=== PATIENT | female | born 1960 | race Two or more races ===

== ENCOUNTER 2017-01-11 16:25 | Inpatient (IN) | payer MEDICARE, MEDICAID ==
[~2017-01-11] VITALS: Ht 165.1 cm; Wt 68.0 kg
[2017-01-11] MEDS ORDERED: Morphine Sulfate 4mg/ml Inj IVP ONE (17:45)
[2017-01-11 18:30] LABS: BASOPHILS % (AUTO) 1.7 % (0.0-2.0); EOSINOPHILS % (AUTO) 5.9 % (0.0-3.0); LYMPHOCYTES % (AUTO) 21.3 % (20.0-45.0); MEAN CORPUSCULAR HEMOGLOBIN 34.7 PG (27.0-31.0); MEAN CORPUSCULAR HGB CONC 35.2 G/DL (32.0-36.0); MEAN CORPUSCULAR VOLUME 99 FL (80-99); MEAN PLATELET VOLUME 5.8 FL (6.5-10.1); MONOCYTES % (AUTO) 5.2 % (1.0-10.0); NEUTROPHILS % (AUTO) 65.9 % (45.0-75.0); PLATELET COUNT 260 K/UL (150-450); RED BLOOD COUNT 3.41 M/UL (4.20-5.40); RED CELL DISTRIBUTION WIDTH 12.1 % (11.6-14.8); WHITE BLOOD COUNT 9.6 K/UL (4.8-10.8)
[2017-01-11 18:48] LABS: ALANINE AMINOTRANSFERASE 9 U/L (3-33); ANION GAP 10 (5-15); ASPARTATE AMINO TRANSFERASE 11 U/L (5-40); CALCIUM 10.3 mg/dL (8.6-10.2); CARBON DIOXIDE 22 mEQ/L (20-30); CHLORIDE 105 mEQ/L (98-107); CREATININE 2.3 mg/dL (0.5-0.9); GLOMERULAR FILTRATION RATE 21.8 mL/min (>60); HEMOLYSIS 3; LIPASE 34 U/L (< 60); POTASSIUM 5.5 mEQ/L (3.4-4.9); SODIUM 137 mEQ/L (135-145); TOTAL PROTEIN 7.2 g/dL (6.6-8.7); TROPONIN I < 0.30 ng/mL (<=0.30)
[2017-01-11] MEDS ORDERED: Sodium Polystyrene Sulfonate 15gm Powder ORAL ONE (19:00)
[2017-01-11] MEDS ORDERED: VITAMIN B COMP1 EAC7 PO (19:24)
[2017-01-11] MEDS ORDERED: LACTULOSE20 GM/301 ORAL (19:24)
[2017-01-11] MEDS ORDERED: ACETAMINOPHEN500 M7 PO (19:24)
[2017-01-11] MEDS ORDERED: ASPIR 8181 MG ORAL (19:24)
[2017-01-11] MEDS ORDERED: SENOKOT-S TABL1 EACH PO (19:24)
[2017-01-11] MEDS ORDERED: MILK OF MA400 MG/51 ORAL (19:24)
[2017-01-11] MEDS ORDERED: LISINOPRIL20 MG ORAL (19:24)
[2017-01-11] MEDS ORDERED: LIPITOR20 MG ORAL (19:24)
[2017-01-11] MEDS ORDERED: GEODON40 MG ORAL (19:24)
[2017-01-11] MEDS ORDERED: GLIPIZIDE5 MG ORAL (19:24)
[2017-01-11] MEDS ORDERED: TRADJENTA5 MG PO (19:24)
[2017-01-11] MEDS ORDERED: LAMICTAL25 MG ORAL (19:24)
[2017-01-11] MEDS ORDERED: AMLODIPINE BESY10 MG ORAL (19:24)
[2017-01-11] MEDS ORDERED: ATIVAN1 MG ORAL (19:24)
[2017-01-11] MEDS ORDERED: MIRALAX17 G2 ORAL (19:24)
[2017-01-11] MEDS ORDERED: VITAMIN C500 M1 ORAL (19:24)
[2017-01-11] MEDS ORDERED: PEPCID20 MG ORAL (19:24)
[2017-01-11] MEDS ORDERED: COLACE100 MG ORAL (19:24)
[2017-01-11] MEDS ORDERED: FENOFIBRATE54 MG ORAL (19:24)
[2017-01-11] MEDS ORDERED: BENZTROPINE ME0.5 MG PO (19:24)
[2017-01-11] MEDS ORDERED: mylanta (19:24)
[2017-01-11] MEDS ORDERED: CATAPRES0.1 MG ORAL (19:24)
[2017-01-11] MEDS ORDERED: IBUPROFEN600 MG ORAL (19:24)
[2017-01-11 19:27] VITALS: BP 137/74
[2017-01-11 19:47] LABS: APPEARANCE,URINE CLEAR; KETONES,URINE NEGATIVE (NEGATIVE); LEUKOCYTE ESTERASE ,URINE 2+ (NEGATIVE); NITRITE,URINE NEGATIVE (NEGATIVE); PH,URINE 5 (4.5-8.0); PROTEIN,URINE 4+ (NEGATIVE); UROBILINOGEN,URINE NORMAL MG/DL (0.0-1.0)
[2017-01-11 19:53] LABS: AMORPHOUS SEDIMENT,UR FEW /LPF; BACTERIA,URINE MODERATE /HPF; SQUAMOUS EPITHELIAL CELL,UR FEW /LPF (NONE/OCC)
[2017-01-11] MEDS ORDERED: Miralax 17gm pkt ORAL PRN (20:45)
[2017-01-11] MEDS ORDERED: Nitroglycerin Subl 0.4mg tab (Bottle Of 25) SL PRN (20:45)
[2017-01-11] MEDS ORDERED: Mylanta II UD 30ml ORAL PRN (20:45)
[2017-01-11] MEDS ORDERED: Ketorolac 30mg Inj IV PRN (20:45)
[2017-01-11] MEDS ORDERED: Morphine Sulfate 2mg/ml Inj IVP ONE (21:00)
[2017-01-11] MEDS: Atorvastatin 20mg tab ORAL SCH (21:00)
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
[2017-01-11 21:50] VITALS: BP 144/68
[2017-01-11] MEDS: Heparin 5000 units/ml inj SUBQ SCH (21:52)
[2017-01-11] MEDS: NovoLOG Insulin Flexpen SUBQ SCH (22:00)
[2017-01-11] MEDS ORDERED: Lactulose 20gm/30ml UDC ORAL PRN (22:45)
[2017-01-12] VITALS: BP 135/72
[2017-01-12 04:00] VITALS: BP 140/67
[2017-01-12] MEDS: NovoLOG Insulin Flexpen SUBQ SCH ×4 (06:30→21:33)
[2017-01-12 06:55] LABS: INR 0.9 (0.9-1.1); PROTHROMBIN TIME 9.2 SEC (9.30-11.50)
[2017-01-12 07:11] LABS: BASOPHILS % (AUTO) 1.4 % (0.0-2.0); EOSINOPHILS % (AUTO) 7.3 % (0.0-3.0); LYMPHOCYTES % (AUTO) 31.1 % (20.0-45.0); MEAN CORPUSCULAR HEMOGLOBIN 32.7 PG (27.0-31.0); MEAN CORPUSCULAR HGB CONC 33.1 G/DL (32.0-36.0); MEAN CORPUSCULAR VOLUME 99 FL (80-99); MEAN PLATELET VOLUME 6.3 FL (6.5-10.1); MONOCYTES % (AUTO) 6.6 % (1.0-10.0); NEUTROPHILS % (AUTO) 53.7 % (45.0-75.0); PLATELET COUNT 256 K/UL (150-450); RED BLOOD COUNT 3.23 M/UL (4.20-5.40); WHITE BLOOD COUNT 6.6 K/UL (4.8-10.8)
[2017-01-12 07:13] LABS: THYROID STIMULATING HORMONE 53.87 uIU/mL (0.300-4.500)
[2017-01-12 07:14] LABS: ALBUMIN/GLOBULIN RATIO 0.9 (1.0-2.7); CALCIUM 10.1 mg/dL (8.6-10.2); CREATININE 1.9 mg/dL (0.5-0.9); GLOMERULAR FILTRATION RATE 27.2 mL/min (>60); POTASSIUM 5.8 mEQ/L (3.4-4.9); TOTAL PROTEIN 6.5 g/dL (6.6-8.7)
[2017-01-12 07:26] LABS: HEMOGLOBIN A1C 5.8 % (< 6.0)
[2017-01-12 08:32] VITALS: BP 150/78
[2017-01-12] MEDS: Heparin 5000 units/ml inj SUBQ SCH ×3 (09:00→21:00)
[2017-01-12] MEDS: Lisinopril 20mg tab ORAL SCH (09:08)
[2017-01-12] MEDS: Morphine Sulfate 2mg/ml Inj IVP PRN ×3 (09:11→21:31)
--- NOTE | 2017-01-12 09:20 | Diagnostic Imaging Report ---
Indication: Abdominal pain Technique: Spiral acquisitions obtained through the abdomen and pelvis. Patient given oral contrast. No IV contrast utilized, per referring physician request.. Multiplanar reconstructions were generated. Total dose length product 986 mGycm. CTDIvol(s) 19 mGy. Dose reduction achieved using automated exposure control Comparison: None Findings: The rectum is considerably distended with feces. Wall is mildly thickened. There is also considerable fecal burden throughout the remainder of the colon. No evidence of diverticulosis or diverticulitis. The appendix is normal. No small bowel distention or small bowel wall thickening. No free or loculated intraperitoneal air or fluid. Distal esophagus, stomach, duodenum are unremarkable. Lack of IV contrast limits assessment of solid organs. There is an opacity at the gallbladder fundus. Uncertain as to whether this is intramural or intraluminal. This measures 12 mm diameter. No biliary ductal dilatation demonstrated. Pancreas, spleen, adrenals, right kidney are unremarkable. There is mild right hydronephrosis and hydroureter. The hydroureter extends to the level of the distended distal sigmoid. No intrinsic obstructing lesion is demonstrated. The bladder is mildly distended. The left kidney is not demonstrated. No pelvic mass or adenopathy. The included lung bases are clear, somewhat obscured by respiratory motion artifact. There is mild lumbar scoliotic deformity. There is mild anterolisthesis of L4 on L5 without associated pars defect. Impression: Evidence of rectal fecal impaction. There may be some associated proctitis Mild right hydronephrosis and hydroureter, may be related to compression by the above Evidence of prior left nephrectomy Gallbladder fundal lesion, uncertain as to whether this is a mural polyp or an intraluminal stone. Consider further evaluation with ultrasound Mild alignment abnormality of L4 on L5 incidental noted. There is also mild lower lumbar scoliotic deformity This agrees with the preliminary interpretation provided overnight by Dr. Bales The CT scanner at [facility] is accredited by the [employer] and the scans are performed using protocols designed to limit radiation exposure to as low as reasonably achievable to attain images of sufficient resolution adequate for diagnostic evaluation.
[2017-01-12] MEDS ORDERED: Sodium Polystyrene Sulfonate 15gm Powder ORAL ONE ×3 (10:45→14:00)
[2017-01-12 12:00] VITALS: BP 151/76
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
--- NOTE | 2017-01-12 15:28 | Diagnostic Imaging Report ---
Indication: Abdominal pain, abnormal liver function tests Technique: Avendano-scale and duplex images of the upper abdomen were obtained Comparison: 01/11/2017 CT scan Findings: Gallbladder is unremarkable, without stones, wall thickening, nor pericholecystic fluid. However, the fundus could not be well visualized. Sonographic Garnett's sign is negative. Common bile duct measures 11 mm in diameter. No intrahepatic biliary ductal dilatation. Liver demonstrates normal echogenicity, no focal abnormality. Portal vein and hepatic veins are patent. Pancreas is unremarkable. Spleen is unremarkable. Left kidney is surgically absent. Right kidney measures 11.3 cm length. Right kidney demonstrates normal echogenicity. There is mild fullness of the right renal collecting system Questionable 2.5 cm hypoechoic lesion seen within the right renal cortex of the interpolar region. No corresponding CT abnormality . Non-aneurysmal abdominal aorta . Impression: Unable to visualize gallbladder fundus well, therefore abnormality described on recent CT scan is not better characterized Extrahepatic biliary ductal dilatation, in retrospect evident on recent CT, but no definite downstream obstruction. Nonetheless, downstream obstruction not completely excludable. Consider MRCP for better characterization if medically indicated Surgically absent left kidney Questionable right renal 2.5 cm mass. Not visible on CT, but evaluation on recent CT scan is limited due to lack of IV contrast administration Mild right renal collecting system fullness, also described on recent CT
[2017-01-12] MEDS ORDERED: Bisacodyl EC 5mg tab ORAL ONE (16:00)
[2017-01-12] MEDS ORDERED: Nulytely 4L ORAL ONE (16:00)
[2017-01-12 16:37] VITALS: BP 120/67
--- NOTE | 2017-01-12 17:33 | Infectious Diseases Prog Note ---
Assessment/Plan Problems: (1) UTI (urinary tract infection) Assessment & Plan: will start ceftriaxon and send urine culture (2) Nausea & vomiting Assessment & Plan: continue supportive care and nausea meds, GI is following (3) Intractable abdominal pain Assessment & Plan: continue pain management, GI is following (4) Hyperkalemia Assessment & Plan: due to renal failure, continue hydration, monitor potassium level. (5) Renal insufficiency Assessment & Plan: suspect dehydration due to vomiting, continue IVF, monitor UOP, and renal function (6) Fecal impaction Assessment & Plan: recommend laxatives with emena, GI is following (7) Extrahepatic obstructive biliary disease Assessment & Plan: recommend MRCP for further evaluation , GI is following Subjective Allergies: Coded Allergies: No Known Allergies (Unverified , 01/11/17) Objective Vital Signs Last 24 Hour Vital Signs Date Time Temp Pulse Resp B/P Pulse Ox O2 Delivery O2 Flow Rate FiO2 01/12/17 16:37 98.2 85 18 120/67 95 Room Air 01/12/17 12:00 97.7 73 18 151/76 98 Room Air 01/12/17 09:08 150/78 01/12/17 09:07 79 150/78 01/12/17 08:32 97.7 150/78 97 Room Air 01/12/17 04:00 97.9 79 16 140/67 98 Room Air 01/12/17 00:00 98.0 84 18 135/72 99 Room Air 01/11/17 21:50 98.4 81 18 144/68 98 Room Air 01/11/17 21:17 98.6 77 15 137/74 100 Room Air 01/11/17 19:27 98.6 77 15 137/74 100 Room Air Height (Feet): 5 Height (Inches): 3.00 Weight (Pounds): 150 Microbiology Date/Time Source Procedure Growth Status 01/11/17 19:22 Urine,Clean Catch Urine Culture - Preliminary NO GROWTH Resulted Laboratory Tests Test 01/11/17 18:18 01/11/17 19:22 01/12/17 06:00 01/12/17 15:00 White Blood Count 9.6 K/UL (4.8-10.8) 6.6 K/UL (4.8-10.8) Red Blood Count 3.41 M/UL (4.20-5.40) L 3.23 M/UL (4.20-5.40) L Hemoglobin 11.8 G/DL (12.0-16.0) L 10.6 G/DL (12.0-16.0) L Hematocrit 33.6 % (37.0-47.0) L 31.9 % (37.0-47.0) L Mean Corpuscular Volume 99 FL (80-99) 99 FL (80-99) Mean Corpuscular Hemoglobin 34.7 PG (27.0-31.0) H 32.7 PG (27.0-31.0) H Mean Corpuscular Hemoglobin Concent 35.2 G/DL (32.0-36.0) 33.1 G/DL (32.0-36.0) Red Cell Distribution Width 12.1 % (11.6-14.8) 12.0 % (11.6-14.8) Platelet Count 260 K/UL (150-450) 256 K/UL (150-450) Mean Platelet Volume 5.8 FL (6.5-10.1) L 6.3 FL (6.5-10.1) L Neutrophils (%) (Auto) 65.9 % (45.0-75.0) 53.7 % (45.0-75.0) Lymphocytes (%) (Auto) 21.3 % (20.0-45.0) 31.1 % (20.0-45.0) Monocytes (%) (Auto) 5.2 % (1.0-10.0) 6.6 % (1.0-10.0) Eosinophils (%) (Auto) 5.9 % (0.0-3.0) H 7.3 % (0.0-3.0) H Basophils (%) (Auto) 1.7 % (0.0-2.0) 1.4 % (0.0-2.0) Sodium Level 137 mEQ/L (135-145) 142 mEQ/L (135-145) Potassium Level 5.5 mEQ/L (3.4-4.9) H 5.8 mEQ/L (3.4-4.9) H Chloride Level 105 mEQ/L (98-107) 112 mEQ/L (98-107) H Carbon Dioxide Level 22 mEQ/L (20-30) 23 mEQ/L (20-30) Anion Gap 10 (5-15) 7 (5-15) Blood Urea Nitrogen 30 mg/dL (7-23) H 27 mg/dL (7-23) H Creatinine 2.3 mg/dL (0.5-0.9) H 1.9 mg/dL (0.5-0.9) H Estimat Glomerular Filtration Rate 21.8 mL/min (>60) 27.2 mL/min (>60) Glucose Level 242 mg/dL (74-106) H 94 mg/dL (74-106) # Calcium Level 10.3 mg/dL (8.6-10.2) H 10.1 mg/dL (8.6-10.2) Total Bilirubin < 0.2 mg/dL (0.0-1.2) 0.2 mg/dL (0.0-1.2) Aspartate Amino Transf (AST/SGOT) 11 U/L (5-40) 11 U/L (5-40) Alanine Aminotransferase (ALT/SGPT) 9 U/L (3-33) 8 U/L (3-33) Alkaline Phosphatase 78 U/L (35-104) 59 U/L (35-104) Troponin I < 0.30 ng/mL (<=0.30) Total Protein 7.2 g/dL (6.6-8.7) 6.5 g/dL (6.6-8.7) L Albumin 3.7 g/dL (3.5-5.2) 3.2 g/dL (3.5-5.2) L Globulin 3.5 g/dL 3.3 g/dL Albumin/Globulin Ratio 1.0 (1.0-2.7) 0.9 (1.0-2.7) L Lipase 34 U/L (< 60) 43 U/L (< 60) Urine Color Yellow Urine Appearance Clear Urine pH 5 (4.5-8.0) Urine Specific [place] 1.015 (1.005-1.035) Urine Protein 4+ (NEGATIVE) H Urine Glucose (UA) 2+ (NEGATIVE) H Urine Ketones Negative (NEGATIVE) Urine Occult Blood 1+ (NEGATIVE) H Urine Nitrite Negative (NEGATIVE) Urine Bilirubin Negative (NEGATIVE) Urine Urobilinogen Normal MG/DL (0.0-1.0) Urine Leukocyte Esterase 2+ (NEGATIVE) H Urine RBC 2-4 /HPF (0 - 2) H Urine WBC 5-10 /HPF (0 - 2) H Urine Squamous Epithelial Cells Few /LPF (NONE/OCC) Urine Amorphous Sediment Few /LPF (NONE) H Urine Bacteria Moderate /HPF (NONE) H Prothrombin Time 9.2 SEC (9.30-11.50) L Prothromb Time International Ratio 0.9 (0.9-1.1) Activated Partial Thromboplast Time 27 SEC (23-33) Hemoglobin A1c 5.8 % (< 6.0) Amylase Level 76 U/L (10-110) Thyroid Stimulating Hormone (TSH) 53.870 uIU/mL (0.300-4.500) Urine Opiates Screen Positive (NEGATIVE) H Urine Barbiturates Screen Negative (NEGATIVE) Phencyclidine (PCP) Screen Negative (NEGATIVE) Urine Amphetamines Screen Negative (NEGATIVE) Urine Benzodiazepines Screen Negative (NEGATIVE) Urine Cocaine Screen Negative (NEGATIVE) Urine Marijuana (THC) Screen Negative (NEGATIVE) Current Medications Medications (Trade) Dose Ordered Sig/Mira Route PRN Reason Start Time Stop Time Status Last Admin Dose Admin Acetaminophen (Tylenol) 650 mg Q4H PRN ORAL fever 01/11/17 20:45 02/10/17 20:44 Amlodipine Besylate (Norvasc) 10 mg DAILY ORAL 01/12/17 09:00 02/11/17 08:59 01/12/17 09:07 Atorvastatin Calcium (Lipitor) 20 mg BEDTIME ORAL 01/11/17 21:00 02/10/17 20:59 Clonidine HCl (Catapres) 0.1 mg Q6H PRN ORAL For High Blood Pressure 01/11/17 20:45 02/10/17 20:44 Dextrose (Dextrose 50%) STAT PRN IV Hypoglycemia 01/11/17 20:45 02/10/17 20:44 Diphenhydramine HCl (Benadryl) 25 mg Q6H PRN ORAL Itching/Pruritis 01/11/17 20:45 02/10/17 20:44 Docusate Sodium 100 mg 100 mg THREE TIMES A DAY ORAL 01/12/17 18:00 02/11/17 17:59 Heparin Sodium (Porcine) (Heparin 5000 units/ml) 5,000 units EVERY 12 HOURS SUBQ 01/11/17 22:00 02/10/17 21:59 01/11/17 21:52 Insulin Aspart (NovoLOG) BEFORE MEALS AND HS SUBQ 01/11/17 22:00 02/10/17 21:59 01/12/17 16:56 Lactulose (Cephulac) 20 gm BIDPRN PRN ORAL Constipation 01/11/17 22:45 02/10/17 22:44 Lamotrigine (LaMICtal) 50 mg BID ORAL 01/12/17 09:00 02/11/17 08:59 01/12/17 09:08 Levothyroxine Sodium (Synthroid) 50 mcg DAILY IV 01/12/17 16:00 02/11/17 15:59 01/12/17 16:45 Lisinopril (Prinivil) 20 mg DAILY ORAL 01/12/17 09:00 02/11/17 08:59 01/12/17 09:08 Morphine Sulfate (Morphine Sulfate) 2 mg Q4H PRN IVP severe Pain (Pain Scale 7-10) 01/11/17 20:45 01/18/17 20:44 01/12/17 16:46 Nitroglycerin (Ntg) 0.4 mg Q5M X 3 DOSES PRN SL Prn Chest Pain 01/11/17 20:45 02/10/17 20:44 Ondansetron HCl (Zofran) 4 mg Q6H PRN IVP Nausea & Vomiting 01/11/17 20:45 02/10/17 20:44 Pantoprazole (Protonix) 40 mg BIAC ORAL 01/12/17 16:30 02/11/17 16:29 01/12/17 16:45 Polyethylene Glycol (Miralax) 17 gm HSPRN PRN ORAL Constipation 01/11/17 20:45 02/10/17 20:44 Sodium Chloride (Sodium Chloride 1000ml bag) 1,000 ml @ 75 mls/hr [id number] IV 01/12/17 21:00 02/11/17 20:59 Tamsulosin HCl (Flomax) 0.4 mg BEDTIME ORAL 01/12/17 21:00 02/11/17 20:59 Temazepam (Restoril) 15 mg HSPRN PRN ORAL Insomnia 7/11/17 20:45 01/18/17 20:44 Cliff Palomares M.D. Jan 12, 2017 17:33
[2017-01-12] MEDS: Docusate 100mg cap ORAL SCH (17:36)
--- NOTE | 2017-01-12 18:57 | Consultation ---
History of Present Illness General Chief Complaint: Abdominal Pain Referring physician: CAMILLA WHITE Reason for Consultation: ABDOMINAL PAIN Present Illness Allergies: Coded Allergies: No Known Allergies (Unverified , 01/11/17) Medication History Scheduled Amlodipine Besylate* (Amlodipine Besylate*), 10 MG ORAL DAILY, (Reported) Ascorbic Acid* (Vitamin C*), 500 MG ORAL DAILY, (Reported) Aspirin* (Aspir 81*), 81 MG ORAL DAILY, (Reported) Atorvastatin Calcium* (Lipitor*), 20 MG ORAL BEDTIME, (Reported) Benztropine Mesylate* (Cogentin*), 1 MG PO BID, (Reported) Docusate Sodium* (Colace*), 200 MG ORAL TWICE A DAY, (Reported) Famotidine (Pepcid), 20 MG ORAL DAILY, (Reported) Fenofibrate (Fenofibrate), 54 MG ORAL DAILY, (Reported) Glipizide* (Glipizide*), 20 MG ORAL BIDAC, (Reported) Lactulose (Lactulose*), 20 ML ORAL BID, (Reported) Lamotrigine* (Lamictal*), 50 MG ORAL BID, (Reported) Linagliptin (Tradjenta), 5 MG PO DAILY, (Reported) Lisinopril (Lisinopril*), 20 MG ORAL DAILY, (Reported) Polyethylene Glycol 3350* (Miralax*), 17 GM ORAL DAILY, (Reported) Sennosides/Docusate Sodium (Senokot-S Tablet), 1 EACH PO BID, (Reported) Vit B Comp/C/Fa/Iron/Vit E (Vitamin B Complex Tablet), 1 EACH PO DAILY, ( Reported) Ziprasidone Hcl* (Geodon*), 60 MG ORAL TWICE A DAY, (Reported) [mylanta], 30 ML Q4HR, (Reported) Scheduled PRN Acetaminophen (Acetaminophen), 650 MG PO Q4HR PRN for Moderate Pain (Pain Scale 4-6), (Reported) Clonidine Hcl* (Catapres*), 0.1 MG ORAL EVERY 6 HOURS PRN for For High Blood Pressure, (Reported) Ibuprofen* (Motrin*), 400 MG ORAL THREE TIMES A DAY PRN for For Pain, (Reported) Lorazepam* (Ativan*), 1 MG ORAL Q8HR PRN for For Anxiety, (Reported) Magnesium Hydroxide* (Milk Of Magnesia*), 30 ML ORAL Q6HR PRN for Constipation, (Reported) Patient History Healthcare decision maker Resuscitation status Advanced Directive on File Physical Exam Last 24 Hour Vital Signs Date Time Temp Pulse Resp B/P Pulse Ox O2 Delivery O2 Flow Rate FiO2 01/12/17 16:37 98.2 85 18 120/67 95 Room Air 01/12/17 12:00 97.7 73 18 151/76 98 Room Air 01/12/17 09:08 150/78 01/12/17 09:07 79 150/78 01/12/17 08:32 97.7 150/78 97 Room Air 01/12/17 04:00 97.9 79 16 140/67 98 Room Air 01/12/17 00:00 98.0 84 18 135/72 99 Room Air 01/11/17 21:50 98.4 81 18 144/68 98 Room Air 01/11/17 21:17 98.6 77 15 137/74 100 Room Air 01/11/17 19:27 98.6 77 15 137/74 100 Room Air Intake and Output 01/11/17 01/12/17 19:00 07:00 Intake Total 450 ml Balance 450 ml Intake IV Total 450 ml # Voids 3 # Bowel Movements 1 Laboratory Tests Test 01/11/17 19:22 01/12/17 06:00 01/12/17 15:00 Urine Color Yellow Urine Appearance Clear Urine pH 5 (4.5-8.0) Urine Specific [place] 1.015 (1.005-1.035) Urine Protein 4+ (NEGATIVE) H Urine Glucose (UA) 2+ (NEGATIVE) H Urine Ketones Negative (NEGATIVE) Urine Occult Blood 1+ (NEGATIVE) H Urine Nitrite Negative (NEGATIVE) Urine Bilirubin Negative (NEGATIVE) Urine Urobilinogen Normal MG/DL (0.0-1.0) Urine Leukocyte Esterase 2+ (NEGATIVE) H Urine RBC 2-4 /HPF (0 - 2) H Urine WBC 5-10 /HPF (0 - 2) H Urine Squamous Epithelial Cells Few /LPF (NONE/OCC) Urine Amorphous Sediment Few /LPF (NONE) H Urine Bacteria Moderate /HPF (NONE) H White Blood Count 6.6 K/UL (4.8-10.8) Red Blood Count 3.23 M/UL (4.20-5.40) L Hemoglobin 10.6 G/DL (12.0-16.0) L Hematocrit 31.9 % (37.0-47.0) L Mean Corpuscular Volume 99 FL (80-99) Mean Corpuscular Hemoglobin 32.7 PG (27.0-31.0) H Mean Corpuscular Hemoglobin Concent 33.1 G/DL (32.0-36.0) Red Cell Distribution Width 12.0 % (11.6-14.8) Platelet Count 256 K/UL (150-450) Mean Platelet Volume 6.3 FL (6.5-10.1) L Neutrophils (%) (Auto) 53.7 % (45.0-75.0) Lymphocytes (%) (Auto) 31.1 % (20.0-45.0) Monocytes (%) (Auto) 6.6 % (1.0-10.0) Eosinophils (%) (Auto) 7.3 % (0.0-3.0) H Basophils (%) (Auto) 1.4 % (0.0-2.0) Prothrombin Time 9.2 SEC (9.30-11.50) L Prothromb Time International Ratio 0.9 (0.9-1.1) Activated Partial Thromboplast Time 27 SEC (23-33) Sodium Level 142 mEQ/L (135-145) Potassium Level 5.8 mEQ/L (3.4-4.9) H Chloride Level 112 mEQ/L (98-107) H Carbon Dioxide Level 23 mEQ/L (20-30) Anion Gap 7 (5-15) Blood Urea Nitrogen 27 mg/dL (7-23) H Creatinine 1.9 mg/dL (0.5-0.9) H Estimat Glomerular Filtration Rate 27.2 mL/min (>60) Glucose Level 94 mg/dL (74-106) # Hemoglobin A1c 5.8 % (< 6.0) Calcium Level 10.1 mg/dL (8.6-10.2) Total Bilirubin 0.2 mg/dL (0.0-1.2) Aspartate Amino Transf (AST/SGOT) 11 U/L (5-40) Alanine Aminotransferase (ALT/SGPT) 8 U/L (3-33) Alkaline Phosphatase 59 U/L (35-104) Total Protein 6.5 g/dL (6.6-8.7) L Albumin 3.2 g/dL (3.5-5.2) L Globulin 3.3 g/dL Albumin/Globulin Ratio 0.9 (1.0-2.7) L Amylase Level 76 U/L (10-110) Lipase 43 U/L (< 60) Thyroid Stimulating Hormone (TSH) 53.870 uIU/mL (0.300-4.500) Urine Opiates Screen Positive (NEGATIVE) H Urine Barbiturates Screen Negative (NEGATIVE) Phencyclidine (PCP) Screen Negative (NEGATIVE) Urine Amphetamines Screen Negative (NEGATIVE) Urine Benzodiazepines Screen Negative (NEGATIVE) Urine Cocaine Screen Negative (NEGATIVE) Urine Marijuana (THC) Screen Negative (NEGATIVE) Microbiology Date/Time Source Procedure Growth Status 01/11/17 19:22 Urine,Clean Catch Urine Culture - Preliminary NO GROWTH Resulted Height (Feet): 5 Height (Inches): 3.00 Weight (Pounds): 150 Medications Current Medications Medications (Trade) Dose Ordered Sig/Mira Route PRN Reason Start Time Stop Time Status Last Admin Dose Admin Acetaminophen (Tylenol) 650 mg Q4H PRN ORAL fever 01/11/17 20:45 02/10/17 20:44 Amlodipine Besylate (Norvasc) 10 mg DAILY ORAL 01/12/17 09:00 02/11/17 08:59 01/12/17 09:07 Atorvastatin Calcium (Lipitor) 20 mg BEDTIME ORAL 01/11/17 21:00 02/10/17 20:59 Ceftriaxone Sodium/Dextrose (Rocephin/D5W) 55 ml @ 110 mls/hr Q24H IVPB 01/12/17 19:30 01/19/17 19:29 Clonidine HCl (Catapres) 0.1 mg Q6H PRN ORAL For High Blood Pressure 01/11/17 20:45 02/10/17 20:44 Dextrose (Dextrose 50%) STAT PRN IV Hypoglycemia 01/11/17 20:45 02/10/17 20:44 Diphenhydramine HCl (Benadryl) 25 mg Q6H PRN ORAL Itching/Pruritis 01/11/17 20:45 02/10/17 20:44 Docusate Sodium 100 mg 100 mg THREE TIMES A DAY ORAL 01/12/17 18:00 02/11/17 17:59 7/12/17 17:36 Heparin Sodium (Porcine) (Heparin 5000 units/ml) 5,000 units EVERY 12 HOURS SUBQ 01/11/17 22:00 02/10/17 21:59 01/11/17 21:52 Insulin Aspart (NovoLOG) BEFORE MEALS AND HS SUBQ 01/11/17 22:00 02/10/17 21:59 01/12/17 16:56 Lactulose (Cephulac) 20 gm BIDPRN PRN ORAL Constipation 01/11/17 22:45 02/10/17 22:44 Lamotrigine (LaMICtal) 50 mg BID ORAL 01/12/17 09:00 02/11/17 08:59 01/12/17 17:37 Levothyroxine Sodium 50 mcg 50 mcg DAILY IV 01/12/17 16:00 02/11/17 15:59 01/12/17 16:45 Lisinopril (Prinivil) 20 mg DAILY ORAL 01/12/17 09:00 02/11/17 08:59 01/12/17 09:08 Morphine Sulfate (Morphine Sulfate) 2 mg Q4H PRN IVP severe Pain (Pain Scale 7-10) 01/11/17 20:45 01/18/17 20:44 01/12/17 16:46 Nitroglycerin (Ntg) 0.4 mg Q5M X 3 DOSES PRN SL Prn Chest Pain 01/11/17 20:45 02/10/17 20:44 Ondansetron HCl (Zofran) 4 mg Q6H PRN IVP Nausea & Vomiting 01/11/17 20:45 02/10/17 20:44 Pantoprazole (Protonix) 40 mg BIAC ORAL 01/12/17 16:30 02/11/17 16:29 01/12/17 16:45 Polyethylene Glycol (Miralax) 17 gm HSPRN PRN ORAL Constipation 01/11/17 20:45 02/10/17 20:44 Sodium Chloride (Sodium Chloride 1000ml bag) 1,000 ml @ 75 mls/hr [id number] IV 01/12/17 21:00 02/11/17 20:59 Tamsulosin HCl (Flomax) 0.4 mg BEDTIME ORAL 01/12/17 21:00 02/11/17 20:59 Temazepam (Restoril) 15 mg HSPRN PRN ORAL Insomnia 01/11/17 20:45 01/18/17 20:44 KERRY DEAL Jan 12, 2017 18:57
[2017-01-12 20:00] VITALS: BP 143/94
[2017-01-12] MEDS: cefTRIAXone 1 GM in D5W 55 ML IVPB SCH (20:02)
[2017-01-12] MEDS: Atorvastatin 20mg tab ORAL SCH (21:30)
[2017-01-12] MEDS: Tamsulosin 0.4mg cap ORAL SCH (21:30)
--- NOTE | 2017-01-12 22:00 | History and Physical Report ---
DATE OF ADMISSION: 01/12/2017 TIME SEEN: 2 p.m. CONSULTANTS: 1. Fritz Hillman M.D. 2. Bandar Olmedo M.D. 3. Sheri Elias M.D. 4. Tang Oliva M.D. CHIEF COMPLAINT: Weakness, hypoglycemia, abdominal pain, and fecal impaction. BRIEF HISTORY: This is a 56-year-old female from [facility], presented with the above-mentioned diagnoses, also has a history of encephalopathy, admitted to Med floor for further treatment. Currently, slightly confused in bed. Abdominal pain has somewhat improved. PAST MEDICAL HISTORY: Includes weakness, abdominal pain, acute renal failure, and encephalopathy. PAST SURGICAL HISTORY: Possible kidney surgery. MEDICATIONS: Include Flomax, Colace, Protonix, Synthroid, Norvasc, Lamictal, Prinivil, heparin, Norvasc, and Lipitor. ALLERGIES: Denies. SOCIAL HISTORY: Positive smoking. No alcohol. No intravenous drug abuse. FAMILY HISTORY: Noncontributory. REVIEW OF SYSTEMS: No chest pain. No shortness of breath. Slight nausea. No vomiting or diarrhea. PHYSICAL EXAMINATION: GENERAL: Calm in room, oriented x2, in no acute distress. VITAL SIGNS: Temperature is 97 degrees, pulse 73, respirations 18, and blood pressure 151/76. CARDIOVASCULAR: No murmurs. LUNGS: Distant and clear. ABDOMEN: Bowel sounds, positive. Slightly tender. No guarding, no rigidity, and no rebound. EXTREMITIES: Show no cyanosis, clubbing, or edema. NEUROLOGIC: The patient is slightly weak, otherwise, moves all four extremities. LABORATORY AND DIAGNOSTIC DATA: Labs at this time show hemoglobin 10.6, otherwise CBC is normal. BMP show potassium 5.8 and chloride 112. BUN and creatinine are 27 and 1.9. Albumin 3.2. TSH is 53. INR is 0.9. Urinalysis, 2+ leukocyte esterase ASSESSMENT: 1. Weakness. 2. Urinary tract infection. 3. Hypoglycemia. 4. Abdominal pain. 5. Anemia. 6. Acute renal failure. 7. Fecal impaction. 8. Proctitis. 9. Encephalopathy. 10. Right hydronephrosis. PLAN: 1. Continue premedications. 2. OT, PT, and dietary evaluation. 3. Antibiotics per Infectious Disease. 4. Nephrology followup. 5. IV fluids. 6. CBC and BMP in the morning. 7. Dr. Hillman, Dr. Olmedo, Dr. Elias, Dr. Oliva, Dr. Lane, and Dr. Regalado to consult. We will continue to follow this patient. Hernán Davis D.O. DR: DUGLAS JOB#: [id number] CC:
--- NOTE | 2017-01-12 23:30 | Consultation ---
DATE OF CONSULTATION: 01/12/2017 INFECTIOUS DISEASE CONSULTATION REQUESTING PHYSICIAN: Hernán Davis D.O. REASON FOR CONSULTATION: Urinary tract infection possible proctitis. Recommendation for antibiotics treatment. HISTORY OF PRESENT ILLNESS: The patient is a 56-year-old female with history of psych disorder, GERD, and hypertension, who [facility] due to abdominal pain, which has been chronic for two months. The patient has not been eating or drinking and where she has been refusing her medication at the [facility] became weak and debilitated. Her pain mainly localized in the periumbilical area, sharp pain, 9/10 and nonradiating. No fever or chills. The patient was found to have a temperature in the emergency room of 99. Her white count was 9.6, but her urinalysis showed evidence of infection. A CT scan of the abdomen and pelvis showed evidence of fecal impaction with possible proctitis so I was consulted by the primary provider for antibiotics treatment and further management. As of note, the patient is a poor historian, cannot provide any history. History was mainly obtained from the medical record. PAST MEDICAL HISTORY: Significant for hypertension, GERD, psych disorder, COPD, hypothyroidism, diabetes, chronic kidney disease, and schizophrenia. PAST SURGICAL HISTORY: Negative. ALLERGIES: No known drug allergy. MEDICATIONS: Please refer to the MAR for further details of her medication list. FAMILY HISTORY: Unable to obtain. SOCIAL HISTORY: She is a [facility] resident. No recent drugs, tobacco, or alcohol. PHYSICAL EXAMINATION: VITAL SIGNS: Temperature 98.2 degrees, pulse 85, respirations 18, blood pressure 120/67, and saturation 98% on room air. GENERAL: The patient is an elderly female, lying in bed, comfortable, awake, nonverbal, does not follow commands, not in distress. HEENT: Normocephalic and atraumatic. Pupils are reactive to light. Pale sclera. Dry oral mucosa. NECK: Supple. No lymphadenopathy. CARDIOVASCULAR: Regular rate and rhythm. No murmur. LUNGS: Clear bilaterally. Diminished breathing sounds at the bases. ABDOMEN: Soft. Tender in the periumbilical area. No rebound. No organomegaly. EXTREMITIES: No edema or cyanosis. SKIN: No rash or hives. LABORATORY DATA: Showed white count of 6.6 and hemoglobin of 10.6. BUN of 27 and creatinine of 1.9. Urinalysis showed +2 leukocyte esterase, WBC 5 to 10, and bacteria moderate amount. MICROBIOLOGY: Urine culture is pending. IMAGING: CT scan of the abdomen and pelvis on 01/11/2017 showed fecal impaction with possible proctitis, mild right hydronephrosis and hydroureter may be due to compression by the fecal impaction, evidence of prior left nephrectomy, extrahepatic bile duct dilatation. ASSESSMENT AND RECOMMENDATIONS: 1. Urinary tract infection. We will start the patient on ceftriaxone and send urine for culture. 2. Intractable abdominal pain suspect due to fecal impaction. Recommend laxatives and enema. Gastrointestinal is following. 3. Nausea and vomiting due to fecal impaction and possible ileus. Continue supportive care, hydration and laxative. 4. Hyperkalemia due to renal failure and dehydration. Continue fluid. Monitor potassium level. 5. Renal insufficiency due to dehydration and poor oral intake and vomiting. Continue intravenous fluids. Monitor urine output. Consult Renal. 6. Fecal impaction. Recommend laxative and enema. Gastrointestinal is following. 7. Extrahepatic obstructive biliary disease. Recommend magnetic resonance cholangiopancreatography for further evaluation. Gastrointestinal is following. Cliff Palomares M.D. DR: EMERSON JOB#: [id number] CC:
[2017-01-13] VITALS (10 sets, daily range): BP systolic 121–144; BP diastolic 65–90
[2017-01-13] MEDS: Morphine Sulfate 2mg/ml Inj IVP PRN ×2 (03:06→23:27)
[2017-01-13] MEDS: NovoLOG Insulin Flexpen SUBQ SCH ×4 (06:02→20:51)
[2017-01-13 07:02] LABS: BASOPHILS % (AUTO) 0.9 % (0.0-2.0); EOSINOPHILS % (AUTO) 2.1 % (0.0-3.0); LYMPHOCYTES % (AUTO) 17.6 % (20.0-45.0); MEAN CORPUSCULAR HEMOGLOBIN 32.3 PG (27.0-31.0); MEAN CORPUSCULAR HGB CONC 32.9 G/DL (32.0-36.0); MEAN CORPUSCULAR VOLUME 98 FL (80-99); MEAN PLATELET VOLUME 5.6 FL (6.5-10.1); MONOCYTES % (AUTO) 7.4 % (1.0-10.0); PLATELET COUNT 270 K/UL (150-450); RED BLOOD COUNT 3.35 M/UL (4.20-5.40); WHITE BLOOD COUNT 9.4 K/UL (4.8-10.8)
[2017-01-13 07:28] LABS: INR 0.9 (0.9-1.1); PROTHROMBIN TIME 9.6 SEC (9.30-11.50)
[2017-01-13] MEDS: sitaGLIPtin 50mg tab ORAL SCH (07:30)
[2017-01-13 07:31] LABS: ALANINE AMINOTRANSFERASE 9 U/L (3-33); ANION GAP 9 (5-15); ASPARTATE AMINO TRANSFERASE 15 U/L (5-40); CALCIUM 8.9 mg/dL (8.6-10.2); CARBON DIOXIDE 24 mEQ/L (20-30); CHLORIDE 108 mEQ/L (98-107); CHOLESTEROL 119 mg/dL (< 200); CHOLESTEROL/HDL RATIO 3.4 (3.3-4.4); CREATININE 1.6 mg/dL (0.5-0.9); CRP QUANT 4.5 mg/dL (< 0.5); GLOMERULAR FILTRATION RATE 33.1 mL/min (>60); HEMOLYSIS 2; LDL CHOLESTEROL (CALC.) 57 mg/dL (60-99); MAGNESIUM 1.6 mg/dL (1.7-2.5); POTASSIUM 3.8 mEQ/L (3.4-4.9); SODIUM 141 mEQ/L (135-145); TOTAL PROTEIN 6.3 g/dL (6.6-8.7); URIC ACID 4.7 mg/dL (3.0-7.5)
[2017-01-13 08:11] LABS: HEMOGLOBIN A1C 5.9 % (< 6.0)
[2017-01-13] MEDS: Docusate 100mg cap ORAL SCH ×3 (09:00→18:00)
[2017-01-13] MEDS: Heparin 5000 units/ml inj SUBQ SCH ×3 (09:00→21:00)
[2017-01-13] MEDS: Lisinopril 20mg tab ORAL SCH (09:00)
--- NOTE | 2017-01-13 09:10 | General Progress Note ---
Assessment/Plan Status: stable - from renal stand Assessment/Plan status: Acute Renal Failure- Underlying CKD s/p Left Nephrectomy- Right Hydronephrosis Fecal impaction Psych disease HTN Anemia HypoThyroidism HyperKalemia Plan: Hydrate- Synthroid- Enema Kayexelate BP check monitor renal parameters and lytes Subjective ROS Limited/Unobtainable: No Constitutional: Reports: malaise Allergies: Coded Allergies: No Known Allergies (Unverified , 01/11/17) Objective Last 24 Hour Vital Signs Date Time Temp Pulse Resp B/P Pulse Ox O2 Delivery O2 Flow Rate FiO2 01/13/17 08:39 98.0 88 20 131/84 95 Room Air 01/13/17 04:48 98.6 70 22 136/76 97 Room Air 01/13/17 00:24 98.7 104 19 141/90 97 Room Air 01/12/17 20:00 99.1 89 22 143/94 97 Room Air 01/12/17 16:37 98.2 85 18 120/67 95 Room Air 01/12/17 12:00 97.7 73 18 151/76 98 Room Air 01/12/17 09:08 150/78 01/12/17 09:07 79 150/78 Intake and Output 01/12/17 01/13/17 19:00 07:00 Intake Total 690 ml Output Total 800 ml Balance -110 ml Intake IV Total 690 ml Output Urine Total 800 ml # Voids 1 Laboratory Tests 01/12/17 15:00: Urine Opiates Screen PositiveH, Urine Barbiturates Screen Negative, Phencyclidine (PCP) Screen Negative, Urine Amphetamines Screen Negative, Urine Benzodiazepines Screen Negative, Urine Cocaine Screen Negative, Urine Marijuana (THC) Screen Negative 01/13/17 06:20: White Blood Count 9.4, Red Blood Count 3.35L, Hemoglobin 10.8L, Hematocrit 32.9L , Mean Corpuscular Volume 98, Mean Corpuscular Hemoglobin 32.3H, Mean Corpuscular Hemoglobin Concent 32.9, Red Cell Distribution Width 12.0, Platelet Count 270, Mean Platelet Volume 5.6L, Neutrophils (%) (Auto) 72.0, Lymphocytes ( %) (Auto) 17.6L, Monocytes (%) (Auto) 7.4, Eosinophils (%) (Auto) 2.1, Basophils (%) (Auto) 0.9, Prothrombin Time 9.6, Prothromb Time International Ratio 0.9, Activated Partial Thromboplast Time 28, Sodium Level 141, Potassium Level 3.8, Chloride Level 108H, Carbon Dioxide Level 24, Anion Gap 9, Blood Urea Nitrogen 21, Creatinine 1.6H, Estimat Glomerular Filtration Rate 33.1, Glucose Level 106, Hemoglobin A1c 5.9, Uric Acid 4.7, Calcium Level 8.9, Phosphorus Level 5.0H, Magnesium Level 1.6L, Total Bilirubin < 0.2, Gamma Glutamyl Transpeptidase 12, Aspartate Amino Transf (AST/SGOT) 15, Alanine Aminotransferase (ALT/SGPT) 9, Alkaline Phosphatase 55, Total Creatine Kinase 83 , C-Reactive Protein, Quantitative 4.5H, Pro-B-Type Natriuretic Peptide 100, Total Protein 6.3L, Albumin 3.2L, Globulin 3.1, Albumin/Globulin Ratio 1.0, Triglycerides Level 137, Cholesterol Level 119, LDL Cholesterol 57L, HDL Cholesterol 35, Cholesterol/HDL Ratio 3.4 Height (Feet): 5 Height (Inches): 5.00 Weight (Pounds): 150 General Appearance: no apparent distress Objective no change in PE NIRAJ VELASQUEZ Jan 13, 2017 09:10
--- NOTE | 2017-01-13 09:45 | Consultation ---
DATE OF CONSULTATION: 01/13/2017 REFERRING PHYSICIAN: Hernán Davis D.O. REASON FOR CONSULTATION: 1. Diabetes management. 2. Hypothyroidism. HISTORY OF PRESENT ILLNESS: It is important to note that history is obtained from the review of the chart and medical records since the patient is a poor historian. The patient with past medical history of psychiatric illness, hypertension, diabetes, hypothyroidism, resides in a [facility] facility, who presented with an abdominal pain and generalized weakness. The patient has not been taking her medication due to abdominal discomfort. She had a temperature of 99 and was diagnosed with urinary tract infection. CT of the abdomen showed evidence of faecal impaction or possible proctitis. Our Endocrinology was consulted regarding management of diabetes as well as TSH was significantly elevated at 15 range. PAST MEDICAL HISTORY: 1. Hypothyroidism. 2. Diabetes. 3. Hypertension. 4. Psychiatric disorder. 5. GERD. 6. COPD. 7. Chronic kidney disease. 8. Schizophrenia. PAST SURGICAL HISTORY: None. MEDICATIONS: Medications reviewed and reconciled. ALLERGIES TO MEDICATIONS: None. SOCIAL HISTORY: she lives in [facility] facility. No smoking, alcohol, or drug use. FAMILY HISTORY: Not obtainable. REVIEW OF SYSTEMS: Difficult to obtain. PHYSICAL EXAMINATION: GENERAL: The patient is arousable. VITAL SIGNS: Blood pressure is 112/60, pulse of 80, temperature of 98.2 degrees, and respiratory rate of 18. HEENT: Pupils are equal and reactive to light. NECK: No JVD. LUNGS: Clear. HEART: Regular. ABDOMEN: Positive bowel sounds. EXTREMITIES: Lower extremity, trace edema. LABORATORY DATA: Sodium 142, potassium 5.8, chloride 112, bicarbonate 22, BUN 27, creatinine 1.9, and glucose of 94. DIAGNOSES: 1. Diabetes, out of control. 2. Hypothyroidism. 3. Elevated TSH. 4. Abdominal pain. 5. Psychiatric illness. PLAN: 1. Continue blood glucose monitoring before meals and bedtime with NovoLog sliding scale coverage. 2. Add Starlix 60 mg a.c. t.i.d. 3. Add Januvia renal dose of 50 mg daily. 4. Continue with levothyroxine IV daily for couple of days and then we are going to switch levothyroxine tablet 100 mcg daily. 5. TSH will be repeated in three to four weeks as an outpatient. I will follow the patient during the hospital stay for her endocrine issues. Thank you, Dr. Davis, for the courtesy of this consultation. Vincenzo Lane M.D. DR: TEENA JOB#: [id number] CC: KIANA
[2017-01-13] MEDS: Nateglinide 60mg tab ORAL SCH ×2 (11:30→16:10)
[2017-01-13] MEDS ORDERED: Fleet's Mineral Oil Enema RECTAL ONE (12:30)
[2017-01-13] MEDS ORDERED: NS 550ML IV ONE (13:20)
--- NOTE | 2017-01-13 13:23 | Pre-Procedure Note/Attestation ---
Pre-Procedure Note/Attestation Complete Prior to Procedure Planned Procedure: not applicable Procedure Narrative: egd/colon Indications for Procedure Pre-Operative Diagnosis: anemia Attestation I attest that I discussed the nature of the procedure; its benefits; risks and complications; and alternatives (and the risks and benefits of such alternatives ), prior to the procedure, with the patient (or the patient's legal field service representative). I attest that, if there was a reasonable possibility of needing a blood transfusion, the patient (or the patient's legal field service representative) was given the [facility] standardized written summary, pursuant to the [place] Blood Safety Act ([place] Health and Safety Code # 1645, as amended). I attest that I re-evaluated the patient just prior to the surgery and that there has been no change in the patient's H&P, except as documented below: FREDIS ASCENCIO Jan 13, 2017 13:23
--- NOTE | 2017-01-13 13:29 | Anethesia Preoperative Eval ---
Anesthesia Pre-op PMH/ROS General Date of Evaluation: Jan 13, 2017 Time of Evaluation: 13:28 Anesthesiologist: evaristo ASA Score: ASA 3 Mallampati Score Class I : Soft palate, uvula, fauces, pillars visible Class II: Soft palate, uvula, fauces visible Class III: Soft palate, base of uvula visible Class IV: Only hard plate visible Mallampati Classification: Class I Allergies: Coded Allergies: No Known Allergies (Unverified , 01/11/17) Anesthesia Pre-op Phys. Exam Physician Exam Last Vital Signs Date Time Temp Pulse Resp B/P Pulse Ox O2 Delivery O2 Flow Rate FiO2 01/13/17 11:28 98.4 85 20 135/80 95 Room Air Anesthesia Pre-op A/P Labs Hematology Test 01/13/17 06:20 White Blood Count 9.4 K/UL (4.8-10.8) Red Blood Count 3.35 M/UL (4.20-5.40) L Hemoglobin 10.8 G/DL (12.0-16.0) L Hematocrit 32.9 % (37.0-47.0) L Mean Corpuscular Volume 98 FL (80-99) Mean Corpuscular Hemoglobin 32.3 PG (27.0-31.0) H Mean Corpuscular Hemoglobin Concent 32.9 G/DL (32.0-36.0) Red Cell Distribution Width 12.0 % (11.6-14.8) Platelet Count 270 K/UL (150-450) Mean Platelet Volume 5.6 FL (6.5-10.1) L Neutrophils (%) (Auto) 72.0 % (45.0-75.0) Lymphocytes (%) (Auto) 17.6 % (20.0-45.0) L Monocytes (%) (Auto) 7.4 % (1.0-10.0) Eosinophils (%) (Auto) 2.1 % (0.0-3.0) Basophils (%) (Auto) 0.9 % (0.0-2.0) Coagulation Test 01/13/17 06:20 Prothrombin Time 9.6 SEC (9.30-11.50) Prothromb Time International Ratio 0.9 (0.9-1.1) Activated Partial Thromboplast Time 28 SEC (23-33) Chemistry Test 01/13/17 06:20 Sodium Level 141 mEQ/L (135-145) Potassium Level 3.8 mEQ/L (3.4-4.9) Chloride Level 108 mEQ/L (98-107) H Carbon Dioxide Level 24 mEQ/L (20-30) Anion Gap 9 (5-15) Blood Urea Nitrogen 21 mg/dL (7-23) Creatinine 1.6 mg/dL (0.5-0.9) H Estimat Glomerular Filtration Rate 33.1 mL/min (>60) Glucose Level 106 mg/dL (74-106) Hemoglobin A1c 5.9 % (< 6.0) Uric Acid 4.7 mg/dL (3.0-7.5) Calcium Level 8.9 mg/dL (8.6-10.2) Phosphorus Level 5.0 mg/dL (2.5-4.8) H Magnesium Level 1.6 mg/dL (1.7-2.5) L Total Bilirubin < 0.2 mg/dL (0.0-1.2) Gamma Glutamyl Transpeptidase 12 U/L (5-36) Aspartate Amino Transf (AST/SGOT) 15 U/L (5-40) Alanine Aminotransferase (ALT/SGPT) 9 U/L (3-33) Alkaline Phosphatase 55 U/L (35-104) Total Creatine Kinase 83 U/L (26-140) C-Reactive Protein, Quantitative 4.5 mg/dL (< 0.5) H Pro-B-Type Natriuretic Peptide 100 pg/mL (0-125) Total Protein 6.3 g/dL (6.6-8.7) L Albumin 3.2 g/dL (3.5-5.2) L Globulin 3.1 g/dL Albumin/Globulin Ratio 1.0 (1.0-2.7) Triglycerides Level 137 mg/dL (< 150) Cholesterol Level 119 mg/dL (< 200) LDL Cholesterol 57 mg/dL (60-99) L HDL Cholesterol 35 mg/dL (> 60) Cholesterol/HDL Ratio 3.4 (3.3-4.4) Jasmyn Arroyo MD Jan 13, 2017 13:29
[2017-01-13] MEDS ORDERED: Propofol 10mg/ml 20ml IV ONE (13:30)
[2017-01-13] MEDS ORDERED: LR 1000ml ONE (13:30)
--- NOTE | 2017-01-13 13:32 | Endoscopy Procedure Note ---
Endoscopy Procedure Note Indication for Procedure: anemia Procedures Performed: EGD, colonoscopy Operative Findings/Diagnosis: gastrtiis, hemorrhoids Specimen: yes Pt Tolerated Procedure Well: Yes Estimated Blood Loss: none Anesthesiologist: jeevan Anesthesia: MAC Implant(s) used?: No 50 yrs or older w/o bx or poly: Not Applicable 10yrs. F/U not recommended: Not Applicable FREDIS ASCENCIO Jan 13, 2017 13:32
--- NOTE | 2017-01-13 13:50 | Immediate Post-Op Evaluation ---
Immediate Post-Op Evalulation Immediate Post-Op Evalulation Procedure: egd colonoscopy Date of Evaluation: Jan 13, 2017 Time of Evaluation: 14:00 Nausea: No Vomiting: No Hydration Status: adequate Jasmyn Arroyo MD Jan 13, 2017 13:49
--- NOTE | 2017-01-13 14:42 | Infectious Diseases Prog Note ---
Assessment/Plan Problems: (1) UTI (urinary tract infection) Assessment & Plan: on ceftriaxon, pending urine culture (2) Nausea & vomiting Assessment & Plan: continue supportive care and nausea meds, GI is following (3) Intractable abdominal pain Assessment & Plan: continue pain management, GI is following (4) Hyperkalemia Assessment & Plan: due to renal failure, continue hydration, monitor potassium level. (5) Renal insufficiency Assessment & Plan: suspect dehydration due to vomiting, continue IVF, monitor UOP, and renal function (6) Fecal impaction Assessment & Plan: recommend laxatives with emena, GI is following (7) Extrahepatic obstructive biliary disease Assessment & Plan: recommend MRCP for further evaluation , GI is following Subjective Constitutional: Reports: no symptoms HEENT: Reports: no symptoms Respiratory: Reports: no symptoms Cardiovascular: Reports: no symptoms Gastrointestinal/Abdominal: Reports: bloating, constipation Genitourinary: Reports: no symptoms Neurologic: Reports: no symptoms Psychiatric: Reports: no symptoms Skin: Reports: no symptoms Endocrine: Reports: no symptoms Hematologic: Reports: no symptoms Musculoskeletal: Reports: no symptoms Allergies: Coded Allergies: No Known Allergies (Unverified , 01/11/17) Objective Vital Signs Last 24 Hour Vital Signs Date Time Temp Pulse Resp B/P Pulse Ox O2 Delivery O2 Flow Rate FiO2 01/13/17 14:03 98.0 70 20 144/70 100 Room Air 01/13/17 14:00 65 20 131/77 100 Room Air 01/13/17 13:55 66 20 126/75 100 Nasal Cannula 3.0 01/13/17 13:50 98.0 67 20 121/70 100 Nasal Cannula 3.0 01/13/17 11:28 98.4 85 20 135/80 95 Room Air 01/13/17 08:39 98.0 88 20 131/84 95 Room Air 01/13/17 04:48 98.6 70 22 136/76 97 Room Air 01/13/17 00:24 98.7 104 19 141/90 97 Room Air 01/12/17 20:00 99.1 89 22 143/94 97 Room Air 01/12/17 16:37 98.2 85 18 120/67 95 Room Air Height (Feet): 5 Height (Inches): 5.00 Weight (Pounds): 150 General Appearance: WD/WN, no acute distress HEENT: normocephalic, atraumatic, anicteric, mucous membranes moist, PERRL Respiratory/Chest: chest wall non-tender, lungs clear, normal breath sounds, no respiratory distress, no accessory muscle use Cardiovascular: normal peripheral pulses, normal rate, regular rhythm, no gallop/murmur, no JVD Abdomen: normal bowel sounds, soft, non tender, no organomegaly, non distended , no mass Extremities: no cyanosis, no clubbing Skin: no rash, no lesions Neurologic/Psychiatric: alert, oriented x 3 Lymphatic: no neck adenopathy, no groin adenopathy Musculoskeletal: normal muscle bulk Microbiology Date/Time Source Procedure Growth Status 01/11/17 19:22 Urine,Clean Catch Urine Culture - Preliminary Gram Negative Bacillus 1 Resulted Laboratory Tests Test 01/12/17 15:00 01/13/17 06:20 Urine Opiates Screen Positive (NEGATIVE) H Urine Barbiturates Screen Negative (NEGATIVE) Phencyclidine (PCP) Screen Negative (NEGATIVE) Urine Amphetamines Screen Negative (NEGATIVE) Urine Benzodiazepines Screen Negative (NEGATIVE) Urine Cocaine Screen Negative (NEGATIVE) Urine Marijuana (THC) Screen Negative (NEGATIVE) White Blood Count 9.4 K/UL (4.8-10.8) Red Blood Count 3.35 M/UL (4.20-5.40) L Hemoglobin 10.8 G/DL (12.0-16.0) L Hematocrit 32.9 % (37.0-47.0) L Mean Corpuscular Volume 98 FL (80-99) Mean Corpuscular Hemoglobin 32.3 PG (27.0-31.0) H Mean Corpuscular Hemoglobin Concent 32.9 G/DL (32.0-36.0) Red Cell Distribution Width 12.0 % (11.6-14.8) Platelet Count 270 K/UL (150-450) Mean Platelet Volume 5.6 FL (6.5-10.1) L Neutrophils (%) (Auto) 72.0 % (45.0-75.0) Lymphocytes (%) (Auto) 17.6 % (20.0-45.0) L Monocytes (%) (Auto) 7.4 % (1.0-10.0) Eosinophils (%) (Auto) 2.1 % (0.0-3.0) Basophils (%) (Auto) 0.9 % (0.0-2.0) Prothrombin Time 9.6 SEC (9.30-11.50) Prothromb Time International Ratio 0.9 (0.9-1.1) Activated Partial Thromboplast Time 28 SEC (23-33) Sodium Level 141 mEQ/L (135-145) Potassium Level 3.8 mEQ/L (3.4-4.9) Chloride Level 108 mEQ/L (98-107) H Carbon Dioxide Level 24 mEQ/L (20-30) Anion Gap 9 (5-15) Blood Urea Nitrogen 21 mg/dL (7-23) Creatinine 1.6 mg/dL (0.5-0.9) H Estimat Glomerular Filtration Rate 33.1 mL/min (>60) Glucose Level 106 mg/dL (74-106) Hemoglobin A1c 5.9 % (< 6.0) Uric Acid 4.7 mg/dL (3.0-7.5) Calcium Level 8.9 mg/dL (8.6-10.2) Phosphorus Level 5.0 mg/dL (2.5-4.8) H Magnesium Level 1.6 mg/dL (1.7-2.5) L Total Bilirubin < 0.2 mg/dL (0.0-1.2) Gamma Glutamyl Transpeptidase 12 U/L (5-36) Aspartate Amino Transf (AST/SGOT) 15 U/L (5-40) Alanine Aminotransferase (ALT/SGPT) 9 U/L (3-33) Alkaline Phosphatase 55 U/L (35-104) Total Creatine Kinase 83 U/L (26-140) C-Reactive Protein, Quantitative 4.5 mg/dL (< 0.5) H Pro-B-Type Natriuretic Peptide 100 pg/mL (0-125) Total Protein 6.3 g/dL (6.6-8.7) L Albumin 3.2 g/dL (3.5-5.2) L Globulin 3.1 g/dL Albumin/Globulin Ratio 1.0 (1.0-2.7) Triglycerides Level 137 mg/dL (< 150) Cholesterol Level 119 mg/dL (< 200) LDL Cholesterol 57 mg/dL (60-99) L HDL Cholesterol 35 mg/dL (> 60) Cholesterol/HDL Ratio 3.4 (3.3-4.4) Current Medications Medications (Trade) Dose Ordered Sig/Mira Route PRN Reason Start Time Stop Time Status Last Admin Dose Admin Acetaminophen (Tylenol) 650 mg Q4H PRN ORAL fever 01/11/17 20:45 02/10/17 20:44 Amlodipine Besylate (Norvasc) 10 mg DAILY ORAL 01/12/17 09:00 02/11/17 08:59 01/12/17 09:07 Atorvastatin Calcium (Lipitor) 20 mg BEDTIME ORAL 01/11/17 21:00 02/10/17 20:59 01/12/17 21:30 Ceftriaxone Sodium/Dextrose (Rocephin/D5W) 55 ml @ 110 mls/hr Q24H IVPB 01/12/17 19:30 01/19/17 19:29 01/12/17 20:02 Clonidine HCl (Catapres) 0.1 mg Q6H PRN ORAL For High Blood Pressure 01/11/17 20:45 02/10/17 20:44 Dextrose (Dextrose 50%) STAT PRN IV Hypoglycemia 01/11/17 20:45 02/10/17 20:44 Diphenhydramine HCl (Benadryl) 25 mg Q6H PRN ORAL Itching/Pruritis 01/11/17 20:45 02/10/17 20:44 Docusate Sodium (Colace) 100 mg THREE TIMES A DAY ORAL 01/12/17 18:00 02/11/17 17:59 01/12/17 17:36 Heparin Sodium (Porcine) (Heparin 5000 units/ml) 5,000 units EVERY 12 HOURS SUBQ 01/11/17 22:00 02/10/17 21:59 01/11/17 21:52 Insulin Aspart (NovoLOG) BEFORE MEALS AND HS SUBQ 01/11/17 22:00 02/10/17 21:59 01/12/17 21:33 Lactulose (Cephulac) 20 gm BIDPRN PRN ORAL Constipation 01/11/17 22:45 02/10/17 22:44 Lamotrigine (LaMICtal) 50 mg BID ORAL 01/12/17 09:00 02/11/17 08:59 01/12/17 17:37 Levothyroxine Sodium 50 mcg 50 mcg DAILY IV 01/12/17 16:00 02/11/17 15:59 01/12/17 16:45 Lisinopril (Prinivil) 20 mg DAILY ORAL 01/12/17 09:00 02/11/17 08:59 01/12/17 09:08 Morphine Sulfate (Morphine Sulfate) 2 mg Q4H PRN IVP severe Pain (Pain Scale 7-10) 01/11/17 20:45 01/18/17 20:44 01/13/17 03:06 Nateglinide 60 mg 60 mg TIAC ORAL 01/13/17 11:30 02/12/17 11:29 Nitroglycerin (Ntg) 0.4 mg Q5M X 3 DOSES PRN SL Prn Chest Pain 01/11/17 20:45 02/10/17 20:44 Ondansetron HCl (Zofran) 4 mg Q6H PRN IVP Nausea & Vomiting 01/11/17 20:45 02/10/17 20:44 Pantoprazole (Protonix) 40 mg BIAC ORAL 01/12/17 16:30 02/11/17 16:29 01/12/17 16:45 Polyethylene Glycol (Miralax) 17 gm HSPRN PRN ORAL Constipation 01/11/17 20:45 02/10/17 20:44 Sitagliptin Phosphate (Januvia) 50 mg ACBREAKFAST ORAL 01/13/17 07:30 02/12/17 07:29 Sodium Chloride (Sodium Chloride 1000ml bag) 1,000 ml @ 50 mls/hr Q20H IV 01/13/17 10:00 02/12/17 09:59 Tamsulosin HCl (Flomax) 0.4 mg BEDTIME ORAL 01/12/17 21:00 02/11/17 20:59 01/12/17 21:30 Temazepam (Restoril) 15 mg HSPRN PRN ORAL Insomnia 01/11/17 20:45 01/18/17 20:44 Cliff Palomares M.D. Jan 13, 2017 14:42
--- NOTE | 2017-01-13 15:17 | General Progress Note ---
Assessment/Plan Problem List: (1) Renal insufficiency ICD Codes: N28.9 - Disorder of kidney and ureter, unspecified SNOMED: 675550914, 828197257 (2) Anemia ICD Codes: D64.9 - Anemia, unspecified SNOMED: 261629645 (3) UTI (urinary tract infection) ICD Codes: N39.0 - Urinary tract infection, site not specified SNOMED: 87325859 (4) Fecal impaction ICD Codes: K56.41 - Fecal impaction SNOMED: 05180701 Status: stable, progressing, tolerating diet Assessment/Plan ot pt diet abx cbc bmp am Subjective Allergies: Coded Allergies: No Known Allergies (Unverified , 01/11/17) All Systems: reviewed and negative except above Subjective sleepy calm Objective Last 24 Hour Vital Signs Date Time Temp Pulse Resp B/P Pulse Ox O2 Delivery O2 Flow Rate FiO2 01/13/17 14:03 98.0 70 20 144/70 100 Room Air 01/13/17 14:00 65 20 131/77 100 Room Air 01/13/17 13:55 66 20 126/75 100 Nasal Cannula 3.0 01/13/17 13:50 98.0 67 20 121/70 100 Nasal Cannula 3.0 01/13/17 11:28 98.4 85 20 135/80 95 Room Air 01/13/17 08:39 98.0 88 20 131/84 95 Room Air 01/13/17 04:48 98.6 70 22 136/76 97 Room Air 01/13/17 00:24 98.7 104 19 141/90 97 Room Air 01/12/17 20:00 99.1 89 22 143/94 97 Room Air 01/12/17 16:37 98.2 85 18 120/67 95 Room Air Intake and Output 01/12/17 01/13/17 19:00 07:00 Intake Total 690 ml Output Total 800 ml Balance -110 ml Intake IV Total 690 ml Output Urine Total 800 ml # Voids 1 Laboratory Tests 01/13/17 06:20: White Blood Count 9.4, Red Blood Count 3.35L, Hemoglobin 10.8L, Hematocrit 32.9L , Mean Corpuscular Volume 98, Mean Corpuscular Hemoglobin 32.3H, Mean Corpuscular Hemoglobin Concent 32.9, Red Cell Distribution Width 12.0, Platelet Count 270, Mean Platelet Volume 5.6L, Neutrophils (%) (Auto) 72.0, Lymphocytes ( %) (Auto) 17.6L, Monocytes (%) (Auto) 7.4, Eosinophils (%) (Auto) 2.1, Basophils (%) (Auto) 0.9, Prothrombin Time 9.6, Prothromb Time International Ratio 0.9, Activated Partial Thromboplast Time 28, Sodium Level 141, Potassium Level 3.8, Chloride Level 108H, Carbon Dioxide Level 24, Anion Gap 9, Blood Urea Nitrogen 21, Creatinine 1.6H, Estimat Glomerular Filtration Rate 33.1, Glucose Level 106, Hemoglobin A1c 5.9, Uric Acid 4.7, Calcium Level 8.9, Phosphorus Level 5.0H, Magnesium Level 1.6L, Total Bilirubin < 0.2, Gamma Glutamyl Transpeptidase 12, Aspartate Amino Transf (AST/SGOT) 15, Alanine Aminotransferase (ALT/SGPT) 9, Alkaline Phosphatase 55, Total Creatine Kinase 83 , C-Reactive Protein, Quantitative 4.5H, Pro-B-Type Natriuretic Peptide 100, Total Protein 6.3L, Albumin 3.2L, Globulin 3.1, Albumin/Globulin Ratio 1.0, Triglycerides Level 137, Cholesterol Level 119, LDL Cholesterol 57L, HDL Cholesterol 35, Cholesterol/HDL Ratio 3.4 Height (Feet): 5 Height (Inches): 5.00 Weight (Pounds): 150 General Appearance: lethargic EENT: normal ENT inspection Neck: normal alignment Cardiovascular: normal peripheral pulses, normal rate, regular rhythm Respiratory/Chest: chest wall non-tender, lungs clear, normal breath sounds Abdomen: normal bowel sounds, non tender, soft Extremities: normal inspection Edema: no edema noted Arm (L), no edema noted Arm (R), no edema noted Leg (L), no edema noted Leg (R), no edema noted Pedal (L), no edema noted Pedal (R), no edema noted Generalized Neurologic: motor weakness Skin: normal pigmentation, warm/dry CAMILLA WHITE Jan 13, 2017 15:17
[2017-01-13] MEDS ORDERED: Tubing IV Secondary IV ONE (18:21)
--- NOTE | 2017-01-13 18:46 | Pulmonology Progress Note ---
Assessment/Plan Problems: (1) Intractable abdominal pain (2) ATN (acute tubular necrosis) (3) UTI (urinary tract infection) (4) Hyperkalemia (5) Anemia (6) Fecal impaction Assessment/Plan NPO IV fluids GI evaluation check electrolytes All notes reviewed Subjective ROS Limited/Unobtainable: No Allergies: Coded Allergies: No Known Allergies (Unverified , 01/11/17) Objective Last 24 Hour Vital Signs Date Time Temp Pulse Resp B/P Pulse Ox O2 Delivery O2 Flow Rate FiO2 01/13/17 16:02 98.0 88 20 139/88 95 Room Air 01/13/17 14:03 98.0 70 20 144/70 100 Room Air 01/13/17 14:00 65 20 131/77 100 Room Air 01/13/17 13:55 66 20 126/75 100 Nasal Cannula 3.0 01/13/17 13:50 98.0 67 20 121/70 100 Nasal Cannula 3.0 01/13/17 11:28 98.4 85 20 135/80 95 Room Air 01/13/17 08:39 98.0 88 20 131/84 95 Room Air 01/13/17 04:48 98.6 70 22 136/76 97 Room Air 01/13/17 00:24 98.7 104 19 141/90 97 Room Air 01/12/17 20:00 99.1 89 22 143/94 97 Room Air Intake and Output 01/12/17 01/13/17 19:00 07:00 Intake Total 690 ml Output Total 800 ml Balance -110 ml IV Total 690 ml Output Urine Total 800 ml # Voids 1 General Appearance: WD/WN HEENT: normocephalic, atraumatic Respiratory/Chest: chest wall non-tender, lungs clear Breasts: no masses Cardiovascular: normal peripheral pulses Abdomen: normal bowel sounds, soft, non tender Extremities: no cyanosis Neurologic/Psychiatric: mobile application development lead II-XII grossly normal Microbiology Date/Time Source Procedure Growth Status 01/11/17 19:22 Urine,Clean Catch Urine Culture - Preliminary Gram Negative Bacillus 1 Resulted Laboratory Tests 01/13/17 06:20: White Blood Count 9.4, Red Blood Count 3.35L, Hemoglobin 10.8L, Hematocrit 32.9L , Mean Corpuscular Volume 98, Mean Corpuscular Hemoglobin 32.3H, Mean Corpuscular Hemoglobin Concent 32.9, Red Cell Distribution Width 12.0, Platelet Count 270, Mean Platelet Volume 5.6L, Neutrophils (%) (Auto) 72.0, Lymphocytes ( %) (Auto) 17.6L, Monocytes (%) (Auto) 7.4, Eosinophils (%) (Auto) 2.1, Basophils (%) (Auto) 0.9, Prothrombin Time 9.6, Prothromb Time International Ratio 0.9, Activated Partial Thromboplast Time 28, Sodium Level 141, Potassium Level 3.8, Chloride Level 108H, Carbon Dioxide Level 24, Anion Gap 9, Blood Urea Nitrogen 21, Creatinine 1.6H, Estimat Glomerular Filtration Rate 33.1, Glucose Level 106, Hemoglobin A1c 5.9, Uric Acid 4.7, Calcium Level 8.9, Phosphorus Level 5.0H, Magnesium Level 1.6L, Total Bilirubin < 0.2, Gamma Glutamyl Transpeptidase 12, Aspartate Amino Transf (AST/SGOT) 15, Alanine Aminotransferase (ALT/SGPT) 9, Alkaline Phosphatase 55, Total Creatine Kinase 83 , C-Reactive Protein, Quantitative 4.5H, Pro-B-Type Natriuretic Peptide 100, Total Protein 6.3L, Albumin 3.2L, Globulin 3.1, Albumin/Globulin Ratio 1.0, Triglycerides Level 137, Cholesterol Level 119, LDL Cholesterol 57L, HDL Cholesterol 35, Cholesterol/HDL Ratio 3.4 Current Medications Medications (Trade) Dose Ordered Sig/Mira Route PRN Reason Start Time Stop Time Status Last Admin Dose Admin Acetaminophen (Tylenol) 650 mg Q4H PRN ORAL fever 01/11/17 20:45 02/10/17 20:44 Amlodipine Besylate (Norvasc) 10 mg DAILY ORAL 01/12/17 09:00 02/11/17 08:59 01/12/17 09:07 Atorvastatin Calcium (Lipitor) 20 mg BEDTIME ORAL 01/11/17 21:00 02/10/17 20:59 01/12/17 21:30 Ceftriaxone Sodium/Dextrose (Rocephin/D5W) 55 ml @ 110 mls/hr Q24H IVPB 01/12/17 19:30 01/19/17 19:29 01/12/17 20:02 Clonidine HCl (Catapres) 0.1 mg Q6H PRN ORAL For High Blood Pressure 01/11/17 20:45 02/10/17 20:44 Dextrose (Dextrose 50%) STAT PRN IV Hypoglycemia 01/11/17 20:45 02/10/17 20:44 Diphenhydramine HCl (Benadryl) 25 mg Q6H PRN ORAL Itching/Pruritis 01/11/17 20:45 02/10/17 20:44 Docusate Sodium (Colace) 100 mg THREE TIMES A DAY ORAL 01/12/17 18:00 02/11/17 17:59 01/12/17 17:36 Heparin Sodium (Porcine) (Heparin 5000 units/ml) 5,000 units EVERY 12 HOURS SUBQ 01/11/17 22:00 02/10/17 21:59 01/11/17 21:52 Insulin Aspart (NovoLOG) BEFORE MEALS AND HS SUBQ 01/11/17 22:00 02/10/17 21:59 01/13/17 16:45 Lactulose (Cephulac) 20 gm BIDPRN PRN ORAL Constipation 01/11/17 22:45 02/10/17 22:44 Lamotrigine (LaMICtal) 50 mg BID ORAL 01/12/17 09:00 02/11/17 08:59 01/13/17 18:13 Levothyroxine Sodium 50 mcg 50 mcg DAILY IV 01/12/17 16:00 02/11/17 15:59 01/12/17 16:45 Lisinopril (Prinivil) 20 mg DAILY ORAL 01/12/17 09:00 02/11/17 08:59 01/12/17 09:08 Morphine Sulfate (Morphine Sulfate) 2 mg Q4H PRN IVP severe Pain (Pain Scale 7-10) 01/11/17 20:45 01/18/17 20:44 01/13/17 03:06 Nateglinide 60 mg 60 mg TIAC ORAL 01/13/17 11:30 02/12/17 11:29 01/13/17 16:10 Nitroglycerin (Ntg) 0.4 mg Q5M X 3 DOSES PRN SL Prn Chest Pain 01/11/17 20:45 02/10/17 20:44 Ondansetron HCl (Zofran) 4 mg Q6H PRN IVP Nausea & Vomiting 01/11/17 20:45 02/10/17 20:44 Pantoprazole (Protonix) 40 mg BIAC ORAL 01/12/17 16:30 02/11/17 16:29 01/13/17 16:10 Polyethylene Glycol (Miralax) 17 gm HSPRN PRN ORAL Constipation 01/11/17 20:45 02/10/17 20:44 Sitagliptin Phosphate (Januvia) 50 mg ACBREAKFAST ORAL 01/13/17 07:30 02/12/17 07:29 Sodium Chloride (Sodium Chloride 1000ml bag) 1,000 ml @ 50 mls/hr Q20H IV 01/13/17 10:00 02/12/17 09:59 Tamsulosin HCl (Flomax) 0.4 mg BEDTIME ORAL 01/12/17 21:00 02/11/17 20:59 01/12/17 21:30 Temazepam (Restoril) 15 mg HSPRN PRN ORAL Insomnia 01/11/17 20:45 01/18/17 20:44 KERRY DEAL Jan 13, 2017 18:46
[2017-01-13] MEDS: cefTRIAXone 1 GM in D5W 55 ML IVPB SCH (19:49)
[2017-01-13] MEDS: Tamsulosin 0.4mg cap ORAL SCH ×2 (20:49→21:00)
[2017-01-13] MEDS: Atorvastatin 20mg tab ORAL SCH ×2 (20:49→21:00)
--- NOTE | 2017-01-14 04:45 | Procedure Note ---
SURGEON: Fritz Hillman M.D. PROCEDURE: Upper endoscopy with biopsy and colonoscopy. ANESTHESIOLOGIST: INSTRUMENT: Olympus adult flexible upper endoscope and colonoscope. INDICATION: Anemia. REASON FOR PROCEDURE: The procedure, risks, benefits, and possible consequences, including hemorrhage, aspiration, perforation and infection, and alternative treatments, were explained to the patient/legal guardian by Dr. Fritz Hillman and the patient/legal guardian understood and accepted these risks. PROCEDURE: After informed consent was obtained and the patient was adequately sedated, Olympus upper endoscope was advanced from the mouth into the second portion of duodenum and retroflexion was performed in the stomach. The patient had diffuse gastritis. Random biopsy from antrum was obtained to rule out H. pylori infection. In the duodenum, there was evidence of duodenitis. Random biopsy from duodenum was also obtained. At this time, the upper endoscope was retrieved and the patient was turned over for colonoscopy. First, a rectal exam was performed, which was normal. Then, the scope was advanced from the rectum into the mid transverse colon. Given poor quality of prep, we could not pass the scope beyond this point. Even to the point that we pass the scope, the quality was extremely poor. In the rectosigmoid area, there was a solid stool covering most of the mucosa so this examination is definitely inadequate and limited. At this time, the scope was carefully removed and procedure was terminated. SUMMARY FINDINGS: 1. Gastritis. 2. Duodenitis. 3. Incomplete colonoscopy examination secondary to poor prep. RECOMMENDATIONS: Followup biopsy results and treat accordingly. Fritz Hillman M.D. DR: EDWARD JOB#: [id number] CC:
[2017-01-14] MEDS: Nateglinide 60mg tab ORAL SCH ×2 (05:52→11:47)
[2017-01-14] MEDS: sitaGLIPtin 50mg tab ORAL SCH (05:53)
[2017-01-14] MEDS: NovoLOG Insulin Flexpen SUBQ SCH ×2 (05:59→11:59)
[2017-01-14 06:16] LABS: BASOPHILS % (AUTO) 0.8 % (0.0-2.0); EOSINOPHILS % (AUTO) 5.2 % (0.0-3.0); LYMPHOCYTES % (AUTO) 19.5 % (20.0-45.0); MEAN CORPUSCULAR HEMOGLOBIN 32.4 PG (27.0-31.0); MEAN CORPUSCULAR HGB CONC 32.8 G/DL (32.0-36.0); MEAN CORPUSCULAR VOLUME 99 FL (80-99); MONOCYTES % (AUTO) 6.5 % (1.0-10.0); PLATELET COUNT 241 K/UL (150-450); RED BLOOD COUNT 3.03 M/UL (4.20-5.40); RED CELL DISTRIBUTION WIDTH 11.9 % (11.6-14.8); WHITE BLOOD COUNT 8.4 K/UL (4.8-10.8)
[2017-01-14 06:52] LABS: CALCIUM 9.3 mg/dL (8.6-10.2); CREATININE 1.5 mg/dL (0.5-0.9); GLOMERULAR FILTRATION RATE 35.7 mL/min (>60)
--- NOTE | 2017-01-14 07:57 | General Progress Note ---
Assessment/Plan Status: stable Status Narrative Cr down 1.5 Assessment/Plan status: Acute Renal Failure- Underlying CKD s/p Left Nephrectomy- Right Hydronephrosis Fecal impaction Psych disease HTN Anemia HypoThyroidism HyperKalemia Plan: Hydrate- Synthroid- Enema BP check monitor renal parameters and lytes OK to DC ?? Subjective ROS Limited/Unobtainable: No Allergies: Coded Allergies: No Known Allergies (Unverified , 01/11/17) Objective Last 24 Hour Vital Signs Date Time Temp Pulse Resp B/P Pulse Ox O2 Delivery O2 Flow Rate FiO2 01/14/17 04:00 20 01/13/17 20:00 98.2 86 20 123/65 99 Room Air 01/13/17 16:02 98.0 88 20 139/88 95 Room Air 01/13/17 14:03 98.0 70 20 144/70 100 Room Air 01/13/17 14:00 65 20 131/77 100 Room Air 01/13/17 13:55 66 20 126/75 100 Nasal Cannula 3.0 01/13/17 13:50 98.0 67 20 121/70 100 Nasal Cannula 3.0 01/13/17 11:28 98.4 85 20 135/80 95 Room Air 01/13/17 08:39 98.0 88 20 131/84 95 Room Air Intake and Output 01/13/17 01/14/17 19:00 07:00 Intake Total 490 ml 160 ml Output Total 400 ml 1000 ml Balance 90 ml -840 ml Intake Oral 240 ml IV Total 250 ml 160 ml Output Urine Total 400 ml 1000 ml # Bowel Movements 2 Laboratory Tests 01/14/17 05:40: White Blood Count 8.4, Red Blood Count 3.03L, Hemoglobin 9.8L, Hematocrit 30.0L , Mean Corpuscular Volume 99, Mean Corpuscular Hemoglobin 32.4H, Mean Corpuscular Hemoglobin Concent 32.8, Red Cell Distribution Width 11.9, Platelet Count 241, Mean Platelet Volume 6.0L, Neutrophils (%) (Auto) 68.0, Lymphocytes ( %) (Auto) 19.5L, Monocytes (%) (Auto) 6.5, Eosinophils (%) (Auto) 5.2H, Basophils (%) (Auto) 0.8, Sodium Level 144, Potassium Level 4.0, Chloride Level 107, Carbon Dioxide Level 23, Anion Gap 14, Blood Urea Nitrogen 13, Creatinine 1.5H, Estimat Glomerular Filtration Rate 35.7, Glucose Level 115H, Calcium Level 9.3 Height (Feet): 5 Height (Inches): 5.00 Weight (Pounds): 150 General Appearance: no apparent distress Objective no change in PE NIRAJ VELASQUEZ Jan 14, 2017 07:57
[2017-01-14 08:00] VITALS: BP 132/60
--- NOTE | 2017-01-14 08:21 | Pulmonology Progress Note ---
Assessment/Plan Assessment/Plan ASSESSMENT intractable abdominal pain ( due to fecal impaction and gastritis) hyperkalemia - resolved acute renal failure on CKD ( likely due to dehydration) dehydration s/p left nephrectomy R hydronephrosis and hydroureter possible UTI fecal impaction s/p EGD and colon gastritis duodenitis anemia hypothyroidism with elevated TSH DM OOC HTN PLAN OF CARE MS floor IVF CT A/P with evidence of fecal impaction, R hydronephrosis and hydroureter initially NPO Golytely given for prep to EGD and colon GI follows s/p EGD and colon 01/13 with findings of gastritis, duodenitis, hemorrhoids ( poor prep as per GI) fup with biopsy results thorough bowel regimen started on diet, tolerates stable amylase, lipase, LFT HH with small trend down abdominal US no biliary duct dilatation seen monitor HH, transfuse prn nephro follows IV hydration ARF likely 2 to R hydro creat tending down monitor lytes, correct as need, s/p Kayexalate, hyperkalemia resolved avoid nephrotoxic endo follows BS management with Starlix and Januvia and prn SS of insulin [id number] elevated TSH with known hx of hypothyroidism on Synthroid IV, change to po ( increase dose) as per endo check TSH in 3-4- weeks abx ID follows urine cx with GNB, colony count only 10-20 and mixed GPO , 10-20 colony count on empiric abx, ? dc - per ID DVT, GI prophylaxis BP management with CCB and PETER , optimize further as needed case discussed and evaluated by supervising physician Subjective Allergies: Coded Allergies: No Known Allergies (Unverified , 01/11/17) Subjective denies chest pain, SOB abdominal pain resolved creat trending down tolerates diet s/p EGD and colon HH with some trend down Objective Last 24 Hour Vital Signs Date Time Temp Pulse Resp B/P Pulse Ox O2 Delivery O2 Flow Rate FiO2 01/14/17 04:00 20 01/13/17 20:00 98.2 86 20 123/65 99 Room Air 01/13/17 16:02 98.0 88 20 139/88 95 Room Air 01/13/17 14:03 98.0 70 20 144/70 100 Room Air 01/13/17 14:00 65 20 131/77 100 Room Air 01/13/17 13:55 66 20 126/75 100 Nasal Cannula 3.0 01/13/17 13:50 98.0 67 20 121/70 100 Nasal Cannula 3.0 01/13/17 11:28 98.4 85 20 135/80 95 Room Air 01/13/17 08:39 98.0 88 20 131/84 95 Room Air Intake and Output 01/13/17 01/14/17 19:00 07:00 Intake Total 490 ml 160 ml Output Total 400 ml 1000 ml Balance 90 ml -840 ml Intake Oral 240 ml IV Total 250 ml 160 ml Output Urine Total 400 ml 1000 ml # Bowel Movements 2 General Appearance: no acute distress, other - awake, alert, responsive, NAD female HEENT: normocephalic, atraumatic, anicteric, mucous membranes moist Respiratory/Chest: lungs clear, no respiratory distress, no accessory muscle use Cardiovascular: normal peripheral pulses, normal rate, regular rhythm, no JVD Abdomen: soft, non tender, non distended Neurologic/Psychiatric: alert, responsive Musculoskeletal: normal muscle bulk Microbiology Date/Time Source Procedure Growth Status 01/11/17 19:22 Urine,Clean Catch Urine Culture - Preliminary Gram Negative Bacillus 1 Mixed Gram Positive Organism Resulted Laboratory Tests 01/14/17 05:40: White Blood Count 8.4, Red Blood Count 3.03L, Hemoglobin 9.8L, Hematocrit 30.0L , Mean Corpuscular Volume 99, Mean Corpuscular Hemoglobin 32.4H, Mean Corpuscular Hemoglobin Concent 32.8, Red Cell Distribution Width 11.9, Platelet Count 241, Mean Platelet Volume 6.0L, Neutrophils (%) (Auto) 68.0, Lymphocytes ( %) (Auto) 19.5L, Monocytes (%) (Auto) 6.5, Eosinophils (%) (Auto) 5.2H, Basophils (%) (Auto) 0.8, Sodium Level 144, Potassium Level 4.0, Chloride Level 107, Carbon Dioxide Level 23, Anion Gap 14, Blood Urea Nitrogen 13, Creatinine 1.5H, Estimat Glomerular Filtration Rate 35.7, Glucose Level 115H, Calcium Level 9.3 Current Medications Medications (Trade) Dose Ordered Sig/Mira Route PRN Reason Start Time Stop Time Status Last Admin Dose Admin Acetaminophen (Tylenol) 650 mg Q4H PRN ORAL fever 01/11/17 20:45 02/10/17 20:44 Amlodipine Besylate (Norvasc) 10 mg DAILY ORAL 01/12/17 09:00 02/11/17 08:59 01/12/17 09:07 Atorvastatin Calcium (Lipitor) 20 mg BEDTIME ORAL 01/11/17 21:00 02/10/17 20:59 01/12/17 21:30 Ceftriaxone Sodium/Dextrose (Rocephin/D5W) 55 ml @ 110 mls/hr Q24H IVPB 01/12/17 19:30 01/19/17 19:29 01/13/17 19:49 Clonidine HCl (Catapres) 0.1 mg Q6H PRN ORAL For High Blood Pressure 01/11/17 20:45 02/10/17 20:44 Dextrose (Dextrose 50%) STAT PRN IV Hypoglycemia 01/11/17 20:45 02/10/17 20:44 Diphenhydramine HCl (Benadryl) 25 mg Q6H PRN ORAL Itching/Pruritis 01/11/17 20:45 02/10/17 20:44 Docusate Sodium (Colace) 100 mg THREE TIMES A DAY ORAL 01/12/17 18:00 02/11/17 17:59 01/12/17 17:36 Heparin Sodium (Porcine) (Heparin 5000 units/ml) 5,000 units EVERY 12 HOURS SUBQ 01/11/17 22:00 02/10/17 21:59 01/11/17 21:52 Insulin Aspart (NovoLOG) BEFORE MEALS AND HS SUBQ 01/11/17 22:00 02/10/17 21:59 01/14/17 05:59 Lactulose (Cephulac) 20 gm BIDPRN PRN ORAL Constipation 01/11/17 22:45 02/10/17 22:44 Lamotrigine (LaMICtal) 50 mg BID ORAL 01/12/17 09:00 02/11/17 08:59 01/13/17 18:13 Levothyroxine Sodium 50 mcg 50 mcg DAILY IV 01/12/17 16:00 02/11/17 15:59 01/12/17 16:45 Lisinopril (Prinivil) 20 mg DAILY ORAL 01/12/17 09:00 02/11/17 08:59 01/12/17 09:08 Morphine Sulfate (Morphine Sulfate) 2 mg Q4H PRN IVP severe Pain (Pain Scale 7-10) 01/11/17 20:45 01/18/17 20:44 01/13/17 23:27 Nateglinide 60 mg 60 mg TIAC ORAL 01/13/17 11:30 02/12/17 11:29 01/14/17 05:52 Nitroglycerin (Ntg) 0.4 mg Q5M X 3 DOSES PRN SL Prn Chest Pain 01/11/17 20:45 02/10/17 20:44 Ondansetron HCl (Zofran) 4 mg Q6H PRN IVP Nausea & Vomiting 01/11/17 20:45 02/10/17 20:44 01/13/17 23:26 Pantoprazole (Protonix) 40 mg BIAC ORAL 01/12/17 16:30 02/11/17 16:29 01/14/17 05:53 Polyethylene Glycol (Miralax) 17 gm HSPRN PRN ORAL Constipation 01/11/17 20:45 02/10/17 20:44 Sitagliptin Phosphate (Januvia) 50 mg ACBREAKFAST ORAL 01/13/17 07:30 02/12/17 07:29 01/14/17 05:53 Sodium Chloride (Sodium Chloride 1000ml bag) 1,000 ml @ 50 mls/hr Q20H IV 01/13/17 10:00 02/12/17 09:59 01/14/17 05:03 Tamsulosin HCl (Flomax) 0.4 mg BEDTIME ORAL 01/12/17 21:00 02/11/17 20:59 01/12/17 21:30 Temazepam (Restoril) 15 mg HSPRN PRN ORAL Insomnia 01/11/17 20:45 01/18/17 20:44 Alfredo (Mika)Stephanie NP Jan 14, 2017 08:21
[2017-01-14] MEDS: Lisinopril 20mg tab ORAL SCH (08:55)
[2017-01-14] MEDS: Docusate 100mg cap ORAL SCH ×2 (08:55→11:47)
[2017-01-14] MEDS: Heparin 5000 units/ml inj SUBQ SCH (08:56)
--- NOTE | 2017-01-14 11:34 | GI Progress Note ---
Assessment/Plan Problems: (1) Fecal impaction ICD Codes: K56.41 - Fecal impaction SNOMED: 37640884 (2) Nausea & vomiting ICD Codes: R11.2 - Nausea with vomiting, unspecified SNOMED: 32233991 (3) Intractable abdominal pain ICD Codes: R10.9 - Unspecified abdominal pain SNOMED: 61269391, 320240142 (4) Hypoalbuminemia ICD Codes: E88.09 - Other disorders of plasma-protein metabolism, not elsewhere classified SNOMED: 076471321 (5) Anemia ICD Codes: D64.9 - Anemia, unspecified SNOMED: 347598877 (6) Constipation ICD Codes: K59.00 - Constipation, unspecified SNOMED: 96875658 Status: stable Status Narrative Discussed with Dr. Hillman. Assessment/Plan SUMMARY FINDINGS: 1. Gastritis. 2. Duodenitis. 3. Incomplete colonoscopy examination secondary to poor prep. RECOMMENDATIONS: ok for DC per GI standpoint adv diet bowel regime ppi followup biopsy results and treat accordingly. Subjective Gastrointestinal/Abdominal: Reports: no symptoms Objective Last 24 Hour Vital Signs Date Time Temp Pulse Resp B/P Pulse Ox O2 Delivery O2 Flow Rate FiO2 01/14/17 08:55 132/60 01/14/17 08:55 82 132/60 01/14/17 08:00 97.0 82 19 132/60 95 Room Air 01/14/17 04:00 20 01/13/17 20:00 98.2 86 20 123/65 99 Room Air 01/13/17 16:02 98.0 88 20 139/88 95 Room Air 01/13/17 14:03 98.0 70 20 144/70 100 Room Air 01/13/17 14:00 65 20 131/77 100 Room Air 01/13/17 13:55 66 20 126/75 100 Nasal Cannula 3.0 01/13/17 13:50 98.0 67 20 121/70 100 Nasal Cannula 3.0 Intake and Output 01/13/17 01/14/17 19:00 07:00 Intake Total 490 ml 160 ml Output Total 400 ml 1000 ml Balance 90 ml -840 ml Intake Oral 240 ml IV Total 250 ml 160 ml Output Urine Total 400 ml 1000 ml # Bowel Movements 2 Laboratory Tests Test 01/14/17 05:40 White Blood Count 8.4 K/UL (4.8-10.8) Red Blood Count 3.03 M/UL (4.20-5.40) L Hemoglobin 9.8 G/DL (12.0-16.0) L Hematocrit 30.0 % (37.0-47.0) L Mean Corpuscular Volume 99 FL (80-99) Mean Corpuscular Hemoglobin 32.4 PG (27.0-31.0) H Mean Corpuscular Hemoglobin Concent 32.8 G/DL (32.0-36.0) Red Cell Distribution Width 11.9 % (11.6-14.8) Platelet Count 241 K/UL (150-450) Mean Platelet Volume 6.0 FL (6.5-10.1) L Neutrophils (%) (Auto) 68.0 % (45.0-75.0) Lymphocytes (%) (Auto) 19.5 % (20.0-45.0) L Monocytes (%) (Auto) 6.5 % (1.0-10.0) Eosinophils (%) (Auto) 5.2 % (0.0-3.0) H Basophils (%) (Auto) 0.8 % (0.0-2.0) Sodium Level 144 mEQ/L (135-145) Potassium Level 4.0 mEQ/L (3.4-4.9) Chloride Level 107 mEQ/L (98-107) Carbon Dioxide Level 23 mEQ/L (20-30) Anion Gap 14 (5-15) Blood Urea Nitrogen 13 mg/dL (7-23) Creatinine 1.5 mg/dL (0.5-0.9) H Estimat Glomerular Filtration Rate 35.7 mL/min (>60) Glucose Level 115 mg/dL (74-106) H Calcium Level 9.3 mg/dL (8.6-10.2) Height (Feet): 5 Height (Inches): 5.00 Weight (Pounds): 150 General Appearance: no apparent distress, alert Cardiovascular: normal rate Respiratory/Chest: normal breath sounds, no respiratory distress Abdominal Exam: normal bowel sounds, non tender, soft Extremities: normal range of motion Nano Ortega N.PCat Jan 14, 2017 11:34
[2017-01-14 12:00] VITALS: BP 148/80
--- NOTE | 2017-01-14 13:13 | General Progress Note ---
Assessment/Plan Problem List: (1) Renal insufficiency ICD Codes: N28.9 - Disorder of kidney and ureter, unspecified SNOMED: 334774913, 503810243 (2) Anemia ICD Codes: D64.9 - Anemia, unspecified SNOMED: 341705281 (3) UTI (urinary tract infection) ICD Codes: N39.0 - Urinary tract infection, site not specified SNOMED: 92116121 (4) Fecal impaction ICD Codes: K56.41 - Fecal impaction SNOMED: 57521293 Status: stable, progressing, tolerating diet Assessment/Plan ot pt diet abx dc to snf Subjective Constitutional: Reports: weakness Allergies: Coded Allergies: No Known Allergies (Unverified , 01/11/17) All Systems: reviewed and negative except above Subjective sleepy calm Objective Last 24 Hour Vital Signs Date Time Temp Pulse Resp B/P Pulse Ox O2 Delivery O2 Flow Rate FiO2 01/14/17 12:00 97.5 68 19 148/80 97 Room Air 01/14/17 08:55 132/60 01/14/17 08:55 82 132/60 01/14/17 08:00 97.0 82 19 132/60 95 Room Air 01/14/17 04:00 20 01/13/17 20:00 98.2 86 20 123/65 99 Room Air 01/13/17 16:02 98.0 88 20 139/88 95 Room Air 01/13/17 14:03 98.0 70 20 144/70 100 Room Air 01/13/17 14:00 65 20 131/77 100 Room Air 01/13/17 13:55 66 20 126/75 100 Nasal Cannula 3.0 01/13/17 13:50 98.0 67 20 121/70 100 Nasal Cannula 3.0 Intake and Output 01/13/17 01/14/17 19:00 07:00 Intake Total 490 ml 160 ml Output Total 400 ml 1000 ml Balance 90 ml -840 ml Intake Oral 240 ml IV Total 250 ml 160 ml Output Urine Total 400 ml 1000 ml # Bowel Movements 2 Laboratory Tests 01/14/17 05:40: White Blood Count 8.4, Red Blood Count 3.03L, Hemoglobin 9.8L, Hematocrit 30.0L , Mean Corpuscular Volume 99, Mean Corpuscular Hemoglobin 32.4H, Mean Corpuscular Hemoglobin Concent 32.8, Red Cell Distribution Width 11.9, Platelet Count 241, Mean Platelet Volume 6.0L, Neutrophils (%) (Auto) 68.0, Lymphocytes ( %) (Auto) 19.5L, Monocytes (%) (Auto) 6.5, Eosinophils (%) (Auto) 5.2H, Basophils (%) (Auto) 0.8, Sodium Level 144, Potassium Level 4.0, Chloride Level 107, Carbon Dioxide Level 23, Anion Gap 14, Blood Urea Nitrogen 13, Creatinine 1.5H, Estimat Glomerular Filtration Rate 35.7, Glucose Level 115H, Calcium Level 9.3 Height (Feet): 5 Height (Inches): 5.00 Weight (Pounds): 150 General Appearance: lethargic EENT: normal ENT inspection Neck: normal alignment Cardiovascular: normal peripheral pulses, normal rate, regular rhythm Respiratory/Chest: chest wall non-tender, lungs clear, normal breath sounds Abdomen: normal bowel sounds, non tender, soft Extremities: normal range of motion Edema: no edema noted Arm (L), no edema noted Arm (R), no edema noted Leg (L), no edema noted Leg (R), no edema noted Pedal (L), no edema noted Pedal (R), no edema noted Generalized Neurologic: responsive, motor weakness Skin: normal pigmentation, warm/dry CAMILLA WHITE Jan 14, 2017 13:12
[2017-01-14] MEDS ORDERED: RESTORIL15 MG ORAL (13:32)
[2017-01-14] MEDS ORDERED: PROTONIX40 MG ORAL (13:32)
[2017-01-14] MEDS ORDERED: SYNTHROID75 MCG ORAL (13:33)
[2017-01-14] MEDS ORDERED: TAMSULOSIN HCL0.4 MG ORAL (13:34)
--- NOTE | 2017-01-17 07:55 | Discharge Summary ---
Discharge Summary Hospital Course Date of Admission Jan 11, 2017 at 18:45 Date of Discharge Jan 14, 2017 at 15:00 Admitting Diagnosis intractable abd pain/weakness HPI Norma Armenta is a 56 year old female who was admitted on Jan 11, 2017 at 18 :45 for Intractable Abdominal Pain/Weakness Hospital Course dc summary #[id number] Discharge Medications Continued Medications: Acetaminophen (Acetaminophen) 500 Mg Capsule 650 MG PO Q4HR PRN for Moderate Pain (Pain Scale 4-6), CAP Amlodipine Besylate* (Amlodipine Besylate*) 10 Mg Tablet 10 MG ORAL DAILY, TAB Ascorbic Acid* (Vitamin C*) 500 Mg Tablet 500 MG ORAL DAILY, #30 TAB 0 Refills Aspirin* (Aspir 81*) 81 Mg Tablet.dr 81 MG ORAL DAILY, TAB Atorvastatin Calcium* (Lipitor*) 20 Mg Tablet 20 MG ORAL BEDTIME, TAB Clonidine Hcl* (Catapres*) 0.1 Mg Tablet 0.1 MG ORAL EVERY 6 HOURS PRN for For High Blood Pressure, TAB Docusate Sodium* (Colace*) 100 Mg Capsule 200 MG ORAL TWICE A DAY, CAP Glipizide* (Glipizide*) 5 Mg Tablet 20 MG ORAL BIDAC, TAB Lactulose (Lactulose*) 20 Gm/30 Ml Solution 20 ML ORAL BID, ML 0 Refills Lamotrigine* (Lamictal*) 25 Mg Tablet 50 MG ORAL BID, #30 TAB 0 Refills Levothyroxine Sodium* (Synthroid*) 75 Mcg Tablet 75 MCG ORAL DAILY, TAB Take in the morning on an empty stomach, at least 30 minutes before food. Lisinopril (Lisinopril*) 20 Mg Tablet 20 MG ORAL DAILY, TAB Pantoprazole* (Protonix*) 40 Mg Tablet.dr 40 MG ORAL EVERY 12 HOURS, TAB Polyethylene Glycol 3350* (Miralax*) 17 Gm Powd.pack 17 GM ORAL DAILY, PACKET Tamsulosin Hcl (Tamsulosin Hcl*) 0.4 Mg Cap.er.24h 0.4 MG ORAL BEDTIME, CAP Temazepam* (Restoril*) 15 Mg Capsule 15 MG ORAL BEDTIME PRN for Insomnia, CAP Vit B Comp/C/Fa/Iron/Vit E (Vitamin B Complex Tablet) 1 Each Tablet 1 EACH PO DAILY, TAB Discharge Condition Upon Discharge: stable Discharge Disposition Patient was discharged to SNF/Subacute Facility(03) Discharge Diagnoses: Fuentes ([facility]),Stephanie HARRINGTON Jan 17, 2017 07:55
--- NOTE | 2017-01-17 23:00 | Discharge Summary 2 SIG ---
DATE OF ADMISSION: 01/11/2017 DATE OF DISCHARGE: 01/14/2017 REASON FOR ADMISSION: This is a 56-year-old female with past medical history significant for chronic kidney disease, status post left nephrectomy, hypertension, diabetes, schizophrenia, COPD, hypothyroidism, and bipolar [facility] with intractable abdominal pain for two months. Workup in the emergency department revealed acute renal failure, hyperkalemia, and UA with evidence of possible urinary tract infection. Abdominal pelvis CT revealed rectal fecal impaction, mild right hydronephrosis, and hydroureter and evidence of prior left nephrectomy. The patient was admitted for further management. ADMITTING DIAGNOSES: 1. Acute renal failure. 2. Chronic kidney disease. 3. Intractable abdominal pain. 4. Hyperkalemia. 5. Fecal impaction. 6. Possible urinary tract infection. 7. Hypertension. 8. Diabetes. 9. Hypothyroidism. 10. Psychiatric disorder HOSPITAL STAY: The patient was admitted. GI consult and Nephrology consult along with ID were requested. The patient was started on the IV fluids. The patient initially was NPO. GoLYTELY was given for preparation to EGD and colon. GI closely followed. The patient undergone on 01/13/2017 for EGD and colonoscopy with finding of gastritis, duodenitis, and hemorrhoid, however poor preparation as per GI. Total bowel regimen was implemented. The patient was started on diet and was advanced as tolerated. Amylase, lipase, and LFTs were all stable. Hemoglobin is a small trend down, however remained stable. Abdominal ultrasound revealed no biliary duct dilatation. Maintenance Worker followed. Acute renal failure was likely secondary to right hydronephrosis and dehydration. Creatinine was trending down to baseline. Electrolytes were closely monitored and corrected as needed. Hyperkalemia resolved after Kayexalate. Maintenance Worker recommended to avoid nephrotoxic and to follow for blood sugar management. Blood sugar was managed with Starlix and Januvia and sliding scale of insulin as needed. Hemoglobin A1c at goal 5.9. The patient was noted to have elevated TSH. The patient has a known history of hypothyroidism. While NPO, the patient was on the IV Synthroid as per Endocrinology recommendation, which changed to p.o. after the patient started eating. Check TSH in three to four weeks. Urine culture revealed E. coli, but colony count only 10 to 20 and nil gram-positive organism. Antibiotic discontinued. ID followed. DVT and GI prophylaxis provided. Blood pressure was managed with calcium-channel seb and PETER inhibitor and was stable. The patient was able to tolerate diet. Pain management provided. Pain resolved. Electrolytes stable. Renal parameter stable. Hemoglobin and hematocrit on the baseline. The patient was stable for discharge. DISCHARGE DIAGNOSES: 1. Intractable abdominal pain due to fecal impaction and gastritis. 2. Hyperkalemia, resolved. 3. Acute renal failure on chronic kidney disease likely due to right hydronephrosis and dehydration. 4. Right hydronephrosis and hydroureter. 5. Dehydration. 6. History of left nephrectomy. 7. Fecal impaction, resolved. 8. Status post esophagogastroduodenoscopy and colon. 9. Gastritis. 10. Duodenitis. 11. Anemia. 12. Hypothyroidism with elevated TSH. 13. Diabetes mellitus, out of control. 14. Hypertension. DISCHARGE MEDICATIONS: See medication reconciliation list. DISCHARGE INSTRUCTIONS: The [facility] discharged to jail facility. FOLLOWUP: Follow up with medical doctor at the facility. Hernán Davis D.O. I have been assigned to dictate discharge summary on this account and I was not involved in the patient's management. Stephanie Schraderlewis county [facility] hospital[facility] DR: Mateus JOB#: [id number] CC:
--- NOTE | 2017-01-17 23:15 | Consultation ---
DATE OF CONSULTATION: 01/13/2017 HISTORY OF PRESENT ILLNESS: The patient is a female patient, 56-year-old. This patient was admitted to [facility] due to intractable abdominal pain and that was the primary reason for admission, but this patient came in due to weakness, hypoglycemia, abdominal pain, fecal impaction from [facility], but she also has a history of altered mental status and mood lability so there was a Psychiatric consultation requested for this patient. MEDICAL HISTORY: Encephalopathy, failure to thrive, and acute renal failure. Urinary tract infection, , abdominal pain, anemia, acute renal failure, fecal impaction, and proctitis. ALLERGIES: No known drug allergies. SOCIAL HISTORY: Lives in [facility]. Financially supported by [employer] and Medicare. SUBSTANCE ABUSE HISTORY: Denies drug and alcohol use. PSYCHIATRIC HISTORY: Paranoid schizophrenia, now on medication regimen of Geodon 60 mg twice a day. MENTAL STATUS EXAMINATION: This is a 56-year-old female with psychomotor retardation. Mood is depressed. Affect guarded and restricted. Thought process disorganized and logical. Denies any current suicidal or homicidal thoughts. Insight and judgment is poor. DIAGNOSES: Paranoid schizophrenia with acute exacerbation. PLAN: I am going to continue treatment with her psychotropic medications to prevent any decline in her cognition. She will continued to be followed by psychiatry throughout hospital course. Chart reviewed and discussed with staff. She was seen and assessed at bedside. I would like to thank, Dr. Hernán Davis, for this interesting consultation. The patient was seen and assessed at bedside. Tang Oliva M.D. DR: ALIDA JOB#: [id number] CC:
--- NOTE | 2017-01-17 23:15 | Progress Note ---
DATE: 01/13/2017 The patient is confused and disorganized. Continue treatment with psychotropic medications to prevent any decline in her cognition, but right now, she appears to be at baseline. Psychiatrically cleared from the psych prospective for discharge. Chart reviewed and discussed with staff. Seen and assessed at bedside. Tang Oliva M.D. DR: IKE JOB#: [id number] CC:
== END 2017-01-14 15:00 | DRG 392 ==
LOC: EDBD 16:25 → EMR 18:40 → 4W 18:45 → EDBEDREQ 19:48 → 4W 22:21
DX: K29.70 Gastritis, unspecified, without bleeding (principal); N17.9 Acute kidney failure, unspecified; E11.22 Type 2 diabetes mellitus with diabetic chronic kidney disease; E11.65 Type 2 diabetes mellitus with hyperglycemia; N39.0 Urinary tract infection, site not specified; N13.30 Unspecified hydronephrosis; K29.80 Duodenitis without bleeding; K56.41 Fecal impaction; E87.5 Hyperkalemia; E86.0 Dehydration; I12.9 Hypertensive chronic kidney disease with stage 1 through stage 4 chronic kidney disease, or unspecified chronic kidney disease; N18.9 Chronic kidney disease, unspecified; D64.9 Anemia, unspecified; E03.9 Hypothyroidism, unspecified; Z90.5 Acquired absence of kidney; F20.9 Schizophrenia, unspecified; F31.9 Bipolar disorder, unspecified
CPT/HCPCS: 36415; 74176; 76700; 80048; 80053; 80061; 80300; 81003; 82150; 82550; 82962; 82977; 83036; 83690; 83735; 83880; 84100; 84443; 84484; 84550; 85025; 85610; 85730; 86140; 87081; 87086; 87181; 93970; 94003; 94150; J1815; J2405

== ENCOUNTER 2017-10-03 15:10 | Inpatient (IN) | payer MEDICARE, MEDICAID ==
[~2017-10-03] VITALS: Ht 167.6 cm; Wt 72.6 kg
[~2017-10-03 15:10] MED LIST: ACETAMINOPHEN500 M7 PO; AMLODIPINE BESY10 MG ORAL; ASPIR 8181 MG ORAL; ATIVAN1 MG ORAL; BENZTROPINE ME0.5 MG PO; CATAPRES0.1 MG ORAL; COLACE100 MG ORAL; FENOFIBRATE54 MG ORAL; GEODON40 MG ORAL; GLIPIZIDE5 MG ORAL; IBUPROFEN600 MG ORAL; LACTULOSE20 GM/301 ORAL; LAMICTAL25 MG ORAL; LIPITOR20 MG ORAL; LISINOPRIL20 MG ORAL; MILK OF MA400 MG/51 ORAL; MIRALAX17 G2 ORAL; PEPCID20 MG ORAL; PROTONIX40 MG ORAL; RESTORIL15 MG ORAL; SENOKOT-S TABL1 EACH PO; SYNTHROID75 MCG ORAL; TAMSULOSIN HCL0.4 MG ORAL; TRADJENTA5 MG PO; VITAMIN B COMP1 EAC7 PO; VITAMIN C500 M1 ORAL; mylanta
[2017-10-03] MEDS ORDERED: ZOFRAN4 M3 ORAL (15:30)
[2017-10-03] MEDS ORDERED: LEVOTHYROXINE25 MCG ORAL (15:30)
[2017-10-03] MEDS ORDERED: BENADRYL ALLERG25 M1 PO (15:30)
[2017-10-03] MEDS ORDERED: NITROGLYCERIN0.4 MG SL (15:30)
[2017-10-03 15:40] VITALS: BP 145/94
--- NOTE | 2017-10-03 16:40 | Diagnostic Imaging Report ---
Indications: Altered mental status and seizure Technique: Spiral acquisitions obtained through the brain. Angled axial and coronal 5 x 5 mm slices were reconstructed. Total dose length product 1467.58 mGycm. CTDI vol(s) 70.38 mGy. Dose reduction achieved using automated exposure control Comparison: None. Findings: There is a slight degree of image degradation due to motion artifact Large area of encephalomalacia involves most of the right parietal lobe and a significant portion of the posterior right frontal lobe, as well as extending slightly into the temporal lobe. This contains a few small dystrophic calcifications There is resultant ex vacuo dilatation of the frontal horn and body of the right lateral ventricle. No acute intracranial hemorrhage or edema. No mass effect nor midline shift. There is mild age-related enlargement of the ventricles and extra axial CSF spaces. The calvarium is intact. There is bilateral maxillary sinus disease. There is chronic appearing opacification and sclerosis of the right mastoid air cells Impression: Negative for acute intracranial bleed or mass effect Large area of encephalomalacia in the right hemisphere, consistent with old middle cerebral artery distribution infarct Other age-related changes, as described Sinus disease and chronic appearing right mastoid disease The CT scanner at [facility] is accredited by the [employer] and the scans are performed using protocols designed to limit radiation exposure to as low as reasonably achievable to attain images of sufficient resolution adequate for diagnostic evaluation.
[2017-10-03 17:05] VITALS: BP 138/68
[2017-10-03 17:28] LABS: APPEARANCE,URINE CLEAR; BASOPHILS % (AUTO) 0.9 % (0.0-2.0); BILIRUBIN, URINE NEGATIVE (NEGATIVE); COLOR,URINE PALE YELLOW; EOSINOPHILS % (AUTO) 2.7 % (0.0-3.0); GLUCOSE, URINE (UA) 1+ (NEGATIVE); HEMATOCRIT 27.4 % (37.0-47.0); HEMOGLOBIN 9.1 G/DL (12.0-16.0); KETONES,URINE NEGATIVE (NEGATIVE); LEUKOCYTE ESTERASE ,URINE NEGATIVE (NEGATIVE); LYMPHOCYTES % (AUTO) 11.4 % (20.0-45.0); MEAN CORPUSCULAR VOLUME 93 FL (80-99); MONOCYTES % (AUTO) 4.2 % (1.0-10.0); NEUTROPHILS % (AUTO) 80.8 % (45.0-75.0); NITRITE,URINE NEGATIVE (NEGATIVE); PH,URINE 8 (4.5-8.0); PLATELET COUNT 209 K/UL (150-450); PROTEIN,URINE 4+ (NEGATIVE); RED BLOOD COUNT 2.96 M/UL (4.20-5.40); RED CELL DISTRIBUTION WIDTH 14.6 % (11.6-14.8); UROBILINOGEN,URINE NORMAL MG/DL (0.0-1.0); WHITE BLOOD COUNT 7.1 K/UL (4.8-10.8)
[2017-10-03 17:34] LABS: ANION GAP 7 mmol/L (5-15); BLOOD UREA NITROGEN 37 mg/dL (7-18); CALCIUM 9.1 MG/DL (8.5-10.1); CARBON DIOXIDE 28 MMOL/L (21-32); CHLORIDE 103 MMOL/L (98-107); CREATININE 2.4 MG/DL (0.55-1.30); POTASSIUM 4.9 MMOL/L (3.5-5.1); SODIUM 138 MMOL/L (136-145)
[2017-10-03 17:50] LABS: ALANINE AMINOTRANSFERASE 44 U/L (12-78); ALBUMIN 2.1 G/DL (3.4-5.0); ALBUMIN/GLOBULIN RATIO 0.4 (1.0-2.7); ALKALINE PHOSPHATASE 117 U/L (46-116); ASPARTATE AMINO TRANSFERASE 39 U/L (15-37); BILIRUBIN,TOTAL 0.1 MG/DL (0.2-1.0)
[2017-10-03 18:14] VITALS: BP 119/78
[2017-10-03] MEDS ORDERED: levETIRAcetam 1,000mg/NS100ml 100 ML IVPB ONE (18:45)
[2017-10-03 20:00] VITALS: BP 139/71
[2017-10-03] MEDS ORDERED: Miralax 17gm pkt ORAL PRN (21:45)
[2017-10-03] MEDS ORDERED: Zolpidem 5mg tab ORAL PRN (21:45)
[2017-10-03] MEDS ORDERED: Mylanta II UD 30ml ORAL PRN (21:45)
[2017-10-03] MEDS ORDERED: LORazepam Inj 2mg/ml 1ml IV PRN (21:45)
[2017-10-03] MEDS ORDERED: Morphine Sulfate 4mg/ml Inj IVP PRN (22:00)
[2017-10-04] VITALS: BP 135/75
[2017-10-04 01:06] LABS: CREATINE KINASE 321 U/L (26-308)
[2017-10-04 04:00] VITALS: BP 145/78
[2017-10-04] MEDS: NovoLOG Insulin Flexpen SUBQ SCH ×4 (05:41→21:00)
[2017-10-04 07:58] LABS: BASOPHILS % (AUTO) 0.5 % (0.0-2.0); EOSINOPHILS % (AUTO) 2.3 % (0.0-3.0); HEMOGLOBIN 8.3 G/DL (12.0-16.0); LYMPHOCYTES % (AUTO) 12.8 % (20.0-45.0); MEAN CORPUSCULAR VOLUME 94 FL (80-99); MONOCYTES % (AUTO) 2.8 % (1.0-10.0); NEUTROPHILS % (AUTO) 81.6 % (45.0-75.0); PLATELET COUNT 184 K/UL (150-450); RED BLOOD COUNT 2.67 M/UL (4.20-5.40); RED CELL DISTRIBUTION WIDTH 14.7 % (11.6-14.8); WHITE BLOOD COUNT 9.7 K/UL (4.8-10.8)
[2017-10-04 08:00] VITALS: BP 125/77
[2017-10-04 08:16] LABS: ALANINE AMINOTRANSFERASE 33 U/L (12-78); ALBUMIN 1.7 G/DL (3.4-5.0); ALBUMIN/GLOBULIN RATIO 0.4 (1.0-2.7); ALKALINE PHOSPHATASE 100 U/L (46-116); ANION GAP 8 mmol/L (5-15); ASPARTATE AMINO TRANSFERASE 31 U/L (15-37); BILIRUBIN,TOTAL < 0.1 MG/DL (0.2-1.0); BLOOD UREA NITROGEN 38 mg/dL (7-18); CALCIUM 8.6 MG/DL (8.5-10.1); CARBON DIOXIDE 23 MMOL/L (21-32); CHLORIDE 107 MMOL/L (98-107); CREATININE 2.4 MG/DL (0.55-1.30); POTASSIUM 4.6 MMOL/L (3.5-5.1); SODIUM 138 MMOL/L (136-145)
[2017-10-04] MEDS: Heparin 5000 units/ml inj SUBQ SCH ×2 (09:00→21:06)
[2017-10-04] MEDS: Lisinopril 20mg tab ORAL SCH (09:00)
[2017-10-04] MEDS: Aspirin EC 81mg tab ORAL SCH (09:00)
[2017-10-04] MEDS ORDERED: Levothyroxine 25mcg tab ORAL SCH (09:00)
--- NOTE | 2017-10-04 10:23 | Neurology Progress Note ---
Objective Physical Exam Last Vital Signs Date Time Temp Pulse Resp B/P (MAP) Pulse Ox O2 Delivery O2 Flow Rate FiO2 10/04/17 04:00 97.9 63 20 145/78 98 97.9 10/03/17 22:08 Room Air Laboratory Tests Test 10/03/17 17:00 10/04/17 06:20 White Blood Count 7.1 K/UL (4.8-10.8) 9.7 K/UL (4.8-10.8) Red Blood Count 2.96 M/UL (4.20-5.40) L 2.67 M/UL (4.20-5.40) L Hemoglobin 9.1 G/DL (12.0-16.0) L 8.3 G/DL (12.0-16.0) L Hematocrit 27.4 % (37.0-47.0) L 25.0 % (37.0-47.0) L Mean Corpuscular Volume 93 FL (80-99) 94 FL (80-99) Mean Corpuscular Hemoglobin 30.7 PG (27.0-31.0) 31.1 PG (27.0-31.0) H Mean Corpuscular Hemoglobin Concent 33.1 G/DL (32.0-36.0) 33.2 G/DL (32.0-36.0) Red Cell Distribution Width 14.6 % (11.6-14.8) 14.7 % (11.6-14.8) Platelet Count 209 K/UL (150-450) 184 K/UL (150-450) Mean Platelet Volume 5.7 FL (6.5-10.1) L 5.9 FL (6.5-10.1) L Neutrophils (%) (Auto) 80.8 % (45.0-75.0) H 81.6 % (45.0-75.0) H Lymphocytes (%) (Auto) 11.4 % (20.0-45.0) L 12.8 % (20.0-45.0) L Monocytes (%) (Auto) 4.2 % (1.0-10.0) 2.8 % (1.0-10.0) Eosinophils (%) (Auto) 2.7 % (0.0-3.0) 2.3 % (0.0-3.0) Basophils (%) (Auto) 0.9 % (0.0-2.0) 0.5 % (0.0-2.0) Urine Color Pale yellow Urine Appearance Clear Urine pH 8 (4.5-8.0) Urine Specific [place] 1.010 (1.005-1.035) Urine Protein 4+ (NEGATIVE) H Urine Glucose (UA) 1+ (NEGATIVE) H Urine Ketones Negative (NEGATIVE) Urine Occult Blood 1+ (NEGATIVE) H Urine Nitrite Negative (NEGATIVE) Urine Bilirubin Negative (NEGATIVE) Urine Urobilinogen Normal MG/DL (0.0-1.0) Urine Leukocyte Esterase Negative (NEGATIVE) Urine RBC 2-4 /HPF (0 - 2) H Urine WBC 0-2 /HPF (0 - 2) Urine Squamous Epithelial Cells Few /LPF (NONE/OCC) Urine Bacteria Few /HPF (NONE) Urine Eosinophils None seen Urine Random Sodium 65 mmol/L (20-110) Urine Potassium Timed 33 mmol/L (12-62) Sodium Level 138 MMOL/L (136-145) 138 MMOL/L (136-145) Potassium Level 4.9 MMOL/L (3.5-5.1) 4.6 MMOL/L (3.5-5.1) Chloride Level 103 MMOL/L (98-107) 107 MMOL/L (98-107) Carbon Dioxide Level 28 MMOL/L (21-32) 23 MMOL/L (21-32) Anion Gap 7 mmol/L (5-15) 8 mmol/L (5-15) Blood Urea Nitrogen 37 mg/dL (7-18) H 38 mg/dL (7-18) H Creatinine 2.4 MG/DL (0.55-1.30) H 2.4 MG/DL (0.55-1.30) H Estimat Glomerular Filtration Rate 20.6 mL/min (>60) 20.6 mL/min (>60) Glucose Level 121 MG/DL (74-106) H 74 MG/DL (74-106) Uric Acid 3.7 MG/DL (2.6-7.2) Calcium Level 9.1 MG/DL (8.5-10.1) 8.6 MG/DL (8.5-10.1) Total Bilirubin 0.1 MG/DL (0.2-1.0) L < 0.1 MG/DL (0.2-1.0) L Aspartate Amino Transf (AST/SGOT) 39 U/L (15-37) H 31 U/L (15-37) Alanine Aminotransferase (ALT/SGPT) 44 U/L (12-78) 33 U/L (12-78) Alkaline Phosphatase 117 U/L (46-116) H 100 U/L (46-116) Total Creatine Kinase 321 U/L (26-308) H Total Protein 6.9 G/DL (6.4-8.2) 6.1 G/DL (6.4-8.2) L Albumin 2.1 G/DL (3.4-5.0) L 1.7 G/DL (3.4-5.0) L Globulin 4.8 g/dL 4.4 g/dL Albumin/Globulin Ratio 0.4 (1.0-2.7) L 0.4 (1.0-2.7) L Impression/Recommendations Problems: (1) new onseof seizure disorder Status: unchanged Recommendations #[id number] MONCHO SULLIVAN Oct 04, 2017 10:23
[2017-10-04 12:00] VITALS: BP 146/86
[2017-10-04] MEDS: levETIRAcetam 500mg/NS100ml 100 ML IVPB SCH ×2 (13:00→21:11)
[2017-10-04] MEDS: D5 1/2NS 1,000 ML IV SCH (13:01)
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
[2017-10-04 16:00] VITALS: BP 118/87
[2017-10-04 20:00] VITALS: BP 139/71
--- NOTE | 2017-10-04 20:01 | History and Physical Report ---
DATE OF ADMISSION: 10/03/2017 TIME: 4 p.m. CONSULTANTS: 1. Sha Guerra M.D. 2. Sheri Elias M.D. CHIEF COMPLAINT: Confusion and seizure. BRIEF HISTORY: The patient is a 57-year-old female from [facility], presented with seizure x2, was postictal. She was a little short of breath, came to [place], diagnosed as above. Currently, in the ER awaiting admission. PAST MEDICAL HISTORY: Seizure, altered mental status, old CVA. PAST SURGICAL HISTORY: Unknown. MEDICATIONS: Lipitor, Flomax, Lamictal, levothyroxine, Norvasc, Prinivil, , clonidine, morphine, zolpidem, and Zofran. ALLERGIES: Denies. SOCIAL HISTORY: Unable to obtain secondary to the patient's condition. REVIEW OF SYSTEMS: Unavailable. The patient is very lethargic. PHYSICAL EXAMINATION: GENERAL: Lethargic in bed, nonverbal. VITAL SIGNS: Temperature is 97 degrees, pulse 73, respiratory rate 20, and blood pressure 146/86. CARDIOVASCULAR: No murmur. LUNGS: Distant. Poor air exchange. ABDOMEN: Bowel sound positive. Nontender. Nondistended. EXTREMITIES: No cyanosis or edema. NEUROLOGIC: The patient is flaccid in bed, not responding questions. LABORATORY AND DIAGNOSTIC DATA: Hemoglobin 8.3, otherwise CBC is normal. BUN and creatinine 28/2.4, otherwise BMP normal. Albumin 1.7. Urinalysis show 1+ occult blood and 1+ glucose, otherwise normal. ASSESSMENT: 1. Seizure. 2. Altered mental status. 3. Anemia. 4. Old CVA. 5. Hypertension. 6. Diabetes. PLAN: Continue premedications. O2 and pulmonary treatment as needed. OT/PT. Dietary evaluation. CBC and BMP in the morning. Blood pressure and blood sugar control. Dr. Guerra, Dr. Elias, Dr. Hansen and Dr. Burgos to consult. We will continue to follow this patient medically. Hernán Davis D.O. DR: SONALI JOB#: [id number] CC:
[2017-10-04] MEDS: Tamsulosin 0.4mg cap ORAL SCH (20:57)
[2017-10-05] VITALS: BP 97/53
--- NOTE | 2017-10-05 02:45 | Consultation ---
DATE OF CONSULTATION: 10/04/2017 NOTE: "POOR AUDIO QUALITY" NEPHROLOGY CONSULTATION CONSULTING PHYSICIAN: Delmis Hansen M.D. REFERRING PHYSICIAN: Hernán Davis D.O. REASON FOR CONSULTATION: Acute renal failure. HISTORY OF PRESENT ILLNESS: The patient is a 57-year-old unfortunate female with past medical history significant for history of psychiatric disease. She is a resident of [facility] and apparently was brought in to emergency room at [facility] with chief complaint of seizure. Apparently, the patient had an episode of seizure in the long-term. Upon arrival of the paramedics, the patient found to have GCS of 11. While the patient was transferring, she had another episode of tonic-clonic seizure. The patient was given Versed of 5 mg and was transferred to ER. In the ER, the patient found to have creatinine of 2.4. I was called for management of renal disease and electrolyte imbalance. PAST MEDICAL HISTORY: 1. History of psychiatric disease. 2. History of hypothyroidism. 3. History of CVA. 4. History of hypertension. 5. History of dyslipidemia. ALLERGIES: No known drug allergies. SOCIAL HISTORY: There is no prior history of tobacco, alcohol, or drug use. FAMILY HISTORY: Negative for any premature heart disease or history of chronic kidney disease. REVIEW OF SYSTEMS: CONSTITUTIONAL: The patient easily falls asleep, but she is not able to provide full history, but in general, there was no fever or chills reported. PULMONARY: There was no shortness of breath, cough, or sputum. CARDIOVASCULAR: No chest pain or palpitations. GASTROINTESTINAL: There was no nausea or vomiting reported. GENITOURINARY: No dysuria, frequency, or hematuria. PHYSICAL EXAMINATION: VITAL SIGNS: Temperature of 98, pulse rate of 73, respiratory rate of 20, and blood pressure 146/86. HEAD AND NECK: No JVP. No LAD. No thyromegaly. Extraocular movements are intact. Pupils are reactive to light and accommodation. LUNGS: Clear to auscultation. CARDIAC: Regular rate and rhythm. S1 and S2. No murmur. No rub. ABDOMEN: Soft, nontender, nondistended. EXTREMITIES: No edema. No clubbing. No cyanosis. LABORATORY AND DIAGNOSTIC DATA: Chemistry revealed sodium of 138, potassium 4.9, chloride 103, bicarbonate 28, BUN of 37, creatinine 2.4, glucose of 121, calcium of 9.1. AST of 39, ALT of 44, alkaline phosphatase of . Total protein 6.1. Albumin of 2.4. CBC revealed WBC count of 7.1, hemoglobin 9.1, hematocrit 27, and platelet count of 209,000. UA revealed specific gravity of 1.010, protein 4+, glucose 1+, blood 1+, wbc's 2-4. The patient had CT of the head which revealed negative for acute intracranial bleed or mass, large area of encephalomalacia in the right hemisphere consistent with middle cerebral artery distribution infarct. ASSESSMENT: 1. Acute versus chronic renal failure, the etiology of acute renal failure is ATN due to unstable hemodynamics. This is currently nephrosclerosis. 2. New-onset seizure. 3. Hypertension. 4. Hypothyroidism. PLAN: Obtain UA. Check random urine protein/creatinine ratio to calculate the proteinuria. Check the urine sodium and creatinine to calculate fractional excretion of sodium. Ultrasound of the kidneys to evaluate the kidney size. Monitor renal function and electrolytes closely. Replace electrolytes as needed. Avoid any use of nephrotoxics. Again, I would like to thank Dr. Hernán Davis for allowing me to participate in the care of this patient. Delmis Hansen M.D. DR: TATY JOB#: [id number] CC:
[2017-10-05] MEDS: D5 1/2NS 1,000 ML IV SCH ×2 (03:27→15:40)
[2017-10-05 04:00] VITALS: BP 143/70
[2017-10-05] MEDS: NovoLOG Insulin Flexpen SUBQ SCH ×4 (05:39→20:59)
--- NOTE | 2017-10-05 07:48 | Nephrology Progress Note ---
Assessment/Plan Assessment 1. Acute versus chronic renal failure, with nephrotic range proteinuria 2. New-onset seizure. 3. Hypertension. 4. Hypothyroidism. 5.malnutrition Plan plan check with us of kidney check for nephrotic syndrome cause monitoring renal function check in and out put avoid NSAID may need biopsy based on us kidney Subjective Constitutional: Reports: no symptoms HEENT: Reports: no symptoms Genitourinary: Reports: no symptoms Neurologic/Psychiatric: Reports: no symptoms Subjective alert and awake denies any sob,cp ,nausea or vomiting Objective Objective Last 24 Hour Vital Signs Date Time Temp Pulse Resp B/P (MAP) Pulse Ox O2 Delivery O2 Flow Rate FiO2 10/05/17 04:00 97.0 67 20 143/70 100 97.0 10/05/17 00:00 97.5 69 20 97/53 100 97.5 10/04/17 20:00 97.1 77 20 139/71 100 97.1 10/04/17 16:00 97.6 72 21 118/87 98 97.6 10/04/17 12:00 97.8 73 20 146/86 98 97.8 10/04/17 09:00 125/77 10/04/17 09:00 66 125/77 10/04/17 08:00 97.6 66 20 125/77 98 97.6 Intake and Output 10/04/17 10/05/17 19:00 07:00 Intake Total 850 ml 925 ml Output Total 750 ml Balance 100 ml 925 ml Intake Oral 0 ml IV Total 850 ml 925 ml Output Urine Total 750 ml # Voids 4 Laboratory Tests 10/05/17 01:14: Urine Random Creatinine [Pending], Urine Random Microalbumin [Pending], Urine Random Total Protein 647H, Urine Creatinine 28.1L, Urine Microalbumin/ Creatinine Ratio [Pending] Height (Feet): 5 Height (Inches): 6.00 Weight (Pounds): 160 Objective HEAD AND NECK: No JVP. No LAD. No thyromegaly. Extraocular movements are intact. Pupils are reactive to light and accommodation. LUNGS: Clear to auscultation. CARDIAC: Regular rate and rhythm. S1 and S2. No murmur. No rub. ABDOMEN: Soft, nontender, nondistended. EXTREMITIES: No edema. No clubbing. No cyanosis. CAMELIA YAN Oct 05, 2017 07:47
[2017-10-05 08:00] VITALS: BP 123/66
[2017-10-05] MEDS: Ziprasidone 20mg cap ORAL SCH ×2 (08:33→17:08)
[2017-10-05] MEDS: Aspirin EC 81mg tab ORAL SCH (08:33)
[2017-10-05] MEDS: Lisinopril 20mg tab ORAL SCH (08:34)
[2017-10-05] MEDS: Heparin 5000 units/ml inj SUBQ SCH ×2 (08:45→20:59)
[2017-10-05 09:25] LABS: EOSINOPHILS % (AUTO) 3.4 % (0.0-3.0); HEMATOCRIT 24.6 % (37.0-47.0); LYMPHOCYTES % (AUTO) 20.7 % (20.0-45.0); MEAN CORPUSCULAR VOLUME 92 FL (80-99); MONOCYTES % (AUTO) 3.1 % (1.0-10.0); NEUTROPHILS % (AUTO) 71.8 % (45.0-75.0); PLATELET COUNT 181 K/UL (150-450); RED BLOOD COUNT 2.66 M/UL (4.20-5.40); WHITE BLOOD COUNT 5.9 K/UL (4.8-10.8)
[2017-10-05 09:38] LABS: ANION GAP 5 mmol/L (5-15); BLOOD UREA NITROGEN 35 mg/dL (7-18); CALCIUM 8.9 MG/DL (8.5-10.1); CARBON DIOXIDE 25 MMOL/L (21-32); CHLORIDE 110 MMOL/L (98-107); CREATININE 2.8 MG/DL (0.55-1.30); POTASSIUM 4.2 MMOL/L (3.5-5.1); SODIUM 140 MMOL/L (136-145)
[2017-10-05] MEDS: levETIRAcetam 500mg/NS100ml 100 ML IVPB SCH ×2 (10:13→20:58)
[2017-10-05 12:00] VITALS: BP 100/63
--- NOTE | 2017-10-05 14:21 | General Progress Note ---
Assessment/Plan Problem List: (1) Renal insufficiency ICD Codes: N28.9 - Disorder of kidney and ureter, unspecified SNOMED: 520196270, 964904484 (2) CVA (cerebral vascular accident) ICD Codes: I63.9 - Cerebral infarction, unspecified SNOMED: 058231640 (3) Diabetes ICD Codes: E11.9 - Type 2 diabetes mellitus without complications SNOMED: 17835078 (4) Anemia ICD Codes: D64.9 - Anemia, unspecified SNOMED: 927762095 (5) Seizure ICD Codes: R56.9 - Unspecified convulsions SNOMED: 14118349 Status: unchanged Assessment/Plan ot pt diet seizure control cbc bmp am heme gi eval Subjective Constitutional: Reports: weakness Allergies: Coded Allergies: No Known Allergies (Unverified , 01/11/17) All Systems: reviewed and negative except above Subjective sleepy calm in bed Objective Last 24 Hour Vital Signs Date Time Temp Pulse Resp B/P (MAP) Pulse Ox O2 Delivery O2 Flow Rate FiO2 10/05/17 12:00 97.1 70 19 100/63 99 Room Air 97.1 10/05/17 08:34 123/66 10/05/17 08:33 72 123/66 10/05/17 08:00 98.3 72 18 123/66 97 Room Air 98.3 10/05/17 04:00 97.0 67 20 143/70 100 97.0 10/05/17 00:00 97.5 69 20 97/53 100 97.5 10/04/17 20:00 97.1 77 20 139/71 100 97.1 10/04/17 16:00 97.6 72 21 118/87 98 97.6 Intake and Output 10/04/17 10/05/17 19:00 07:00 Intake Total 850 ml 925 ml Output Total 750 ml Balance 100 ml 925 ml Intake Oral 0 ml IV Total 850 ml 925 ml Output Urine Total 750 ml # Voids 4 Laboratory Tests 10/05/17 01:14: Urine Random Creatinine [Pending], Urine Random Microalbumin [Pending], Urine Random Total Protein 647H, Urine Creatinine 28.1L, Urine Microalbumin/ Creatinine Ratio [Pending] 10/05/17 08:40: White Blood Count 5.9, Red Blood Count 2.66L, Hemoglobin 8.0L, Hematocrit 24.6L , Mean Corpuscular Volume 92, Mean Corpuscular Hemoglobin 30.1, Mean Corpuscular Hemoglobin Concent 32.6, Red Cell Distribution Width 15.0H, Platelet Count 181, Mean Platelet Volume 6.0L, Neutrophils (%) (Auto) 71.8, Lymphocytes (%) (Auto) 20.7, Monocytes (%) (Auto) 3.1, Eosinophils (%) (Auto) 3.4H, Basophils (%) (Auto) 1.0, Sodium Level 140, Potassium Level 4.2, Chloride Level 110H, Carbon Dioxide Level 25, Anion Gap 5, Blood Urea Nitrogen 35H, Creatinine 2.8H, Estimat Glomerular Filtration Rate 17.3, Glucose Level 67L, Calcium Level 8.9, Anti-Nuclear Antibody Screen [Pending], Anti-Double Strand DNA Antibody [Pending], Anti-Glomerular Basement Memb Ab [Pending], Complement C2 [Pending], Complement C3 [Pending], Complement C4 [Pending], Total Complement (CH50) [Pending], Hepatitis A IgM Antibody [Pending], Hepatitis B Surface Antigen [Pending], Hepatitis B Core IgM Antibody [Pending], Hepatitis C Antibody [Pending], HIV (1&2) Antibody Rapid Negative Height (Feet): 5 Height (Inches): 6.00 Weight (Pounds): 160 General Appearance: lethargic EENT: normal ENT inspection Neck: normal alignment Cardiovascular: normal peripheral pulses, normal rate, regular rhythm Respiratory/Chest: chest wall non-tender, lungs clear, normal breath sounds Abdomen: normal bowel sounds, non tender, soft Extremities: normal inspection Edema: no edema noted Arm (L), no edema noted Arm (R), no edema noted Leg (L), no edema noted Leg (R), no edema noted Pedal (L), no edema noted Pedal (R), no edema noted Generalized Neurologic: motor weakness Skin: normal pigmentation, warm/dry CAMILLA WHITE Oct 05, 2017 14:21
--- NOTE | 2017-10-05 14:34 | Diagnostic Imaging Report ---
Indication:Elevated Bun and Creatinine. Technique: Grayscale and duplex Doppler imaging of the kidneys performed. Comparison: None Findings: Left kidney is absent. The right kidney measures 11 cm and is abnormally echogenic. Few cysts are noted. There is no hydronephrosis. The bladder is unremarkable. IMPRESSION: Suspected medical renal disease involving the right kidney. Status post left nephrectomy. Right renal cysts
[2017-10-05 15:55] VITALS: BP 125/88
[2017-10-05 20:00] VITALS: BP 157/87
[2017-10-05] MEDS: Tamsulosin 0.4mg cap ORAL SCH (21:00)
[2017-10-05] MEDS ORDERED: 1/2 NS 1000ml IV ONE (21:16)
[2017-10-06] VITALS: BP 146/80
--- NOTE | 2017-10-06 02:00 | Consultation ---
DATE OF CONSULTATION: 10/05/2017 HEMATOLOGY/ONCOLOGY CONSULTATION CONSULTING PHYSICIAN: Roly Palomares M.D. REQUESTING PHYSICIAN: Hernán Davis D.O. REASON FOR CONSULTATION: Evaluation of anemia. IDENTIFYING DATA: Dear Dr. Hernán Davis, The patient is a pleasant 57-year-old unfortunate female with past medical history significant for CVA, hypertension, dyslipidemia, hypothyroidism, psychiatric disorder, resident of [facility], apparently brought into the ER of [facility] for complaints of seizure in snf. Upon arrival, paramedics found her to have a GCS of 1, transferred here for evidence of tonic-clonic seizure, given Versed in the ER, creatinine was noted to be 2.4. Hemoglobin was noted to be approximately 8. Hematology Service was consulted for further evaluation and treatment. PAST MEDICAL HISTORY: Altered mental status, post CVA, and seizure disorder. PAST SURGICAL HISTORY: None noted. ALLERGIES: No known drug allergies. SOCIAL HISTORY: No alcohol, tobacco, or illicit drug use. FAMILY HISTORY: Noncontributory. REVIEW OF SYSTEMS: CONSTITUTIONAL: No fever, chills, or night sweats. SKIN: No rashes, bumps, or itching. HEENT: No headache, hearing or vision changes. BREASTS: No lumps, pain, or discharge. PULMONARY: No cough, sputum, or shortness of breath. GASTROINTESTINAL: No nausea, vomiting, or diarrhea. GENITOURINARY: No dysuria, frequency, or urgency. MUSCULOSKELETAL: No joint swelling, muscle pain, or trauma. PHYSICAL EXAMINATION: VITAL SIGNS: Reviewed. GENERAL: No distress. PULMONARY: Decreased breath sounds. Some crackles noted. CARDIOVASCULAR: Regular rate. No S3 or S4. ABDOMEN: Soft, nontender, and nondistended. EXTREMITIES: No cyanosis, swelling, or edema noted. LABORATORY AND DIAGNOSTIC DATA: WBC 8.9, hemoglobin 8, hematocrit 25, and platelet count 281,000. Chart is reviewed. Hepatitis panel is negative. HIV, negative swab. ASSESSMENT AND RECOMMENDATIONS: 1. Anemia due to underlying chronic disease. Continue to closely monitor. Anemia workup has been ordered. Hemoglobin goal is above 7. Transfuse as needed. No evidence of reticulocytosis or hemolysis at the moment. 2. Anemia due to underlying kidney disease, as noted above. 3. Acute kidney injury on chronic kidney disease. The patient's baseline is approximately 1.5 on prior admission back in 2017. Closely monitor per Nephrology Service. 4. Diabetes mellitus. A1c goal less than 7. 5. Seizure disorder. Management as per Neurology Service, Dr. Guerra. Closely monitor. Status post cerebrovascular accident. I appreciate the consultation. Roly Palomares M.D. DR: FAUSTINO JOB#: [id number] CC:
[2017-10-06] MEDS: D5 1/2NS 1,000 ML IV SCH ×2 (03:49→17:59)
[2017-10-06 04:00] VITALS: BP 124/66
[2017-10-06] MEDS: NovoLOG Insulin Flexpen SUBQ SCH ×4 (06:13→21:00)
[2017-10-06 08:00] VITALS: BP 131/65
[2017-10-06] MEDS: Aspirin EC 81mg tab ORAL SCH (08:38)
[2017-10-06] MEDS: Ziprasidone 20mg cap ORAL SCH ×2 (08:38→17:59)
[2017-10-06] MEDS: Lisinopril 20mg tab ORAL SCH (08:39)
--- NOTE | 2017-10-06 08:56 | Nephrology Progress Note ---
Assessment/Plan Assessment 1. Acute versus chronic renal failure, with nephrotic range proteinuria 2. New-onset seizure. 3. Hypertension. 4. Hypothyroidism. 5.solitary kidney Plan plan d/c lisinopril check for multiple myeloma check for nephrotic syndrome cause monitoring renal function check in and out put avoid NSAID may need biopsy based on us kidney( considering single kidney will be high risk procedure ) Subjective Constitutional: Reports: no symptoms HEENT: Reports: no symptoms Genitourinary: Reports: no symptoms Neurologic/Psychiatric: Reports: no symptoms Subjective alert and awake no acute events Objective Objective Last 24 Hour Vital Signs Date Time Temp Pulse Resp B/P (MAP) Pulse Ox O2 Delivery O2 Flow Rate FiO2 10/06/17 08:39 131/65 10/06/17 08:39 68 131/65 10/06/17 08:00 98.1 68 17 131/65 99 98.1 10/06/17 04:00 98.0 58 20 124/66 98 98.0 10/06/17 00:00 97.1 70 20 146/80 100 97.1 10/05/17 20:00 97.0 77 22 157/87 98 97.0 10/05/17 15:55 98.3 93 18 125/88 96 Room Air 98.3 10/05/17 12:00 97.1 70 19 100/63 99 Room Air 97.1 Intake and Output 10/05/17 10/06/17 19:00 07:00 Intake Total 775 ml 925 ml Balance 775 ml 925 ml IV Total 775 ml 925 ml # Voids 3 3 # Bowel Movements 1 Height (Feet): 5 Height (Inches): 6.00 Weight (Pounds): 160 Objective HEAD AND NECK: No JVP. No LAD. No thyromegaly. Extraocular movements are intact. Pupils are reactive to light and accommodation. LUNGS: Clear to auscultation. CARDIAC: Regular rate and rhythm. S1 and S2. No murmur. No rub. ABDOMEN: Soft, nontender, nondistended. EXTREMITIES: No edema. No clubbing. No cyanosis. CAMELIA YAN Oct 06, 2017 08:56
[2017-10-06] MEDS: levETIRAcetam 500mg/NS100ml 100 ML IVPB SCH ×2 (09:22→21:06)
[2017-10-06] MEDS: Heparin 5000 units/ml inj SUBQ SCH ×2 (09:23→21:07)
[2017-10-06 12:00] VITALS: BP 137/84
--- NOTE | 2017-10-06 12:41 | General Progress Note ---
Assessment/Plan Problem List: (1) Renal insufficiency ICD Codes: N28.9 - Disorder of kidney and ureter, unspecified SNOMED: 737423459, 591342285 (2) CVA (cerebral vascular accident) ICD Codes: I63.9 - Cerebral infarction, unspecified SNOMED: 848679770 (3) Diabetes ICD Codes: E11.9 - Type 2 diabetes mellitus without complications SNOMED: 12359193 (4) Anemia ICD Codes: D64.9 - Anemia, unspecified SNOMED: 257186815 (5) Seizure ICD Codes: R56.9 - Unspecified convulsions SNOMED: 75911674 Status: stable, progressing, tolerating diet Assessment/Plan ot pt diet seizure control cbc bmp am heme gi eval dc if clear Subjective Constitutional: Reports: weakness Allergies: Coded Allergies: No Known Allergies (Unverified , 01/11/17) All Systems: reviewed and negative except above Subjective sleepy calm in bed Objective Last 24 Hour Vital Signs Date Time Temp Pulse Resp B/P (MAP) Pulse Ox O2 Delivery O2 Flow Rate FiO2 10/06/17 12:00 97.1 77 18 137/84 97 97.1 10/06/17 08:39 131/65 10/06/17 08:39 68 131/65 10/06/17 08:00 98.1 68 17 131/65 99 98.1 10/06/17 04:00 98.0 58 20 124/66 98 98.0 10/06/17 00:00 97.1 70 20 146/80 100 97.1 10/05/17 20:00 97.0 77 22 157/87 98 97.0 10/05/17 15:55 98.3 93 18 125/88 96 Room Air 98.3 Intake and Output 10/05/17 10/06/17 19:00 07:00 Intake Total 775 ml 925 ml Balance 775 ml 925 ml IV Total 775 ml 925 ml # Voids 3 3 # Bowel Movements 1 Height (Feet): 5 Height (Inches): 6.00 Weight (Pounds): 160 General Appearance: confused EENT: normal ENT inspection Neck: normal alignment Cardiovascular: normal peripheral pulses, normal rate, regular rhythm Respiratory/Chest: chest wall non-tender, lungs clear, normal breath sounds Abdomen: normal bowel sounds, non tender, soft Extremities: normal inspection Edema: no edema noted Arm (L), no edema noted Arm (R), no edema noted Leg (L), no edema noted Leg (R), no edema noted Pedal (L), no edema noted Pedal (R), no edema noted Generalized Neurologic: responsive, motor weakness Skin: normal pigmentation, warm/dry CAMILLA WHITE Oct 06, 2017 12:41
[2017-10-06 16:00] VITALS: BP 153/93
--- NOTE | 2017-10-06 17:15 | Progress Note ---
DATE: 10/06/2017 SUBJECTIVE: The patient is a 57-year-old female patient with seizure disorder. She continues to have some confusion, disorganized thought process, and mood lability. No logical plan for own self-care, but she has diagnosis of schizoaffective, bipolar type with increased mood lability, worsened by her seizure disorder, cerebrovascular accident disorder. Attending physician has requested daily psychiatric consultation. MENTAL STATUS EXAMINATION: The patient is a 57-year-old female with psychomotor agitation. Appearance is disheveled. Attitude, irritable and agitated. Affect guarded and restricted. Intellect poor. Mood, depressed and anxious. Motor activity, psychomotor agitation. Mood is irritable and agitated. Thought process disorganized. Thought content, auditory hallucinations, paranoia. Insight and judgment is poor. DIAGNOSIS: Schizoaffective, bipolar type. PLAN: Plan is to treat her with Geodon 60 mg twice a day with meals and Lamictal 125 mg twice a day for both seizure prophylaxis and mood stabilization. Provided 18-20 minutes of supportive therapy. Seen and assessed at bedside. Chart reviewed and discussed . Seen assessed at bedside. Chart reviewed. Discussed with staff. Tang Oliva M.D. DR: ALIDA JOB#: [id number] CC:
[2017-10-06 20:00] VITALS: BP 150/80
[2017-10-06] MEDS: Tamsulosin 0.4mg cap ORAL SCH (21:06)
--- NOTE | 2017-10-06 21:30 | Consultation ---
DATE OF CONSULTATION: 10/06/2017 GASTROLOGY CONSULTATION CONSULTING PHYSICIAN: Fritz Hillman M.D. CHIEF COMPLAINT: Anemia. HISTORY OF PRESENT ILLNESS: This is a 57-year-old female known to me from last admission, which was in last year. At that time, she was admitted with abdominal pain. We did an endoscopy and colonoscopy in last admission. Endoscopy showed evidence of gastritis. Colonoscopy was poor prep. So we could not evaluate her. She had a baseline hemoglobin of 10 in last admission. We attributed mostly to insufficiency. The patient was discharged. We admitted at this time for seizure and GI consult requested for evaluation of anemia. In last admission, the patient had an abdominal ultrasound, which was unable to visualize the gallbladder fundus well. The patient had extrahepatic biliary duct dilatation, although there was no evidence of any downstream obstruction. At that time, the recommendation was to possibly do an MRCP for evaluation of the common bile duct. The patient could not get an MRCP in last admission. She also had a CT of the abdomen and pelvis in three of prior admissions, which showed evidence of rectal impaction. There was questionable proctitis, right hydronephrosis, and history of left nephrectomy. The patient also had mild alignment abnormality of the . PAST MEDICAL HISTORY: 1. Gastritis. 2. Chronic anemia. 3. Chronic renal insufficiency. 4. Seizures. 5. Hypoalbuminemia. 6. Diabetes. 7. Psychiatric disorder. 8. Hypothyroidism. 9. COPD. PAST SURGICAL HISTORY: Left nephrectomy. ALLERGIES: No known drug allergies. MEDICATIONS: Please see medication reconciliation list. SOCIAL HISTORY: There is no recent history of tobacco, alcohol, or drug abuse. FAMILY HISTORY: Noncontributory. REVIEW OF SYSTEMS: Limited. PHYSICAL EXAMINATION: VITAL SIGNS: Temperature 97.1 degrees, pulse is 77, respirations 18, and blood pressure is 137/84. HEENT: Normocephalic and atraumatic. Mild pale conjunctivae. NECK: Supple. No obvious adenopathy. CARDIOVASCULAR: Regular rhythm. Plus S1 and S2. LUNGS: Clear to auscultation bilateral. ABDOMEN: Soft and nontender. No rebound. No guarding. EXTREMITIES: No cyanosis, no clubbing, and no edema. LABORATORY AND DIAGNOSTIC DATA: White count is 5.9, hemoglobin 8, hematocrit 24 and platelet count is 181. Chem-7 and liver function grossly normal. Sodium 140, potassium 4.2, BUN is 35, and creatinine is 2.8. ASSESSMENT AND PLAN: This is a 57-year-old female with anemia. At this time, the cause of anemia is unknown. Differential diagnosis would be GI bleed possibly secondary to renal disease. Of note, in last admission, which was about a year ago her creatinine was 1.5 now it is up to 2.8. So, we recommended nephrology evaluation. We are going to send the stool for OB. Send iron panel. Get a CEA level. Consider doing repeat colonoscopy if needed. The patient will have a hard time feeling depressed. The patient just had a swallow evaluation today and had only passed thickened fluids, so it is going to be very hard for her to drink GoLYTELY. If at one point, she needs a colonoscopy, most probably she would need a G-tube placement for preparation for colonoscopy. We are going to hold off for now. In terms of prior history of common bile duct dilatation, there is no evidence of any abnormal liver function tests. At this time, we are going to repeat abdominal ultrasound. I want to thank, Dr. Hernán Davis, for this kind referral. Fritz Hillman M.D. DR: CATINA JOB#: [id number] CC: Hernán Davis D.O.
--- NOTE | 2017-10-06 21:45 | Consultation ---
DATE OF CONSULTATION: 10/05/2017 PSYCHOTHERAPY CONSULTATION PROGRESS NOTE CONSULTING PHYSICIAN: Katty Bess M.D. TREATING ATTENDING PHYSICIAN: Hernán Davis D.O. HISTORY: This is a 57-year-old female patient. The patient is from [facility]. The patient was initially brought to the hospital for seizure postictal. She was confused, disorganized, and altered in her mental status and for these reasons, she was referred for psychotherapeutic services. Clinician assessed the patient. The patient is very confused and disorganized. She is able to speak, she is forgetful. She has poor frustration tolerance, feeling very irritable and states that she wants to walk out of the hospital; however, does not know where she is going. At this time, she requires hospitalization for stabilization of her symptoms. She denies suicidal or homicidal thoughts of ideations and has been slightly irritable. PAST MEDICAL HISTORY: History of CVA, hypertension, diabetes, seizures and anemia. ALLERGIES: The patient has no known drug allergies. SUBSTANCE ABUSE HISTORY: The patient denies history of alcohol use or substance abuse. PSYCHIATRIC HISTORY: At this time, the patient has a history of possible anxiety. SOCIAL HISTORY: The patient is a 57-year-old female patient from [facility]. Financially supported by [facility]. MENTAL STATUS EXAMINATION: The patient is alert and oriented to person and place. Mood is slightly anxious. Affect is blunted. Thought process disorganized. Thought content, confused with poor attention and concentration. Poor insight , judgment, and impulse control. DIAGNOSIS: Rule out of neurocognitive disorder, Alzheimer's. [place] I Rule out generalized anxiety disorder. PLAN: This clinician assessed this patient's mental status. Provide the patient with reality orientation and provided the patient supportive psychotherapy. Encouraging the patient to participate in the treatment milieu and articulate communication skills with nursing staff. Continue behavioral management. This clinician has reviewed the patient's chart and discussed with treatment team. Katty Bess PsyD. DR: NICHOL JOB#: [id number] CC:
[2017-10-07] VITALS: BP 131/70
--- NOTE | 2017-10-07 00:15 | Consultation ---
DATE OF CONSULTATION: 10/05/2017 NOTE: POOR AUDIO CONSULTING PHYSICIAN: Tang Oliva M.D. HISTORY OF PRESENT ILLNESS: This is a 57-year-old female patient with seizure disorder . She also has overlying diagnosis of schizoaffective, bipolar type and paranoid schizophrenia stress of her medical illness, so her attending physician has requested daily psychiatric consultation . Her mood is labile and irritable. altered mental status. ALLERGIES: No known drug allergies. SOCIAL HISTORY: She lives in a facility. Financially supported by [employer] and Medicare. SUBSTANCE ABUSE HISTORY: Denies drug and alcohol use. MEDICAL HISTORY: Seizure disorder, psychiatric history of paranoid schizophrenia, schizoaffective, bipolar type. MENTAL STATUS EXAMINATION: This is a 57-year-old female. Appearance is disheveled. Attitude is irritable and agitated. Affect guarded and restricted. Intellect poor. Mood depressed and anxious. Motor activity, psychomotor agitation. Attention span is poor. . Thought process is disorganized and illogical. Denies suicidal or homicidal thoughts. Insight and judgement is poor. DIAGNOSES: 1. Paranoid schizophrenia with acute exacerbation. 2. Medical problems, seizure disorder. 3. Psychosocial stresses is financial. PLAN: Plan Geodon 60 mg twice a day . Provided 20 minutes of supportive therapy. . Chart was reviewed and discussed with staff. . I would like to thank, Dr. Hernán Davis, for this interesting consultation. Tang Oliva M.D. DR: DANIELLE JOB#: [id number] CC:
--- NOTE | 2017-10-07 00:53 | General Progress Note ---
Assessment/Plan Assessment/Plan 1. Anemia due to underlying chronic disease. --> Continue to closely monitor. --> Pending anemia workup --> Hemoglobin goal is above 7. --> Transfuse as needed. --> No evidence of reticulocytosis or hemolysis at the moment. 2. Anemia due to underlying kidney disease, as noted above. 3. Acute kidney injury on chronic kidney disease. --> The patient's baseline is approximately 1.5 on prior admission back in 2017. --> Closely monitor per Nephrology Service. 4. Diabetes mellitus. A1c goal less than 7. 5. Seizure disorder. --> Management as per Neurology Service, Dr. Guerra. --> Closely monitor. --> Status post cerebrovascular accident. Subjective Date patient seen: Oct 06, 2017 Constitutional: Denies: no symptoms, chills, diaphoresis, fever, malaise, weakness, other HEENT: Denies: no symptoms, eye pain, blurred vision, tearing, double vision, ear pain, ear discharge, nose pain, nose congestion, throat pain, throat swelling, mouth pain, mouth swelling, other Cardiovascular: Denies: no symptoms, chest pain, edema, irregular heart rate, lightheadedness, palpitations, syncope, other Respiratory: Denies: no symptoms, cough, orthopnea, shortness of breath, SOB with excertion, SOB at rest, sputum, stridor, wheezing, other Gastrointestinal/Abdominal: Denies: no symptoms, abdomen distended, abdominal pain, black stools, tarry stools, blood in stool, constipated, diarrhea, difficulty swallowing, nausea, poor appetite, poor fluid intake, rectal bleeding , vomiting, other Genitourinary: Denies: no symptoms, burning, discharge, frequency, flank pain, hematuria, incontinence, pain, urgency, other Neurologic/Psychiatric: Denies: no symptoms, anxiety, depressed, emotional problems, headache, numbness, paresthesia, pre-existing deficit, seizure, tingling, tremors, weakness, other Hematologic/Lymphatic: Reports: anemia Allergies: Coded Allergies: No Known Allergies (Unverified , 01/11/17) Subjective Confused. No fever. Objective Last 24 Hour Vital Signs Date Time Temp Pulse Resp B/P (MAP) Pulse Ox O2 Delivery O2 Flow Rate FiO2 10/07/17 00:00 97.9 74 18 131/70 98 97.9 10/06/17 20:00 97.6 74 18 150/80 100 97.6 10/06/17 16:00 97.8 68 19 153/93 99 97.8 10/06/17 12:00 97.1 77 18 137/84 97 97.1 10/06/17 08:39 131/65 10/06/17 08:39 68 131/65 10/06/17 08:00 98.1 68 17 131/65 99 98.1 10/06/17 04:00 98.0 58 20 124/66 98 98.0 Intake and Output 10/06/17 10/07/17 19:00 07:00 Intake Total 2425 ml 400 ml Balance 2425 ml 400 ml IV Total 1225 ml 400 ml Other 1200 ml # Voids 3 # Bowel Movements 1 Laboratory Tests 10/06/17 18:30: Stool Occult Blood [Pending] Height (Feet): 5 Height (Inches): 6.00 Weight (Pounds): 160 General Appearance: confused Respiratory/Chest: decreased breath sounds Abdomen: soft Roly Palomares MD Oct 07, 2017 00:53
[2017-10-07] MEDS: NovoLOG Insulin Flexpen SUBQ SCH ×4 (06:30→20:18)
[2017-10-07] MEDS: D5 1/2NS 1,000 ML IV SCH (06:42)
[2017-10-07 07:20] LABS: HEMATOCRIT 22.3 % (37.0-47.0); HEMOGLOBIN 7.1 G/DL (12.0-16.0); MEAN CORPUSCULAR VOLUME 94 FL (80-99); PLATELET COUNT 161 K/UL (150-450); RED BLOOD COUNT 2.36 M/UL (4.20-5.40); RED CELL DISTRIBUTION WIDTH 15.3 % (11.6-14.8); WHITE BLOOD COUNT 5.2 K/UL (4.8-10.8)
[2017-10-07 07:41] LABS: ALANINE AMINOTRANSFERASE 31 U/L (12-78); ALBUMIN 1.5 G/DL (3.4-5.0); ALBUMIN/GLOBULIN RATIO 0.4 (1.0-2.7); ALKALINE PHOSPHATASE 84 U/L (46-116); ANION GAP 8 mmol/L (5-15); ASPARTATE AMINO TRANSFERASE 21 U/L (15-37); BILIRUBIN,TOTAL < 0.1 MG/DL (0.2-1.0); BLOOD UREA NITROGEN 28 mg/dL (7-18); CALCIUM 8.7 MG/DL (8.5-10.1); CARBON DIOXIDE 21 MMOL/L (21-32); CHLORIDE 111 MMOL/L (98-107); CREATININE 2.8 MG/DL (0.55-1.30); POTASSIUM 4.4 MMOL/L (3.5-5.1); SODIUM 140 MMOL/L (136-145)
[2017-10-07 07:50] LABS: IRON 60 ug/dL (50-175); TOTAL IRON BINDING CAPACITY 138 ug/dL (250-450)
[2017-10-07 07:53] LABS: % IRON SATURATION 43 % (15-50)
[2017-10-07 09:00] VITALS: BP 163/92
[2017-10-07] MEDS: Ziprasidone 20mg cap ORAL SCH ×2 (09:28→19:05)
[2017-10-07] MEDS: levETIRAcetam 500mg/NS100ml 100 ML IVPB SCH ×2 (09:28→20:17)
[2017-10-07] MEDS: Aspirin EC 81mg tab ORAL SCH (09:28)
[2017-10-07] MEDS: Heparin 5000 units/ml inj SUBQ SCH ×2 (09:29→20:18)
--- NOTE | 2017-10-07 11:42 | Nephrology Progress Note ---
Assessment/Plan Assessment 1. Acute versus chronic renal failure, with nephrotic range proteinuria 2. New-onset seizure. 3. Hypertension. 4. Hypothyroidism. 5.solitary kidney Plan plan d/c lisinopril check for multiple myeloma check for nephrotic syndrome cause monitoring renal function check in and out put avoid NSAID may need biopsy based on us kidney( considering single kidney will be high risk procedure ) Subjective Constitutional: Reports: no symptoms HEENT: Reports: no symptoms Neurologic/Psychiatric: Reports: no symptoms Subjective alert and awake no acute events Objective Objective Last 24 Hour Vital Signs Date Time Temp Pulse Resp B/P (MAP) Pulse Ox O2 Delivery O2 Flow Rate FiO2 10/07/17 09:28 76 163/92 10/07/17 09:00 96.8 76 20 163/92 99 96.8 10/07/17 00:00 97.9 74 18 131/70 98 97.9 10/06/17 20:00 97.6 74 18 150/80 100 97.6 10/06/17 16:00 97.8 68 19 153/93 99 97.8 10/06/17 12:00 97.1 77 18 137/84 97 97.1 Intake and Output 10/06/17 10/07/17 19:00 07:00 Intake Total 2425 ml 925 ml Balance 2425 ml 925 ml IV Total 1225 ml 925 ml Other 1200 ml # Voids 3 4 # Bowel Movements 1 1 Laboratory Tests 10/06/17 18:30: Stool Occult Blood Negative 10/07/17 05:20: White Blood Count 5.2, Red Blood Count 2.36L, Hemoglobin 7.1L, Hematocrit 22.3L , Mean Corpuscular Volume 94, Mean Corpuscular Hemoglobin 30.2, Mean Corpuscular Hemoglobin Concent 32.0, Red Cell Distribution Width 15.3H, Platelet Count 161, Mean Platelet Volume 5.8L, Neutrophils (%) (Auto) , Lymphocytes (%) (Auto) , Monocytes (%) (Auto) , Eosinophils (%) (Auto) , Basophils (%) (Auto) , Differential Total Cells Counted 100, Neutrophils % ( Manual) 67, Lymphocytes % (Manual) 23, Monocytes % (Manual) 7, Eosinophils % ( Manual) 3, Basophils % (Manual) 0, Band Neutrophils 0, Platelet Estimate Adequate, Platelet Morphology Normal, Hypochromasia 1+, Anisocytosis 1+, Sodium Level 140, Potassium Level 4.4, Chloride Level 111H, Carbon Dioxide Level 21, Anion Gap 8, Blood Urea Nitrogen 28H, Creatinine 2.8H, Estimat Glomerular Filtration Rate 17.3, Glucose Level 74, Calcium Level 8.7, Iron Level 60, Total Iron Binding Capacity 138L, Percent Iron Saturation 43, Unsaturated Iron Binding 78L, Total Bilirubin < 0.1L, Aspartate Amino Transf (AST/SGOT) 21, Alanine Aminotransferase (ALT/SGPT) 31, Alkaline Phosphatase 84, Total Protein 5.7L, Albumin 1.5L, Globulin 4.2, Albumin/Globulin Ratio 0.4L Height (Feet): 5 Height (Inches): 6.00 Weight (Pounds): 160 Objective HEAD AND NECK: No JVP. No LAD. No thyromegaly. Extraocular movements are intact. Pupils are reactive to light and accommodation. LUNGS: Clear to auscultation. CARDIAC: Regular rate and rhythm. S1 and S2. No murmur. No rub. ABDOMEN: Soft, nontender, nondistended. EXTREMITIES: No edema. No clubbing. No cyanosis. CAMELIA YAN Oct 07, 2017 11:42
[2017-10-07 12:00] VITALS: BP 148/82
--- NOTE | 2017-10-07 12:10 | General Progress Note ---
Assessment/Plan Problem List: (1) Extrahepatic obstructive biliary disease ICD Codes: K83.1 - Obstruction of bile duct SNOMED: 0749869 (2) Anemia ICD Codes: D64.9 - Anemia, unspecified SNOMED: 248213602 (3) Diabetes ICD Codes: E11.9 - Type 2 diabetes mellitus without complications SNOMED: 43938901 (4) Renal insufficiency ICD Codes: N28.9 - Disorder of kidney and ureter, unspecified SNOMED: 738730425, 169709485 (5) Seizure ICD Codes: R56.9 - Unspecified convulsions SNOMED: 46876708 (6) CVA (cerebral vascular accident) ICD Codes: I63.9 - Cerebral infarction, unspecified SNOMED: 617252710 Assessment/Plan stool ob negative fu nephrology fu H&H prn blood transfusion fu abd us Subjective ROS Limited/Unobtainable: No Allergies: Coded Allergies: No Known Allergies (Unverified , 01/11/17) Objective Last 24 Hour Vital Signs Date Time Temp Pulse Resp B/P (MAP) Pulse Ox O2 Delivery O2 Flow Rate FiO2 10/07/17 09:28 76 163/92 10/07/17 09:00 96.8 76 20 163/92 99 96.8 10/07/17 00:00 97.9 74 18 131/70 98 97.9 10/06/17 20:00 97.6 74 18 150/80 100 97.6 10/06/17 16:00 97.8 68 19 153/93 99 97.8 Intake and Output 10/06/17 10/07/17 19:00 07:00 Intake Total 2425 ml 925 ml Balance 2425 ml 925 ml IV Total 1225 ml 925 ml Other 1200 ml # Voids 3 4 # Bowel Movements 1 1 Laboratory Tests 10/06/17 18:30: Stool Occult Blood Negative 10/07/17 05:20: White Blood Count 5.2, Red Blood Count 2.36L, Hemoglobin 7.1L, Hematocrit 22.3L , Mean Corpuscular Volume 94, Mean Corpuscular Hemoglobin 30.2, Mean Corpuscular Hemoglobin Concent 32.0, Red Cell Distribution Width 15.3H, Platelet Count 161, Mean Platelet Volume 5.8L, Neutrophils (%) (Auto) , Lymphocytes (%) (Auto) , Monocytes (%) (Auto) , Eosinophils (%) (Auto) , Basophils (%) (Auto) , Differential Total Cells Counted 100, Neutrophils % ( Manual) 67, Lymphocytes % (Manual) 23, Monocytes % (Manual) 7, Eosinophils % ( Manual) 3, Basophils % (Manual) 0, Band Neutrophils 0, Platelet Estimate Adequate, Platelet Morphology Normal, Hypochromasia 1+, Anisocytosis 1+, Sodium Level 140, Potassium Level 4.4, Chloride Level 111H, Carbon Dioxide Level 21, Anion Gap 8, Blood Urea Nitrogen 28H, Creatinine 2.8H, Estimat Glomerular Filtration Rate 17.3, Glucose Level 74, Calcium Level 8.7, Iron Level 60, Total Iron Binding Capacity 138L, Percent Iron Saturation 43, Unsaturated Iron Binding 78L, Total Bilirubin < 0.1L, Aspartate Amino Transf (AST/SGOT) 21, Alanine Aminotransferase (ALT/SGPT) 31, Alkaline Phosphatase 84, Total Protein 5.7L, Albumin 1.5L, Globulin 4.2, Albumin/Globulin Ratio 0.4L Height (Feet): 5 Height (Inches): 6.00 Weight (Pounds): 160 General Appearance: no apparent distress EENT: normal ENT inspection Neck: supple Cardiovascular: normal rate Respiratory/Chest: decreased breath sounds Abdomen: normal bowel sounds, non tender, soft Extremities: non-tender FREDIS ASCENCIO Oct 07, 2017 12:10
--- NOTE | 2017-10-07 12:36 | General Progress Note ---
Assessment/Plan Problem List: (1) Renal insufficiency ICD Codes: N28.9 - Disorder of kidney and ureter, unspecified SNOMED: 152990435, 157882311 (2) CVA (cerebral vascular accident) ICD Codes: I63.9 - Cerebral infarction, unspecified SNOMED: 423888288 (3) Diabetes ICD Codes: E11.9 - Type 2 diabetes mellitus without complications SNOMED: 61057822 (4) Anemia ICD Codes: D64.9 - Anemia, unspecified SNOMED: 222376653 (5) Seizure ICD Codes: R56.9 - Unspecified convulsions SNOMED: 33527406 Status: stable, progressing, tolerating diet Assessment/Plan ot pt diet seizure control dc if clear Subjective Constitutional: Reports: weakness Allergies: Coded Allergies: No Known Allergies (Unverified , 01/11/17) All Systems: reviewed and negative except above Subjective sleepy calm in bed Objective Last 24 Hour Vital Signs Date Time Temp Pulse Resp B/P (MAP) Pulse Ox O2 Delivery O2 Flow Rate FiO2 10/07/17 09:28 76 163/92 10/07/17 09:00 96.8 76 20 163/92 99 96.8 10/07/17 00:00 97.9 74 18 131/70 98 97.9 10/06/17 20:00 97.6 74 18 150/80 100 97.6 10/06/17 16:00 97.8 68 19 153/93 99 97.8 Intake and Output 10/06/17 10/07/17 19:00 07:00 Intake Total 2425 ml 925 ml Balance 2425 ml 925 ml IV Total 1225 ml 925 ml Other 1200 ml # Voids 3 4 # Bowel Movements 1 1 Laboratory Tests 10/06/17 18:30: Stool Occult Blood Negative 10/07/17 05:20: White Blood Count 5.2, Red Blood Count 2.36L, Hemoglobin 7.1L, Hematocrit 22.3L , Mean Corpuscular Volume 94, Mean Corpuscular Hemoglobin 30.2, Mean Corpuscular Hemoglobin Concent 32.0, Red Cell Distribution Width 15.3H, Platelet Count 161, Mean Platelet Volume 5.8L, Neutrophils (%) (Auto) , Lymphocytes (%) (Auto) , Monocytes (%) (Auto) , Eosinophils (%) (Auto) , Basophils (%) (Auto) , Differential Total Cells Counted 100, Neutrophils % ( Manual) 67, Lymphocytes % (Manual) 23, Monocytes % (Manual) 7, Eosinophils % ( Manual) 3, Basophils % (Manual) 0, Band Neutrophils 0, Platelet Estimate Adequate, Platelet Morphology Normal, Hypochromasia 1+, Anisocytosis 1+, Sodium Level 140, Potassium Level 4.4, Chloride Level 111H, Carbon Dioxide Level 21, Anion Gap 8, Blood Urea Nitrogen 28H, Creatinine 2.8H, Estimat Glomerular Filtration Rate 17.3, Glucose Level 74, Calcium Level 8.7, Iron Level 60, Total Iron Binding Capacity 138L, Percent Iron Saturation 43, Unsaturated Iron Binding 78L, Total Bilirubin < 0.1L, Aspartate Amino Transf (AST/SGOT) 21, Alanine Aminotransferase (ALT/SGPT) 31, Alkaline Phosphatase 84, Total Protein 5.7L, Albumin 1.5L, Globulin 4.2, Albumin/Globulin Ratio 0.4L Height (Feet): 5 Height (Inches): 6.00 Weight (Pounds): 160 General Appearance: alert EENT: normal ENT inspection Neck: normal alignment Cardiovascular: normal peripheral pulses, normal rate, regular rhythm Respiratory/Chest: chest wall non-tender, lungs clear, normal breath sounds Abdomen: normal bowel sounds, non tender, soft Extremities: normal inspection Edema: no edema noted Arm (L), no edema noted Arm (R), no edema noted Leg (L), no edema noted Leg (R), no edema noted Pedal (L), no edema noted Pedal (R), no edema noted Generalized Neurologic: responsive, motor weakness Skin: normal pigmentation, warm/dry CAMILLA WHITE Oct 07, 2017 12:36
[2017-10-07 16:00] VITALS: BP 156/82
--- NOTE | 2017-10-07 19:00 | Progress Note ---
DATE: 10/06/2017 PSYCHOTHERAPY CONSULTATION PROGRESS NOTE TREATING ATTENDING PHYSICIAN: Hernán Davis D.O. SUBJECTIVE: The patient is a 57-year-old female patient. The patient remains confused, disorganized, altered in mental status. The patient has poor frustration tolerance and helpless and hopeless and diagnosis of rule out generalized anxiety disorder and this clinician assessed this patient to assess the patient's mental status. The patient states that she is ready to go home, however, she has been having difficulty with her memory. At this time, the patient has been very forgetful, remains slightly anxious and irritable, and has no logical or viable plan for her self-care. This clinician assessed the patient and patient's mental status. Provided the patient with reality orientation and supportive psychotherapy. Encouraging the patient to participate in treatment milieu. We will send the patient to orientation classes. This clinician has reviewed the patient's chart and discussed the treatment with treatment team. Katty Bess PsyD. DR: ALEXANDER JOB#: [id number] CC:
[2017-10-07 20:00] VITALS: BP 143/80
[2017-10-07] MEDS: Tamsulosin 0.4mg cap ORAL SCH (20:17)
--- NOTE | 2017-10-07 23:45 | Progress Note ---
DATE: 10/07/2017 SUBJECTIVE: This is a 57-year-old female patient with seizures, history of cerebrovascular accident. This patient does have some mood lability, confusion, and disorganized thought process, worsened by stress of her medical illness. That is why, attending has requested daily psychiatric consultation to reduce her mood lability and altered mental status and to prevent any further decline in her cognition. MENTAL STATUS EXAMINATION: This is a 57-year-old female. Appearance is disheveled. Attitude irritable and agitated. Affect guarded and restricted. Intellect poor. Mood depressed and anxious. Motor activity, psychomotor agitation. Attention span is poor. Orientation x2. Speech is pressured. Thought process, disorganized and illogical. Thought content, auditory hallucinations and paranoid delusions. Insight and judgment is poor. poor. Description of delusions, delusions of people following her and changing medications. DIAGNOSIS: Schizoaffective, bipolar type. PLAN: Plan is to treat her with Lamictal 125 mg twice a day, Geodon 60 mg twice a day, Cogentin 1 mg twice a day. Provide 18 to 20 minutes of supportive therapy. Chart reviewed and discussed with staff. Tang Oliva M.D. DR: Sukhjinder JOB#: [id number] CC:
[2017-10-08] VITALS: BP 132/80
--- NOTE | 2017-10-08 01:35 | General Progress Note ---
Assessment/Plan Assessment/Plan 1. Anemia due to underlying chronic disease. --> Continue to closely monitor. --> Anemia workup reviewed. Iron 60, TIBC 138 --> Hemoglobin goal is above 7. --> Pending blood transfusion as hemoglobin levels low. --> No evidence of reticulocytosis or hemolysis at the moment. 2. Anemia due to underlying kidney disease, as noted above. 3. Acute kidney injury on chronic kidney disease. --> The patient's baseline is approximately 1.5 on prior admission back in 2017. --> Closely monitor per Nephrology Service. 4. Diabetes mellitus. A1c goal less than 7. 5. Seizure disorder. --> Management as per Neurology Service, Dr. Guerra. --> Closely monitor. --> Status post cerebrovascular accident. Subjective Date patient seen: Oct 07, 2017 Constitutional: Denies: no symptoms, chills, diaphoresis, fever, malaise, weakness, other HEENT: Denies: no symptoms, eye pain, blurred vision, tearing, double vision, ear pain, ear discharge, nose pain, nose congestion, throat pain, throat swelling, mouth pain, mouth swelling, other Cardiovascular: Denies: no symptoms, chest pain, edema, irregular heart rate, lightheadedness, palpitations, syncope, other Respiratory: Denies: no symptoms, cough, orthopnea, shortness of breath, SOB with excertion, SOB at rest, sputum, stridor, wheezing, other Gastrointestinal/Abdominal: Denies: no symptoms, abdomen distended, abdominal pain, black stools, tarry stools, blood in stool, constipated, diarrhea, difficulty swallowing, nausea, poor appetite, poor fluid intake, rectal bleeding , vomiting, other Genitourinary: Denies: no symptoms, burning, discharge, frequency, flank pain, hematuria, incontinence, pain, urgency, other Neurologic/Psychiatric: Denies: no symptoms, anxiety, depressed, emotional problems, headache, numbness, paresthesia, pre-existing deficit, seizure, tingling, tremors, weakness, other Hematologic/Lymphatic: Reports: anemia Allergies: Coded Allergies: No Known Allergies (Unverified , 01/11/17) Subjective Confused. Pending blood transfusion. No hematochezia. Objective Last 24 Hour Vital Signs Date Time Temp Pulse Resp B/P (MAP) Pulse Ox O2 Delivery O2 Flow Rate FiO2 10/08/17 00:00 97.0 57 19 132/80 100 Room Air 97.0 10/07/17 20:00 97.0 62 19 143/80 100 Room Air 97.0 10/07/17 16:00 97.0 51 18 156/82 100 97.0 10/07/17 12:00 97.8 81 18 148/82 100 97.8 10/07/17 09:28 76 163/92 10/07/17 09:00 96.8 76 20 163/92 99 96.8 Intake and Output 10/07/17 10/08/17 19:00 07:00 Intake Total 850 ml 475 ml Balance 850 ml 475 ml IV Total 850 ml 475 ml # Voids 3 # Bowel Movements 1 Laboratory Tests 10/07/17 05:20: White Blood Count 5.2, Red Blood Count 2.36L, Hemoglobin 7.1L, Hematocrit 22.3L , Mean Corpuscular Volume 94, Mean Corpuscular Hemoglobin 30.2, Mean Corpuscular Hemoglobin Concent 32.0, Red Cell Distribution Width 15.3H, Platelet Count 161, Mean Platelet Volume 5.8L, Neutrophils (%) (Auto) , Lymphocytes (%) (Auto) , Monocytes (%) (Auto) , Eosinophils (%) (Auto) , Basophils (%) (Auto) , Differential Total Cells Counted 100, Neutrophils % ( Manual) 67, Lymphocytes % (Manual) 23, Monocytes % (Manual) 7, Eosinophils % ( Manual) 3, Basophils % (Manual) 0, Band Neutrophils 0, Platelet Estimate Adequate, Platelet Morphology Normal, Hypochromasia 1+, Anisocytosis 1+, Sodium Level 140, Potassium Level 4.4, Chloride Level 111H, Carbon Dioxide Level 21, Anion Gap 8, Blood Urea Nitrogen 28H, Creatinine 2.8H, Estimat Glomerular Filtration Rate 17.3, Glucose Level 74, Calcium Level 8.7, Iron Level 60, Total Iron Binding Capacity 138L, Percent Iron Saturation 43, Unsaturated Iron Binding 78L, Total Bilirubin < 0.1L, Aspartate Amino Transf (AST/SGOT) 21, Alanine Aminotransferase (ALT/SGPT) 31, Alkaline Phosphatase 84, Total Protein 5.7L, Albumin 1.5L, Globulin 4.2, Albumin/Globulin Ratio 0.4L Height (Feet): 5 Height (Inches): 6.00 Weight (Pounds): 160 General Appearance: confused Respiratory/Chest: decreased breath sounds Abdomen: soft Roly Palomares MD Oct 08, 2017 01:35
[2017-10-08] MEDS: NovoLOG Insulin Flexpen SUBQ SCH ×4 (06:12→21:14)
[2017-10-08 07:14] LABS: BASOPHILS % (AUTO) 1.5 % (0.0-2.0); EOSINOPHILS % (AUTO) 5.4 % (0.0-3.0); HEMATOCRIT 30.6 % (37.0-47.0); HEMOGLOBIN 10.4 G/DL (12.0-16.0); LYMPHOCYTES % (AUTO) 33.7 % (20.0-45.0); MEAN CORPUSCULAR VOLUME 93 FL (80-99); MONOCYTES % (AUTO) 6.5 % (1.0-10.0); PLATELET COUNT 186 K/UL (150-450); WHITE BLOOD COUNT 5.3 K/UL (4.8-10.8)
[2017-10-08 07:23] LABS: ANION GAP 4 mmol/L (5-15); BLOOD UREA NITROGEN 27 mg/dL (7-18); CALCIUM 9.6 MG/DL (8.5-10.1); CARBON DIOXIDE 24 MMOL/L (21-32); CHLORIDE 113 MMOL/L (98-107); CREATININE 2.7 MG/DL (0.55-1.30); POTASSIUM 5.3 MMOL/L (3.5-5.1); SODIUM 141 MMOL/L (136-145)
[2017-10-08 08:00] VITALS: BP 151/76
--- NOTE | 2017-10-08 09:26 | Diagnostic Imaging Report ---
Indication:Abdominal pain Technique: Grayscale and duplex Doppler imaging of the abdomen performed. Comparison: None Findings: There is trace ascites. There is a small left pleural effusion. Liver and gallbladder are unremarkable. Demonstrated. The pancreas and spleen are unremarkable. CBD is 2 mm. Kidneys are unremarkable. IMPRESSION: Trace ascites. Small left pleural effusion
--- NOTE | 2017-10-08 09:44 | General Progress Note ---
Assessment/Plan Problem List: (1) Renal insufficiency ICD Codes: N28.9 - Disorder of kidney and ureter, unspecified SNOMED: 978309293, 061626882 (2) CVA (cerebral vascular accident) ICD Codes: I63.9 - Cerebral infarction, unspecified SNOMED: 190368730 (3) Diabetes ICD Codes: E11.9 - Type 2 diabetes mellitus without complications SNOMED: 96199400 (4) Anemia ICD Codes: D64.9 - Anemia, unspecified SNOMED: 025658937 (5) Seizure ICD Codes: R56.9 - Unspecified convulsions SNOMED: 00142367 Status: unchanged Assessment/Plan ot pt diet seizure control cbc bmp am dc if clear Subjective Constitutional: Reports: weakness Allergies: Coded Allergies: No Known Allergies (Unverified , 01/11/17) All Systems: reviewed and negative except above Subjective sleepy calm in bed Objective Last 24 Hour Vital Signs Date Time Temp Pulse Resp B/P (MAP) Pulse Ox O2 Delivery O2 Flow Rate FiO2 10/08/17 00:00 97.0 57 19 132/80 100 Room Air 97.0 10/07/17 20:00 97.0 62 19 143/80 100 Room Air 97.0 10/07/17 16:00 97.0 51 18 156/82 100 97.0 10/07/17 12:00 97.8 81 18 148/82 100 97.8 Intake and Output 10/07/17 10/08/17 19:00 07:00 Intake Total 850 ml 925 ml Balance 850 ml 925 ml IV Total 850 ml 925 ml # Voids 3 2 # Bowel Movements 1 Laboratory Tests 10/08/17 06:30: White Blood Count 5.3, Red Blood Count 3.30L, Hemoglobin 10.4#L, Hematocrit 30.6 #L, Mean Corpuscular Volume 93, Mean Corpuscular Hemoglobin 31.5H, Mean Corpuscular Hemoglobin Concent 34.0, Red Cell Distribution Width 15.0H, Platelet Count 186, Mean Platelet Volume 6.0L, Neutrophils (%) (Auto) 53.0, Lymphocytes (%) (Auto) 33.7, Monocytes (%) (Auto) 6.5, Eosinophils (%) (Auto) 5.4H, Basophils (%) (Auto) 1.5, Sodium Level 141, Potassium Level 5.3H, Chloride Level 113H, Carbon Dioxide Level 24, Anion Gap 4L, Blood Urea Nitrogen 27H, Creatinine 2.7H, Estimat Glomerular Filtration Rate 18.0, Glucose Level 104 , Calcium Level 9.6 Height (Feet): 5 Height (Inches): 6.00 Weight (Pounds): 160 General Appearance: lethargic EENT: normal ENT inspection Neck: normal alignment Cardiovascular: normal peripheral pulses, normal rate, regular rhythm Respiratory/Chest: chest wall non-tender, lungs clear, normal breath sounds Abdomen: normal bowel sounds, non tender, soft Extremities: normal inspection Edema: no edema noted Arm (L), no edema noted Arm (R), no edema noted Leg (L), no edema noted Leg (R), no edema noted Pedal (L), no edema noted Pedal (R), no edema noted Generalized Neurologic: motor weakness Skin: normal pigmentation, warm/dry CAMILLA WHITE Oct 08, 2017 09:44
[2017-10-08] MEDS: levETIRAcetam 500mg/NS100ml 100 ML IVPB SCH ×2 (10:51→21:12)
[2017-10-08] MEDS: Aspirin EC 81mg tab ORAL SCH (10:53)
[2017-10-08] MEDS: Ziprasidone 20mg cap ORAL SCH ×2 (10:53→18:53)
[2017-10-08] MEDS: Heparin 5000 units/ml inj SUBQ SCH ×2 (10:56→21:13)
[2017-10-08] MEDS: D5 1/2NS 1,000 ML IV SCH ×3 (10:57→23:31)
[2017-10-08 12:00] VITALS: BP 134/78
--- NOTE | 2017-10-08 14:57 | Consultation ---
History of Present Illness General Date patient seen: Oct 08, 2017 Chief Complaint: Seizure Present Illness HPI 57-year-old female with hx of extensive CVA, seizures, DM skilled nursing resident brought in by EMS with CC of seizure. The patient was given Versed 5 mg prior to arrival. History is markedly limited by patient's mental status. Patient was noted to have continued sedation. She developed episodes of dyspnea. I was asked to evaluate these complains. Pt doesn't have any recent CXR. She is awake and seems to understand and communicate. Allergies: Coded Allergies: No Known Allergies (Unverified , 01/11/17) Medication History Scheduled Amlodipine Besylate* (Amlodipine Besylate*), 10 MG ORAL DAILY, (Reported) Ascorbic Acid* (Vitamin C*), 500 MG ORAL DAILY, (Reported) Aspirin* (Aspir 81*), 81 MG ORAL DAILY, (Reported) Atorvastatin Calcium* (Lipitor*), 20 MG ORAL BEDTIME, (Reported) Benztropine Mesylate* (Cogentin*), 1 MG PO BID, (Reported) Docusate Sodium* (Colace*), 200 MG ORAL TWICE A DAY, (Reported) Famotidine (Pepcid), 20 MG ORAL DAILY, (Reported) Fenofibrate (Fenofibrate), 54 MG ORAL DAILY, (Reported) Glipizide* (Glipizide*), 20 MG ORAL BIDAC, (Reported) Lactulose (Lactulose*), 20 ML ORAL BID, (Reported) Lamotrigine* (Lamictal*), 50 MG ORAL BID, (Reported) Levothyroxine Sodium* (Synthroid*), 75 MCG ORAL DAILY, (Reported) Levothyroxine Sodium* (Levothyroxine Sodium*), 25 MCG ORAL DAILY, (Reported) Linagliptin (Tradjenta), 5 MG PO DAILY, (Reported) Lisinopril (Lisinopril*), 20 MG ORAL DAILY, (Reported) Pantoprazole* (Protonix*), 40 MG ORAL EVERY 12 HOURS, (Reported) Polyethylene Glycol 3350* (Miralax*), 17 GM ORAL DAILY, (Reported) Sennosides/Docusate Sodium (Senokot-S Tablet), 1 EACH PO BID, (Reported) Tamsulosin Hcl (Tamsulosin Hcl*), 0.4 MG ORAL BEDTIME, (Reported) Vit B Comp/C/Fa/Iron/Vit E (Vitamin B Complex Tablet), 1 EACH PO DAILY, ( Reported) Ziprasidone Hcl* (Geodon*), 60 MG ORAL TWICE A DAY, (Reported) [mylanta], 30 ML Q4HR, (Reported) Scheduled PRN Acetaminophen (Acetaminophen), 650 MG PO Q4HR PRN for Moderate Pain (Pain Scale 4-6), (Reported) Clonidine Hcl* (Catapres*), 0.1 MG ORAL EVERY 6 HOURS PRN for For High Blood Pressure, (Reported) Ibuprofen* (Motrin*), 400 MG ORAL THREE TIMES A DAY PRN for For Pain, (Reported) Lorazepam* (Ativan*), 1 MG ORAL Q8HR PRN for For Anxiety, (Reported) Magnesium Hydroxide* (Milk Of Magnesia*), 30 ML ORAL Q6HR PRN for Constipation, (Reported) Ondansetron* (Zofran*), 4 MG ORAL Q6H PRN for Nausea & Vomiting, (Reported) Temazepam* (Restoril*), 15 MG ORAL BEDTIME PRN for Insomnia, (Reported) Miscellaneous Medications Diphenhydramine Hcl (Benadryl Allergy), 25 MG PO, (Reported) Nitroglycerin (Nitroglycerin), 0.4 MG SL, (Reported) Patient History Healthcare decision maker Resuscitation status Full Code Advanced Directive on File Past Medical/Surgical History Past Medical/Surgical History: (1) CVA (cerebral vascular accident) (2) Renal insufficiency (3) Diabetes Review of Systems All Other Systems: negative except mentioned in HPI Physical Exam General Appearance: WD/WN Lines, tubes and drains: peripheral Neck: non-tender, supple Respiratory/Chest: chest wall non-tender, rhonchi - left, rhonchi - right Cardiovascular/Chest: normal peripheral pulses, regular rhythm Abdomen: normal bowel sounds, soft Genitourinary/Rectal: normal genital exam, normal rectal exam Extremities: normal range of motion, normal inspection Skin Exam: normal pigmentation 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 Last 24 Hour Vital Signs Date Time Temp Pulse Resp B/P (MAP) Pulse Ox O2 Delivery O2 Flow Rate FiO2 10/08/17 12:00 96.0 59 19 134/78 100 Room Air 96.0 10/08/17 11:20 57 151/76 10/08/17 08:00 96.5 57 20 151/76 100 Room Air 96.5 10/08/17 00:00 97.0 57 19 132/80 100 Room Air 97.0 10/07/17 20:00 97.0 62 19 143/80 100 Room Air 97.0 10/07/17 16:00 97.0 51 18 156/82 100 97.0 Intake and Output 10/07/17 10/08/17 19:00 07:00 Intake Total 850 ml 925 ml Balance 850 ml 925 ml IV Total 850 ml 925 ml # Voids 3 2 # Bowel Movements 1 Laboratory Tests Test 10/08/17 06:30 White Blood Count 5.3 K/UL (4.8-10.8) Red Blood Count 3.30 M/UL (4.20-5.40) L Hemoglobin 10.4 G/DL (12.0-16.0) #L Hematocrit 30.6 % (37.0-47.0) #L Mean Corpuscular Volume 93 FL (80-99) Mean Corpuscular Hemoglobin 31.5 PG (27.0-31.0) H Mean Corpuscular Hemoglobin Concent 34.0 G/DL (32.0-36.0) Red Cell Distribution Width 15.0 % (11.6-14.8) H Platelet Count 186 K/UL (150-450) Mean Platelet Volume 6.0 FL (6.5-10.1) L Neutrophils (%) (Auto) 53.0 % (45.0-75.0) Lymphocytes (%) (Auto) 33.7 % (20.0-45.0) Monocytes (%) (Auto) 6.5 % (1.0-10.0) Eosinophils (%) (Auto) 5.4 % (0.0-3.0) H Basophils (%) (Auto) 1.5 % (0.0-2.0) Sodium Level 141 MMOL/L (136-145) Potassium Level 5.3 MMOL/L (3.5-5.1) H Chloride Level 113 MMOL/L (98-107) H Carbon Dioxide Level 24 MMOL/L (21-32) Anion Gap 4 mmol/L (5-15) L Blood Urea Nitrogen 27 mg/dL (7-18) H Creatinine 2.7 MG/DL (0.55-1.30) H Estimat Glomerular Filtration Rate 18.0 mL/min (>60) Glucose Level 104 MG/DL (74-106) Calcium Level 9.6 MG/DL (8.5-10.1) Height (Feet): 5 Height (Inches): 6.00 Weight (Pounds): 160 Medications Current Medications Medications (Trade) Dose Ordered Sig/Mira Route PRN Reason Start Time Stop Time Status Last Admin Dose Admin Acetaminophen (Tylenol) 650 mg Q4H PRN ORAL fever 10/03/17 21:45 11/02/17 21:44 Al Hydroxide/Mg Hydroxide (Mylanta II) 30 ml Q6H PRN ORAL dyspepsia 10/03/17 21:45 11/02/17 21:44 Amlodipine Besylate (Norvasc) 10 mg DAILY ORAL 10/04/17 09:00 11/03/17 08:59 10/08/17 11:20 Aspirin (Ecotrin) 81 mg DAILY ORAL 10/04/17 09:00 11/03/17 08:59 10/08/17 10:53 Atorvastatin Calcium (Lipitor) 20 mg BEDTIME ORAL 10/04/17 21:00 11/03/17 20:59 10/07/17 20:17 Clonidine HCl (Catapres Tab) 0.1 mg EVERY 6 HOURS PRN ORAL For High Blood Pressure 10/03/17 21:45 11/02/17 21:44 Dextrose (Dextrose 50%) 25 ml STAT PRN IV HYPOGLYCEMIA 10/05/17 09:15 11/04/17 09:14 Dextrose (Dextrose 50%) 50 ml STAT PRN IV Hypoglycemia 10/05/17 09:15 11/02/17 21:44 Dextrose/Sodium Chloride 1,000 ml @ 75 mls/hr [id number] IV 10/04/17 12:30 11/03/17 12:29 10/08/17 10:57 Heparin Sodium (Porcine) (Heparin 5000 units/ml) 5,000 units EVERY 12 HOURS SUBQ 10/04/17 09:00 11/03/17 08:59 10/08/17 10:56 Insulin Aspart (NovoLOG) BEFORE MEALS AND HS SUBQ 10/04/17 06:30 11/03/17 06:29 10/07/17 20:18 Lamotrigine (LaMICtal) 75 mg BID ORAL 10/04/17 18:00 11/03/17 17:59 10/08/17 10:54 Levetiracetam 100 ml @ 400 mls/hr Q12HR IVPB 10/04/17 12:30 11/03/17 12:29 10/08/17 10:51 Levothyroxine Sodium (Synthroid) 75 mcg ACBREAKFAST ORAL 10/04/17 10:00 11/03/17 09:59 10/08/17 06:13 Lorazepam (Ativan 2mg/ml 1ml) 2 mg EVERY HOUR PRN IV seizures 10/03/17 21:45 10/10/17 21:44 Morphine Sulfate (Morphine Sulfate) 1 mg Q4H PRN IVP pain 10/03/17 22:00 10/10/17 21:59 Ondansetron HCl (Zofran) 4 mg Q6H PRN IVP Nausea & Vomiting 10/03/17 21:45 11/02/17 21:44 Polyethylene Glycol (Miralax) 17 gm HSPRN PRN ORAL Constipation 10/03/17 21:45 11/02/17 21:44 Tamsulosin HCl (Flomax) 0.4 mg BEDTIME ORAL 10/04/17 21:00 11/03/17 20:59 10/07/17 20:17 Ziprasidone (Geodon) 40 mg TWICE A DAY ORAL 10/05/17 09:00 11/04/17 08:59 10/08/17 10:53 Zolpidem Tartrate (Ambien) 5 mg HSPRN PRN ORAL Insomnia 10/03/17 21:45 10/10/17 21:44 Assessment/Plan Problem List: (1) Dyspnea ICD Codes: R06.00 - Dyspnea, unspecified SNOMED: 459028617 (2) Seizure ICD Codes: R56.9 - Unspecified convulsions SNOMED: 50545519 (3) At high risk for aspiration ICD Codes: Z91.89 - Other specified personal risk factors, not elsewhere classified SNOMED: 075030406 (4) Renal insufficiency ICD Codes: N28.9 - Disorder of kidney and ureter, unspecified SNOMED: 866123846, 129951969 (5) CVA (cerebral vascular accident) ICD Codes: I63.9 - Cerebral infarction, unspecified SNOMED: 354861513 (6) Diabetes ICD Codes: E11.9 - Type 2 diabetes mellitus without complications SNOMED: 27618272 Assessment/Plan cxr today respiratory treatment titrate fio2 to sat of 92% aspiration precaution dvt prophylaxis sliding scale diabetic diet Sheri Elias MD Oct 08, 2017 14:56
[2017-10-08] MEDS ORDERED: NS 275ml ONE (15:01)
[2017-10-08] MEDS ORDERED: Tubing IV Blood Pump IV ONE (15:01)
--- NOTE | 2017-10-08 15:37 | Nephrology Progress Note ---
Assessment/Plan Assessment 1. Acute versus chronic renal failure, with nephrotic range proteinuria 2. New-onset seizure. 3. Hypertension. 4. Hypothyroidism. 5.solitary kidney Plan plan hold lisinopril check for multiple myeloma check for nephrotic syndrome cause monitoring renal function check in and out put avoid NSAID may need biopsy based on us kidney( considering single kidney will be high risk procedure ) Subjective Constitutional: Reports: no symptoms HEENT: Reports: no symptoms Genitourinary: Reports: no symptoms Neurologic/Psychiatric: Reports: no symptoms Subjective alert and awake no acute events Objective Objective Last 24 Hour Vital Signs Date Time Temp Pulse Resp B/P (MAP) Pulse Ox O2 Delivery O2 Flow Rate FiO2 10/08/17 12:00 96.0 59 19 134/78 100 Room Air 96.0 10/08/17 11:20 57 151/76 10/08/17 08:00 96.5 57 20 151/76 100 Room Air 96.5 10/08/17 00:00 97.0 57 19 132/80 100 Room Air 97.0 10/07/17 20:00 97.0 62 19 143/80 100 Room Air 97.0 10/07/17 16:00 97.0 51 18 156/82 100 97.0 Intake and Output 10/07/17 10/08/17 19:00 07:00 Intake Total 850 ml 925 ml Balance 850 ml 925 ml IV Total 850 ml 925 ml # Voids 3 2 # Bowel Movements 1 Laboratory Tests 10/08/17 06:30: White Blood Count 5.3, Red Blood Count 3.30L, Hemoglobin 10.4#L, Hematocrit 30.6 #L, Mean Corpuscular Volume 93, Mean Corpuscular Hemoglobin 31.5H, Mean Corpuscular Hemoglobin Concent 34.0, Red Cell Distribution Width 15.0H, Platelet Count 186, Mean Platelet Volume 6.0L, Neutrophils (%) (Auto) 53.0, Lymphocytes (%) (Auto) 33.7, Monocytes (%) (Auto) 6.5, Eosinophils (%) (Auto) 5.4H, Basophils (%) (Auto) 1.5, Sodium Level 141, Potassium Level 5.3H, Chloride Level 113H, Carbon Dioxide Level 24, Anion Gap 4L, Blood Urea Nitrogen 27H, Creatinine 2.7H, Estimat Glomerular Filtration Rate 18.0, Glucose Level 104 , Calcium Level 9.6 Height (Feet): 5 Height (Inches): 6.00 Weight (Pounds): 160 Objective HEAD AND NECK: No JVP. No LAD. No thyromegaly. Extraocular movements are intact. Pupils are reactive to light and accommodation. LUNGS: Clear to auscultation. CARDIAC: Regular rate and rhythm. S1 and S2. No murmur. No rub. ABDOMEN: Soft, nontender, nondistended. EXTREMITIES: No edema. No clubbing. No cyanosis. CAMELIA YAN Oct 08, 2017 15:37
[2017-10-08 16:00] VITALS: BP 149/81
[2017-10-08 20:00] VITALS: BP 159/92
[2017-10-08] MEDS: Tamsulosin 0.4mg cap ORAL SCH (21:12)
--- NOTE | 2017-10-08 22:45 | Progress Note ---
DATE: 10/08/2017 SUBJECTIVE: This is a 57-year-old female with history of cerebrovascular accident. She has confusion and disorganized thought process. MENTAL STATUS EXAMINATION: This is a 57-year-old female with psychomotor agitation. Mood is irritable and agitated. Affect guarded and restricted. Intellect poor. Mood, depressed and anxious. Motor activity, psychomotor agitation. Attention span is poor. Orientation x2. Speech is pressured. DIAGNOSIS: Schizoaffective, bipolar type. PLAN: Plan is to treat her with Lamictal 125 mg twice a day, Geodon 60 mg twice a day, and Cogentin 1 mg twice a day. Her attending has requested daily psychiatric consultation altered mental status and mood lability worsened by stress of her medical illness. A 20 minutes of supportive therapy provided. Chart was reviewed and discussed with staff. Seen and assessed at the bedside. Tang Oliva M.D. DR: Sukhjinder JOB#: [id number] CC:
[2017-10-08 23:59] VITALS: BP 150/82
--- NOTE | 2017-10-09 00:23 | General Progress Note ---
Assessment/Plan Assessment/Plan 1. Anemia due to underlying chronic disease. --> Continue to closely monitor. --> Anemia workup reviewed. Iron 60, TIBC 138 --> Hemoglobin goal is above 7. --> S/P blood transfusion. Hemoglobin levels now >10 --> No evidence of reticulocytosis or hemolysis at the moment. 2. Anemia due to underlying kidney disease, as noted above. 3. Acute kidney injury on chronic kidney disease. --> The patient's baseline is approximately 1.5 on prior admission back in 2017. --> Closely monitor per Nephrology Service. 4. Diabetes mellitus. A1c goal less than 7. 5. Seizure disorder. --> Management as per Neurology Service, Dr. Guerra. --> Closely monitor. --> Status post cerebrovascular accident. Subjective Date patient seen: Oct 08, 2017 Constitutional: Denies: no symptoms, chills, diaphoresis, fever, malaise, weakness, other HEENT: Denies: no symptoms, eye pain, blurred vision, tearing, double vision, ear pain, ear discharge, nose pain, nose congestion, throat pain, throat swelling, mouth pain, mouth swelling, other Cardiovascular: Denies: no symptoms, chest pain, edema, irregular heart rate, lightheadedness, palpitations, syncope, other Respiratory: Denies: no symptoms, cough, orthopnea, shortness of breath, SOB with excertion, SOB at rest, sputum, stridor, wheezing, other Gastrointestinal/Abdominal: Denies: no symptoms, abdomen distended, abdominal pain, black stools, tarry stools, blood in stool, constipated, diarrhea, difficulty swallowing, nausea, poor appetite, poor fluid intake, rectal bleeding , vomiting, other Genitourinary: Denies: no symptoms, burning, discharge, frequency, flank pain, hematuria, incontinence, pain, urgency, other Neurologic/Psychiatric: Denies: no symptoms, anxiety, depressed, emotional problems, headache, numbness, paresthesia, pre-existing deficit, seizure, tingling, tremors, weakness, other Hematologic/Lymphatic: Reports: anemia Allergies: Coded Allergies: No Known Allergies (Unverified , 01/11/17) Subjective Confused. S/P Blood transfusion. No adverse events. Objective Last 24 Hour Vital Signs Date Time Temp Pulse Resp B/P (MAP) Pulse Ox O2 Delivery O2 Flow Rate FiO2 10/08/17 23:59 97.0 58 20 150/82 97 Room Air 97.0 10/08/17 20:00 97.0 63 20 159/92 100 Room Air 97.0 10/08/17 16:00 96.5 56 19 149/81 100 Room Air 96.5 10/08/17 12:00 96.0 59 19 134/78 100 Room Air 96.0 10/08/17 11:20 57 151/76 10/08/17 08:00 96.5 57 20 151/76 100 Room Air 96.5 Intake and Output 10/08/17 10/09/17 19:00 07:00 Intake Total 555 ml 250 ml Balance 555 ml 250 ml Intake Oral 480 ml IV Total 75 ml 250 ml # Voids 4 # Bowel Movements 2 Laboratory Tests 10/08/17 06:30: White Blood Count 5.3, Red Blood Count 3.30L, Hemoglobin 10.4#L, Hematocrit 30.6 #L, Mean Corpuscular Volume 93, Mean Corpuscular Hemoglobin 31.5H, Mean Corpuscular Hemoglobin Concent 34.0, Red Cell Distribution Width 15.0H, Platelet Count 186, Mean Platelet Volume 6.0L, Neutrophils (%) (Auto) 53.0, Lymphocytes (%) (Auto) 33.7, Monocytes (%) (Auto) 6.5, Eosinophils (%) (Auto) 5.4H, Basophils (%) (Auto) 1.5, Sodium Level 141, Potassium Level 5.3H, Chloride Level 113H, Carbon Dioxide Level 24, Anion Gap 4L, Blood Urea Nitrogen 27H, Creatinine 2.7H, Estimat Glomerular Filtration Rate 18.0, Glucose Level 104 , Calcium Level 9.6 Height (Feet): 5 Height (Inches): 6.00 Weight (Pounds): 160 General Appearance: confused Respiratory/Chest: decreased breath sounds Abdomen: soft Roly Palomares MD Oct 09, 2017 00:23
[2017-10-09 04:00] VITALS: BP 139/70
[2017-10-09] MEDS: NovoLOG Insulin Flexpen SUBQ SCH ×2 (05:50→12:33)
[2017-10-09 07:21] LABS: BASOPHILS % (AUTO) 1.1 % (0.0-2.0); EOSINOPHILS % (AUTO) 4.1 % (0.0-3.0); HEMATOCRIT 29.8 % (37.0-47.0); HEMOGLOBIN 9.8 G/DL (12.0-16.0); LYMPHOCYTES % (AUTO) 19.9 % (20.0-45.0); MEAN CORPUSCULAR VOLUME 93 FL (80-99); MONOCYTES % (AUTO) 5.1 % (1.0-10.0); NEUTROPHILS % (AUTO) 69.8 % (45.0-75.0); PLATELET COUNT 159 K/UL (150-450); RED BLOOD COUNT 3.19 M/UL (4.20-5.40); RED CELL DISTRIBUTION WIDTH 15.4 % (11.6-14.8)
[2017-10-09 07:51] LABS: ANION GAP 7 mmol/L (5-15); BLOOD UREA NITROGEN 27 mg/dL (7-18); CALCIUM 9.5 MG/DL (8.5-10.1); CARBON DIOXIDE 22 MMOL/L (21-32); CHLORIDE 113 MMOL/L (98-107); CREATININE 2.5 MG/DL (0.55-1.30); POTASSIUM 4.8 MMOL/L (3.5-5.1); SODIUM 142 MMOL/L (136-145)
[2017-10-09 08:00] VITALS: BP 137/73
--- NOTE | 2017-10-09 08:30 | General Progress Note ---
Assessment/Plan Problem List: (1) Renal insufficiency ICD Codes: N28.9 - Disorder of kidney and ureter, unspecified SNOMED: 154184289, 215411103 (2) CVA (cerebral vascular accident) ICD Codes: I63.9 - Cerebral infarction, unspecified SNOMED: 077706375 (3) Diabetes ICD Codes: E11.9 - Type 2 diabetes mellitus without complications SNOMED: 67476544 (4) Anemia ICD Codes: D64.9 - Anemia, unspecified SNOMED: 005204476 (5) Seizure ICD Codes: R56.9 - Unspecified convulsions SNOMED: 06103443 Status: stable, progressing, tolerating diet Assessment/Plan ot pt diet seizure control cbc bmp am dc planr Subjective Constitutional: Reports: weakness Allergies: Coded Allergies: No Known Allergies (Unverified , 01/11/17) All Systems: reviewed and negative except above Subjective sleepy calm in bed Objective Last 24 Hour Vital Signs Date Time Temp Pulse Resp B/P (MAP) Pulse Ox O2 Delivery O2 Flow Rate FiO2 10/09/17 04:00 97.0 61 20 139/70 99 Room Air 97.0 10/08/17 23:59 97.0 58 20 150/82 97 Room Air 97.0 10/08/17 20:00 97.0 63 20 159/92 100 Room Air 97.0 10/08/17 16:00 96.5 56 19 149/81 100 Room Air 96.5 10/08/17 12:00 96.0 59 19 134/78 100 Room Air 96.0 10/08/17 11:20 57 151/76 Intake and Output 10/08/17 10/09/17 19:00 07:00 Intake Total 555 ml 1045 ml Output Total 600 ml Balance 555 ml 445 ml Intake Oral 480 ml 120 ml IV Total 75 ml 925 ml Output Urine Total 600 ml # Voids 4 3 # Bowel Movements 2 Laboratory Tests 10/09/17 05:20: White Blood Count 7.0, Red Blood Count 3.19L, Hemoglobin 9.8L, Hematocrit 29.8L , Mean Corpuscular Volume 93, Mean Corpuscular Hemoglobin 30.8, Mean Corpuscular Hemoglobin Concent 33.0, Red Cell Distribution Width 15.4H, Platelet Count 159, Mean Platelet Volume 5.5L, Neutrophils (%) (Auto) 69.8, Lymphocytes (%) (Auto) 19.9L, Monocytes (%) (Auto) 5.1, Eosinophils (%) (Auto) 4.1H, Basophils (%) (Auto) 1.1, Sodium Level 142, Potassium Level 4.8, Chloride Level 113H, Carbon Dioxide Level 22, Anion Gap 7, Blood Urea Nitrogen 27H, Creatinine 2.5H, Estimat Glomerular Filtration Rate 19.7, Glucose Level 65L, Calcium Level 9.5 Height (Feet): 5 Height (Inches): 6.00 Weight (Pounds): 160 General Appearance: lethargic EENT: normal ENT inspection Neck: normal alignment Cardiovascular: normal peripheral pulses, normal rate, regular rhythm Respiratory/Chest: chest wall non-tender, lungs clear, normal breath sounds Abdomen: normal bowel sounds, non tender, soft Extremities: normal inspection Edema: no edema noted Arm (L), no edema noted Arm (R), no edema noted Leg (L), no edema noted Leg (R), no edema noted Pedal (L), no edema noted Pedal (R), no edema noted Generalized Neurologic: responsive, motor weakness Skin: normal pigmentation, warm/dry CAMILLA WHITE Oct 09, 2017 08:30
[2017-10-09] MEDS: Heparin 5000 units/ml inj SUBQ SCH (09:00)
[2017-10-09] MEDS: Aspirin EC 81mg tab ORAL SCH (09:20)
[2017-10-09] MEDS: levETIRAcetam 500mg/NS100ml 100 ML IVPB SCH (09:20)
[2017-10-09] MEDS: Ziprasidone 20mg cap ORAL SCH (09:20)
--- NOTE | 2017-10-09 11:55 | Diagnostic Imaging Report ---
Indication: Dyspnea Comparison: None A single view chest radiograph was obtained. Findings: There are old rib fractures on the right. Cardiac mediastinal silhouette is normal. Lungs are clear. Bilateral humeral rods are noted. IMPRESSION: No acute cardiopulmonary disease identified
[2017-10-09 12:00] VITALS: BP 131/77
[2017-10-09] MEDS: D5 1/2NS 1,000 ML IV SCH (12:35)
[2017-10-09] MEDS ORDERED: NOVOLOG100 UNITS1 (13:28)
[2017-10-09] MEDS ORDERED: KEPPRA500 M4 ORAL (13:30)
[2017-10-09] MEDS ORDERED: LAMICTAL25 M1 PO (13:30)
[2017-10-09] MEDS ORDERED: ZIPRASIDONE HCL40 MG ORAL (13:31)
[2017-10-09] MEDS ORDERED: AMBIEN5 MG ORAL (13:32)
--- NOTE | 2017-10-09 13:35 | Pulmonology Progress Note ---
Assessment/Plan Problems: (1) Dyspnea (2) Seizure (3) At high risk for aspiration (4) Renal insufficiency (5) CVA (cerebral vascular accident) (6) Diabetes Assessment/Plan improving dc iv fluids dc planning sliding scale check electroltyes aspiration precaution Subjective ROS Limited/Unobtainable: No Constitutional: Reports: no symptoms HEENT: Repors: no symptoms Respiratory: Reports: no symptoms Allergies: Coded Allergies: No Known Allergies (Unverified , 01/11/17) Objective Last 24 Hour Vital Signs Date Time Temp Pulse Resp B/P (MAP) Pulse Ox O2 Delivery O2 Flow Rate FiO2 10/09/17 09:21 62 137/73 10/09/17 08:00 96.5 62 13 137/73 100 Room Air 96.5 10/09/17 04:00 97.0 61 20 139/70 99 Room Air 97.0 10/08/17 23:59 97.0 58 20 150/82 97 Room Air 97.0 10/08/17 20:00 97.0 63 20 159/92 100 Room Air 97.0 10/08/17 16:00 96.5 56 19 149/81 100 Room Air 96.5 Intake and Output 10/08/17 10/09/17 19:00 07:00 Intake Total 555 ml 1045 ml Output Total 600 ml Balance 555 ml 445 ml Intake Oral 480 ml 120 ml IV Total 75 ml 925 ml Output Urine Total 600 ml # Voids 4 3 # Bowel Movements 2 General Appearance: WD/WN HEENT: normocephalic, anicteric Respiratory/Chest: lungs clear, normal breath sounds Breasts: no masses Cardiovascular: normal rate Abdomen: normal bowel sounds, soft, non tender Extremities: no cyanosis Laboratory Tests 10/09/17 05:20: White Blood Count 7.0, Red Blood Count 3.19L, Hemoglobin 9.8L, Hematocrit 29.8L , Mean Corpuscular Volume 93, Mean Corpuscular Hemoglobin 30.8, Mean Corpuscular Hemoglobin Concent 33.0, Red Cell Distribution Width 15.4H, Platelet Count 159, Mean Platelet Volume 5.5L, Neutrophils (%) (Auto) 69.8, Lymphocytes (%) (Auto) 19.9L, Monocytes (%) (Auto) 5.1, Eosinophils (%) (Auto) 4.1H, Basophils (%) (Auto) 1.1, Sodium Level 142, Potassium Level 4.8, Chloride Level 113H, Carbon Dioxide Level 22, Anion Gap 7, Blood Urea Nitrogen 27H, Creatinine 2.5H, Estimat Glomerular Filtration Rate 19.7, Glucose Level 65L, Calcium Level 9.5 Current Medications Medications (Trade) Dose Ordered Sig/Mira Route PRN Reason Start Time Stop Time Status Last Admin Dose Admin Acetaminophen (Tylenol) 650 mg Q4H PRN ORAL fever 10/03/17 21:45 11/02/17 21:44 Al Hydroxide/Mg Hydroxide (Mylanta II) 30 ml Q6H PRN ORAL dyspepsia 10/03/17 21:45 11/02/17 21:44 Amlodipine Besylate (Norvasc) 10 mg DAILY ORAL 10/04/17 09:00 11/03/17 08:59 10/09/17 09:21 Aspirin (Ecotrin) 81 mg DAILY ORAL 10/04/17 09:00 11/03/17 08:59 10/09/17 09:20 Atorvastatin Calcium (Lipitor) 20 mg BEDTIME ORAL 10/04/17 21:00 11/03/17 20:59 10/08/17 21:12 Clonidine HCl (Catapres Tab) 0.1 mg EVERY 6 HOURS PRN ORAL For High Blood Pressure 10/03/17 21:45 11/02/17 21:44 Dextrose (Dextrose 50%) 25 ml STAT PRN IV HYPOGLYCEMIA 10/05/17 09:15 11/04/17 09:14 Dextrose (Dextrose 50%) 50 ml STAT PRN IV Hypoglycemia 10/05/17 09:15 11/02/17 21:44 Dextrose/Sodium Chloride 1,000 ml @ 75 mls/hr [id number] IV 10/04/17 12:30 11/03/17 12:29 10/09/17 12:35 Heparin Sodium (Porcine) (Heparin 5000 units/ml) 5,000 units EVERY 12 HOURS SUBQ 10/04/17 09:00 11/03/17 08:59 10/08/17 21:13 Insulin Aspart (NovoLOG) BEFORE MEALS AND HS SUBQ 10/04/17 06:30 11/03/17 06:29 10/09/17 12:33 Lamotrigine (LaMICtal) 75 mg BID ORAL 10/04/17 18:00 11/03/17 17:59 10/09/17 09:21 Levetiracetam 100 ml @ 400 mls/hr Q12HR IVPB 10/04/17 12:30 11/03/17 12:29 10/09/17 09:20 Levothyroxine Sodium (Synthroid) 75 mcg ACBREAKFAST ORAL 10/04/17 10:00 11/03/17 09:59 10/09/17 05:52 Lorazepam (Ativan 2mg/ml 1ml) 2 mg EVERY HOUR PRN IV seizures 10/03/17 21:45 10/10/17 21:44 Morphine Sulfate (Morphine Sulfate) 1 mg Q4H PRN IVP pain 10/03/17 22:00 10/10/17 21:59 Ondansetron HCl (Zofran) 4 mg Q6H PRN IVP Nausea & Vomiting 10/03/17 21:45 11/02/17 21:44 Polyethylene Glycol (Miralax) 17 gm HSPRN PRN ORAL Constipation 10/03/17 21:45 11/02/17 21:44 Tamsulosin HCl (Flomax) 0.4 mg BEDTIME ORAL 10/04/17 21:00 11/03/17 20:59 10/08/17 21:12 Ziprasidone (Geodon) 40 mg TWICE A DAY ORAL 10/05/17 09:00 11/04/17 08:59 10/09/17 09:20 Zolpidem Tartrate (Ambien) 5 mg HSPRN PRN ORAL Insomnia 10/03/17 21:45 10/10/17 21:44 Sheri Elias MD Oct 09, 2017 13:35
--- NOTE | 2017-10-09 16:08 | Nephrology Progress Note ---
Assessment/Plan Assessment 1. Acute versus chronic renal failure, with nephrotic range proteinuria 2. hyperkalemia 3. Hypertension. 4. Hypothyroidism. 5.solitary kidney Plan plan hold lisinopril check for nephrotic syndrome cause monitoring renal function check in and out put avoid NSAID may need biopsy based on us kidney( considering single kidney will be high risk procedure ) Subjective Constitutional: Reports: no symptoms HEENT: Reports: no symptoms Genitourinary: Reports: no symptoms Neurologic/Psychiatric: Reports: no symptoms Subjective alert and awake no acute events Objective Objective Last 24 Hour Vital Signs Date Time Temp Pulse Resp B/P (MAP) Pulse Ox O2 Delivery O2 Flow Rate FiO2 10/09/17 12:00 96.5 63 12 131/77 99 Room Air 96.5 10/09/17 09:21 62 137/73 10/09/17 08:00 96.5 62 13 137/73 100 Room Air 96.5 10/09/17 04:00 97.0 61 20 139/70 99 Room Air 97.0 10/08/17 23:59 97.0 58 20 150/82 97 Room Air 97.0 10/08/17 20:00 97.0 63 20 159/92 100 Room Air 97.0 Intake and Output 10/08/17 10/09/17 19:00 07:00 Intake Total 555 ml 1045 ml Output Total 600 ml Balance 555 ml 445 ml Intake Oral 480 ml 120 ml IV Total 75 ml 925 ml Output Urine Total 600 ml # Voids 4 3 # Bowel Movements 2 Laboratory Tests 10/09/17 05:20: White Blood Count 7.0, Red Blood Count 3.19L, Hemoglobin 9.8L, Hematocrit 29.8L , Mean Corpuscular Volume 93, Mean Corpuscular Hemoglobin 30.8, Mean Corpuscular Hemoglobin Concent 33.0, Red Cell Distribution Width 15.4H, Platelet Count 159, Mean Platelet Volume 5.5L, Neutrophils (%) (Auto) 69.8, Lymphocytes (%) (Auto) 19.9L, Monocytes (%) (Auto) 5.1, Eosinophils (%) (Auto) 4.1H, Basophils (%) (Auto) 1.1, Sodium Level 142, Potassium Level 4.8, Chloride Level 113H, Carbon Dioxide Level 22, Anion Gap 7, Blood Urea Nitrogen 27H, Creatinine 2.5H, Estimat Glomerular Filtration Rate 19.7, Glucose Level 65L, Calcium Level 9.5 Height (Feet): 5 Height (Inches): 6.00 Weight (Pounds): 160 Objective HEAD AND NECK: No JVP. No LAD. No thyromegaly. Extraocular movements are intact. Pupils are reactive to light and accommodation. LUNGS: Clear to auscultation. CARDIAC: Regular rate and rhythm. S1 and S2. No murmur. No rub. ABDOMEN: Soft, nontender, nondistended. EXTREMITIES: No edema. No clubbing. No cyanosis. CAMELIA YAN Oct 09, 2017 16:08
[2017-10-09] MEDS ORDERED: D5 1/2NS 1000ml IV ONE ×3 (17:02)
[2017-10-09] MEDS ORDERED: 1/2 NS 1000ml IV ONE (17:02)
[2017-10-09] MEDS ORDERED: Tubing IV Secondary IV ONE (17:02)
--- NOTE | 2017-10-10 01:08 | General Progress Note ---
Assessment/Plan Assessment/Plan 1. Anemia due to underlying chronic disease. --> Continue to closely monitor. --> Anemia workup reviewed. Iron 60, TIBC 138 --> Hemoglobin goal is above 7. --> S/P blood transfusion. --> No evidence of reticulocytosis or hemolysis at the moment. 2. Anemia due to underlying kidney disease, as noted above. 3. Acute kidney injury on chronic kidney disease. --> The patient's baseline is approximately 1.5 on prior admission back in 2017. --> Closely monitor per Nephrology Service. --> renal insufficiency 4. Diabetes mellitus. A1c goal less than 7. 5. Seizure disorder. --> Management as per Neurology Service, Dr. Guerra. --> Closely monitor. --> On keppra --> Status post cerebrovascular accident. 6. Dyspnea Subjective Date patient seen: Oct 09, 2017 Constitutional: Denies: no symptoms, chills, diaphoresis, fever, malaise, weakness, other HEENT: Denies: no symptoms, eye pain, blurred vision, tearing, double vision, ear pain, ear discharge, nose pain, nose congestion, throat pain, throat swelling, mouth pain, mouth swelling, other Cardiovascular: Denies: no symptoms, chest pain, edema, irregular heart rate, lightheadedness, palpitations, syncope, other Respiratory: Denies: no symptoms, cough, orthopnea, shortness of breath, SOB with excertion, SOB at rest, sputum, stridor, wheezing, other Gastrointestinal/Abdominal: Denies: no symptoms, abdomen distended, abdominal pain, black stools, tarry stools, blood in stool, constipated, diarrhea, difficulty swallowing, nausea, poor appetite, poor fluid intake, rectal bleeding , vomiting, other Genitourinary: Denies: no symptoms, burning, discharge, frequency, flank pain, hematuria, incontinence, pain, urgency, other Neurologic/Psychiatric: Denies: no symptoms, anxiety, depressed, emotional problems, headache, numbness, paresthesia, pre-existing deficit, seizure, tingling, tremors, weakness, other Hematologic/Lymphatic: Reports: anemia Allergies: Coded Allergies: No Known Allergies (Unverified , 01/11/17) Subjective Confused. No seizure activity. Pending discharge. Objective Last 24 Hour Vital Signs Date Time Temp Pulse Resp B/P (MAP) Pulse Ox O2 Delivery O2 Flow Rate FiO2 10/09/17 12:00 96.5 63 12 131/77 99 Room Air 96.5 10/09/17 09:21 62 137/73 10/09/17 08:00 96.5 62 13 137/73 100 Room Air 96.5 10/09/17 04:00 97.0 61 20 139/70 99 Room Air 97.0 Intake and Output 10/09/17 10/10/17 19:00 07:00 Intake Total 805 ml Output Total 400 ml Balance 405 ml Intake Oral 480 ml IV Total 325 ml Output Urine Total 400 ml # Bowel Movements 2 Laboratory Tests 10/09/17 05:20: White Blood Count 7.0, Red Blood Count 3.19L, Hemoglobin 9.8L, Hematocrit 29.8L , Mean Corpuscular Volume 93, Mean Corpuscular Hemoglobin 30.8, Mean Corpuscular Hemoglobin Concent 33.0, Red Cell Distribution Width 15.4H, Platelet Count 159, Mean Platelet Volume 5.5L, Neutrophils (%) (Auto) 69.8, Lymphocytes (%) (Auto) 19.9L, Monocytes (%) (Auto) 5.1, Eosinophils (%) (Auto) 4.1H, Basophils (%) (Auto) 1.1, Sodium Level 142, Potassium Level 4.8, Chloride Level 113H, Carbon Dioxide Level 22, Anion Gap 7, Blood Urea Nitrogen 27H, Creatinine 2.5H, Estimat Glomerular Filtration Rate 19.7, Glucose Level 65L, Calcium Level 9.5 Height (Feet): 5 Height (Inches): 6.00 Weight (Pounds): 160 General Appearance: confused Respiratory/Chest: decreased breath sounds Roly Palomares MD Oct 10, 2017 01:08
--- NOTE | 2017-10-10 08:01 | Progress Note ---
DATE: 10/09/2017 SUBJECTIVE: This is a 57-year-old female patient with seizure disorder, cerebrovascular accident, altered mental status, agitation, and mood lability. That is why, her attending has requested daily psychiatric consultation. confused, disorganized psychosis with paranoid delusions. MENTAL STATUS EXAMINATION: This is a 57-year-old female with psychomotor . Mood is depressed. Affect guarded and restricted. Intellect poor. Mood is depressed and anxious. Motor activity, psychomotor agitation. Attention span is poor. Orientation x2. Speech is low volume and slurred. Thought process is disorganized. Thought content, paranoid delusions. DIAGNOSIS: Schizoaffective, bipolar type. PLAN: Continue to titrate up on her psychotropic medications to stabilize her mood. An 18 to 20 minutes of supportive therapy provided. Chart was reviewed and discussed with staff. Seen and assessed in her room. Tang Oliva M.D. DR: Rocio JOB#: [id number] CC:
--- NOTE | 2017-10-11 08:08 | Discharge Summary ---
Discharge Summary Discharge Summary Discharge Summary DATE OF ADMISSION: 10/03/2017 DATE OF DISCHARGE: 10/09/2017 REASON FOR ADMISSION: 57-year-old female with a history of massive CVA with left hemiplegia, hypertension, diabetes, hyperlipidemia, hypothyroidism , psychiatric disorder, was brought by paramedics after witnessed tonic-clonic seizure. Versed 5 mg was given by paramedics prior to arrival. Patient by herself was unable to provide any information. Workup in emergency room revealed no leukocytosis, anemia with hemoglobin 9.1 hematocrit 27.4, urinalysis with no evidence of UTI but6 4 protein. BUN 37 and creatinine 2.4. Albumin 2.1. Glucose 121. CT of the head revealed no evidence of acute intracranial pathology, but was consistent with a history of old massive right middle cerebral artery distribution ischemic stroke. In the emergency department patient was started on the intravenous Keppra. Patient was admitted with a new onset of seizure disorder for further management. CONSULTANTS: neurologist Dr. Guerra pulmonary Dr. Elias GI specialist Dr. Hillman impregnator operator Dr. Hansen senior support analyst/oncologist Dr. Palomares psychiatrist Dr. Oliva [facility]: Patient admitted. Supplemental oxygen provided as needed to keep pulse oximetry above 92% along with a pulmonary toilet which was on the board on as needed basis. Patient with high aspiration risk, given dysphagia and history of CVA. Chest x-ray revealed no acute cardiopulmonary pathology. DVT prophylaxis provided. Water Service Supervisor closely followed. Neurologist closely followed. Patient was started on Keppra. Patient was closely monitored for any paroxysmal activity. Seizure precautions were maintained. No further seizure activity while in the hospital. Bleach Maker closely followed. Renal ultrasound revealed absent left kidney and abnormal right kidney echogenicity with suspected medical renal disease. Urine studies revealed nephrotic range proteinuria. PETER inhibitor was stopped. Renal parameters and electrolytes were closely monitored. Electrolytes were corrected as needed, including hyperkalemia. Nephrotoxics were avoided. According to impregnator operator, patient will benefit from renal biopsy but has a high risk given solitary kidney. GI closely followed. Counts were closely monitored. Stool for occult blood was negative. LEEANN screen was negative, hepatitis panel, HIV screen were all negative. Abdominal ultrasound revealed trace of ascites, otherwise unremarkable liver, gallbladder, pancreas, spleen. Anemia workup revealed findings consistent with anemia of chronic disease. Slabber closely followed with goal to keep hemoglobin above 7. Patient was transfused with 1 unit of packed red blood cells for hemoglobin 7.1 and hematocrit 22.3; after transfusion hemoglobin 10.4 hematocrit 30.6. Blood pressure was managed with calcium channel seb. Patient was off PETER inhibitor due to renal failure. Blood pressure remained stable. Blood sugar was managed with sliding scale insulin. Statin was continued. Psychiatrist seen and evaluated the patient and optimized psychotropic medication regimen. Psychiatrist diagnosed patient with schizoaffective bipolar type. Therapeutic intervention provided as well. Patient clinically improved: no further seizure activity, stable hemoglobin and hematocrit, creatinine remained at baseline, no trend up. Patient was [facility] FINAL DIAGNOSES: New-onset of seizure disorder History of massive right middle cerebral artery distribution ischemic stroke with left hemiplegia. Anemia of chronic disease, status post blood transfusion. Acute on chronic renal failure with nephrotic range proteinuria. Solitary kidney. Hypertension. Hyperlipidemia Diabetes mellitus type II. Aspiration risk Dyspnea , resolved. Hyperkalemia Hypothyroidism Schizoaffective bipolar type DISCHARGE MEDICATIONS: See Medication Reconciliation list. DISCHARGE INSTRUCTIONS: [facility] Follow up with medical doctor at the facility. I have been assigned to dictate discharge summary for this account. I was not involved in the patient's management. Stephanie Fuentes NP ([place]) Oct 11, 2017 08:08
== END 2017-10-09 17:03 | DRG 100 ==
LOC: EDBD 15:10 → EMR 19:36 → 4E 20:01 → EDBEDREQ 20:56
PROC: 30233N1 Transfusion of Nonautologous Red Blood Cells into Peripheral Vein, Percutaneous Approach (ICD-10-PCS; principal; 2017-10-07)
DX: G40.909 Epilepsy, unspecified, not intractable, without status epilepticus (principal); N17.0 Acute kidney failure with tubular necrosis; K83.1 Obstruction of bile duct; I69.354 Hemiplegia and hemiparesis following cerebral infarction affecting left non-dominant side; E46 Unspecified protein-calorie malnutrition; E78.5 Hyperlipidemia, unspecified; E03.9 Hypothyroidism, unspecified; D63.8 Anemia in other chronic diseases classified elsewhere; I12.9 Hypertensive chronic kidney disease with stage 1 through stage 4 chronic kidney disease, or unspecified chronic kidney disease; E11.22 Type 2 diabetes mellitus with diabetic chronic kidney disease; N18.9 Chronic kidney disease, unspecified; E87.5 Hyperkalemia; F25.0 Schizoaffective disorder, bipolar type; R06.00 Dyspnea, unspecified
CPT/HCPCS: 36415; 70450; 71045; 74230; 76700; 76770; 80048; 80053; 81003; 82043; 82044; 82270; 82378; 82550; 82570; 82962; 83540; 83550; 84133; 84300; 84550; 85007; 85025; 86039; 86160; 86162; 86225; 86256; 86703; 86705; 86709; 86803; 86850; 86900; 86901; 86920; 87081; 87340; 89050; 93005; 97803; 99285; J1815

== ENCOUNTER 2019-04-28 00:51 | Inpatient (IN) | payer MEDICARE, MEDICAID ==
[~2019-04-28] VITALS: Ht 162.6 cm; Wt 52.6 kg
[2019-04-28] VITALS (8 sets, daily range): BP systolic 146–182; BP diastolic 67–86
[~2019-04-28 00:51] MED LIST changes: +ACETAMINOPHEN325 M1 GT; +AMBIEN5 MG ORAL; +AMLODIPINE BESYL5 MG ORAL; +BENADRYL ALLERG25 M1 PO; +CATAPRES0.1 MG GT; -CATAPRES0.1 MG ORAL; +DIOVAN HCT 3201 EACH ORAL; +DULCOLAX10 MG RC; +DUONEB 0.5-3(2.53 ML HHN; +FERROUS SULFAT325 M2 ORAL; +FLEET ENEMA133 ML RECTAL; +GLUCOTROL10 MG ORAL; +HEPARIN SO5000 UNIT2 SUBQ; +HEPARIN2000 UNIT/ IV; +HUMULIN R100 UNIT/1 SUBQ; +KEPPRA500 M4 ORAL; +LAMICTAL25 M1 PO; +LEVOTHYROXINE25 MCG ORAL; +MIRALAX17 G2 GT; +NEPHROVITE1 TAB ORAL; +NITROGLYCERIN0.4 MG SL; +NOVOLOG100 UNITS1; +RENVELA0.8 GM ORAL; +SOD CITRATE-CIT15 ML PO; +SYNTHROID100 MCG ORAL; +SYNTHROID150 MCG ORAL; +VITAMIN D250000 UNI1 ORAL; +ZIPRASIDONE HCL40 MG ORAL; +ZOFRAN4 M3 ORAL
--- NOTE | 2019-04-28 00:58 | NUR ---
ER Nurse Note: Pt brought in by [facility] from [facility] c/o abnormal labs- hgb 7.3 and hct 20.3 Pt on trach, with permacath on LT, and LT abd g-tube
[2019-04-28] MEDS ORDERED: NEPHROVITE1 TAB GT (01:07)
--- NOTE | 2019-04-28 01:24 | NUR ---
ER Nurse Note: All labs drawn and taken to lab. SLIV RT FA 18 gauge established by charge nurse. Pt on vent; no resp distress. Will continue to montior.
[2019-04-28 01:29] LABS: HEMATOCRIT 23.3 % (37.0-47.0); HEMOGLOBIN 7.7 G/DL (12.0-16.0); MEAN CORPUSCULAR VOLUME 103 FL (80-99); PLATELET COUNT 257 K/UL (150-450); RED BLOOD COUNT 2.27 M/UL (4.20-5.40); RED CELL DISTRIBUTION WIDTH 18.7 % (11.6-14.8); WHITE BLOOD COUNT 8.2 K/UL (4.8-10.8)
[2019-04-28 01:38] LABS: ANION GAP 11 mmol/L (5-15); BLOOD UREA NITROGEN 62 mg/dL (7-18); CALCIUM 10.5 MG/DL (8.5-10.1); CARBON DIOXIDE 29 MMOL/L (21-32); CHLORIDE 100 MMOL/L (98-107); CREATININE 4.5 MG/DL (0.55-1.30); POTASSIUM 4.8 MMOL/L (3.5-5.1); SODIUM 139 MMOL/L (136-145)
--- NOTE | 2019-04-28 01:40 | NUR ---
ED Nurse Note: X-ray with pt.
--- NOTE | 2019-04-28 01:53 | Emergency Room Report ---
History of Present Illness General Chief Complaint: Abnormal Labs Source: Patient, Medical Record, EMS Present Illness HPI This is a 58-year-old female with a history of renal failure hemodialysis. She also is vent dependent. She presents with chief complaint normal lab. At the detention her hemoglobin is 7.3. She is heme positive from rectal exam. Was sent here for evaluation. Patient denies any symptoms. Patient shook her head no and also mouth were no when asked about transfusion. Patient has no fever chills but no nausea no vomiting. No chest pain. No obvious rectal bleeding. Allergies: Coded Allergies: NO KNOWN ALLERGIES (Verified Allergy, Unknown, 04/18/18) Patient History Past Medical History: see triage record, old chart reviewed, HTN, renal disease , dialysis Past Surgical History: other Pertinent Family History: none Social History: Denies: smoking Now: No Immunizations: other Reviewed Nursing Documentation: PMH: Agreed; PSxH: Agreed Nursing Documentation-PMH Hx Cardiac Problems: Yes - hyperlipidemia Hx Hypertension: Yes Hx COPD: Yes Hx Diabetes: Yes Hx Cancer: No Hx Gastrointestinal Problems: Yes - gastritis Hx Neurological Problems: Yes Hx Cerebrovascular Accident: Yes Hx Transient Ischemic Attacks: Yes Hx Seizures: Yes - epilepsy Hx Epilepsy: Yes Hx Weakness: Yes Review of Systems Eye: Denies: eye pain, blurred vision ENT: Denies: ear pain, nose congestion, throat swelling Respiratory: Denies: cough, shortness of breath Cardiovascular: Denies: chest pain, palpitations Gastrointestinal: Denies: abdominal pain, diarrhea, nausea, vomiting Musculoskeletal: Denies: back pain, joint pain Skin: Denies: rash Neurological: Denies: headache, numbness Endocrine: Denies: increased thirst, increased urine Hematologic/Lymphatic: Denies: easy bruising All Other Systems: negative except mentioned in HPI Physical Exam Vital Signs Date Time Temp Pulse Resp B/P (MAP) Pulse Ox O2 Delivery O2 Flow Rate FiO2 04/28/19 00:53 97.2 78 16 169/72 (104) 95 T-piece 04/28/19 01:07 32 04/28/19 01:16 40.0 Vitals with high blood pressure Sp02 EP Interpretation: reviewed, normal General Appearance: well appearing, no apparent distress, alert Head: normocephalic, atraumatic Eyes: bilateral eye PERRL, bilateral eye EOMI ENT: hearing grossly normal, normal pharynx Neck: full range of motion, supple, no meningismus Respiratory: chest non-tender, lungs clear, normal breath sounds Cardiovascular #1: regular rate, rhythm, no murmur Gastrointestinal: normal bowel sounds, non tender, no mass, no organomegaly, no bruit, non-distended Musculoskeletal: back normal, normal range of motion Neurologic: alert, oriented x3 Psychiatric: mood/affect normal Medical Decision Making Diagnostic Impression: Primary Impression: Anemia Qualified Codes: D64.9 - Anemia, unspecified Additional Impression: Heme positive stool ER Course Patient presents with anemia and Hemoccult-positive stool. This is probably secondary to her renal failure. She seemed amply stable. Will admit for further work-up. I contacted Dr. Davis for admission. Rhythm Strip Diag. Results EP Interpretation: yes Rate: 57 Rhythm: NSR, no PVC's, no ectopy Chest X-Ray Diagnostic Results Chest X-Ray Diagnostic Results : Chest X-Ray Ordered: Yes # of Views/Limited/Complete: 1 View Indication: Other EP Interpretation: Yes Interpretation: no consolidation, no effusion, no pneumothorax, no acute cardiopulmonary disease Impression: No acute disease Electronically Signed by: Ryan Ortega MD Last Vital Signs Date Time Temp Pulse Resp B/P (MAP) Pulse Ox O2 Delivery O2 Flow Rate FiO2 04/28/19 01:16 88 12 100 Mechanical Ventilator 40.0 32 04/28/19 00:58 97.2 169/72 Status: improved Disposition: ADMITTED INPATIENT Condition: Serious Referrals: Hernán Davis DO (PCP) Ryan Ortega MD Apr 28, 2019 01:53
[2019-04-28] MEDS ORDERED: Morphine Sulfate 4mg/ml Inj (IV USE ONLY) IVP PRN (02:00)
--- NOTE | 2019-04-28 03:18 | Diagnostic Imaging Report ---
EXAM: XR Chest, 1 View CLINICAL HISTORY: SOB TECHNIQUE: Frontal view of the chest. COMPARISON: X-ray report 10 (prior image not available for review) FINDINGS: Limitations: Study performed rotated to the left Lungs: Left lower lobe retrocardiac airspace opacity. Pleural space: Small layering left pleural effusion without pneumothorax. Heart: Cardiac silhouette likely normal in size allowing for frontal technique. Mediastinum: Unremarkable. Bones joints: Prior surgical fixation of a right humeral fracture and possible partially visualized surgical fixation of the left humerus. Tubes, lines and devices: Dual-lumen left-sided central venous catheter terminates in the inferior vena cava. Tracheostomy cannula 6.5 cm above the elaine. IMPRESSION: 1. Study performed rotated to the left. 2. Small layering left pleural effusion and left lower lobe atelectasis versus consolidation (segmental collapse not excluded). Clinical correlation and followup to resolution recommended. 3. No pneumothorax. 4. Dual-lumen left-sided central venous catheter terminates below the diaphragm in the inferior vena cava.
--- NOTE | 2019-04-28 03:46 | NUR ---
ED Nurse Note: Report given to JENS Gonzalez. Room is not avalable yet.
--- NOTE | 2019-04-28 04:30 | NUR ---
ED Nurse Note: Dr. Ortega informed me that the patient had bridging orders. The receiving nures is instructed by the ED MD not to call the admitting MD for orders this early this morning due to the bridging orders that are in place.
--- NOTE | 2019-04-28 05:00 | NUR ---
TRANSFER TO FLOOR: Patient transferred to as ordered, per MD Ryan. Report given to JENS Gonzalez. Belongings given to patient. Family and or S/O informed of transfer.
--- NOTE | 2019-04-28 05:00 | NUR ---
NURSE NOTES: Patient arrived from ED via gurney. Patient is placed into bed, trach Shiley 6 to vent with settings of AC:12, TV:500, FiO2:32%, PEEP:5, O2:100%. equipment monitor phototypesetting is placed, bed bath given, linens are changed, patient prefer to wear diaper instead of purewick. Belongings accounts for. Skin assessed. Patient is alert and oriented x2-3. Report received from JENS Harding. ED MD placed bridging orders and was ordered to not call primary MD at this time and to wait until later AM. Also noted that patient refused blood transfusion in the ED and patient also states that she does not want it. Bed low, locked, and alarm is activated. Will initiate plan of care.
--- NOTE | 2019-04-28 07:00 | NUR ---
RESPIRATORY NOTES: Received Patient on Mechanical Ventilator settings SIMV RR 12, VT 500, FIO2 32%, PEEP +5, PS +20. Patient is tracheostomy dependent with a Shiley 6 tracheostomy tube, secured with trache ties. Patient is alert and awake, showing no signs of distress. Bilateral rhonchi is heard throughout both lungs, in all lung medrano. Suctioned a small amount of thick white secretions through trache and thin clear secretions through mouth. Alarms are on and audible. Vent plugged into red outlet. Will continue to closely monitor throughout the day.
--- NOTE | 2019-04-28 07:48 | NUR ---
HAND-OFF: Report given to JENS Garcia. Still waiting on primary MD for admit orders.
--- NOTE | 2019-04-28 09:10 | NUR ---
NURSE NOTES: Dr. Davis called for admission order, patient has limited orders placed at this time.
--- NOTE | 2019-04-28 10:00 | NUR ---
RD ASSESSMENT & RECOMMENDATIONS SEE CARE ACTIVITY FOR COMPLETE ASSESSMENT DAILY ESTIMATED NEEDS: Needs based on Critical care, ESRD + HD, TF REGULATORY COMPLIANCE DIRECTOR/ 57kg 22-31 kcals/kg 1391-0581 total kcals 1.2-2 g protein/kg 47-114 g total protein 20-22 mL/kg 5938-4597 total fluid mLs NUTRITION DIAGNOSIS: * Swallowing difficulty R/T respiratory status, dysphagia as evidenced by trach/vent dep, h/o GT placement, pt on pureed diet + GT feeding REGULATORY COMPLIANCE DIRECTOR. * Increased kcal/prot needs R/T ESRD dx as evidenced by pt is HD dependent. CURRENT DIET:RENAL PO DIET RECOMMENDATIONS: REC RN CARE MANAGER EVAL PRIOR TO ORAL DIET -> RENAL/ Texture per RN CARE MANAGER ENTERAL NUTRITION RECOMMENDATIONS: Nepro @ 40ml/hr x 24 hrs to provide 960ml, 1728kcal, 78g prot, 698ml free water * Rec Nepro @ goal rate of 40ml/hr x 24 hrs * HOB over 30 degrees/ water flush per MD ADDITIONAL RECOMMENDATIONS: * Per SNF : HT=63", AW=106xcg (04/21/19) -> rec calibrated bedscale wt, obtain dry wt post HD * RN CARE MANAGER EVALUATION PRIOR TO ORAL DIET * Monitor lytes * Monitor BGs, need for NISS : h/o diabetes .
--- NOTE | 2019-04-28 10:20 | NUR ---
NURSE NOTES: Dr. Davis informed Dr. Elias is covering and will place admission orders, called to inform for admission orders, Stephanie Fuentes N.P. assessed patient at the bedside. will place orders after reviewing chart.
[2019-04-28 10:49] LABS: ANION GAP 10 mmol/L (5-15); BLOOD UREA NITROGEN 63 mg/dL (7-18); CALCIUM 10.4 MG/DL (8.5-10.1); CARBON DIOXIDE 29 MMOL/L (21-32); CHLORIDE 100 MMOL/L (98-107); CREATININE 4.5 MG/DL (0.55-1.30); POTASSIUM 4.9 MMOL/L (3.5-5.1); SODIUM 139 MMOL/L (136-145)
[2019-04-28 11:02] LABS: % IRON SATURATION 45 % (15-50); IRON 83 ug/dL (50-175); TOTAL IRON BINDING CAPACITY 186 ug/dL (250-450)
[2019-04-28 11:04] LABS: ALANINE AMINOTRANSFERASE 40 U/L (12-78); ALBUMIN 2.9 G/DL (3.4-5.0); ALBUMIN/GLOBULIN RATIO 0.6 (1.0-2.7); ALKALINE PHOSPHATASE 207 U/L (46-116); ASPARTATE AMINO TRANSFERASE 21 U/L (15-37); BILIRUBIN,TOTAL 0.2 MG/DL (0.2-1.0); FERRITIN 1657 NG/ML (8-388); PHOSPHORUS 4.8 MG/DL (2.5-4.9)
--- NOTE | 2019-04-28 11:23 | NUR ---
CASE MANAGEMENT: REVIEW 58Y/FEMALE BIBA FROM [facility] CC: ABNORMAL LABS SI: ANEMIA . ESRD ON HD . VENT DEPENDENT T 97.2 HR 78 RR 16 BP 169/72 SAT 95% T-PIECE FIO2 32 H/H 7.7/23.3 BUN 62 CR 4.5 HEMOCCULT-POSITIVE STOOL IS: MORPHINE 4MG IV PRN ACETAMINOPHEN PO Q4HR PRN PATIENT ADMITTED TO STEP DOWN UNIT 04/28/2019 DCP: PATIENT IS FROM [facility]
[2019-04-28] MEDS ORDERED: Milk of Magnesia 30ml Ud ORAL PRN (11:45)
[2019-04-28] MEDS ORDERED: Albuterol/Ipratropium 3ml neb HHN PRN (11:45)
--- NOTE | 2019-04-28 11:57 | Consultation ---
Consult Note Consult Note asked to eval for dialysis management patient seen in room 243 - has trach-vent PEG ER: This is a 58-year-old female with a history of renal failure hemodialysis. She also is vent dependent. She presents with chief complaint normal lab. [facility] her hemoglobin is 7.3. She is heme positive from rectal exam. Was sent here for evaluation. Patient denies any symptoms. Patient shook her head no and also mouth were no when asked about transfusion. Patient has no fever chills but no nausea no vomiting. No chest pain. No obvious rectal bleeding. NO KNOWN ALLERGIES (Verified Allergy, Unknown, 04/18/18) Hx Cardiac Problems: Yes - hyperlipidemia Hx Hypertension: Yes Hx COPD: Yes Hx Diabetes: Yes Hx Gastrointestinal Problems: Yes - gastritis Hx Neurological Problems: Yes Hx Cerebrovascular Accident: Yes Hx Transient Ischemic Attacks: Yes Hx Seizures: Yes - epilepsy Hx Epilepsy: Yes Hx Weakness: Yes data reviewed examined discussed with JENS Garcia Assessment/Plan ESRD Anemia; ESRD or blood loss or both Sz HypoThyroid HTN DM Hypercalcemia Anemia [place] EPO HD as needed Keep BP in check watch serum Ca Bandar Olmedo MD Apr 28, 2019 11:57
--- NOTE | 2019-04-28 11:58 | Consultation ---
History of Present Illness General Date patient seen: Apr 28, 2019 Time patient seen: 10:45 Chief Complaint: anemia, Referring physician: dr Davis Reason for Consultation: chr resp failure, trach Present Illness HPI 58 y/old female with past medical history of chronic respiratory failure, tracheostomy status, end-stage renal disease, on hemodialysis, COPD, diabetes mellitus, history of CVA with left residual deficit, hypertension, dysphagia, G- tube, seizure disorder, hypothyroidism, major depressive disorder , was sent from the group home facility due to abnormal labs. Apparently at the facility hemoglobin was 7.3. She had heme positive stool on rectal exam and was sent to the hospital for further evaluation and management. Patient by herself denied any symptoms ( she is able to communicate by shaking or nodding her head) No fever or chills. No nausea or vomiting. No chest pain. No rectal bleeding. Patient in the facility usually on trach collar and eating oral diet. Upon evaluation vital signs revealed elevated blood pressure 169/72. Pulse oximetry on T-piece 40% was 95%. Chest x-ray revealed no acute cardiopulmonary pathology. Hemoglobin was 7.7, hematocrit 23.3. No leukocytosis. Stable platelet count 257. BUN 62, creatinine 4.5, consistent with known history of end-stage renal disease. Calcium 10.5. Stable other electrolytes. Patient subsequently admitted to [facility] for further management. Pulmonology consult was requested to assist in management of respiratory status of the patient Allergies: Coded Allergies: NO KNOWN ALLERGIES (Verified Allergy, Unknown, 04/18/18) Medication History Scheduled Acetaminophen* (Acetaminophen 325MG Tablet*), 325 MG ORAL Q4H, (Reported) Amlodipine Besylate* (Amlodipine Besylate*), 5 MG ORAL BID, (Reported) Aspirin* (Aspir 81*), 81 MG ORAL DAILY, (Reported) Atorvastatin Calcium* (Lipitor*), 20 MG ORAL BEDTIME, (Reported) Benztropine Mesylate* (Cogentin*), 1 MG PO BID, (Reported) Citric Acid/Sodium Citrate (Sod Citrate-Citric Acid Soln), 30 ML PO BID, ( Reported) Docusate Sodium* (Colace*), 100 MG ORAL DAILY, (Reported) Ergocalciferol (Vitamin D2)* (Vitamin D*), 50,000 UNIT ORAL ONCE A WEEK, ( Reported) Fenofibrate (Fenofibrate), 54 MG ORAL DAILY, (Reported) Ferrous Sulfate (Ferrous Sulfate), 325 MG ORAL DAILY, (Reported) Glipizide* (Glucotrol*), 20 MG ORAL BID, (Reported) Heparin Sod (Porcine) (Heparin Sodium*), 5,000 UNITS SUBQ EVERY 12 HOURS, ( Reported) Insulin Aspart (Novolog Flexpen), BEFORE MEALS, (Reported) Lamotrigine (Lamictal), 75 MG PO BID, (Reported) Levetiracetam (Keppra), 500 MG ORAL EVERY 12 HOURS, (Reported) Levothyroxine Sodium* (Synthroid*), 150 MCG ORAL DAILY, (Reported) Levothyroxine Sodium* (Synthroid*), 100 MCG ORAL DAILY, (Reported) Linagliptin (Tradjenta), 5 MG PO DAILY, (Reported) Pantoprazole* (Protonix*), 40 MG ORAL DAILY, (Reported) Sennosides/Docusate Sodium (Senokot-S Tablet), 2 TAB PO QHS, (Reported) Sevelamer Carbonate* (Renvela*), 800 MG ORAL THREE TIMES A DAY, (Reported) Tamsulosin Hcl (Tamsulosin Hcl*), 0.4 MG ORAL BEDTIME, (Reported) Valsartan/Hydrochlorothiazide 320-12.5MG (Diovan Hct 320-12.5 Mg Tab), 1 TAB ORAL DAILY, (Reported) Vitamin B Cmplx/Vit C/Folic AC (Nephro-Zulay Tablet), 1 TAB ORAL DAILY, (Reported ) Vitamin B Cmplx/Vit C/Folic AC (Nephro-Zulay Tablet), 1 TAB GT DAILY, (Reported) Ziprasidone Hcl (Ziprasidone Hcl), 40 MG ORAL TWICE A DAY, (Reported) Zolpidem Tartrate* (Ambien*), 5 MG ORAL BEDTIME, (Reported) Scheduled PRN Bisacodyl (Dulcolax), 10 MG RC DAILY PRN for Constipation, (Reported) Clonidine Hcl* (Catapres*), 0.1 MG ORAL EVERY 8 HOURS PRN for For High Blood Pressure, (Reported) Ipratropium/Albuterol Sulfate (DuoNeb 0.5-3(2.5)mg/3ml), 3 ML HHN Q4HR PRN for Shortness of Breath, (Reported) Magnesium Hydroxide* (Milk Of Magnesia*), 30 ML ORAL BEDTIME PRN for Constipation, (Reported) Na Phos,M-B/Na Phos,Di-Ba* (Fleet Enema*), 133 ML RECTAL EVERY 2 DAYS PRN for Constipation, (Reported) Polyethylene Glycol 3350* (Miralax*), 17 GM ORAL DAILY PRN for Constipation, ( Reported) Miscellaneous Medications Insulin Aspart (Novolog Flexpen), (Reported) Insulin Regular, Human (Humulin R), 0 SUBQ, (Reported) Patient History Healthcare decision maker Resuscitation status Full Code Advanced Directive on File Past Medical/Surgical History Past Medical/Surgical History: (1) Diabetes (2) Seizure (3) CVA (cerebral vascular accident) (4) Anemia (5) Hypothyroid (6) ESRD (end stage renal disease) (7) Tracheostomy dependent (8) COPD (chronic obstructive pulmonary disease) (9) Chronic respiratory failure (10) HTN (hypertension) Review of Systems ROS Narrative not available since patient unable to provide information being on vent Physical Exam General Appearance: alert - chronically ill looking female, responsive, on vent Lines, tubes and drains: peripheral, other - L sided subclavian Permacath HEENT: normocephalic, atraumatic, anicteric, status post trach Respiratory/Chest: lungs clear, no respiratory distress Cardiovascular/Chest: normal rate, regular rhythm Abdomen: normal bowel sounds, non tender, soft, feeding tube Extremities: no calf tenderness Skin Exam: other - dry skin Neurologic: abnormal gait, alert, responsive, other - L side weakness Musculoskeletal: atrophy - BLE Last 24 Hour Vital Signs Date Time Temp Pulse Resp B/P (MAP) Pulse Ox O2 Delivery O2 Flow Rate FiO2 04/28/19 10:39 68 12 32 04/28/19 09:40 62 04/28/19 09:21 65 15 32 04/28/19 08:00 98.4 63 12 152/74 (100) 99 04/28/19 07:29 79 14 32 04/28/19 05:29 84 16 32 04/28/19 05:23 72 04/28/19 05:00 Mechanical Ventilator 04/28/19 05:00 32 04/28/19 05:00 98.5 62 18 182/75 (110) 100 04/28/19 05:00 98.4 67 14 150/70 96 Mechanical Ventilator 40.0 32 04/28/19 03:47 98.0 67 15 164/67 96 Mechanical Ventilator 40.0 32 04/28/19 03:00 90 13 32 04/28/19 01:30 98.6 82 16 172/86 98 Mechanical Ventilator 32 04/28/19 01:16 88 12 100 Mechanical Ventilator 40.0 32 04/28/19 01:07 88 12 32 04/28/19 00:58 97.2 78 16 169/72 95 T-piece 04/28/19 00:53 97.2 78 16 169/72 (104) 95 T-piece Intake and Output 04/27/19 04/28/19 19:00 07:00 Intake Total 0 ml Balance 0 ml Intake Oral 0 ml # Bowel Movements 1 Laboratory Tests Test 04/28/19 01:10 04/28/19 09:30 White Blood Count 8.2 K/UL (4.8-10.8) Red Blood Count 2.27 M/UL (4.20-5.40) L Hemoglobin 7.7 G/DL (12.0-16.0) L Hematocrit 23.3 % (37.0-47.0) L Mean Corpuscular Volume 103 FL (80-99) H Mean Corpuscular Hemoglobin 33.7 PG (27.0-31.0) H Mean Corpuscular Hemoglobin Concent 32.8 G/DL (32.0-36.0) Red Cell Distribution Width 18.7 % (11.6-14.8) H Platelet Count 257 K/UL (150-450) Mean Platelet Volume 4.5 FL (6.5-10.1) L Neutrophils (%) (Auto) % (45.0-75.0) Lymphocytes (%) (Auto) % (20.0-45.0) Monocytes (%) (Auto) % (1.0-10.0) Eosinophils (%) (Auto) % (0.0-3.0) Basophils (%) (Auto) % (0.0-2.0) Differential Total Cells Counted 100 Neutrophils % (Manual) 45 % (45-75) Lymphocytes % (Manual) 38 % (20-45) Monocytes % (Manual) 8 % (1-10) Eosinophils % (Manual) 8 % (0-3) H Basophils % (Manual) 1 % (0-2) Band Neutrophils 0 % (0-8) Platelet Estimate Adequate Platelet Morphology Normal Anisocytosis 1+ Sodium Level 139 MMOL/L (136-145) 139 MMOL/L (136-145) Potassium Level 4.8 MMOL/L (3.5-5.1) 4.9 MMOL/L (3.5-5.1) Chloride Level 100 MMOL/L (98-107) 100 MMOL/L (98-107) Carbon Dioxide Level 29 MMOL/L (21-32) 29 MMOL/L (21-32) Anion Gap 11 mmol/L (5-15) 10 mmol/L (5-15) Blood Urea Nitrogen 62 mg/dL (7-18) H 63 mg/dL (7-18) H Creatinine 4.5 MG/DL (0.55-1.30) H 4.5 MG/DL (0.55-1.30) H Estimat Glomerular Filtration Rate 9.9 mL/min (>60) 9.9 mL/min (>60) Glucose Level 81 MG/DL (74-106) 82 MG/DL (74-106) Calcium Level 10.5 MG/DL (8.5-10.1) H 10.4 MG/DL (8.5-10.1) H Uric Acid 3.3 MG/DL (2.6-7.2) Phosphorus Level 4.8 MG/DL (2.5-4.9) Magnesium Level 2.7 MG/DL (1.8-2.4) H Iron Level 83 ug/dL (50-175) Total Iron Binding Capacity 186 ug/dL (250-450) L Percent Iron Saturation 45 % (15-50) Unsaturated Iron Binding 103 ug/dL (112-346) L Ferritin 1657 NG/ML (8-388) H Total Bilirubin 0.2 MG/DL (0.2-1.0) Aspartate Amino Transf (AST/SGOT) 21 U/L (15-37) Alanine Aminotransferase (ALT/SGPT) 40 U/L (12-78) Alkaline Phosphatase 207 U/L (46-116) H C-Reactive Protein, Quantitative 2.1 mg/dL (0.00-0.90) H Pro-B-Type Natriuretic Peptide 8253 pg/mL (0-125) H Total Protein 7.7 G/DL (6.4-8.2) Albumin 2.9 G/DL (3.4-5.0) L Globulin 4.8 g/dL Albumin/Globulin Ratio 0.6 (1.0-2.7) L Vitamin B12 Level 1224 PG/ML (193-986) H Folate 67.4 NG/ML (8.6-58.9) H Thyroid Stimulating Hormone (TSH) 5.905 uiU/mL (0.358-3.740) Height (Feet): 5 Height (Inches): 5.00 Weight (Pounds): 131 Medications Current Medications Medications (Trade) Dose Ordered Sig/Mira Route PRN Reason Start Time Stop Time Status Last Admin Dose Admin Acetaminophen (Tylenol) 650 mg Q4HR PRN ORAL TEMP>100.5 04/28/19 02:00 Morphine Sulfate (Morphine Sulfate) 4 mg PRN PRN IVP Moderate Pain (Pain Scale 4-6) 04/28/19 02:00 Assessment/Plan Assessment/Plan: ASSESSMENT chronic respiratory failure with trach status ESRD, on HD anemia of chronic disease r/o GI bleeding COPD Hx of CVA with left residual deficit Dysphagia, G tube HTN seizure disorder hypothyroidism DM PLAN OF CARE [facility] currently on vent fup with ABG, CXR wean to trach collar as tolerated HHN strict aspir precautions, GT feeding per dietary recs swallow eval ( pt apparently eating at the facility ) HD as per nephro, monitor HH with goal to keep Hgb above 7, anemia w/up noted stool OB, CEA in SNF + heme occult stool GI prophylaxis BP management with current regimen , continue antiplatelet therapy with ASA and statin BS management with SSI, check HgA1c seizure precautions continue anticonvulsant from facility levothyroxine hold Heparin due to anemia SCD after Venous Duplex bowel regimen supportive care case discussed and evaluated by supervising physician Stephanie Fuentes NP Apr 28, 2019 11:58
[2019-04-28] MEDS ORDERED: Docusate 100mg cap ORAL SCH (12:00)
[2019-04-28] MEDS: Docusate 100mg/10ml Liq GT SCH ×2 (13:15→18:00)
--- NOTE | 2019-04-28 13:15 | NUR ---
NURSE NOTES: Dr. Palomares to consult as hematology for hgb of 7.7. dr salinas will call him personally.
--- NOTE | 2019-04-28 13:20 | NUR ---
RESPIRATORY NOTE: Received pt on SIMV 12-500ml-32%FiO2- PS 20- peep 5. Pt is trach dependent with Trach cuffed, Shiley 6, secured with trach ties. Pt is awake, alert, able to follow commands. No SOB or resp distress noted at this time. Alarms are set and audible, vent is plugged into the red outlet, ambu bag and spare trach kit are at bedside. Will continue to monitor pt.
--- NOTE | 2019-04-28 13:53 | Diagnostic Imaging Report ---
EXAM: US Duplex Bilateral Lower Extremity Veins CLINICAL HISTORY: Shortness of breath TECHNIQUE: Real-time duplex ultrasound scan of the bilateral lower extremity veins integrating B-mode two-dimensional vascular structure, Doppler spectral analysis, color flow Doppler imaging and compression. COMPARISON: No relevant prior studies available. FINDINGS: Right deep veins: Unremarkable. No DVT in the right common femoral, femoral, proximal deep femoral or popliteal veins. The veins demonstrate normal color flow, are normally compressible, with normal phasic flow and or augmentation response. Right superficial veins: Unremarkable. No thrombus in the visualized right great saphenous vein. Left deep veins: Unremarkable. No DVT in the left common femoral, femoral, proximal deep femoral or popliteal veins. The veins demonstrate normal color flow, are normally compressible, with normal phasic flow and or augmentation response. Left superficial veins: Unremarkable. No thrombus in the visualized left great saphenous vein. Soft tissues: No popliteal cyst. IMPRESSION: Unremarkable bilateral lower extremity duplex venous ultrasound.
--- NOTE | 2019-04-28 15:20 | NUR ---
NURSE NOTES: Order to place patient on simv and to place order from Stephanie Fuentes N.P. she remains tolerating simv 12, TV: 500, FIO2 at 32% with Peep of 5, she is saturating at 100%.
[2019-04-28] MEDS: NovoLOG Insulin Flexpen SUBQ SCH ×2 (16:30→21:00)
--- NOTE | 2019-04-28 19:30 | NUR ---
HAND-OFF: Report given to JENS James.
--- NOTE | 2019-04-28 19:35 | NUR ---
NURSE NOTES: received patient from JENS Garcia. patient is awake in bed, AO X2-3, able to make needs known by mouthing words and writing. patient is on SIMV 12, FiO2: 32%, PEEP: 5. tolerating well, saturating at 100%, no s/sx of respiratory distress noted at this time. G-tube site is patent and intact, running Nepro currently at rate of 15 cc/hr with goal of 40 cc/hr. patient prefers to wear diapers versus purewick at this time. Left upper chest permacath noted, dressing dry and intact. RFA 18 g IV noted, patent, intact, and asymptomatic. bed in lowest position and locked, padded siderails up X3, call light within reach. will continue to monitor.
--- NOTE | 2019-04-28 20:08 | Consultation ---
History of Present Illness General Chief Complaint: Abnormal Labs Referring physician: dr Davis Reason for Consultation: chr resp failure, trach Present Illness Allergies: Coded Allergies: NO KNOWN ALLERGIES (Verified Allergy, Unknown, 04/18/18) Medication History Scheduled Acetaminophen* (Acetaminophen 325MG Tablet*), 325 MG ORAL Q4H, (Reported) Amlodipine Besylate* (Amlodipine Besylate*), 5 MG ORAL BID, (Reported) Aspirin* (Aspir 81*), 81 MG ORAL DAILY, (Reported) Atorvastatin Calcium* (Lipitor*), 20 MG ORAL BEDTIME, (Reported) Benztropine Mesylate* (Cogentin*), 1 MG PO BID, (Reported) Citric Acid/Sodium Citrate (Sod Citrate-Citric Acid Soln), 30 ML PO BID, ( Reported) Docusate Sodium* (Colace*), 100 MG ORAL DAILY, (Reported) Ergocalciferol (Vitamin D2)* (Vitamin D*), 50,000 UNIT ORAL ONCE A WEEK, ( Reported) Fenofibrate (Fenofibrate), 54 MG ORAL DAILY, (Reported) Ferrous Sulfate (Ferrous Sulfate), 325 MG ORAL DAILY, (Reported) Glipizide* (Glucotrol*), 20 MG ORAL BID, (Reported) Heparin Sod (Porcine) (Heparin Sodium*), 5,000 UNITS SUBQ EVERY 12 HOURS, ( Reported) Insulin Aspart (Novolog Flexpen), BEFORE MEALS, (Reported) Lamotrigine (Lamictal), 75 MG PO BID, (Reported) Levetiracetam (Keppra), 500 MG ORAL EVERY 12 HOURS, (Reported) Levothyroxine Sodium* (Synthroid*), 150 MCG ORAL DAILY, (Reported) Levothyroxine Sodium* (Synthroid*), 100 MCG ORAL DAILY, (Reported) Linagliptin (Tradjenta), 5 MG PO DAILY, (Reported) Pantoprazole* (Protonix*), 40 MG ORAL DAILY, (Reported) Sennosides/Docusate Sodium (Senokot-S Tablet), 2 TAB PO QHS, (Reported) Sevelamer Carbonate* (Renvela*), 800 MG ORAL THREE TIMES A DAY, (Reported) Tamsulosin Hcl (Tamsulosin Hcl*), 0.4 MG ORAL BEDTIME, (Reported) Valsartan/Hydrochlorothiazide 320-12.5MG (Diovan Hct 320-12.5 Mg Tab), 1 TAB ORAL DAILY, (Reported) Vitamin B Cmplx/Vit C/Folic AC (Nephro-Zulay Tablet), 1 TAB ORAL DAILY, (Reported ) Vitamin B Cmplx/Vit C/Folic AC (Nephro-Zulay Tablet), 1 TAB GT DAILY, (Reported) Ziprasidone Hcl (Ziprasidone Hcl), 40 MG ORAL TWICE A DAY, (Reported) Zolpidem Tartrate* (Ambien*), 5 MG ORAL BEDTIME, (Reported) Scheduled PRN Bisacodyl (Dulcolax), 10 MG RC DAILY PRN for Constipation, (Reported) Clonidine Hcl* (Catapres*), 0.1 MG ORAL EVERY 8 HOURS PRN for For High Blood Pressure, (Reported) Ipratropium/Albuterol Sulfate (DuoNeb 0.5-3(2.5)mg/3ml), 3 ML HHN Q4HR PRN for Shortness of Breath, (Reported) Magnesium Hydroxide* (Milk Of Magnesia*), 30 ML ORAL BEDTIME PRN for Constipation, (Reported) Na Phos,M-B/Na Phos,Di-Ba* (Fleet Enema*), 133 ML RECTAL EVERY 2 DAYS PRN for Constipation, (Reported) Polyethylene Glycol 3350* (Miralax*), 17 GM ORAL DAILY PRN for Constipation, ( Reported) Miscellaneous Medications Insulin Aspart (Novolog Flexpen), (Reported) Insulin Regular, Human (Humulin R), 0 SUBQ, (Reported) Patient History Healthcare decision maker Resuscitation status Full Code Advanced Directive on File Physical Exam Last 24 Hour Vital Signs Date Time Temp Pulse Resp B/P (MAP) Pulse Ox O2 Delivery O2 Flow Rate FiO2 04/28/19 18:36 65 135/92 04/28/19 18:30 63 14 30 04/28/19 17:26 66 14 32 04/28/19 16:00 71 04/28/19 16:00 100.1 66 15 151/82 (105) 99 04/28/19 16:00 Mechanical Ventilator 04/28/19 16:00 32 04/28/19 14:46 71 12 32 04/28/19 14:46 58 04/28/19 13:20 72 12 32 04/28/19 12:00 Mechanical Ventilator 04/28/19 12:00 32 04/28/19 12:00 99.0 74 12 146/79 (101) 99 04/28/19 10:39 68 12 32 04/28/19 09:40 62 04/28/19 09:21 65 15 32 04/28/19 08:00 98.4 63 12 152/74 (100) 99 04/28/19 08:00 Mechanical Ventilator 04/28/19 08:00 32 04/28/19 07:29 79 14 32 04/28/19 05:29 84 16 32 04/28/19 05:23 72 04/28/19 05:00 Mechanical Ventilator 04/28/19 05:00 32 04/28/19 05:00 98.5 62 18 182/75 (110) 100 04/28/19 05:00 98.4 67 14 150/70 96 Mechanical Ventilator 40.0 32 04/28/19 03:47 98.0 67 15 164/67 96 Mechanical Ventilator 40.0 32 04/28/19 03:00 90 13 32 04/28/19 01:30 98.6 82 16 172/86 98 Mechanical Ventilator 32 04/28/19 01:16 88 12 100 Mechanical Ventilator 40.0 32 04/28/19 01:07 88 12 32 04/28/19 00:58 97.2 78 16 169/72 95 T-piece 04/28/19 00:53 97.2 78 16 169/72 (104) 95 T-piece Intake and Output 04/27/19 04/28/19 19:00 07:00 Intake Total 0 ml Balance 0 ml Intake Oral 0 ml # Bowel Movements 1 Laboratory Tests Test 04/28/19 01:10 04/28/19 09:30 White Blood Count 8.2 K/UL (4.8-10.8) Red Blood Count 2.27 M/UL (4.20-5.40) L Hemoglobin 7.7 G/DL (12.0-16.0) L Hematocrit 23.3 % (37.0-47.0) L Mean Corpuscular Volume 103 FL (80-99) H Mean Corpuscular Hemoglobin 33.7 PG (27.0-31.0) H Mean Corpuscular Hemoglobin Concent 32.8 G/DL (32.0-36.0) Red Cell Distribution Width 18.7 % (11.6-14.8) H Platelet Count 257 K/UL (150-450) Mean Platelet Volume 4.5 FL (6.5-10.1) L Neutrophils (%) (Auto) % (45.0-75.0) Lymphocytes (%) (Auto) % (20.0-45.0) Monocytes (%) (Auto) % (1.0-10.0) Eosinophils (%) (Auto) % (0.0-3.0) Basophils (%) (Auto) % (0.0-2.0) Differential Total Cells Counted 100 Neutrophils % (Manual) 45 % (45-75) Lymphocytes % (Manual) 38 % (20-45) Monocytes % (Manual) 8 % (1-10) Eosinophils % (Manual) 8 % (0-3) H Basophils % (Manual) 1 % (0-2) Band Neutrophils 0 % (0-8) Platelet Estimate Adequate Platelet Morphology Normal Anisocytosis 1+ Sodium Level 139 MMOL/L (136-145) 139 MMOL/L (136-145) Potassium Level 4.8 MMOL/L (3.5-5.1) 4.9 MMOL/L (3.5-5.1) Chloride Level 100 MMOL/L (98-107) 100 MMOL/L (98-107) Carbon Dioxide Level 29 MMOL/L (21-32) 29 MMOL/L (21-32) Anion Gap 11 mmol/L (5-15) 10 mmol/L (5-15) Blood Urea Nitrogen 62 mg/dL (7-18) H 63 mg/dL (7-18) H Creatinine 4.5 MG/DL (0.55-1.30) H 4.5 MG/DL (0.55-1.30) H Estimat Glomerular Filtration Rate 9.9 mL/min (>60) 9.9 mL/min (>60) Glucose Level 81 MG/DL (74-106) 82 MG/DL (74-106) Calcium Level 10.5 MG/DL (8.5-10.1) H 10.4 MG/DL (8.5-10.1) H Uric Acid 3.3 MG/DL (2.6-7.2) Phosphorus Level 4.8 MG/DL (2.5-4.9) Magnesium Level 2.7 MG/DL (1.8-2.4) H Iron Level 83 ug/dL (50-175) Total Iron Binding Capacity 186 ug/dL (250-450) L Percent Iron Saturation 45 % (15-50) Unsaturated Iron Binding 103 ug/dL (112-346) L Ferritin 1657 NG/ML (8-388) H Total Bilirubin 0.2 MG/DL (0.2-1.0) Aspartate Amino Transf (AST/SGOT) 21 U/L (15-37) Alanine Aminotransferase (ALT/SGPT) 40 U/L (12-78) Alkaline Phosphatase 207 U/L (46-116) H C-Reactive Protein, Quantitative 2.1 mg/dL (0.00-0.90) H Pro-B-Type Natriuretic Peptide 8253 pg/mL (0-125) H Total Protein 7.7 G/DL (6.4-8.2) Albumin 2.9 G/DL (3.4-5.0) L Globulin 4.8 g/dL Albumin/Globulin Ratio 0.6 (1.0-2.7) L Vitamin B12 Level 1224 PG/ML (193-986) H Folate 67.4 NG/ML (8.6-58.9) H Thyroid Stimulating Hormone (TSH) 5.905 uiU/mL (0.358-3.740) Height (Feet): 5 Height (Inches): 5.00 Weight (Pounds): 137 Medications Current Medications Medications (Trade) Dose Ordered Sig/Mira Route PRN Reason Start Time Stop Time Status Last Admin Dose Admin Acetaminophen (Tylenol) 325 mg Q4H ORAL 04/28/19 11:45 05/28/19 11:44 04/28/19 18:37 Acetaminophen (Tylenol) 650 mg Q4HR PRN ORAL TEMP>100.5 04/28/19 02:00 Albuterol/ Ipratropium (Albuterol/ Ipratropium) 3 ml Q4HRT PRN HHN sob 04/28/19 11:45 05/03/19 11:44 Amlodipine Besylate (Norvasc) 5 mg BID GT 04/28/19 18:00 05/28/19 17:59 04/28/19 18:36 Aspirin (Ecotrin) 81 mg DAILY ORAL 04/29/19 09:00 05/29/19 08:59 Atorvastatin Calcium (Lipitor) 20 mg BEDTIME GT 04/28/19 21:00 05/28/19 20:59 Clonidine HCl (Catapres Tab) 0.1 mg Q4H PRN GT bp over 165 syst 04/28/19 12:15 05/28/19 12:14 Dextrose (Dextrose 50%) 25 ml Q30M PRN IV Hypoglycemia 04/28/19 12:00 05/28/19 11:59 Dextrose (Dextrose 50%) 50 ml Q30M PRN IV Hypoglycemia 04/28/19 12:00 05/28/19 11:59 Docusate Sodium (Colace) 100 mg TID GT 04/28/19 13:00 05/28/19 11:59 04/28/19 13:15 Epoetin Rudolph (Epoetin Rudolph(ESRD on dialysis)) 10,000 unit TUE-TUE-TUE SUBQ 04/30/19 21:00 05/30/19 20:59 Famotidine (Pepcid I.v.) 20 mg Q12HR IVP 04/28/19 21:00 05/28/19 20:59 Insulin Aspart (NovoLOG) BEFORE MEALS AND HS SUBQ 04/28/19 16:30 05/28/19 16:29 Levetiracetam (Keppra) 500 mg EVERY 12 HOURS GT 04/28/19 12:00 05/28/19 11:59 04/28/19 13:17 Levothyroxine Sodium (Synthroid) 150 mcg DAILY@0730 GT 04/28/19 14:00 05/28/19 13:59 04/28/19 13:16 Magnesium Hydroxide (Mom) 30 ml BEDTIME PRN ORAL Constipation 04/28/19 11:45 05/28/19 11:44 Morphine Sulfate (Morphine Sulfate) 4 mg PRN PRN IVP Moderate Pain (Pain Scale 4-6) 04/28/19 02:00 Assessment/Plan Assessment/Plan: Hematology Consultation CONSULTING PHYSICIAN: Roly Palomares M.D. REQUESTING PHYSICIAN: Hernán Davis D.O. REASON FOR CONSULTATION: Evaluation of anemia. DOS: 04/28/19 IDENTIFYING DATA: Dear Dr. Hernán Davis, The patient is a pleasant 58-year-old unfortunate female well known to me, with past medical history significant for CVA, hypertension, dyslipidemia, hypothyroidism, psychiatric disorder, resident of [facility], apparently brought into the ER of [facility] for complaints heme + occult anemia, hgb 7.3. In the past has had a similar presentatin, with daviezure and neuro consulted. At this time, has been seen by pulm and renal, she us getting hd for esrd, monitoring Ca+, is with vent management as per pulm team as well./ PAST MEDICAL HISTORY: Altered mental status, post CVA, and seizure disorder, trach/vent PAST SURGICAL HISTORY: None noted. ALLERGIES: No known drug allergies. peg, trach SOCIAL HISTORY: No alcohol, tobacco, or illicit drug use. FAMILY HISTORY: Noncontributory. REVIEW OF SYSTEMS: difficult to obtain given ams PHYSICAL EXAMINATION: VITAL SIGNS: Reviewed. GENERAL: No distress. PULMONARY: Decreased breath sounds. Some crackles noted. ++ trach/vent CARDIOVASCULAR: Regular rate. No S3 or S4. ABDOMEN: Soft, nontender, and nondistended. ++ gtube EXTREMITIES: No cyanosis, swelling, or edema noted. LABORATORY AND DIAGNOSTIC DATA: WBC 8.9, hemoglobin 7.3, hematocrit 25, and platelet count 257,000. Chart is reviewed. Hepatitis panel is negative. HIV, negative swab. ASSESSMENT AND RECOMMENDATIONS: 1. Anemia due to underlying chronic disease. Continue to closely monitor. Anemia workup has been ordered. Hemoglobin goal is above 7. Transfuse as needed. No evidence of reticulocytosis or hemolysis at the moment. --> panel reviewed from this admission --> okay to start on epo given esrd --> can hold off on iron --> transf if hgb <7 --> is to continue on synthroid 2. Hypercalcemia -- in this case less likely due to malignancy but is from esrd --> phos-ca binders per renal --> Ca+ trend, pamidronate/lasix as needed --> ivf as prn 3. ESRD on hd 3 times a week --> phos binders per renal --> titrate fluid volume status as needed 4. Diabetes mellitus. A1c goal less than 7. 5. Seizure disorder. Management as per Neuro, hx of cva in the past 6. Dysphagia s/p peg 7. Resp failure s/p trach 8. Dvt ppx scds I appreciate the consultation and huseyin COLINDRES, Jose. Roly Palomares MD Apr 28, 2019 20:08
--- NOTE | 2019-04-28 20:30 | History and Physical Report ---
DATE OF ADMISSION: 04/28/2019 TIME SEEN: 3 p.m. CONSULTANTS: 1. Sheri Elias M.D. 2. Bandar Olmedo M.D. 3. Dr. Palomares. CHIEF COMPLAINT: Anemia and shortness of breath. BRIEF HISTORY: This is a 58-year-old female with respiratory failure, trach vent. The patient at [facility] presented with anemia and shortness of breath, transferred to [facility], diagnosed with the above, admitted to step-down unit for further care. Currently, trach vent, awake in bed, not talking much. REVIEW OF SYSTEMS: Unavailable. PAST MEDICAL HISTORY: Respiratory failure, ESRD, seizures, COPD, arthritis, CVA dementia, hypertension, and hypothyroid. PAST SURGICAL HISTORY: Trach vent. ALLERGIES: Denies. MEDICATIONS: Include erythropoietin, aspirin, atorvastatin, famotidine, amlodipine, levothyroxine, clonidine, , albuterol magnesium, morphine, and Tylenol. SOCIAL HISTORY: Unable to obtain secondary to the patient's condition. PHYSICAL EXAMINATION: GENERAL: Trach vent, awake in bed, nonverbal. VITAL SIGNS: Temperature is 99, pulse 58, respirations 12, and blood pressure 146/79. CARDIOVASCULAR: No murmurs. LUNGS: Poor air exchange. ABDOMEN: Bowel sounds distant. EXTREMITIES: Show no cyanosis or edema. NEUROLOGIC: The patient moves all extremities, slightly weak. LABORATORY AND DIAGNOSTIC DATA: Labs at this time show hemoglobin and hematocrit 7.7/23, otherwise CBC is normal. BMP shows BUN and creatinine 63/4.5. Calcium 10.4. Magnesium is 2.7. Albumin 2.9. TSH 5.95. ASSESSMENT: 1. Respiratory failure. 2. Anemia. 3. ESRD. 4. Malnutrition. 5. Seizure. 6. COPD. 7. Arthritis. 8. CVA. 9. Dementia. 10. Hypertension. 11. Hypothyroid. PLAN: 1. Vent per Pulmonary. 2. . 3. Dialysis p.r.n. 4. Transfuse p.r.n. 5. Blood pressure and seizure control. 6. Dietary followup. 7. Endocrine followup as well. 8. CBC and BMP in the morning. Hernán Davis D.O. DR: CHITRA JOB#: [id number] CC:
[2019-04-28] MEDS ORDERED: Atorvastatin 20mg tab ORAL SCH (21:00)
[2019-04-28] MEDS: Atorvastatin 20mg tab GT SCH (21:12)
[2019-04-29] VITALS: BP 147/71
[2019-04-29 04:00] VITALS: BP 145/77
[2019-04-29] MEDS: NovoLOG Insulin Flexpen SUBQ SCH ×4 (06:30→20:59)
[2019-04-29 06:52] LABS: HEMATOCRIT 21.9 % (37.0-47.0); HEMOGLOBIN 7.5 G/DL (12.0-16.0); MEAN CORPUSCULAR VOLUME 102 FL (80-99); PLATELET COUNT 252 K/UL (150-450); RED BLOOD COUNT 2.14 M/UL (4.20-5.40); WHITE BLOOD COUNT 7.1 K/UL (4.8-10.8)
--- NOTE | 2019-04-29 07:30 | NUR ---
RESPIRATORY NOTE: Pt refuse ABG draw. RnAlmita made aware.
--- NOTE | 2019-04-29 07:32 | NUR ---
NURSE NOTES: received patient report from maria esther perez. patient is on bed awake. not in acute distress.bed is low and locked for safety. on vent at prescribed rate. gtube running.Sr on the monitor. skin is intact. will follow plan of care.
--- NOTE | 2019-04-29 07:34 | Pulmonology Progress Note ---
Assessment/Plan Assessment/Plan ASSESSMENT chronic respiratory failure with trach status ESRD, on HD anemia of chronic disease r/o GI bleeding COPD Hx of CVA with left residual deficit Dysphagia, G tube HTN seizure disorder hypothyroidism DM bradycardia PLAN OF CARE ARMIDA currently on vent fup with ABG, CXR wean to trach collar as tolerated HHN strict aspir precautions, GT feeding per dietary recs swallow eval ( pt apparently eating at the facility ) HD as per nephro, monitor HH with goal to keep Hgb above 7, anemia w/up noted stool OB, CEA in SNF + heme occult stool GI prophylaxis GI consult as per primary BP management with current regimen , continue antiplatelet therapy with ASA and statin bradycardia while asleep, will obtain ECG if persist consider cardio eval - per primary elev TSH, will increase levothyroxine dose, repeat TSH in 4 wks BS management with SSI, check HgA1c seizure precautions continue anticonvulsant from facility hold Heparin due to anemia SCD after Venous Duplex bowel regimen supportive care case discussed and evaluated by supervising physician Subjective Allergies: Coded Allergies: NO KNOWN ALLERGIES (Verified Allergy, Unknown, 04/18/18) Subjective ramon this am 47-48, patient sleeping started on TF yesterday no signs of resp distress on current settings with SIMV Objective Last 24 Hour Vital Signs Date Time Temp Pulse Resp B/P (MAP) Pulse Ox O2 Delivery O2 Flow Rate FiO2 04/29/19 06:44 64 12 30 04/29/19 05:00 61 13 30 04/29/19 04:00 57 04/29/19 04:00 98.6 54 12 145/77 (99) 100 04/29/19 04:00 32 04/29/19 04:00 Mechanical Ventilator 04/29/19 03:12 60 14 30 04/29/19 00:26 58 12 30 04/29/19 00:00 Mechanical Ventilator 04/29/19 00:00 58 04/29/19 00:00 99.1 58 12 147/71 (96) 100 04/28/19 22:43 65 14 30 04/28/19 21:13 67 12 30 04/28/19 20:00 32 04/28/19 20:00 68 04/28/19 20:00 Mechanical Ventilator 04/28/19 20:00 98.4 61 12 146/70 (95) 99 04/28/19 19:07 98.4 04/28/19 18:36 65 135/92 04/28/19 18:30 63 14 30 04/28/19 17:26 66 14 32 04/28/19 16:00 71 04/28/19 16:00 100.1 66 15 151/82 (105) 99 04/28/19 16:00 Mechanical Ventilator 04/28/19 16:00 32 04/28/19 14:46 71 12 32 04/28/19 14:46 58 04/28/19 13:20 72 12 32 04/28/19 12:00 Mechanical Ventilator 04/28/19 12:00 32 04/28/19 12:00 99.0 74 12 146/79 (101) 99 04/28/19 10:39 68 12 32 04/28/19 09:40 62 04/28/19 09:21 65 15 32 04/28/19 08:00 98.4 63 12 152/74 (100) 99 04/28/19 08:00 Mechanical Ventilator 04/28/19 08:00 32 Intake and Output 04/28/19 04/29/19 19:00 07:00 Intake Total 175 ml 815 ml Balance 175 ml 815 ml Free Water 100 ml 500 ml Tube Feeding 75 ml 315 ml # Voids 4 # Bowel Movements 6 6 Objective General Appearance: alert , chronically ill looking female, responsive, on vent SIMV 500-30%-12 Lines, tubes and drains: peripheral, L sided subclavian Perma-cath HEENT: normocephalic, atraumatic, anicteric, status post trach Neck: Shiley #6 , secretions small amount, white color, thin consistency Respiratory/Chest: lungs clear, no respiratory distress Cardiovascular/Chest: normal rate, regular rhythm Abdomen: normal bowel sounds, non tender, soft, GT feeding tube Extremities: no calf tenderness Skin Exam: dry skin Neurologic: abnormal gait, alert, responsive, - L side weakness Musculoskeletal: atrophy BLE Laboratory Tests 04/28/19 09:30: Sodium Level 139, Potassium Level 4.9, Chloride Level 100, Carbon Dioxide Level 29, Anion Gap 10, Blood Urea Nitrogen 63H, Creatinine 4.5H, Estimat Glomerular Filtration Rate 9.9, Glucose Level 82, Uric Acid 3.3, Calcium Level 10.4H, Phosphorus Level 4.8, Magnesium Level 2.7H, Iron Level 83, Total Iron Binding Capacity 186L, Percent Iron Saturation 45, Unsaturated Iron Binding 103L, Ferritin 1657H, Total Bilirubin 0.2, Aspartate Amino Transf (AST/SGOT) 21, Alanine Aminotransferase (ALT/SGPT) 40, Alkaline Phosphatase 207H, C-Reactive Protein, Quantitative 2.1H, Pro-B-Type Natriuretic Peptide 8253H, Total Protein 7.7, Albumin 2.9L, Globulin 4.8, Albumin/Globulin Ratio 0.6L, Vitamin B12 Level 1224H, Folate 67.4H, Thyroid Stimulating Hormone (TSH) 5.905H 04/29/19 00:30: Stool Occult Blood [Pending] 04/29/19 05:18: Sodium Level [Pending], Potassium Level [Pending], Chloride Level [Pending], Carbon Dioxide Level [Pending], Blood Urea Nitrogen [Pending], Creatinine [ Pending], Estimat Glomerular Filtration Rate [Pending], Glucose Level [Pending] , Calcium Level [Pending], Phosphorus Level [Pending], Magnesium Level [Pending] , Total Bilirubin [Pending], Aspartate Amino Transf (AST/SGOT) [Pending], Alanine Aminotransferase (ALT/SGPT) [Pending], Alkaline Phosphatase [Pending], C -Reactive Protein, Quantitative [Pending], Pro-B-Type Natriuretic Peptide [ Pending], Total Protein [Pending], Albumin [Pending], Globulin [Pending], White Blood Count 7.1, Red Blood Count 2.14L, Hemoglobin 7.5L, Hematocrit 21.9L, Mean Corpuscular Volume 102H, Mean Corpuscular Hemoglobin 34.9H, Mean Corpuscular Hemoglobin Concent 34.2, Red Cell Distribution Width 18.0H, Platelet Count 252, Mean Platelet Volume 4.7L, Neutrophils (%) (Auto) , Lymphocytes (%) (Auto) , Monocytes (%) (Auto) , Eosinophils (%) (Auto) , Basophils (%) (Auto) , Neutrophils % (Manual) [Pending], Lymphocytes % (Manual) [Pending], Platelet Estimate [Pending], Platelet Morphology [Pending], Hemoglobin A1c [Pending], Carcinoembryonic Antigen [Pending] Current Medications Medications (Trade) Dose Ordered Sig/Mira Route PRN Reason Start Time Stop Time Status Last Admin Dose Admin Acetaminophen (Tylenol) 650 mg Q4H PRN ORAL Mild Pain/Temp > 100.5 04/28/19 23:00 Albuterol/ Ipratropium (Albuterol/ Ipratropium) 3 ml Q4HRT PRN HHN sob 04/28/19 11:45 05/03/19 11:44 Amlodipine Besylate (Norvasc) 5 mg BID GT 04/28/19 18:00 05/28/19 17:59 04/28/19 18:36 Aspirin (Ecotrin) 81 mg DAILY ORAL 04/29/19 09:00 05/29/19 08:59 Atorvastatin Calcium (Lipitor) 20 mg BEDTIME GT 04/28/19 21:00 05/28/19 20:59 04/28/19 21:12 Clonidine HCl (Catapres Tab) 0.1 mg Q4H PRN GT bp over 165 syst 04/28/19 12:15 05/28/19 12:14 Dextrose (Dextrose 50%) 25 ml Q30M PRN IV Hypoglycemia 04/28/19 12:00 05/28/19 11:59 Dextrose (Dextrose 50%) 50 ml Q30M PRN IV Hypoglycemia 04/28/19 12:00 05/28/19 11:59 Docusate Sodium (Colace) 100 mg TID GT 04/28/19 13:00 05/28/19 11:59 04/28/19 13:15 Epoetin Rudolph (Epoetin Rudolph(ESRD on dialysis)) 10,000 unit TUE-TUE-TUE SUBQ 04/30/19 21:00 05/30/19 20:59 Famotidine (Pepcid I.v.) 20 mg Q12HR IVP 04/28/19 21:00 05/28/19 20:59 04/28/19 21:12 Insulin Aspart (NovoLOG) BEFORE MEALS AND HS SUBQ 04/28/19 16:30 05/28/19 16:29 Levetiracetam (Keppra) 500 mg EVERY 12 HOURS GT 04/28/19 12:00 05/28/19 11:59 04/28/19 21:12 Levothyroxine Sodium (Synthroid) 150 mcg DAILY@0730 GT 04/28/19 14:00 05/28/19 13:59 04/29/19 06:57 Magnesium Hydroxide (Mom) 30 ml BEDTIME PRN ORAL Constipation 04/28/19 11:45 05/28/19 11:44 Morphine Sulfate (Morphine Sulfate) 4 mg PRN PRN IVP Moderate Pain (Pain Scale 4-6) 04/28/19 02:00 Stephanie Fuentes NP Apr 29, 2019 07:34
[2019-04-29 07:42] LABS: ALANINE AMINOTRANSFERASE 33 U/L (12-78); ALBUMIN/GLOBULIN RATIO 0.6 (1.0-2.7); ALKALINE PHOSPHATASE 151 U/L (46-116); ANION GAP 15 mmol/L (5-15); ASPARTATE AMINO TRANSFERASE 24 U/L (15-37); BILIRUBIN,TOTAL 0.4 MG/DL (0.2-1.0); BLOOD UREA NITROGEN 81 mg/dL (7-18); CALCIUM 10.7 MG/DL (8.5-10.1); CARBON DIOXIDE 23 MMOL/L (21-32); CHLORIDE 99 MMOL/L (98-107); CREATININE 5.9 MG/DL (0.55-1.30); PHOSPHORUS 4.5 MG/DL (2.5-4.9); POTASSIUM 4.3 MMOL/L (3.5-5.1); SODIUM 137 MMOL/L (136-145)
--- NOTE | 2019-04-29 07:47 | NUR ---
HAND-OFF: Report given to JENS Recio. patient is in stable condition.
--- NOTE | 2019-04-29 07:58 | General Progress Note ---
Assessment/Plan Problem List: (1) ESRD (end stage renal disease) ICD Codes: N18.6 - End stage renal disease SNOMED: 17299201 (2) COPD (chronic obstructive pulmonary disease) ICD Codes: J44.9 - Chronic obstructive pulmonary disease, unspecified SNOMED: 94079820 (3) Chronic respiratory failure ICD Codes: J96.10 - Chronic respiratory failure, unspecified whether with hypoxia or hypercapnia SNOMED: 31226491 (4) Tracheostomy dependent ICD Codes: Z93.0 - Tracheostomy status SNOMED: 706165914 (5) HTN (hypertension) ICD Codes: I10 - Essential (primary) hypertension SNOMED: 82896801 (6) Seizure ICD Codes: R56.9 - Unspecified convulsions SNOMED: 25495348 (7) CVA (cerebral vascular accident) ICD Codes: I63.9 - Cerebral infarction, unspecified SNOMED: 842045325 (8) Anemia ICD Codes: D64.9 - Anemia, unspecified SNOMED: 536366066 Qualifiers: Qualified Codes: D64.9 - Anemia, unspecified (9) Hypothyroid ICD Codes: E03.9 - Hypothyroidism, unspecified SNOMED: 67401386 Status: stable, progressing Assessment/Plan: vent dialysis prn transfuse prn cbc bmp am Subjective Constitutional: Reports: weakness Allergies: Coded Allergies: NO KNOWN ALLERGIES (Verified Allergy, Unknown, 04/18/18) All Systems: reviewed and negative except above Subjective trach vent asleep Objective Last 24 Hour Vital Signs Date Time Temp Pulse Resp B/P (MAP) Pulse Ox O2 Delivery O2 Flow Rate FiO2 04/29/19 06:44 64 12 30 04/29/19 05:00 61 13 30 04/29/19 04:00 57 04/29/19 04:00 98.6 54 12 145/77 (99) 100 04/29/19 04:00 32 04/29/19 04:00 Mechanical Ventilator 04/29/19 03:12 60 14 30 04/29/19 00:26 58 12 30 04/29/19 00:00 Mechanical Ventilator 04/29/19 00:00 58 04/29/19 00:00 99.1 58 12 147/71 (96) 100 04/28/19 22:43 65 14 30 04/28/19 21:13 67 12 30 04/28/19 20:00 32 04/28/19 20:00 68 04/28/19 20:00 Mechanical Ventilator 04/28/19 20:00 98.4 61 12 146/70 (95) 99 04/28/19 19:07 98.4 04/28/19 18:36 65 135/92 04/28/19 18:30 63 14 30 04/28/19 17:26 66 14 32 04/28/19 16:00 71 04/28/19 16:00 100.1 66 15 151/82 (105) 99 04/28/19 16:00 Mechanical Ventilator 04/28/19 16:00 32 04/28/19 14:46 71 12 32 04/28/19 14:46 58 04/28/19 13:20 72 12 32 04/28/19 12:00 Mechanical Ventilator 04/28/19 12:00 32 04/28/19 12:00 99.0 74 12 146/79 (101) 99 04/28/19 10:39 68 12 32 04/28/19 09:40 62 04/28/19 09:21 65 15 32 04/28/19 08:00 98.4 63 12 152/74 (100) 99 04/28/19 08:00 Mechanical Ventilator 04/28/19 08:00 32 Intake and Output 04/28/19 04/29/19 19:00 07:00 Intake Total 175 ml 1205 ml Balance 175 ml 1205 ml Free Water 100 ml 550 ml Tube Feeding 75 ml 655 ml # Voids 4 # Bowel Movements 6 12 Laboratory Tests 04/28/19 09:30: Sodium Level 139, Potassium Level 4.9, Chloride Level 100, Carbon Dioxide Level 29, Anion Gap 10, Blood Urea Nitrogen 63H, Creatinine 4.5H, Estimat Glomerular Filtration Rate 9.9, Glucose Level 82, Uric Acid 3.3, Calcium Level 10.4H, Phosphorus Level 4.8, Magnesium Level 2.7H, Iron Level 83, Total Iron Binding Capacity 186L, Percent Iron Saturation 45, Unsaturated Iron Binding 103L, Ferritin 1657H, Total Bilirubin 0.2, Aspartate Amino Transf (AST/SGOT) 21, Alanine Aminotransferase (ALT/SGPT) 40, Alkaline Phosphatase 207H, C-Reactive Protein, Quantitative 2.1H, Pro-B-Type Natriuretic Peptide 8253H, Total Protein 7.7, Albumin 2.9L, Globulin 4.8, Albumin/Globulin Ratio 0.6L, Vitamin B12 Level 1224H, Folate 67.4H, Thyroid Stimulating Hormone (TSH) 5.905H 04/29/19 00:30: Stool Occult Blood [Pending] 04/29/19 05:18: Sodium Level 137, Potassium Level 4.3, Chloride Level 99, Carbon Dioxide Level 23, Anion Gap 15, Blood Urea Nitrogen 81H, Creatinine 5.9H, Estimat Glomerular Filtration Rate 7.3, Glucose Level 96, Calcium Level 10.7H, Phosphorus Level 4.5 , Magnesium Level 2.9H, Total Bilirubin 0.4, Aspartate Amino Transf (AST/SGOT) 24, Alanine Aminotransferase (ALT/SGPT) 33, Alkaline Phosphatase 151H, C- Reactive Protein, Quantitative 2.2H, Pro-B-Type Natriuretic Peptide 6745H, Total Protein 8.3H, Albumin 3.0L, Globulin 5.3, Albumin/Globulin Ratio 0.6L, White Blood Count 7.1, Red Blood Count 2.14L, Hemoglobin 7.5L, Hematocrit 21.9L , Mean Corpuscular Volume 102H, Mean Corpuscular Hemoglobin 34.9H, Mean Corpuscular Hemoglobin Concent 34.2, Red Cell Distribution Width 18.0H, Platelet Count 252, Mean Platelet Volume 4.7L, Neutrophils (%) (Auto) , Lymphocytes (%) (Auto) , Monocytes (%) (Auto) , Eosinophils (%) (Auto) , Basophils (%) (Auto) , Neutrophils % (Manual) [Pending], Lymphocytes % (Manual) [Pending], Platelet Estimate [Pending], Platelet Morphology [Pending], Hemoglobin A1c [Pending], Carcinoembryonic Antigen [Pending] Height (Feet): 5 Height (Inches): 5.00 Weight (Pounds): 137 General Appearance: lethargic EENT: normal ENT inspection Neck: normal alignment Cardiovascular: normal peripheral pulses, normal rate, regular rhythm Respiratory/Chest: chest wall non-tender, lungs clear, normal breath sounds Abdomen: normal bowel sounds, non tender, soft Extremities: normal inspection Edema: no edema noted Arm (L), no edema noted Arm (R), no edema noted Leg (L), no edema noted Leg (R), no edema noted Pedal (L), no edema noted Pedal (R), no edema noted Generalized Neurologic: motor weakness Skin: normal pigmentation, warm/dry Hernán Davis DO Apr 29, 2019 07:58
[2019-04-29 08:00] VITALS: BP 148/77
[2019-04-29] MEDS: Docusate 100mg/10ml Liq GT SCH ×3 (08:06→17:11)
[2019-04-29] MEDS: Aspirin EC 81mg tab ORAL SCH (08:07)
--- NOTE | 2019-04-29 10:00 | NUR ---
NURSE NOTES: patient refused morning blood draw, morning abg and xray. explained already to the patient but still refused. will keep on monitoring.
--- NOTE | 2019-04-29 11:50 | Nephrology Progress Note ---
Assessment/Plan Problem List: (1) ESRD (end stage renal disease) (2) Chronic respiratory failure (3) Anemia (4) Hypothyroid (5) Hypercalcemia Assessment ESRD Anemia; ESRD or blood loss or both Sz HypoThyroid HTN DM Hypercalcemia Plan Anemia [facility] EPO HD as needed scheduled for 04/30 Keep BP in check watch serum Ca one dose Aredia 60 Objective Objective Last 24 Hour Vital Signs Date Time Temp Pulse Resp B/P (MAP) Pulse Ox O2 Delivery O2 Flow Rate FiO2 04/29/19 11:21 66 12 30 04/29/19 09:11 57 12 30 04/29/19 08:07 50 148/77 04/29/19 08:00 Mechanical Ventilator 04/29/19 08:00 48 04/29/19 08:00 30 04/29/19 08:00 98.6 51 12 148/77 (100) 100 04/29/19 06:44 64 12 30 04/29/19 05:00 61 13 30 04/29/19 04:00 57 04/29/19 04:00 98.6 54 12 145/77 (99) 100 04/29/19 04:00 32 04/29/19 04:00 Mechanical Ventilator 04/29/19 03:12 60 14 30 04/29/19 00:26 58 12 30 04/29/19 00:00 Mechanical Ventilator 04/29/19 00:00 58 04/29/19 00:00 99.1 58 12 147/71 (96) 100 04/28/19 22:43 65 14 30 04/28/19 21:13 67 12 30 04/28/19 20:00 32 04/28/19 20:00 68 04/28/19 20:00 Mechanical Ventilator 04/28/19 20:00 98.4 61 12 146/70 (95) 99 04/28/19 19:07 98.4 04/28/19 18:36 65 135/92 04/28/19 18:30 63 14 30 04/28/19 17:26 66 14 32 04/28/19 16:00 71 04/28/19 16:00 100.1 66 15 151/82 (105) 99 04/28/19 16:00 Mechanical Ventilator 04/28/19 16:00 32 04/28/19 14:46 71 12 32 04/28/19 14:46 58 04/28/19 13:20 72 12 32 04/28/19 12:00 Mechanical Ventilator 04/28/19 12:00 32 04/28/19 12:00 99.0 74 12 146/79 (101) 99 Intake and Output 04/28/19 04/29/19 19:00 07:00 Intake Total 175 ml 1205 ml Balance 175 ml 1205 ml Free Water 100 ml 550 ml Tube Feeding 75 ml 655 ml # Voids 4 # Bowel Movements 6 12 Laboratory Tests 04/29/19 00:30: Stool Occult Blood [Pending] 04/29/19 05:18: White Blood Count 7.1, Red Blood Count 2.14L, Hemoglobin 7.5L, Hematocrit 21.9L , Mean Corpuscular Volume 102H, Mean Corpuscular Hemoglobin 34.9H, Mean Corpuscular Hemoglobin Concent 34.2, Red Cell Distribution Width 18.0H, Platelet Count 252, Mean Platelet Volume 4.7L, Neutrophils (%) (Auto) , Lymphocytes (%) (Auto) , Monocytes (%) (Auto) , Eosinophils (%) (Auto) , Basophils (%) (Auto) , Differential Total Cells Counted 100, Neutrophils % ( Manual) 41L, Lymphocytes % (Manual) 38, Monocytes % (Manual) 10, Eosinophils % ( Manual) 11H, Basophils % (Manual) 0, Band Neutrophils 0, Platelet Estimate Adequate, Platelet Morphology Normal, Hypochromasia 3+, Anisocytosis 1+, Macrocytosis 1+, Spherocytes 1+, Sodium Level 137, Potassium Level 4.3, Chloride Level 99, Carbon Dioxide Level 23, Anion Gap 15, Blood Urea Nitrogen 81H, Creatinine 5.9H, Estimat Glomerular Filtration Rate 7.3, Glucose Level 96, Hemoglobin A1c 4.8, Calcium Level 10.7H, Phosphorus Level 4.5, Magnesium Level 2.9H, Total Bilirubin 0.4, Aspartate Amino Transf (AST/SGOT) 24, Alanine Aminotransferase (ALT/SGPT) 33, Alkaline Phosphatase 151H, C-Reactive Protein, Quantitative 2.2H, Pro-B-Type Natriuretic Peptide 6745H, Total Protein 8.3H, Albumin 3.0L, Globulin 5.3, Albumin/Globulin Ratio 0.6L, Carcinoembryonic Antigen [Pending] Height (Feet): 5 Height (Inches): 5.00 Weight (Pounds): 137 Bandar Olmedo MD Apr 29, 2019 11:50
[2019-04-29 12:00] VITALS: BP 121/76
[2019-04-29] MEDS ORDERED: Pamidronate Disodium Inj 60 MG in Sodium Chloride 550 ML IVPB ONE (13:00)
[2019-04-29 16:00] VITALS: BP 125/76
--- NOTE | 2019-04-29 17:30 | Consultation ---
DATE OF CONSULTATION: 04/29/2019 ENDOCRINOLOGY CONSULTATION REFERRING PHYSICIAN: Hernán Davis D.O. REASON FOR CONSULTATION: 1. Hypothyroidism. 2. Diabetes. HISTORY OF PRESENT ILLNESS: It is important to note that history was obtained from review of the medical record since the patient has history of chronic respiratory failure, status post tracheostomy, and not able to provide any meaningful history. The patient is a 58-year-old female with past medical history of chronic respiratory failure, tracheostomy, end-stage renal disease, on hemodialysis as well as diabetes with history of CVA with left residual deficit. The patient went to the hospital with hemoglobin of 7.3. Also, she was noted to be hypercalcemic. I was called to assist in the management of hypothyroidism and diabetes. Calcium was elevated at 10.7. She was given a dose of Aredia today. REVIEW OF SYSTEMS: Unobtainable. MEDICATIONS: Reviewed and reconcilied. SOCIAL HISTORY: From longterm home. No smoking, alcohol, or drug use. ALLERGIES TO MEDICATIONS: None. FAMILY HISTORY: Noncontributory. PHYSICAL EXAMINATION: GENERAL: The patient is lethargic. VITAL SIGNS: Pulse is 47, temperature is 98.0 degrees, respiratory rate of 12, and blood pressure 121/76. HEENT: Tracheostomy in place. HEART: Bradycardic. LUNGS: Decreased breath sounds. ABDOMEN: Positive bowel sounds. EXTREMITIES: Positive for edema. LABORATORY DATA: Laboratory values, sodium 137, potassium 4.3, chloride 99, bicarbonate 23, BUN 81, and creatinine 5.9. TSH is 5.9. Calcium is 10.7. DIAGNOSES: 1. Respiratory failure. 2. Hypercalcemia. 3. Renal failure. 4. Hypothyroidism. PLAN: 1. Diabetes was fairly well managed with sliding scale insulin and ordered for basal insulin for now. 2. Hypercalcemia. The patient received a dose of Aredia. She was continuing to monitor serum calcium. 3. TSH is elevated. We will repeat the TSH with a free T4. We will adjust the dose of levothyroxine as indicated. 4. I will follow the patient closely during hospital stay. Thank you, Dr. Davis for the courtesy of this consultation. Vincenzo Lane M.D. DR: Saige JOB#: [id number] CC:
--- NOTE | 2019-04-29 18:47 | NUR ---
RESPIRATORY NOTE: Received pt on SIMV 12, 500VT, PS 20, 30%, PEEP +5. Pt is trach-dependent w/ a cuffed, Shiley 6 tube. Pt is alert/awake, follows commands, pt currently asleep. B/S daily. clear/diminished, sxn minimal amounts of thin, clear-white secretions. Vent plugged into red outlet, ambubag at bedside. Pt in no apparent distress at this time. Will continue plan of care.
--- NOTE | 2019-04-29 19:02 | NUR ---
HAND-OFF: Report given to maria esther perez.
--- NOTE | 2019-04-29 19:28 | NUR ---
NURSE NOTES: received patient from JENS Recio.patient is observed sleeping in bed, responsive to verbal commands, no s/sx of pain noted at this time. patient is on SIMV 12, Shiley: 6, FiO2: 30%, PEEP: 5; tolerating well; saturating at 100%, no s/sx of respiratory distress noted at this time. panel monitor shows sinus bradycardia with current HR of 48. no s/sx of acute cardiac distress noted at this time. G-tube site is patent and intact, running Nepro at 40 cc/hr. HOB elevated, no residual noted. RFA 18 g IV site patent and intact, asymptomatic. Left upper chest permacath noted, dressing dry and intact. bed in lowest position and locked, siderails up X3, call light within reach. will continue to monitor.
[2019-04-29] MEDS: Dyna-Hex 2% Top Sol 2oz TOPIC SCH (20:33)
--- NOTE | 2019-04-29 20:41 | NUR ---
NURSE NOTES: patient refused vital signs. explained risks/benefits of obtaining vital signs, pt still refused.
[2019-04-29] MEDS: Atorvastatin 20mg tab GT SCH (20:58)
--- NOTE | 2019-04-29 20:59 | NUR ---
NURSE NOTES: patient refused glucose check and all scheduled medications for 2100. explained risks/benefits of not taking each medication. patient still refused, and mouthed "I want to sleep." explained to patient that the meds would be given via GT and one would be given via IV, and that it would not affect her sleep. patient still refused. will inform MD.
--- NOTE | 2019-04-29 22:04 | NUR ---
NURSE NOTES: left message for Stephanie Fuentes NP regarding patient's refusal of medications and vital signs.
[2019-04-30] VITALS: BP 137/77
[2019-04-30 04:00] VITALS: BP 141/81
--- NOTE | 2019-04-30 04:30 | NUR ---
NURSE NOTES: patient refused AM blood draw.
--- NOTE | 2019-04-30 06:14 | General Progress Note ---
Assessment/Plan Problem List: (1) Hypercalcemia ICD Codes: E83.52 - Hypercalcemia SNOMED: 39849360 (2) HTN (hypertension) ICD Codes: I10 - Essential (primary) hypertension SNOMED: 77934534 (3) Tracheostomy dependent ICD Codes: Z93.0 - Tracheostomy status SNOMED: 649145297 (4) COPD (chronic obstructive pulmonary disease) ICD Codes: J44.9 - Chronic obstructive pulmonary disease, unspecified SNOMED: 09048532 (5) ESRD (end stage renal disease) ICD Codes: N18.6 - End stage renal disease SNOMED: 04650626 (6) Diabetes ICD Codes: E11.9 - Type 2 diabetes mellitus without complications SNOMED: 76853844 Status: stable, progressing Assessment/Plan: continue Novolog sliding scale no need for basal insulin for now follow repeat TSH and free 4 continue LT4 150 mcg daily for now Subjective ROS Limited/Unobtainable: Yes Allergies: Coded Allergies: NO KNOWN ALLERGIES (Verified Allergy, Unknown, 04/18/18) Subjective events noted glucose values controlled Item Value Date Time Bedside Blood Glucose 127 mg/dl H 04/29/19 1630 Bedside Blood Glucose 104 mg/dl 04/29/19 1122 Objective Last 24 Hour Vital Signs Date Time Temp Pulse Resp B/P (MAP) Pulse Ox O2 Delivery O2 Flow Rate FiO2 04/30/19 05:08 61 19 30 04/30/19 04:00 Mechanical Ventilator 04/30/19 04:00 30 04/30/19 04:00 51 04/30/19 02:53 63 13 30 04/30/19 01:03 60 14 30 04/30/19 00:00 Mechanical Ventilator 04/30/19 00:00 51 04/30/19 00:00 97.5 59 14 137/77 (97) 100 04/29/19 22:45 55 15 30 04/29/19 21:00 48 12 30 04/29/19 20:00 30 04/29/19 20:00 Mechanical Ventilator 04/29/19 20:00 49 04/29/19 18:44 47 13 30 04/29/19 17:11 61 127/76 04/29/19 17:04 47 12 30 04/29/19 16:00 Mechanical Ventilator 04/29/19 16:00 30 04/29/19 16:00 97.3 61 14 125/76 (92) 100 04/29/19 15:26 51 04/29/19 15:25 51 14 30 04/29/19 12:46 47 12 30 04/29/19 12:00 98.0 58 12 121/76 (91) 98 04/29/19 12:00 30 04/29/19 12:00 53 04/29/19 12:00 Mechanical Ventilator 04/29/19 11:21 66 12 30 04/29/19 09:11 57 12 30 04/29/19 08:07 50 148/77 04/29/19 08:00 Mechanical Ventilator 04/29/19 08:00 48 04/29/19 08:00 30 04/29/19 08:00 98.6 51 12 148/77 (100) 100 04/29/19 06:44 64 12 30 Intake and Output 04/29/19 04/30/19 18:59 06:59 Intake Total 910 ml 750 ml Output Total 50 ml Balance 860 ml 750 ml Free Water 125 ml 230 ml Tube Feeding 785 ml 520 ml Output Urine Total 50 ml # Voids 1 # Bowel Movements 4 4 Height (Feet): 5 Height (Inches): 5.00 Weight (Pounds): 137 General Appearance: other - on vent Neck: other - trach Cardiovascular: normal rate Respiratory/Chest: decreased breath sounds Abdomen: normal bowel sounds Objective Current Medications Medications (Trade) Dose Ordered Sig/Mira Route PRN Reason Start Time Stop Time Status Last Admin Dose Admin Acetaminophen (Tylenol) 650 mg Q4H PRN ORAL Mild Pain/Temp > 100.5 04/28/19 23:00 Albuterol/ Ipratropium (Albuterol/ Ipratropium) 3 ml Q4HRT PRN HHN sob 04/28/19 11:45 05/03/19 11:44 Amlodipine Besylate (Norvasc) 5 mg BID GT 04/28/19 18:00 05/28/19 17:59 04/29/19 17:11 Aspirin (Ecotrin) 81 mg DAILY ORAL 04/29/19 09:00 05/29/19 08:59 04/29/19 08:07 Atorvastatin Calcium (Lipitor) 20 mg BEDTIME GT 04/28/19 21:00 05/28/19 20:59 04/28/19 21:12 Chlorhexidine Gluconate (Alie-Hex 2%) 1 applic DAILY@2000 TOPIC 04/29/19 20:00 05/29/19 19:59 04/29/19 20:33 Clonidine HCl (Catapres Tab) 0.1 mg Q4H PRN GT bp over 165 syst 04/28/19 12:15 05/28/19 12:14 Dextrose (Dextrose 50%) 25 ml Q30M PRN IV Hypoglycemia 04/28/19 12:00 05/28/19 11:59 Dextrose (Dextrose 50%) 50 ml Q30M PRN IV Hypoglycemia 04/28/19 12:00 05/28/19 11:59 Docusate Sodium (Colace) 100 mg TID GT 04/28/19 13:00 05/28/19 11:59 04/28/19 13:15 Epoetin Rudolph (Epoetin Rudolph(ESRD on dialysis)) 10,000 unit TUE-TUE-TUE SUBQ 04/30/19 21:00 05/30/19 20:59 Famotidine (Pepcid I.v.) 20 mg Q12HR IVP 04/28/19 21:00 05/28/19 20:59 04/29/19 08:07 Insulin Aspart (NovoLOG) BEFORE MEALS AND HS SUBQ 04/28/19 16:30 05/28/19 16:29 Levetiracetam (Keppra) 500 mg EVERY 12 HOURS GT 04/28/19 12:00 05/28/19 11:59 04/29/19 08:07 Levothyroxine Sodium (Synthroid) 150 mcg DAILY@0730 GT 04/28/19 14:00 05/28/19 13:59 04/29/19 06:57 Morphine Sulfate (Morphine Sulfate) 4 mg PRN PRN IVP Moderate Pain (Pain Scale 4-6) 04/28/19 02:[address] MD Apr 30, 2019 06:14
[2019-04-30] MEDS: NovoLOG Insulin Flexpen SUBQ SCH ×4 (06:30→20:44)
--- NOTE | 2019-04-30 07:03 | NUR ---
NURSE NOTES: received patient report from maria esther perez. patient is on bed asleep. no tin acute distress. no other arrythmias reported during the night. SB on the monitor. afebrile.will continue plan of care.
--- NOTE | 2019-04-30 07:08 | NUR ---
HAND-OFF: Report given to JENS Recio. patient is in stable condition.
[2019-04-30 07:52] VITALS: BP 154/86
[2019-04-30] MEDS: Docusate 100mg/10ml Liq GT SCH ×3 (08:05→17:06)
[2019-04-30] MEDS: Aspirin EC 81mg tab ORAL SCH (08:06)
--- NOTE | 2019-04-30 08:11 | General Progress Note ---
Assessment/Plan Problem List: (1) ESRD (end stage renal disease) ICD Codes: N18.6 - End stage renal disease SNOMED: 32265429 (2) COPD (chronic obstructive pulmonary disease) ICD Codes: J44.9 - Chronic obstructive pulmonary disease, unspecified SNOMED: 53753306 (3) Chronic respiratory failure ICD Codes: J96.10 - Chronic respiratory failure, unspecified whether with hypoxia or hypercapnia SNOMED: 20431399 (4) Tracheostomy dependent ICD Codes: Z93.0 - Tracheostomy status SNOMED: 610519067 (5) HTN (hypertension) ICD Codes: I10 - Essential (primary) hypertension SNOMED: 67247045 (6) Seizure ICD Codes: R56.9 - Unspecified convulsions SNOMED: 40719065 (7) CVA (cerebral vascular accident) ICD Codes: I63.9 - Cerebral infarction, unspecified SNOMED: 381243642 (8) Anemia ICD Codes: D64.9 - Anemia, unspecified SNOMED: 709989694 Qualifiers: Qualified Codes: D64.9 - Anemia, unspecified (9) Hypothyroid ICD Codes: E03.9 - Hypothyroidism, unspecified SNOMED: 18721537 Status: stable, progressing Assessment/Plan: vent dialysis prn transfuse prn cbc bmp am ltach eval Subjective Constitutional: Reports: weakness Allergies: Coded Allergies: NO KNOWN ALLERGIES (Verified Allergy, Unknown, 04/18/18) All Systems: reviewed and negative except above Subjective trach vent asleep Objective Last 24 Hour Vital Signs Date Time Temp Pulse Resp B/P (MAP) Pulse Ox O2 Delivery O2 Flow Rate FiO2 04/30/19 08:06 62 154/86 04/30/19 07:52 98.3 62 12 154/86 (108) 100 04/30/19 07:35 30 04/30/19 07:33 Mechanical Ventilator 04/30/19 07:13 55 13 30 04/30/19 05:08 61 19 30 04/30/19 04:00 Mechanical Ventilator 04/30/19 04:00 30 04/30/19 04:00 98.7 51 12 141/81 (101) 100 04/30/19 04:00 51 04/30/19 02:53 63 13 30 04/30/19 01:03 60 14 30 04/30/19 00:00 Mechanical Ventilator 04/30/19 00:00 51 04/30/19 00:00 97.5 59 14 137/77 (97) 100 04/29/19 22:45 55 15 30 04/29/19 21:00 48 12 30 04/29/19 20:00 30 04/29/19 20:00 Mechanical Ventilator 04/29/19 20:00 49 04/29/19 18:44 47 13 30 04/29/19 17:11 61 127/76 04/29/19 17:04 47 12 30 04/29/19 16:00 Mechanical Ventilator 04/29/19 16:00 30 04/29/19 16:00 97.3 61 14 125/76 (92) 100 04/29/19 15:26 51 04/29/19 15:25 51 14 30 04/29/19 12:46 47 12 30 04/29/19 12:00 98.0 58 12 121/76 (91) 98 04/29/19 12:00 30 04/29/19 12:00 53 04/29/19 12:00 Mechanical Ventilator 04/29/19 11:21 66 12 30 04/29/19 09:11 57 12 30 Intake and Output 04/29/19 04/30/19 19:00 07:00 Intake Total 875 ml 1190 ml Output Total 50 ml 50 ml Balance 825 ml 1140 ml Free Water 125 ml 230 ml Tube Feeding 750 ml 960 ml Output Urine Total 50 ml 50 ml # Voids 1 # Bowel Movements 4 10 Height (Feet): 5 Height (Inches): 5.00 Weight (Pounds): 127 General Appearance: lethargic EENT: normal ENT inspection Neck: normal alignment Cardiovascular: normal peripheral pulses Respiratory/Chest: chest wall non-tender, lungs clear, normal breath sounds Abdomen: normal bowel sounds, non tender, soft Extremities: normal inspection Edema: no edema noted Arm (L), no edema noted Arm (R), no edema noted Leg (L), no edema noted Leg (R), no edema noted Pedal (L), no edema noted Pedal (R), no edema noted Generalized Neurologic: motor weakness Skin: normal pigmentation, warm/dry Hernán Davis DO Apr 30, 2019 08:11
--- NOTE | 2019-04-30 08:47 | NUR ---
NURSE NOTES: patient refused blood draw this am. will notify
--- NOTE | 2019-04-30 10:44 | NUR ---
RADIOLOGY DEPT., CHEST X-RAY DONE.-P.DYE
--- NOTE | 2019-04-30 10:49 | Nephrology Progress Note ---
Assessment/Plan Problem List: (1) ESRD (end stage renal disease) (2) Chronic respiratory failure (3) Anemia (4) Hypothyroid (5) Hypercalcemia Assessment ESRD Anemia; ESRD or blood loss or both Sz HypoThyroid HTN DM Hypercalcemia Plan Due dialysis today- when dialysis nurse attempted, the patient decl;ined dialysis and consent ! ? Psych eval for decision making ability? Anemia [place] EPO HD as needed scheduled for 04/30 Keep BP in check watch serum Ca one dose Aredia 60 Subjective ROS Limited/Unobtainable: No Constitutional: Reports: malaise Objective Objective Last 24 Hour Vital Signs Date Time Temp Pulse Resp B/P (MAP) Pulse Ox O2 Delivery O2 Flow Rate FiO2 04/30/19 09:36 55 11 30 04/30/19 08:06 62 154/86 04/30/19 07:56 52 04/30/19 07:52 98.3 62 12 154/86 (108) 100 04/30/19 07:35 30 04/30/19 07:33 Mechanical Ventilator 04/30/19 07:13 55 13 30 04/30/19 05:08 61 19 30 04/30/19 04:00 Mechanical Ventilator 04/30/19 04:00 30 04/30/19 04:00 98.7 51 12 141/81 (101) 100 04/30/19 04:00 51 04/30/19 02:53 63 13 30 04/30/19 01:03 60 14 30 04/30/19 00:00 Mechanical Ventilator 04/30/19 00:00 51 04/30/19 00:00 97.5 59 14 137/77 (97) 100 04/29/19 22:45 55 15 30 04/29/19 21:00 48 12 30 04/29/19 20:00 30 04/29/19 20:00 Mechanical Ventilator 04/29/19 20:00 49 04/29/19 18:44 47 13 30 04/29/19 17:11 61 127/76 04/29/19 17:04 47 12 30 04/29/19 16:00 Mechanical Ventilator 04/29/19 16:00 30 04/29/19 16:00 97.3 61 14 125/76 (92) 100 04/29/19 15:26 51 04/29/19 15:25 51 14 30 04/29/19 12:46 47 12 30 04/29/19 12:00 98.0 58 12 121/76 (91) 98 04/29/19 12:00 30 04/29/19 12:00 53 04/29/19 12:00 Mechanical Ventilator 04/29/19 11:21 66 12 30 Intake and Output 04/29/19 04/30/19 19:00 07:00 Intake Total 875 ml 1190 ml Output Total 50 ml 50 ml Balance 825 ml 1140 ml Free Water 125 ml 230 ml Tube Feeding 750 ml 960 ml Output Urine Total 50 ml 50 ml # Voids 1 # Bowel Movements 4 10 Height (Feet): 5 Height (Inches): 5.00 Weight (Pounds): 127 General Appearance: no apparent distress Objective no change Bandar Olmedo MD Apr 30, 2019 10:49
--- NOTE | 2019-04-30 11:00 | NUR ---
NURSE NOTES: left a message to dr salinas regarding psych eval for this patient per recc by dr don. awaits callback and new order as of this time.
[2019-04-30 12:00] VITALS: BP 143/75
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
[2019-04-30] MEDS ORDERED: Varibar Nectar 240ml MC PRN (13:15)
[2019-04-30] MEDS ORDERED: Varibar Pudding 230ml MC PRN (13:15)
[2019-04-30] MEDS ORDERED: Varibar Honey 250ml MC PRN (13:15)
--- NOTE | 2019-04-30 14:04 | Pulmonology Progress Note ---
Assessment/Plan Problems: (1) Chronic respiratory failure (2) COPD (chronic obstructive pulmonary disease) (3) Tracheostomy dependent (4) Anemia (5) At high risk for aspiration (6) Seizure (7) Hypothyroid (8) Diabetes (9) ESRD (end stage renal disease) (10) HTN (hypertension) (11) CVA (cerebral vascular accident) Respiratory: monitor respiratory rate, adjust FIO2 Cardiac: continue to monitor HR/BP Renal: F/U I&O, keep IV fluid, check electrolytes Infectious Disease: check cultures Gastrointestinal: continue feedings/current rate Endocrine: monitor blood sugar Hematologic: monitor H/H, transfuse if hgb<8.5 Neurologic: PRN Ativan, keep patient comfortable Affect: PRN ativan Prophylaxis: Protonix 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, 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 Discussed with: nurses, consultants Subjective ROS Limited/Unobtainable: Yes Allergies: Coded Allergies: NO KNOWN ALLERGIES (Verified Allergy, Unknown, 04/18/18) Objective Last 24 Hour Vital Signs Date Time Temp Pulse Resp B/P (MAP) Pulse Ox O2 Delivery O2 Flow Rate FiO2 04/30/19 13:08 58 13 30 04/30/19 12:00 Mechanical Ventilator 04/30/19 12:00 98.3 53 12 143/75 (97) 97 04/30/19 12:00 30 04/30/19 11:40 60 12 30 04/30/19 09:36 55 11 30 04/30/19 08:06 62 154/86 04/30/19 07:56 52 04/30/19 07:52 98.3 62 12 154/86 (108) 100 04/30/19 07:35 30 04/30/19 07:33 Mechanical Ventilator 04/30/19 07:13 55 13 30 04/30/19 05:08 61 19 30 04/30/19 04:00 Mechanical Ventilator 04/30/19 04:00 30 04/30/19 04:00 98.7 51 12 141/81 (101) 100 04/30/19 04:00 51 04/30/19 02:53 63 13 30 04/30/19 01:03 60 14 30 04/30/19 00:00 Mechanical Ventilator 04/30/19 00:00 51 04/30/19 00:00 97.5 59 14 137/77 (97) 100 04/29/19 22:45 55 15 30 04/29/19 21:00 48 12 30 04/29/19 20:00 30 04/29/19 20:00 Mechanical Ventilator 04/29/19 20:00 49 04/29/19 18:44 47 13 30 04/29/19 17:11 61 127/76 04/29/19 17:04 47 12 30 04/29/19 16:00 Mechanical Ventilator 04/29/19 16:00 30 04/29/19 16:00 97.3 61 14 125/76 (92) 100 04/29/19 15:26 51 04/29/19 15:25 51 14 30 Intake and Output 04/29/19 04/30/19 19:00 07:00 Intake Total 875 ml 1190 ml Output Total 50 ml 50 ml Balance 825 ml 1140 ml Free Water 125 ml 230 ml Tube Feeding 750 ml 960 ml Output Urine Total 50 ml 50 ml # Voids 1 # Bowel Movements 4 10 General Appearance: WD/WN HEENT: normocephalic, anicteric Respiratory/Chest: chest wall non-tender, lungs clear, no respiratory distress Breasts: no masses Cardiovascular: normal peripheral pulses Abdomen: normal bowel sounds, no organomegaly, no scars Extremities: no cyanosis Skin: no lesions Microbiology Date/Time Source Procedure Growth Status 04/28/19 09:10 Rectum VRE Culture - Final Enterococcus Faecium - Vre Complete 04/28/19 09:10 Rectum - Final NO CARBAPENEM-RESISTANT ENTEROBACTERI... Complete Laboratory Tests 04/30/19 13:00: Stool Occult Blood [Pending] Current Medications Medications (Trade) Dose Ordered Sig/Mira Route PRN Reason Start Time Stop Time Status Last Admin Dose Admin Acetaminophen (Tylenol) 650 mg Q4H PRN ORAL Mild Pain/Temp > 100.5 04/28/19 23:00 Albuterol/ Ipratropium (Albuterol/ Ipratropium) 3 ml Q4HRT PRN HHN sob 04/28/19 11:45 05/03/19 11:44 Amlodipine Besylate (Norvasc) 5 mg BID GT 04/28/19 18:00 05/28/19 17:59 04/30/19 08:06 Aspirin (Ecotrin) 81 mg DAILY ORAL 04/29/19 09:00 05/29/19 08:59 04/30/19 08:06 Atorvastatin Calcium (Lipitor) 20 mg BEDTIME GT 04/28/19 21:00 05/28/19 20:59 04/28/19 21:12 Barium Sulfate (Varibar Honey) 250 ml NOW PRN RAD 04/30/19 13:15 05/03/19 13:02 Barium Sulfate (Varibar Pony) 240 ml NOW PRN RAD 04/30/19 13:15 05/03/19 13:02 Barium Sulfate (Varibar Pudding) 230 ml NOW PRN RAD 04/30/19 13:15 05/03/19 13:02 Chlorhexidine Gluconate (Alie-Hex 2%) 1 applic DAILY@2000 TOPIC 04/29/19 20:00 05/29/19 19:59 04/29/19 20:33 Clonidine HCl (Catapres Tab) 0.1 mg Q4H PRN GT bp over 165 syst 04/28/19 12:15 05/28/19 12:14 Dextrose (Dextrose 50%) 25 ml Q30M PRN IV Hypoglycemia 04/28/19 12:00 05/28/19 11:59 Dextrose (Dextrose 50%) 50 ml Q30M PRN IV Hypoglycemia 04/28/19 12:00 05/28/19 11:59 Docusate Sodium (Colace) 100 mg TID GT 04/28/19 13:00 05/28/19 11:59 04/28/19 13:15 Epoetin Rudolph (Epoetin Rudolph(ESRD on dialysis)) 10,000 unit TUE-TUE-TUE SUBQ 04/30/19 21:00 05/30/19 20:59 Insulin Aspart (NovoLOG) BEFORE MEALS AND HS SUBQ 04/28/19 16:30 05/28/19 16:29 Lansoprazole (Prevacid) 30 mg BID GT 04/30/19 11:00 05/30/19 10:59 04/30/19 11:12 Levetiracetam (Keppra) 500 mg EVERY 12 HOURS GT 04/28/19 12:00 05/28/19 11:59 04/30/19 08:06 Levothyroxine Sodium (Synthroid) 150 mcg DAILY@0730 GT 04/28/19 14:00 05/28/19 13:59 04/29/19 06:57 Morphine Sulfate (Morphine Sulfate) 4 mg PRN PRN IVP Moderate Pain (Pain Scale 4-6) 04/28/19 02:00 Sheri Elias MD Apr 30, 2019 14:04
--- NOTE | 2019-04-30 14:25 | Cardiology Report ---
APPROVED REPORT EKG Measurement Heart [id number] Sinus bradycardia Nonspecific T wave abnormality Abnormal ECG
--- NOTE | 2019-04-30 14:45 | Diagnostic Imaging Report ---
Indication: Dyspnea Comparison: 04/28/2019 A single view chest radiograph was obtained. Findings: Lungs remain clear. Left basal density has resolved. Tracheostomy and left permacath noted. Heart size is stable. IMPRESSION: Improved aeration at the left lung base. Lungs currently clear
[2019-04-30 16:00] VITALS: BP 151/78
--- NOTE | 2019-04-30 19:12 | NUR ---
NURSE NOTES: Received patient from [facility]. patient is observed awake and resting in bed, able to make needs known by mouthing words, denies pain at this time. patient is on SIMV 12, Shiley: 6, FiO2: 30%, PEEP: 5. tolerating well, no s/sx of respiratory distress noted at this time. compliance monitor shows sinus bradycardia with current HR of 57; no s/sx of acute cardiac distress noted at this time. G-tube site is patent and intact, running Nepro at 40 cc/hr. HOB elevated, no residual noted. RFA 18 g patent and intact, asymptomatic. Left upper chest permacath noted, dressing dry and intact. bed in lowest position and locked, siderails up X3, call light within reach. will continue to monitor.
--- NOTE | 2019-04-30 19:18 | NUR ---
RESPIRATORY NOTE: Received pt on SIMV 12, 500VT, PS 20, 30%, PEEP +5. Pt is trach-dependent w/ a cuffed, Shiley 6 tube. Pt is alert/awake, follows commands. B/S daily. clear/diminished, sxn minimal amounts of thick/thin, clear-white to pale-yellow secretions. Vent plugged into red outlet, ambubag at bedside. Pt in no apparent distress at this time. Will continue plan of care.
--- NOTE | 2019-04-30 19:19 | NUR ---
HAND-OFF: Report given to maria esther perez.
[2019-04-30 20:00] VITALS: BP 149/79
[2019-04-30] MEDS: Atorvastatin 20mg tab GT SCH (20:40)
[2019-04-30] MEDS: Dyna-Hex 2% Top Sol 2oz TOPIC SCH (20:40)
[2019-04-30] MEDS: Epoetin Alfa-EPBX(ESRD on dialysis)10,000 unit/ml vial SUBQ SCH ×2 (20:45→21:48)
[2019-04-30] MEDS ORDERED: ADVANCED ANTAC355 ML GT (21:12)
[2019-04-30] MEDS ORDERED: LEVETIRACE100 MG/1 M GT (21:12)
[2019-04-30] MEDS ORDERED: ACIDOPHILUS-PE1 EAC3 GT (21:12)
[2019-04-30] MEDS ORDERED: RENVELA2.4 GM GT (21:12)
[2019-04-30] MEDS ORDERED: FEVERALL650 MG RECTAL (21:12)
[2019-04-30] MEDS ORDERED: RISPERDAL0.5 MG GT (21:12)
[2019-04-30] MEDS ORDERED: LOSARTAN POTASS25 MG GT (21:12)
[2019-04-30] MEDS ORDERED: SENNOSIDES8.6 MG ORAL (21:12)
[2019-04-30] MEDS ORDERED: LEVOTHYROXINE125 MCG GT (21:12)
[2019-04-30] MEDS ORDERED: ACETAMINOP160 MG/51 GT (21:12)
[2019-04-30] MEDS ORDERED: NAMENDA5 MG GT (21:12)
[2019-04-30] MEDS ORDERED: DOCUSATE S50 MG/5 ML GT (21:12)
[2019-04-30] MEDS ORDERED: CITALOPRAM10 MG/5 M1 GT (21:12)
[2019-04-30] MEDS ORDERED: OXCARBAZEP300 MG/5 M GT (21:12)
[2019-04-30] MEDS ORDERED: [UNRECOGNIZED DRUG - OTHER] IM (21:12)
[2019-04-30] MEDS ORDERED: FAMOTIDINE20 MG GT (21:12)
[2019-04-30] MEDS ORDERED: MILK OF MA400 MG/51 GT (21:12)
[2019-04-30] MEDS ORDERED: IMODIUM2 MG GT (21:12)
[2019-04-30] MEDS ORDERED: ATORVASTATIN CA10 MG GT (21:12)
[2019-04-30] MEDS ORDERED: GLUCAGON HCL1 MG IJ (21:12)
[2019-05-01] VITALS: BP 149/83
[2019-05-01 04:00] VITALS: BP 150/82
[2019-05-01 05:03] LABS: HEMATOCRIT 16.2 % (37.0-47.0); MEAN CORPUSCULAR VOLUME 101 FL (80-99); PLATELET COUNT 279 K/UL (150-450); RED BLOOD COUNT 1.61 M/UL (4.20-5.40); RED CELL DISTRIBUTION WIDTH 17.5 % (11.6-14.8); WHITE BLOOD COUNT 6.1 K/UL (4.8-10.8)
[2019-05-01 05:13] LABS: HEMOGLOBIN 5.9 G/DL (12.0-16.0)
[2019-05-01 05:35] LABS: ALANINE AMINOTRANSFERASE 32 U/L (12-78); ALBUMIN 2.9 G/DL (3.4-5.0); ALBUMIN/GLOBULIN RATIO 0.5 (1.0-2.7); ALKALINE PHOSPHATASE 209 U/L (46-116); ANION GAP 15 mmol/L (5-15); ASPARTATE AMINO TRANSFERASE 22 U/L (15-37); BILIRUBIN,TOTAL 0.3 MG/DL (0.2-1.0); BLOOD UREA NITROGEN 104 mg/dL (7-18); CALCIUM 10.1 MG/DL (8.5-10.1); CARBON DIOXIDE 22 MMOL/L (21-32); CHLORIDE 100 MMOL/L (98-107); PHOSPHORUS 5.5 MG/DL (2.5-4.9); POTASSIUM 4.2 MMOL/L (3.5-5.1); SODIUM 137 MMOL/L (136-145)
--- NOTE | 2019-05-01 06:16 | NUR ---
NURSE NOTES: informed Dr. Davis and Dr. Elias of patient's hemoglobin level of 5.9. awaiting call back.
--- NOTE | 2019-05-01 06:25 | NUR ---
NURSE NOTES: received call back from Dr. Davis. per , order to transfuse 2 units PRBCs and inform Jelani Richter, and Shara. will follow through.
--- NOTE | 2019-05-01 06:25 | General Progress Note ---
Assessment/Plan Problem List: (1) Hypercalcemia ICD Codes: E83.52 - Hypercalcemia SNOMED: 85794040 (2) HTN (hypertension) ICD Codes: I10 - Essential (primary) hypertension SNOMED: 84953163 (3) Tracheostomy dependent ICD Codes: Z93.0 - Tracheostomy status SNOMED: 793112028 (4) COPD (chronic obstructive pulmonary disease) ICD Codes: J44.9 - Chronic obstructive pulmonary disease, unspecified SNOMED: 23191551 (5) ESRD (end stage renal disease) ICD Codes: N18.6 - End stage renal disease SNOMED: 67624040 (6) Diabetes ICD Codes: E11.9 - Type 2 diabetes mellitus without complications SNOMED: 99262333 Status: stable, progressing Assessment/Plan: continue Novolog sliding scale no need for basal insulin for now TSH is mildly elevated due to non compliance continue LT4 150 mcg daily Subjective Allergies: Coded Allergies: NO KNOWN ALLERGIES (Verified Allergy, Unknown, 04/18/18) All Systems: reviewed and negative except above Subjective events noted glucose values controlled Item Value Date Time Bedside Blood Glucose 126 mg/dl H 04/30/19 2100 Bedside Blood Glucose 104 mg/dl 04/30/19 1630 Bedside Blood Glucose 132 mg/dl H 04/30/19 1113 Bedside Blood Glucose 99 mg/dl 04/30/19 0630 Glucose Level 112 MG/DL H 05/01/19 0320 Objective Last 24 Hour Vital Signs Date Time Temp Pulse Resp B/P (MAP) Pulse Ox O2 Delivery O2 Flow Rate FiO2 05/01/19 04:55 63 13 30 05/01/19 04:00 97.9 59 14 150/82 (104) 100 05/01/19 04:00 30 05/01/19 04:00 Mechanical Ventilator 05/01/19 04:00 59 05/01/19 02:43 60 12 30 05/01/19 01:03 62 19 30 05/01/19 00:00 60 05/01/19 00:00 Mechanical Ventilator 05/01/19 00:00 30 05/01/19 00:00 98.4 59 15 149/83 (105) 100 04/30/19 23:30 66 15 30 04/30/19 21:12 56 14 30 04/30/19 20:00 59 04/30/19 20:00 30 04/30/19 20:00 Mechanical Ventilator 04/30/19 20:00 98.1 55 14 149/79 (102) 100 04/30/19 18:51 62 13 30 04/30/19 17:25 52 12 30 04/30/19 17:06 52 151/78 04/30/19 16:00 97.7 52 12 151/78 (102) 97 04/30/19 16:00 30 04/30/19 16:00 Mechanical Ventilator 04/30/19 15:48 47 04/30/19 15:15 51 13 30 04/30/19 13:08 58 13 30 04/30/19 12:00 Mechanical Ventilator 04/30/19 12:00 98.3 53 12 143/75 (97) 97 04/30/19 12:00 30 04/30/19 11:40 60 12 30 04/30/19 11:33 56 04/30/19 09:36 55 11 30 04/30/19 08:06 62 154/86 04/30/19 07:56 52 04/30/19 07:52 98.3 62 12 154/86 (108) 100 04/30/19 07:35 30 04/30/19 07:33 Mechanical Ventilator 04/30/19 07:13 55 13 30 Intake and Output 04/30/19 05/01/19 18:59 06:59 Intake Total 520 ml 240 ml Balance 520 ml 240 ml Tube Feeding 520 ml 240 ml # Voids 1 # Bowel Movements 5 2 Laboratory Tests 04/30/19 13:00: Stool Occult Blood [Pending] 05/01/19 01:30: Stool Occult Blood [Pending] 05/01/19 03:20: White Blood Count 6.1, Red Blood Count 1.61L, Hemoglobin 5.9*L, Hematocrit 16.2L , Mean Corpuscular Volume 101H, Mean Corpuscular Hemoglobin 36.7H, Mean Corpuscular Hemoglobin Concent 36.4H, Red Cell Distribution Width 17.5H, Platelet Count 279, Mean Platelet Volume 4.4L, Neutrophils (%) (Auto) , Lymphocytes (%) (Auto) , Monocytes (%) (Auto) , Eosinophils (%) (Auto) , Basophils (%) (Auto) , Neutrophils % (Manual) [Pending], Lymphocytes % (Manual) [Pending], Platelet Estimate [Pending], Platelet Morphology [Pending], Erythrocyte Sedimentation Rate [Pending], Sodium Level 137, Potassium Level 4.2 , Chloride Level 100, Carbon Dioxide Level 22, Anion Gap 15, Blood Urea Nitrogen 104H, Creatinine 7.0H, Estimat Glomerular Filtration Rate 6.0, Glucose Level 112H, Uric Acid 5.6, Calcium Level 10.1, Phosphorus Level 5.5H, Magnesium Level 2.8H, Total Bilirubin 0.3, Aspartate Amino Transf (AST/SGOT) 22, Alanine Aminotransferase (ALT/SGPT) 32, Alkaline Phosphatase 209H, C-Reactive Protein, Quantitative 1.5H, Pro-B-Type Natriuretic Peptide 5614H, Total Protein 8.4H, Albumin 2.9L, Globulin 5.5, Albumin/Globulin Ratio 0.5L Height (Feet): 5 Height (Inches): 5.00 Weight (Pounds): 127 General Appearance: WD/WN Neck: normal alignment Cardiovascular: normal rate Respiratory/Chest: decreased breath sounds Abdomen: normal bowel sounds Objective Current Medications Medications (Trade) Dose Ordered Sig/Mira Route PRN Reason Start Time Stop Time Status Last Admin Dose Admin Acetaminophen (Tylenol) 650 mg Q4H PRN ORAL Mild Pain/Temp > 100.5 04/28/19 23:00 Albuterol/ Ipratropium (Albuterol/ Ipratropium) 3 ml Q4HRT PRN HHN sob 04/28/19 11:45 05/03/19 11:44 Amlodipine Besylate (Norvasc) 5 mg BID GT 04/28/19 18:00 05/28/19 17:59 04/30/19 17:06 Aspirin (Ecotrin) 81 mg DAILY ORAL 04/29/19 09:00 05/29/19 08:59 04/30/19 08:06 Atorvastatin Calcium (Lipitor) 20 mg BEDTIME GT 04/28/19 21:00 05/28/19 20:59 04/30/19 20:40 Barium Sulfate (Varibar Honey) 250 ml NOW PRN MC RAD 04/30/19 13:15 05/03/19 13:02 Barium Sulfate (Varibar Garibaldi) 240 ml NOW PRN MC RAD 04/30/19 13:15 05/03/19 13:02 Barium Sulfate (Varibar Pudding) 230 ml NOW PRN MC RAD 04/30/19 13:15 05/03/19 13:02 Chlorhexidine Gluconate (Alie-Hex 2%) 1 applic DAILY@2000 TOPIC 04/29/19 20:00 05/29/19 19:59 04/30/19 20:40 Clonidine HCl (Catapres Tab) 0.1 mg Q4H PRN GT bp over 165 syst 04/28/19 12:15 05/28/19 12:14 Dextrose (Dextrose 50%) 25 ml Q30M PRN IV Hypoglycemia 04/28/19 12:00 05/28/19 11:59 Dextrose (Dextrose 50%) 50 ml Q30M PRN IV Hypoglycemia 04/28/19 12:00 05/28/19 11:59 Docusate Sodium (Colace) 100 mg TID GT 04/28/19 13:00 05/28/19 11:59 04/28/19 13:15 Epoetin Rudolph (Epoetin Rudolph(ESRD on dialysis)) 10,000 unit TUE-TUE-TUE SUBQ 04/30/19 21:00 05/30/19 20:59 04/30/19 21:48 Insulin Aspart (NovoLOG) BEFORE MEALS AND HS SUBQ 04/28/19 16:30 05/28/19 16:29 04/30/19 20:44 Lansoprazole (Prevacid) 30 mg BID GT 04/30/19 11:00 05/30/19 10:59 04/30/19 17:06 Levetiracetam (Keppra) 500 mg EVERY 12 HOURS GT 04/28/19 12:00 05/28/19 11:59 04/30/19 20:40 Levothyroxine Sodium (Synthroid) 150 mcg DAILY@0730 GT 04/28/19 14:00 05/28/19 13:59 04/29/19 06:57 Morphine Sulfate (Morphine Sulfate) 4 mg PRN PRN IVP Moderate Pain (Pain Scale 4-6) 04/28/19 02:[address] MD May 01, 2019 06:25
--- NOTE | 2019-05-01 06:27 | NUR ---
NURSE NOTES: received call from Dr. Palomares. informed him of patient's hemoglobin level.
--- NOTE | 2019-05-01 06:30 | NUR ---
NURSE NOTES: spoke with Dr. Hillman regarding patient's hemoglobin level. per Dr. Hillman, transfuse 2 units of PRBCS as per Dr. Davis's order.
--- NOTE | 2019-05-01 06:38 | NUR ---
NURSE NOTES: informed patient of MD's order for transfusion of 2 units PRBCs. patient is refusing transfusion. explained risks/benefits, however patient is still refusing. patient is able to mouth words to communicate that she "does not want transfusion. [She does] not believe in them." will inform Dr. Davis.
--- NOTE | 2019-05-01 06:40 | NUR ---
RESPIRATORY NOTE: Received pt on SIMV 12-500ml-30%FiO2- PS 20- peep 5. Pt is trach dependent with Trach cuffed, Shiley 6, secured with trach ties. Pt is awake, alert, able to follow commands. Riccardo rhonchi heard upon auscultation, suctioned small amount of thick white cai secretions without incidents. No SOB or resp distress noted at this time. Alarms are set and audible, vent is plugged into the red outlet, ambu bag and spare trach kit are at bedside. Will continue to monitor pt.
--- NOTE | 2019-05-01 06:48 | NUR ---
NURSE NOTES: informed Dr. Davis about patient's refusal of order to transfuse. Dr. Oliva to see patient for psych consult per Dr. Davis.
[2019-05-01] MEDS: NovoLOG Insulin Flexpen SUBQ SCH ×4 (07:07→20:50)
--- NOTE | 2019-05-01 07:10 | NUR ---
NURSE NOTES: RECEIVED BED SIDE REPORT FROM JOSEFINA LEGAL ADVISER OF NOC SHIFT.RECEIVED PT WITH HOB ELEVATED 45 DEGREE AWAKE AND ALERT ABLE TO MAKE NEEDS KNOWS.PT TRACH TO VENT TOLERATING WELL CURRENTS VENT SETTINGS,O2 SAT 100%.FULL BODY ASSESSMENT DONE.PT WITH GTF RECEIVING NEPRO @ 44CC/HRS, NO RESIDUAL NOTED AT THIS TIME.DR ASCENCIO CAME TO TO SEE THE PT AND EXPLAINED REGARDING EGD PROCEDURE.PT REFUSED TO SING CONSENT FOR EGD PROCEDURE PROCEDURE AT THIS TIME DR ASCENCIO AWARE.PT WITH HGB 5.9 ,HCT 16.2 Padmaja ASCENCIO ORDER TYPE & CROSS AND BLOOD TRANSFUSION.PT REFUSING TO SIGN BLOOD TRANSFUSION FORM Padmaja ASCENCIO AND DR WALDROP MADE AWARE AND NOTIFIED. WILL CONT TO MONITOR.
--- NOTE | 2019-05-01 07:10 | NUR ---
NURSE NOTES: Dr. Hillman spoke with patient about need for transfusion. patient still refuses transfusion at this time.
--- NOTE | 2019-05-01 07:41 | NUR ---
HAND-OFF: Report given to JENS Kurtz. patient is in stable condition. endorsed to day shift nurse to follow up in regards to psych eval with Dr. Oliva.
[2019-05-01 08:00] VITALS: BP 158/75
--- NOTE | 2019-05-01 09:03 | NUR ---
*-* INSURANCE *-* ALL AVAILABLE CLINICALS HAVE BEEN FAXED TO: Tracking# [id number] No CM has been assigned *-* FAXED OVER CLINICALS CALLED AFTER THEY WERE FAXED TRYING TO GET CELLULAR TOWER CLIMBER NAME S/W WITH [employer] WITH NO LUCK IN GETTING NCM OR DIRECT NUMBER. CLINICALS JUST FAXED SO NOT PINNED YET TO ACCOUNT. Addendum: 05/01/19 at 1133 by HAFSA KENYON CM CALLED [facility] TRYING TO GET INFORMATION ON NCM UNABLE TO GET ANY INFORMATION LEFT MESSAGE WITH LIBBY AT TO RELAY MSG TO CM. TO CALL WHEN CLINICALS RECEIVED. Addendum: 05/02/19 at 1051 by HAFSA KENYON CM SPOKE TO NCM:IRLANDA Neville: [phone] AND SHE STATED SHE HAS BEEN RECEIVING CLINICALS.
[2019-05-01] MEDS: Docusate 100mg/10ml Liq GT SCH ×3 (09:46→18:43)
--- NOTE | 2019-05-01 10:00 | NUR ---
NURSE NOTES: PT KEEP REFUSING HEMODIALYSIS .DR ABDULLAHI MADE AWARE AND NOTIFIED ALSO JOSSIE COLINDRES FROM [facility]. WILL CONT TO MONITOR.
--- NOTE | 2019-05-01 11:06 | Pulmonolgy Critical Care Note ---
Critical Care - Asmt/Plan Problems: (1) Chronic respiratory failure (2) COPD (chronic obstructive pulmonary disease) (3) Anemia (4) At high risk for aspiration (5) Heme positive stool (6) ESRD (end stage renal disease) (7) Tracheostomy dependent (8) HTN (hypertension) (9) Seizure (10) CVA (cerebral vascular accident) (11) Diabetes Respiratory: monitor respiratory rate, adjust FIO2, CXR Cardiac: continue to monitor HR/BP Renal: keep IV fluid, check electrolytes Infectious Disease: check cultures Gastrointestinal: continue feedings/current rate Endocrine: monitor blood sugar Neurologic: PRN Ativan, PRN Morphine Affect: PRN ativan Notes Reviewed: 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, 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 Discussed with: nurses, consultants, case finishing machine adjusteroperational risk manager - Objective Last 24 Hour Vital Signs Date Time Temp Pulse Resp B/P (MAP) Pulse Ox O2 Delivery O2 Flow Rate FiO2 05/01/19 09:46 74 158/75 05/01/19 09:00 30 05/01/19 08:56 74 12 30 05/01/19 08:00 97.0 54 18 158/75 (102) 100 05/01/19 08:00 Mechanical Ventilator 05/01/19 06:40 79 14 30 05/01/19 04:55 63 13 30 05/01/19 04:00 97.9 59 14 150/82 (104) 100 05/01/19 04:00 30 05/01/19 04:00 Mechanical Ventilator 05/01/19 04:00 59 05/01/19 02:43 60 12 30 05/01/19 01:03 62 19 30 05/01/19 00:00 60 05/01/19 00:00 Mechanical Ventilator 05/01/19 00:00 30 05/01/19 00:00 98.4 59 15 149/83 (105) 100 04/30/19 23:30 66 15 30 04/30/19 21:12 56 14 30 04/30/19 20:00 59 04/30/19 20:00 30 04/30/19 20:00 Mechanical Ventilator 04/30/19 20:00 98.1 55 14 149/79 (102) 100 04/30/19 18:51 62 13 30 04/30/19 17:25 52 12 30 04/30/19 17:06 52 151/78 04/30/19 16:00 97.7 52 12 151/78 (102) 97 04/30/19 16:00 30 04/30/19 16:00 Mechanical Ventilator 04/30/19 15:48 47 04/30/19 15:15 51 13 30 04/30/19 13:08 58 13 30 04/30/19 12:00 Mechanical Ventilator 04/30/19 12:00 98.3 53 12 143/75 (97) 97 04/30/19 12:00 30 04/30/19 11:40 60 12 30 04/30/19 11:33 56 Status: awake Condition: critical, improving Neck: full ROM Heart: HR/BP stable, regular Abdomen: soft, non-tender, feeding tube Extremities: no C/C/E Accucheck: 119 Critical Care - Subjective ROS Limited/Unobtainable: Yes Condition: critical EKG Rhythm: Sinus Rhythm FI02: 30 Vent Support Breath Rate: 12 Vent Support Mode: IMV/SIMV Vent Tidal Volume: 500 Sputum Amount: Scant PEEP: 5.0 PIP: 18 Tube Feeding Amount: 40 I&O: Intake and Output 04/30/19 05/01/19 19:00 07:00 Intake Total 440 ml 440 ml Output Total 20 ml Balance 440 ml 420 ml Tube Feeding 440 ml 440 ml Output Urine Total 20 ml # Voids 1 # Bowel Movements 5 6 CXR: no infiltrate Labs: Laboratory Tests Test 04/30/19 13:00 05/01/19 01:30 05/01/19 03:20 Stool Occult Blood Pending Pending White Blood Count 6.1 K/UL (4.8-10.8) Red Blood Count 1.61 M/UL (4.20-5.40) L Hemoglobin 5.9 G/DL (12.0-16.0) *L Hematocrit 16.2 % (37.0-47.0) L Mean Corpuscular Volume 101 FL (80-99) H Mean Corpuscular Hemoglobin 36.7 PG (27.0-31.0) H Mean Corpuscular Hemoglobin Concent 36.4 G/DL (32.0-36.0) H Red Cell Distribution Width 17.5 % (11.6-14.8) H Platelet Count 279 K/UL (150-450) Mean Platelet Volume 4.4 FL (6.5-10.1) L Neutrophils (%) (Auto) % (45.0-75.0) Lymphocytes (%) (Auto) % (20.0-45.0) Monocytes (%) (Auto) % (1.0-10.0) Eosinophils (%) (Auto) % (0.0-3.0) Basophils (%) (Auto) % (0.0-2.0) Differential Total Cells Counted 100 Neutrophils % (Manual) 45 % (45-75) Lymphocytes % (Manual) 29 % (20-45) Monocytes % (Manual) 11 % (1-10) H Eosinophils % (Manual) 13 % (0-3) H Basophils % (Manual) 2 % (0-2) Band Neutrophils 0 % (0-8) Platelet Estimate Adequate Platelet Morphology Normal Hypochromasia Anisocytosis 1+ Erythrocyte Sedimentation Rate 148 MM/HR (0-30) H Sodium Level 137 MMOL/L (136-145) Potassium Level 4.2 MMOL/L (3.5-5.1) Chloride Level 100 MMOL/L (98-107) Carbon Dioxide Level 22 MMOL/L (21-32) Anion Gap 15 mmol/L (5-15) Blood Urea Nitrogen 104 mg/dL (7-18) H Creatinine 7.0 MG/DL (0.55-1.30) H Estimat Glomerular Filtration Rate 6.0 mL/min (>60) Glucose Level 112 MG/DL (74-106) H Uric Acid 5.6 MG/DL (2.6-7.2) Calcium Level 10.1 MG/DL (8.5-10.1) Phosphorus Level 5.5 MG/DL (2.5-4.9) H Magnesium Level 2.8 MG/DL (1.8-2.4) H Total Bilirubin 0.3 MG/DL (0.2-1.0) Aspartate Amino Transf (AST/SGOT) 22 U/L (15-37) Alanine Aminotransferase (ALT/SGPT) 32 U/L (12-78) Alkaline Phosphatase 209 U/L (46-116) H C-Reactive Protein, Quantitative 1.5 mg/dL (0.00-0.90) H Pro-B-Type Natriuretic Peptide 5614 pg/mL (0-125) H Total Protein 8.4 G/DL (6.4-8.2) H Albumin 2.9 G/DL (3.4-5.0) L Globulin 5.5 g/dL Albumin/Globulin Ratio 0.5 (1.0-2.7) L Sheri Elias MD May 01, 2019 11:06
--- NOTE | 2019-05-01 11:30 | NUR ---
NURSE NOTES: BS 132. PT REFUSED TO HAVE INSULIN.PT NON-COMPLIANT WITH INSTRUCTION ,UNCOOPERATIVE AT THIS TIME. JACINTO RN IN CHARGE MADE AWARE & NOTIFIED ALSO DR WHITE AWARE. WILL CONT TO MONITOR.
--- NOTE | 2019-05-01 12:48 | Nephrology Progress Note ---
Assessment/Plan Problem List: (1) ESRD (end stage renal disease) (2) Chronic respiratory failure (3) Anemia Assessment: worsened (4) Hypothyroid (5) Hypercalcemia Assessment ESRD Anemia; ESRD or blood loss or both Sz HypoThyroid HTN DM Hypercalcemia Plan Wasc Due dialysis 04/30 when dialysis nurse attempted, the patient decl;ined dialysis and consent ! ? Psych eval for decision making ability? need transfusion waiting for psych advise Anemia [place] EPO HD as needed scheduled for 04/30 Keep BP in check watch serum Ca one dose Aredia 60 Subjective ROS Limited/Unobtainable: Yes Constitutional: Reports: malaise Objective Objective Last 24 Hour Vital Signs Date Time Temp Pulse Resp B/P (MAP) Pulse Ox O2 Delivery O2 Flow Rate FiO2 05/01/19 12:00 30 05/01/19 12:00 100 05/01/19 12:00 Mechanical Ventilator 05/01/19 11:21 58 14 30 05/01/19 09:46 74 158/75 05/01/19 09:00 30 05/01/19 08:56 74 12 30 05/01/19 08:00 97.0 54 18 158/75 (102) 100 05/01/19 08:00 Mechanical Ventilator 05/01/19 06:40 79 14 30 05/01/19 04:55 63 13 30 05/01/19 04:00 97.9 59 14 150/82 (104) 100 05/01/19 04:00 30 05/01/19 04:00 Mechanical Ventilator 05/01/19 04:00 59 05/01/19 02:43 60 12 30 05/01/19 01:03 62 19 30 05/01/19 00:00 60 05/01/19 00:00 Mechanical Ventilator 05/01/19 00:00 30 05/01/19 00:00 98.4 59 15 149/83 (105) 100 04/30/19 23:30 66 15 30 04/30/19 21:12 56 14 30 04/30/19 20:00 59 04/30/19 20:00 30 04/30/19 20:00 Mechanical Ventilator 04/30/19 20:00 98.1 55 14 149/79 (102) 100 04/30/19 18:51 62 13 30 04/30/19 17:25 52 12 30 04/30/19 17:06 52 151/78 10/28/19 16:00 97.7 52 12 151/78 (102) 97 04/30/19 16:00 30 04/30/19 16:00 Mechanical Ventilator 04/30/19 15:48 47 04/30/19 15:15 51 13 30 04/30/19 13:08 58 13 30 Intake and Output 04/30/19 05/01/19 19:00 07:00 Intake Total 440 ml 440 ml Output Total 20 ml Balance 440 ml 420 ml Tube Feeding 440 ml 440 ml Output Urine Total 20 ml # Voids 1 # Bowel Movements 5 6 Laboratory Tests 04/30/19 13:00: Stool Occult Blood Positive 05/01/19 01:30: Stool Occult Blood Positive 05/01/19 03:20: White Blood Count 6.1, Red Blood Count 1.61L, Hemoglobin 5.9*L, Hematocrit 16.2L , Mean Corpuscular Volume 101H, Mean Corpuscular Hemoglobin 36.7H, Mean Corpuscular Hemoglobin Concent 36.4H, Red Cell Distribution Width 17.5H, Platelet Count 279, Mean Platelet Volume 4.4L, Neutrophils (%) (Auto) , Lymphocytes (%) (Auto) , Monocytes (%) (Auto) , Eosinophils (%) (Auto) , Basophils (%) (Auto) , Differential Total Cells Counted 100, Neutrophils % ( Manual) 45, Lymphocytes % (Manual) 29, Monocytes % (Manual) 11H, Eosinophils % ( Manual) 13H, Basophils % (Manual) 2, Band Neutrophils 0, Platelet Estimate Adequate, Platelet Morphology Normal, Hypochromasia , Anisocytosis 1+, Erythrocyte Sedimentation Rate 148H, Sodium Level 137, Potassium Level 4.2, Chloride Level 100, Carbon Dioxide Level 22, Anion Gap 15, Blood Urea Nitrogen 104H, Creatinine 7.0H, Estimat Glomerular Filtration Rate 6.0, Glucose Level 112H, Uric Acid 5.6, Calcium Level 10.1, Phosphorus Level 5.5H, Magnesium Level 2.8H, Total Bilirubin 0.3, Aspartate Amino Transf (AST/SGOT) 22, Alanine Aminotransferase (ALT/SGPT) 32, Alkaline Phosphatase 209H, C-Reactive Protein, Quantitative 1.5H, Pro-B-Type Natriuretic Peptide 5614H, Total Protein 8.4H, Albumin 2.9L, Globulin 5.5, Albumin/Globulin Ratio 0.5L Height (Feet): 5 Height (Inches): 5.00 Weight (Pounds): 126 General Appearance: no apparent distress Objective no change Bandar Olmedo MD May 01, 2019 12:48
--- NOTE | 2019-05-01 13:00 | NUR ---
NURSE NOTES: PLACED A TELEPHONE CALL TO DR WALDROP REGARDING PT REFUSED TYPE AND CROSS. NO NEW ORDERS NOTED AT THIS TIME .WILL CONT TO MONITOR.
--- NOTE | 2019-05-01 14:00 | NUR ---
PSYCHIATRIST ANGELI CAME TO SEE THE PATIENT. NO NEW ORDERS NOTED AT THIS TIME. PT CONTINUE REFUSING FOR PROCEDURES.WILL CONT TO MONITOR.
--- NOTE | 2019-05-01 14:05 | General Progress Note ---
Assessment/Plan Problem List: (1) ESRD (end stage renal disease) ICD Codes: N18.6 - End stage renal disease SNOMED: 48779860 (2) COPD (chronic obstructive pulmonary disease) ICD Codes: J44.9 - Chronic obstructive pulmonary disease, unspecified SNOMED: 83297363 (3) Chronic respiratory failure ICD Codes: J96.10 - Chronic respiratory failure, unspecified whether with hypoxia or hypercapnia SNOMED: 04699113 (4) Tracheostomy dependent ICD Codes: Z93.0 - Tracheostomy status SNOMED: 683788110 (5) HTN (hypertension) ICD Codes: I10 - Essential (primary) hypertension SNOMED: 29847081 (6) Seizure ICD Codes: R56.9 - Unspecified convulsions SNOMED: 26083727 (7) CVA (cerebral vascular accident) ICD Codes: I63.9 - Cerebral infarction, unspecified SNOMED: 768111507 (8) Anemia ICD Codes: D64.9 - Anemia, unspecified SNOMED: 239001726 Qualifiers: Qualified Codes: D64.9 - Anemia, unspecified (9) Hypothyroid ICD Codes: E03.9 - Hypothyroidism, unspecified SNOMED: 98442751 Status: stable, progressing Assessment/Plan: vent dialysis prn transfuse psyc eval prn cbc bmp am ltach eval Subjective Constitutional: Reports: weakness Allergies: Coded Allergies: NO KNOWN ALLERGIES (Verified Allergy, Unknown, 04/18/18) All Systems: reviewed and negative except above Subjective trach vent asleep Objective Last 24 Hour Vital Signs Date Time Temp Pulse Resp B/P (MAP) Pulse Ox O2 Delivery O2 Flow Rate FiO2 05/01/19 12:00 30 05/01/19 12:00 57 05/01/19 12:00 100 05/01/19 12:00 Mechanical Ventilator 05/01/19 11:21 58 14 30 05/01/19 09:46 74 158/75 05/01/19 09:00 30 05/01/19 08:56 74 12 30 05/01/19 08:00 97.0 54 18 158/75 (102) 100 05/01/19 08:00 52 05/01/19 08:00 Mechanical Ventilator 05/01/19 06:40 79 14 30 05/01/19 04:55 63 13 30 05/01/19 04:00 97.9 59 14 150/82 (104) 100 05/01/19 04:00 30 05/01/19 04:00 Mechanical Ventilator 05/01/19 04:00 59 05/01/19 02:43 60 12 30 05/01/19 01:03 62 19 30 05/01/19 00:00 60 05/01/19 00:00 Mechanical Ventilator 05/01/19 00:00 30 05/01/19 00:00 98.4 59 15 149/83 (105) 100 04/30/19 23:30 66 15 30 04/30/19 21:12 56 14 30 04/30/19 20:00 59 04/30/19 20:00 30 04/30/19 20:00 Mechanical Ventilator 04/30/19 20:00 98.1 55 14 149/79 (102) 100 04/30/19 18:51 62 13 30 04/30/19 17:25 52 12 30 04/30/19 17:06 52 151/78 04/30/19 16:00 97.7 52 12 151/78 (102) 97 04/30/19 16:00 30 04/30/19 16:00 Mechanical Ventilator 04/30/19 15:48 47 04/30/19 15:15 51 13 30 Intake and Output 04/30/19 05/01/19 19:00 07:00 Intake Total 440 ml 440 ml Output Total 20 ml Balance 440 ml 420 ml Tube Feeding 440 ml 440 ml Output Urine Total 20 ml # Voids 1 # Bowel Movements 5 6 Laboratory Tests 05/01/19 01:30: Stool Occult Blood Positive 05/01/19 03:20: White Blood Count 6.1, Red Blood Count 1.61L, Hemoglobin 5.9*L, Hematocrit 16.2L , Mean Corpuscular Volume 101H, Mean Corpuscular Hemoglobin 36.7H, Mean Corpuscular Hemoglobin Concent 36.4H, Red Cell Distribution Width 17.5H, Platelet Count 279, Mean Platelet Volume 4.4L, Neutrophils (%) (Auto) , Lymphocytes (%) (Auto) , Monocytes (%) (Auto) , Eosinophils (%) (Auto) , Basophils (%) (Auto) , Differential Total Cells Counted 100, Neutrophils % ( Manual) 45, Lymphocytes % (Manual) 29, Monocytes % (Manual) 11H, Eosinophils % ( Manual) 13H, Basophils % (Manual) 2, Band Neutrophils 0, Platelet Estimate Adequate, Platelet Morphology Normal, Hypochromasia , Anisocytosis 1+, Erythrocyte Sedimentation Rate 148H, Sodium Level 137, Potassium Level 4.2, Chloride Level 100, Carbon Dioxide Level 22, Anion Gap 15, Blood Urea Nitrogen 104H, Creatinine 7.0H, Estimat Glomerular Filtration Rate 6.0, Glucose Level 112H, Uric Acid 5.6, Calcium Level 10.1, Phosphorus Level 5.5H, Magnesium Level 2.8H, Total Bilirubin 0.3, Aspartate Amino Transf (AST/SGOT) 22, Alanine Aminotransferase (ALT/SGPT) 32, Alkaline Phosphatase 209H, C-Reactive Protein, Quantitative 1.5H, Pro-B-Type Natriuretic Peptide 5614H, Total Protein 8.4H, Albumin 2.9L, Globulin 5.5, Albumin/Globulin Ratio 0.5L Height (Feet): 5 Height (Inches): 5.00 Weight (Pounds): 126 General Appearance: lethargic EENT: normal ENT inspection Neck: normal alignment Cardiovascular: normal peripheral pulses, normal rate, regular rhythm Respiratory/Chest: chest wall non-tender, lungs clear, normal breath sounds Abdomen: normal bowel sounds, non tender, soft Extremities: normal inspection Edema: no edema noted Arm (L), no edema noted Arm (R), no edema noted Leg (L), no edema noted Leg (R), no edema noted Pedal (L), no edema noted Pedal (R), no edema noted Generalized Neurologic: motor weakness Skin: normal pigmentation, warm/dry Hernán Davis DO May 01, 2019 14:05
--- NOTE | 2019-05-01 14:19 | NUR ---
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 * Increased kcal/prot needs R/T ESRD dx as evidenced by pt is HD dependent. CURRENT TF:Nepro @40 x22 hrs (on synthroid) (PO DIET RECOMMENDATIONS: REC PRODUCTION WELDING SUPERVISOR EVAL PRIOR TO ORAL DIET -> RENAL, CCHO MED/ Texture per PRODUCTION WELDING SUPERVISOR) ENTERAL NUTRITION RECOMMENDATIONS: Nepro @ 40ml/hr x 24 hrs to provide 960ml, 1728kcal, 78g prot, 698ml free water * Rec Nepro @ goal rate of 40ml/hr x 24 hrs * HOB over 30 degrees/ water flush per MD ------ -> If pt continues to refuse HD therapy, rec to decrease current TF of Nepro to goal of 32ml/hr x22 hrs (on synthroid meds): to provide 704ml, 1267 kcal, 57g pr, 512ml free H2o ADDITIONAL RECOMMENDATIONS: * Per SNF : HT=63", LC=403wun (04/21/19) -> rec calibrated bedscale wt, obtain dry wt post HD * PRODUCTION WELDING SUPERVISOR EVALUATION PRIOR TO ORAL DIET * Monitor lytes * Monitor BGs, need for NISS : h/o diabetes * Rec to lower TF to goal of 32ml/hr x22 hrs w/ HD refusal
--- NOTE | 2019-05-01 14:30 | NUR ---
NURSE NOTES: CAMILLA BRIAN CAME TO SEE THE PT AND MADE AWARE & NOTIFIED REGARDING PT KEEP REFUSING BLOOD TRANSFUSION,H.D,V/S ,INSULIN COVERAGE AND ANGELI PSYCHIATRIST CAME TO SEE THE PT. WILL CONT TO MONITOR.
--- NOTE | 2019-05-01 14:50 | NUR ---
SWALLOW/SPEECH THERAPY NOTE: SWALLOW STATUS AND PLAN PATIENT NEEDS A MOD BARIUM SWALLOW STUDY (MBSS) BUT WILL NOT BE ABLE TO HAVE THE STUDY UNTIL THE PSYCHIATRIST SEES HER. PATIENT KEEPS REFUSING DIALYSIS AND OTHER PROCEDURES BUT IS MORE CONSISTENT IN WANTING TO EAT/DRINK BY MOUTH. GIVEN HIGH SILENT ASPIRATION RISK WILL NEED TO BE CLEARED ON PO INTAKE VIA THIS XRAY SWALLOW STUDY. PLAN: COMPLETE MBSS WHEN PT IS RECEPTIVE. D/W RN, TONY.
[2019-05-01 16:00] VITALS: BP 146/74
--- NOTE | 2019-05-01 16:00 | Consultation ---
DATE OF CONSULTATION: 05/01/2019 CONSULTING PHYSICIAN: Fritz Hillman M.D. CHIEF COMPLAINT: Anemia. HISTORY OF PRESENT ILLNESS: The patient has multiple medical problems. She is currently on vent, PEG, but the patient is able to communicate with paper. The patient also has history of psychiatric disorder. GI consultation was requested for a hemoglobin of 7.3 and stool OB positive x1. PAST MEDICAL HISTORY: 1. Respiratory failure, now chronic trach. 2. Dysphagia with G-tube. 3. Renal failure, on dialysis. 4. Hypothyroidism. 5. Diabetes. 6. Psychiatric disorder. 7. CVA. ALLERGIES: No known allergies. MEDICATIONS: Please see medication reconciliation list. SOCIAL HISTORY: Currently lives in a custodial. No history of tobacco, alcohol, or drug abuse. FAMILY HISTORY: Noncontributory. PAST SURGICAL HISTORY: Tracheostomy. REVIEW OF SYSTEMS: Limited. PHYSICAL EXAMINATION: VITAL SIGNS: Temperature 97.9, pulse is 69, respirations 14, blood pressure 150/82. HEENT: Normocephalic, atraumatic. Pale conjunctivae. NECK: Supple. No evidence of obvious lymphadenopathy. CARDIOVASCULAR: Regular rate and rhythm. Plus S1 and S2. LUNGS: Decreased breath sounds bilaterally and diffusely. ABDOMEN: Soft, nontender. G-tube in place. No rebound. No guarding. No peritoneal sign. EXTREMITIES: No cyanosis. No clubbing. No edema. LABORATORY DATA: White count 6.1, hemoglobin 5.9, platelet count is 279. Stool OB positive x1. Chem-7, sodium 139, potassium 4.9, BUN 62, creatinine 4.5. ASSESSMENT AND PLAN: This is a 58-year-old female with numerous medical problems as dictated above. From GI standpoint, the patient has dysphagia and anemia. The patient refused blood transfusion. We are pending psych evaluation for competency. The patient also needs a minimum endoscopy given dark stools and stool OB positive with hemoglobin of 5.9, but I do not know if she is able to sign consent. I explained the procedure to her and she agreed to it, but given the patient is pending Psych evaluation for competency, we are going to wait until Psych see her and if she is competent to sign the consent, we will plan for tomorrow. Meanwhile, the patient has an hemoglobin and hematocrit to be followed. If she agrees, we will give her 2 units of blood transfusion. Continue on Prevacid per G-tube twice a day. As I mentioned, we will plan to do endoscopy tomorrow if the patient and seen by Psych. I want to thank Dr. Hernán Davis for this kind referral. Fritz Hillman M.D. DR: KINGSTON JOB#: [id number] CC: Hernán Davis D.O.
--- NOTE | 2019-05-01 17:23 | Hematology/Onc Progress Note ---
Assessment/Plan Assessment/Plan ASSESSMENT AND RECOMMENDATIONS: 1. Anemia due to underlying chronic disease. Continue to closely monitor. Anemia workup has been ordered. Hemoglobin goal is above 7. Transfuse as needed. No evidence of reticulocytosis or hemolysis at the moment. --> panel reviewed from this admission --> okay to start on epo given esrd --> can hold off on iron --> transf if hgb <7 --> is to continue on synthroid --> hgb 7.7-->7.5-->5.9 --> REFUSING HD AND TRANSFUSIONS 2. Hypercalcemia -- in this case less likely due to malignancy but is from esrd --> goal jonathan-ca product <55 --> Ca+ trend, pamidronate/lasix as needed --> ivf as prn 3. ESRD on hd 3 times a week --> phos binders per renal --> titrate fluid volume status as needed 4. Diabetes mellitus. A1c goal less than 7. 5. Seizure disorder. Management as per Neuro, hx of cva in the past 6. Dysphagia s/p peg 7. Resp failure s/p trach 8. Dvt ppx scds Appreciate the consultation and huseyin RN. Subjective Constitutional: Denies: no symptoms, chills, fever, malaise, weakness, other HEENT: Denies: no symptoms, eye pain, blurred vision, tearing, double vision, ear pain, ear discharge, nose pain, nose congestion, throat pain, throat swelling, mouth pain, mouth swelling, other Cardiovascular: Denies: no symptoms, chest pain, edema, irregular heart rate, lightheadedness, palpitations, syncope, other Respiratory: Denies: no symptoms, cough, shortness of breath, SOB with excertion, SOB at rest, sputum, wheezing, other Gastrointestinal/Abdominal: Denies: no symptoms, abdomen distended, abdominal pain, black stools, tarry stools, blood in stool, constipated, diarrhea, difficulty swallowing, nausea, poor appetite, poor fluid intake, rectal bleeding , vomiting, other Genitourinary: Denies: no symptoms, burning, discharge, frequency, flank pain, hematuria, incontinence, pain, urgency, other Neurologic/Psychiatric: Denies: no symptoms, anxiety, depressed, emotional problems, headache, numbness, paresthesia, pre-existing deficit, seizure, tingling, tremors, weakness, other Endocrine: Denies: no symptoms, excessive sweating, flushing, intolerance to cold, intolerance to heat, increased hunger, increased thirst, increased urine, unexplained weight gain, unexplained weight loss, other Allergies: Coded Allergies: NO KNOWN ALLERGIES (Verified Allergy, Unknown, 04/18/18) Subjective 05/01: refusing blood transfusion, no bleeding or chills noted, also refusing hd Objective Objective Current Medications Medications (Trade) Dose Ordered Sig/Mira Route PRN Reason Start Time Stop Time Status Last Admin Dose Admin Acetaminophen (Tylenol) 650 mg Q4H PRN ORAL Mild Pain/Temp > 100.5 04/28/19 23:00 Albuterol/ Ipratropium (Albuterol/ Ipratropium) 3 ml Q4HRT PRN HHN sob 04/28/19 11:45 05/03/19 11:44 Amlodipine Besylate (Norvasc) 5 mg BID GT 04/28/19 18:00 05/28/19 17:59 05/01/19 09:46 Atorvastatin Calcium (Lipitor) 20 mg BEDTIME GT 04/28/19 21:00 05/28/19 20:59 04/30/19 20:40 Barium Sulfate (Varibar Honey) 250 ml NOW PRN MC RAD 04/30/19 13:15 05/03/19 13:02 Barium Sulfate (Varibar Ephraim) 240 ml NOW PRN MC RAD 04/30/19 13:15 05/03/19 13:02 Barium Sulfate (Varibar Pudding) 230 ml NOW PRN RAD 04/30/19 13:15 05/03/19 13:02 Chlorhexidine Gluconate (Alie-Hex 2%) 1 applic DAILY@1999 TOPIC 04/29/19 20:00 05/29/19 19:59 04/30/19 20:40 Clonidine HCl (Catapres Tab) 0.1 mg Q4H PRN GT bp over 165 syst 04/28/19 12:15 05/28/19 12:14 Dextrose (Dextrose 50%) 25 ml Q30M PRN IV Hypoglycemia 04/28/19 12:00 05/28/19 11:59 Dextrose (Dextrose 50%) 50 ml Q30M PRN IV Hypoglycemia 04/28/19 12:00 05/28/19 11:59 Docusate Sodium (Colace) 100 mg TID GT 04/28/19 13:00 05/28/19 11:59 05/01/19 09:46 Epoetin Rudolph (Epoetin Rudolph(ESRD on dialysis)) 10,000 unit TUE-TUE-TUE SUBQ 04/30/19 21:00 05/30/19 20:59 04/30/19 21:48 Insulin Aspart (NovoLOG) BEFORE MEALS AND HS SUBQ 04/28/19 16:30 05/28/19 16:29 05/01/19 07:07 Lansoprazole (Prevacid) 30 mg BID GT 04/30/19 11:00 05/30/19 10:59 05/01/19 09:47 Levetiracetam (Keppra) 500 mg EVERY 12 HOURS GT 04/28/19 12:00 05/28/19 11:59 05/01/19 09:46 Levothyroxine Sodium (Synthroid) 150 mcg DAILY@0730 GT 04/28/19 14:00 05/28/19 13:59 05/01/19 07:04 Morphine Sulfate (Morphine Sulfate) 4 mg PRN PRN IVP Moderate Pain (Pain Scale 4-6) 04/28/19 02:00 Last 24 Hour Vital Signs Date Time Temp Pulse Resp B/P (MAP) Pulse Ox O2 Delivery O2 Flow Rate FiO2 05/01/19 16:31 59 12 30 05/01/19 16:00 Mechanical Ventilator 05/01/19 16:00 30 05/01/19 16:00 47 05/01/19 14:40 50 12 30 05/01/19 13:25 54 14 30 05/01/19 12:00 30 05/01/19 12:00 57 05/01/19 12:00 100 05/01/19 12:00 Mechanical Ventilator 05/01/19 11:21 58 14 30 05/01/19 09:46 74 158/75 05/01/19 09:00 30 05/01/19 08:56 74 12 30 05/01/19 08:00 97.0 54 18 158/75 (102) 100 05/01/19 08:00 52 05/01/19 08:00 Mechanical Ventilator 05/01/19 06:40 79 14 30 05/01/19 04:55 63 13 30 05/01/19 04:00 97.9 59 14 150/82 (104) 100 05/01/19 04:00 30 05/01/19 04:00 Mechanical Ventilator 05/01/19 04:00 59 05/01/19 02:43 60 12 30 05/01/19 01:03 62 19 30 05/01/19 00:00 60 05/01/19 00:00 Mechanical Ventilator 05/01/19 00:00 30 05/01/19 00:00 98.4 59 15 149/83 (105) 100 04/30/19 23:30 66 15 30 04/30/19 21:12 56 14 30 04/30/19 20:00 59 04/30/19 20:00 30 04/30/19 20:00 Mechanical Ventilator 04/30/19 20:00 98.1 55 14 149/79 (102) 100 04/30/19 18:51 62 13 30 04/30/19 17:25 52 12 30 04/30/19 17:06 52 151/78 04/30/19 16:00 97.7 52 12 151/78 (102) 97 04/30/19 16:00 30 04/30/19 16:00 Mechanical Ventilator 04/30/19 15:48 47 04/30/19 15:15 51 13 30 04/30/19 13:08 58 13 30 04/30/19 12:00 Mechanical Ventilator 04/30/19 12:00 98.3 53 12 143/75 (97) 97 04/30/19 12:00 30 04/30/19 11:40 60 12 30 04/30/19 11:33 56 04/30/19 09:36 55 11 30 04/30/19 08:06 62 154/86 04/30/19 07:56 52 04/30/19 07:52 98.3 62 12 154/86 (108) 100 04/30/19 07:35 30 04/30/19 07:33 Mechanical Ventilator 04/30/19 07:13 55 13 30 04/30/19 05:08 61 19 30 04/30/19 04:00 Mechanical Ventilator 04/30/19 04:00 30 04/30/19 04:00 98.7 51 12 141/81 (101) 100 04/30/19 04:00 51 04/30/19 02:53 63 13 30 04/30/19 01:03 60 14 30 04/30/19 00:00 Mechanical Ventilator 04/30/19 00:00 51 04/30/19 00:00 97.5 59 14 137/77 (97) 100 04/29/19 22:45 55 15 30 04/29/19 21:00 48 12 30 04/29/19 20:00 30 04/29/19 20:00 Mechanical Ventilator 04/29/19 20:00 49 04/29/19 18:44 47 13 30 Intake and Output 04/30/19 05/01/19 19:00 07:00 Intake Total 440 ml 440 ml Output Total 20 ml Balance 440 ml 420 ml Tube Feeding 440 ml 440 ml Output Urine Total 20 ml # Voids 1 # Bowel Movements 5 6 Labs Test 04/29/19 00:30 04/29/19 05:18 04/30/19 13:00 05/01/19 01:30 Stool Occult Blood Positive (NEGATIVE) Positive (NEGATIVE) Positive (NEGATIVE) White Blood Count 7.1 K/UL (4.8-10.8) Red Blood Count 2.14 M/UL (4.20-5.40) Hemoglobin 7.5 G/DL (12.0-16.0) Hematocrit 21.9 % (37.0-47.0) Mean Corpuscular Volume 102 FL (80-99) Mean Corpuscular Hemoglobin 34.9 PG (27.0-31.0) Mean Corpuscular Hemoglobin Concent 34.2 G/DL (32.0-36.0) Red Cell Distribution Width 18.0 % (11.6-14.8) Platelet Count 252 K/UL (150-450) Mean Platelet Volume 4.7 FL (6.5-10.1) Neutrophils (%) (Auto) % (45.0-75.0) Lymphocytes (%) (Auto) % (20.0-45.0) Monocytes (%) (Auto) % (1.0-10.0) Eosinophils (%) (Auto) % (0.0-3.0) Basophils (%) (Auto) % (0.0-2.0) Differential Total Cells Counted 100 Neutrophils % (Manual) 41 % (45-75) Lymphocytes % (Manual) 38 % (20-45) Monocytes % (Manual) 10 % (1-10) Eosinophils % (Manual) 11 % (0-3) Basophils % (Manual) 0 % (0-2) Band Neutrophils 0 % (0-8) Platelet Estimate Adequate Platelet Morphology Normal Hypochromasia 3+ Anisocytosis 1+ Macrocytosis 1+ Spherocytes 1+ Sodium Level 137 MMOL/L (136-145) Potassium Level 4.3 MMOL/L (3.5-5.1) Chloride Level 99 MMOL/L (98-107) Carbon Dioxide Level 23 MMOL/L (21-32) Anion Gap 15 mmol/L (5-15) Blood Urea Nitrogen 81 mg/dL (7-18) Creatinine 5.9 MG/DL (0.55-1.30) Estimat Glomerular Filtration Rate 7.3 mL/min (>60) Glucose Level 96 MG/DL (74-106) Hemoglobin A1c 4.8 % (4.3-6.0) Calcium Level 10.7 MG/DL (8.5-10.1) Phosphorus Level 4.5 MG/DL (2.5-4.9) Magnesium Level 2.9 MG/DL (1.8-2.4) Total Bilirubin 0.4 MG/DL (0.2-1.0) Aspartate Amino Transf (AST/SGOT) 24 U/L (15-37) Alanine Aminotransferase (ALT/SGPT) 33 U/L (12-78) Alkaline Phosphatase 151 U/L (46-116) C-Reactive Protein, Quantitative 2.2 mg/dL (0.00-0.90) Pro-B-Type Natriuretic Peptide 6745 pg/mL (0-125) Total Protein 8.3 G/DL (6.4-8.2) Albumin 3.0 G/DL (3.4-5.0) Globulin 5.3 g/dL Albumin/Globulin Ratio 0.6 (1.0-2.7) Carcinoembryonic Antigen 10.4 ng/mL (0.0-4.7) Test 05/01/19 03:20 White Blood Count 6.1 K/UL (4.8-10.8) Red Blood Count 1.61 M/UL (4.20-5.40) Hemoglobin 5.9 G/DL (12.0-16.0) Hematocrit 16.2 % (37.0-47.0) Mean Corpuscular Volume 101 FL (80-99) Mean Corpuscular Hemoglobin 36.7 PG (27.0-31.0) Mean Corpuscular Hemoglobin Concent 36.4 G/DL (32.0-36.0) Red Cell Distribution Width 17.5 % (11.6-14.8) Platelet Count 279 K/UL (150-450) Mean Platelet Volume 4.4 FL (6.5-10.1) Neutrophils (%) (Auto) % (45.0-75.0) Lymphocytes (%) (Auto) % (20.0-45.0) Monocytes (%) (Auto) % (1.0-10.0) Eosinophils (%) (Auto) % (0.0-3.0) Basophils (%) (Auto) % (0.0-2.0) Differential Total Cells Counted 100 Neutrophils % (Manual) 45 % (45-75) Lymphocytes % (Manual) 29 % (20-45) Monocytes % (Manual) 11 % (1-10) Eosinophils % (Manual) 13 % (0-3) Basophils % (Manual) 2 % (0-2) Band Neutrophils 0 % (0-8) Platelet Estimate Adequate Platelet Morphology Normal Hypochromasia Anisocytosis 1+ Erythrocyte Sedimentation Rate 148 MM/HR (0-30) Sodium Level 137 MMOL/L (136-145) Potassium Level 4.2 MMOL/L (3.5-5.1) Chloride Level 100 MMOL/L (98-107) Carbon Dioxide Level 22 MMOL/L (21-32) Anion Gap 15 mmol/L (5-15) Blood Urea Nitrogen 104 mg/dL (7-18) Creatinine 7.0 MG/DL (0.55-1.30) Estimat Glomerular Filtration Rate 6.0 mL/min (>60) Glucose Level 112 MG/DL (74-106) Uric Acid 5.6 MG/DL (2.6-7.2) Calcium Level 10.1 MG/DL (8.5-10.1) Phosphorus Level 5.5 MG/DL (2.5-4.9) Magnesium Level 2.8 MG/DL (1.8-2.4) Total Bilirubin 0.3 MG/DL (0.2-1.0) Aspartate Amino Transf (AST/SGOT) 22 U/L (15-37) Alanine Aminotransferase (ALT/SGPT) 32 U/L (12-78) Alkaline Phosphatase 209 U/L (46-116) C-Reactive Protein, Quantitative 1.5 mg/dL (0.00-0.90) Pro-B-Type Natriuretic Peptide 5614 pg/mL (0-125) Total Protein 8.4 G/DL (6.4-8.2) Albumin 2.9 G/DL (3.4-5.0) Globulin 5.5 g/dL Albumin/Globulin Ratio 0.5 (1.0-2.7) Height (Feet): 5 Height (Inches): 5.00 Weight (Pounds): 126 Objective PHYSICAL EXAMINATION: VITAL SIGNS: Reviewed. GENERAL: No distress. PULMONARY: Decreased breath sounds. Some crackles noted. ++ trach/vent CARDIOVASCULAR: Regular rate. No S3 or S4. ABDOMEN: Soft, nontender, and nondistended. ++ gtube EXTREMITIES: No cyanosis, swelling, or edema noted. Roly Palomares MD May 01, 2019 17:23
--- NOTE | 2019-05-01 19:10 | NUR ---
HAND-OFF: Report given to .DAMON COLINDRES
--- NOTE | 2019-05-01 19:10 | NUR ---
NURSE NOTES: Pt report received from JOSÉ LUIS COLINDRES. Pt remains stable. vital signs stable.pt is alert and oriented times 2, able to follow simple commands. pt is on a cardiac care nurse showing NSR, no distress noted. pt is on trach to vent satting at 100%, no resp distress. pt bed is low, locked, armed, bed rails up times 3, call light within reach. will follow plan of care.
[2019-05-01 20:00] VITALS: BP 133/77
[2019-05-01] MEDS: Dyna-Hex 2% Top Sol 2oz TOPIC SCH (20:00)
--- NOTE | 2019-05-01 20:30 | NUR ---
NURSE NOTES: Pt refused finger stick glucose check.
--- NOTE | 2019-05-01 20:46 | NUR ---
NURSE NOTES: Called Hernán Davis MD office, spoke with carter who will contact MD to call back as soon as possible. need to update MD on pt refusing 2100 meds and consent for procedures.
[2019-05-01] MEDS: Atorvastatin 20mg tab GT SCH (20:50)
--- NOTE | 2019-05-01 21:26 | NUR ---
NURSE NOTES: MD obregon called back. alerted MD that pt refused all 2100 meds and refused consents for all procedures. MD Obregon is aware.
[2019-05-02] VITALS: BP 121/70
--- NOTE | 2019-05-02 03:20 | NUR ---
NURSE NOTES: Pt refused blood draw for LAB work.
--- NOTE | 2019-05-02 03:31 | Consultation ---
DATE OF CONSULTATION: 05/01/2019 NOTE: POOR AUDIO PSYCHOTHERAPY CONSULTATION PROGRESS NOTE HISTORY OF PRESENT ILLNESS: This patient is a female patient. She is 58 years old. She is from [facility]. The patient was brought into the hospital for anemia, low blood, hemoglobin, and end-stage renal disease. This patient had also been irritable, restless, agitated, and intermittently refusing care, and for these reasons, she was referred for psychotherapeutic services. I assessed this patient. The patient does have a history of mental illness as well. Today, the patient is awake and alert upon assessment. The patient is able to state the day. The patient is able to state where she is. She stated that she is in the hospital. She states that she is here back for treatment. She states that she needs dialysis. She states that her blood sugar levels have been up as well. It has not been stable. She states that she does need care and is consenting for care. The patient is at this time aware of her treatment, able to communicate her treatment and able to express choice, understanding an appreciation of the treatment that she is receiving and reasoning as well as her consent for treatment. She is alert and oriented to person, place, time, and situation. At this time, she is able to convey her choice of willingness for treatment. The patient does have a history of depression. Denies suicidal or homicidal thoughts of ideation. Denies any auditory or visual hallucinations at this time. PATIENT'S PAST MEDICAL HISTORY: Includes a history of seizure, COPD, respiratory failure, arthritis, hypertension, and hypothyroid. ALLERGIES: The patient has no known drug allergies. SUBSTANCE ABUSE HISTORY: There is no indication of alcohol use, illicit substance use, or smoking cigarettes. PSYCHIATRIC HISTORY: She has a history of major depression. She has been treated with psychotropic medications in the past. SOCIAL HISTORY: This patient is a single 58-year-old female patient from [facility]. Financially sustained through [employer]. MENTAL STATUS EXAMINATION: Alert and oriented to person, place, time, and situation. The patient is able to accept her choice at this time. She is oriented. I assessed this patient to go to psychotherapy her emotions and depression. She is to communicate her thoughts and encouraging to participate in treatment milieu, encouraging the patient to articulate her thoughts and positive communication skills at this time, addressing the as she may have to be in the hospital stay. She states that she is frustrated appropriate coping skills. DIAGNOSIS: Major depressive disorder, recurrent, moderate, without psychotic features. PLAN: Plan is to maintain medication compliance with the positive coping skills. Possibly this clinician has reviewed the patient's chart and discussed the treatment with treatment team. Psychotherapy provided to this patient 45 minutes. Katty Bess PsyD. DR: ALEXANDER JOB#: [id number] CC:
[2019-05-02 04:00] VITALS: BP 154/74
[2019-05-02] MEDS: NovoLOG Insulin Flexpen SUBQ SCH ×4 (05:30→20:31)
--- NOTE | 2019-05-02 05:30 | NUR ---
NURSE NOTES: Pt refused finger stick glucose check.
--- NOTE | 2019-05-02 06:37 | General Progress Note ---
Assessment/Plan Problem List: (1) Hypercalcemia ICD Codes: E83.52 - Hypercalcemia SNOMED: 70825853 (2) HTN (hypertension) ICD Codes: I10 - Essential (primary) hypertension SNOMED: 21387946 (3) Tracheostomy dependent ICD Codes: Z93.0 - Tracheostomy status SNOMED: 270582814 (4) COPD (chronic obstructive pulmonary disease) ICD Codes: J44.9 - Chronic obstructive pulmonary disease, unspecified SNOMED: 56287558 (5) ESRD (end stage renal disease) ICD Codes: N18.6 - End stage renal disease SNOMED: 12206821 (6) Diabetes ICD Codes: E11.9 - Type 2 diabetes mellitus without complications SNOMED: 68445536 Status: stable, progressing Assessment/Plan: continue Novolog sliding scale no need for basal insulin for now TSH is mildly elevated due to non compliance continue LT4 150 mcg daily Subjective ROS Limited/Unobtainable: Yes Allergies: Coded Allergies: NO KNOWN ALLERGIES (Verified Allergy, Unknown, 04/18/18) Subjective events noted glucose values controlled Item Value Date Time Bedside Blood Glucose 117 mg/dl 05/01/19 1630 Bedside Blood Glucose 132 mg/dl H 05/01/19 1130 Bedside Blood Glucose 119 mg/dl 05/01/19 0707 Bedside Blood Glucose 119 mg/dl 05/01/19 0630 Objective Last 24 Hour Vital Signs Date Time Temp Pulse Resp B/P (MAP) Pulse Ox O2 Delivery O2 Flow Rate FiO2 05/02/19 05:25 55 12 30 05/02/19 04:00 52 05/02/19 04:00 30 05/02/19 04:00 98.0 63 20 154/74 (100) 99 05/02/19 04:00 Mechanical Ventilator 05/02/19 03:20 59 12 30 05/02/19 01:18 56 12 30 05/02/19 00:00 98.6 60 18 121/70 (87) 99 05/02/19 00:00 30 05/02/19 00:00 Mechanical Ventilator 05/02/19 00:00 53 05/01/19 23:27 61 12 30 05/01/19 20:43 60 16 30 05/01/19 20:00 98.2 55 19 133/77 (95) 100 05/01/19 20:00 51 05/01/19 20:00 Mechanical Ventilator 05/01/19 20:00 30 05/01/19 19:01 56 14 30 05/01/19 18:43 59 146/74 05/01/19 16:31 59 12 30 05/01/19 16:00 Mechanical Ventilator 05/01/19 16:00 97.9 54 20 146/74 (98) 100 05/01/19 16:00 30 05/01/19 16:00 47 05/01/19 14:40 50 12 30 05/01/19 13:25 54 14 30 05/01/19 12:00 30 05/01/19 12:00 57 05/01/19 12:00 100 05/01/19 12:00 Mechanical Ventilator 05/01/19 11:21 58 14 30 05/01/19 09:46 74 158/75 05/01/19 09:00 30 05/01/19 08:56 74 12 30 05/01/19 08:00 97.0 54 18 158/75 (102) 100 05/01/19 08:00 52 05/01/19 08:00 Mechanical Ventilator 05/01/19 06:40 79 14 30 Intake and Output 05/01/19 05/02/19 19:00 07:00 Intake Total 730 ml 160 ml Output Total 200 ml Balance 530 ml 160 ml Free Water 250 ml Tube Feeding 480 ml 160 ml Output Urine Total 200 ml # Voids 2 # Bowel Movements 3 Height (Feet): 5 Height (Inches): 5.00 Weight (Pounds): 128 General Appearance: no apparent distress Neck: normal alignment Respiratory/Chest: decreased breath sounds Abdomen: normal bowel sounds Objective Current Medications Medications (Trade) Dose Ordered Sig/Mira Route PRN Reason Start Time Stop Time Status Last Admin Dose Admin Acetaminophen (Tylenol) 650 mg Q4H PRN ORAL Mild Pain/Temp > 100.5 04/28/19 23:00 Albuterol/ Ipratropium (Albuterol/ Ipratropium) 3 ml Q4HRT PRN HHN sob 04/28/19 11:45 05/03/19 11:44 Amlodipine Besylate (Norvasc) 5 mg BID GT 04/28/19 18:00 05/28/19 17:59 05/01/19 18:43 Atorvastatin Calcium (Lipitor) 20 mg BEDTIME GT 04/28/19 21:00 05/28/19 20:59 04/30/19 20:40 Barium Sulfate (Varibar Honey) 250 ml NOW PRN RAD 04/30/19 13:15 05/03/19 13:02 Barium Sulfate (Varibar [place]) 240 ml NOW PRN RAD 04/30/19 13:15 05/03/19 13:02 Barium Sulfate (Varibar Pudding) 230 ml NOW PRN RAD 04/30/19 13:15 05/03/19 13:02 Chlorhexidine Gluconate (Alie-Hex 2%) 1 applic DAILY@2000 TOPIC 04/29/19 20:00 05/29/19 19:59 04/30/19 20:40 Clonidine HCl (Catapres Tab) 0.1 mg Q4H PRN GT bp over 165 syst 04/28/19 12:15 05/28/19 12:14 Dextrose (Dextrose 50%) 25 ml Q30M PRN IV Hypoglycemia 04/28/19 12:00 05/28/19 11:59 Dextrose (Dextrose 50%) 50 ml Q30M PRN IV Hypoglycemia 04/28/19 12:00 05/28/19 11:59 Docusate Sodium (Colace) 100 mg TID GT 04/28/19 13:00 05/28/19 11:59 05/01/19 18:43 Epoetin Rudolph (Epoetin Rudolph(ESRD on dialysis)) 10,000 unit TUE-WED-TUE SUBQ 04/30/19 21:00 05/30/19 20:59 04/30/19 21:48 Insulin Aspart (NovoLOG) BEFORE MEALS AND HS SUBQ 04/28/19 16:30 05/28/19 16:29 05/01/19 07:07 Lansoprazole (Prevacid) 30 mg BID GT 04/30/19 11:00 05/30/19 10:59 05/01/19 18:45 Levetiracetam (Keppra) 500 mg EVERY 12 HOURS GT 04/28/19 12:00 05/28/19 11:59 05/01/19 09:46 Levothyroxine Sodium (Synthroid) 150 mcg DAILY@0730 GT 04/28/19 14:00 05/28/19 13:59 05/01/19 07:04 Morphine Sulfate (Morphine Sulfate) 4 mg PRN PRN IVP Moderate Pain (Pain Scale 4-6) 04/28/19 02:[address] MD May 02, 2019 06:37
--- NOTE | 2019-05-02 06:59 | NUR ---
RESPIRATORY NOTE: Patient received mechanically ventilated on PB 840 with current ordered vent settings. Patient has trach size 6.0 Shiley cuffed that is secured with trach tie and guard. Vent alarms are functional and audible. There is an ambu bag and spare trach available at the bedside and the vent is connected to a red outlet. Will continue to monitor.
--- NOTE | 2019-05-02 07:15 | NUR ---
HAND-OFF: Report given to Mindy Contreras RN. Pt remains stable.
--- NOTE | 2019-05-02 07:16 | NUR ---
NURSE NOTES: Report received from Axel Groves RN. Pt is sleeping in bed. Easily able to wake up. Alert and oriented x3. Sinus ramon to SR 56-65 on nurse monitoring. Trach to vent. SIMV 12, TV 550, FiO2 30%, P 5. O2 sat 98-99%. No respiratory distress noted. GT is held for possible endoscopy today. Purewick in place draining yellow urine to suction.IV to right FA G18 patent and asymptomatic. Left chest perm-a-cath for HD dry and intact. Bed in lowest position. Side rails up x3. Will resume plan of care.
[2019-05-02 08:55] VITALS: BP 142/87
[2019-05-02] MEDS: Docusate 100mg/10ml Liq GT SCH ×3 (08:59→17:46)
--- NOTE | 2019-05-02 09:16 | NUR ---
NURSE NOTES: Called Dr Oliva and got Dr Tiffani Fields's number since she saw the patient. Called Dr Nixon but cannot leave message since message box is full. Will try to call her again.
--- NOTE | 2019-05-02 09:18 | General Progress Note ---
Assessment/Plan Problem List: (1) ESRD (end stage renal disease) ICD Codes: N18.6 - End stage renal disease SNOMED: 10468423 (2) COPD (chronic obstructive pulmonary disease) ICD Codes: J44.9 - Chronic obstructive pulmonary disease, unspecified SNOMED: 59556361 (3) Chronic respiratory failure ICD Codes: J96.10 - Chronic respiratory failure, unspecified whether with hypoxia or hypercapnia SNOMED: 52812112 (4) Tracheostomy dependent ICD Codes: Z93.0 - Tracheostomy status SNOMED: 386980410 (5) HTN (hypertension) ICD Codes: I10 - Essential (primary) hypertension SNOMED: 83063015 (6) Seizure ICD Codes: R56.9 - Unspecified convulsions SNOMED: 15782224 (7) CVA (cerebral vascular accident) ICD Codes: I63.9 - Cerebral infarction, unspecified SNOMED: 949033878 (8) Anemia ICD Codes: D64.9 - Anemia, unspecified SNOMED: 396399200 Qualifiers: Qualified Codes: D64.9 - Anemia, unspecified (9) Hypothyroid ICD Codes: E03.9 - Hypothyroidism, unspecified SNOMED: 37091467 Status: stable, progressing Assessment/Plan: vent dialysis prn transfuse psyc eval prn cbc bmp am ltach eval Subjective Constitutional: Reports: weakness Allergies: Coded Allergies: NO KNOWN ALLERGIES (Verified Allergy, Unknown, 04/18/18) All Systems: reviewed and negative except above Subjective trach vent asleep Objective Last 24 Hour Vital Signs Date Time Temp Pulse Resp B/P (MAP) Pulse Ox O2 Delivery O2 Flow Rate FiO2 05/02/19 08:59 57 142/87 05/02/19 08:55 96.8 57 14 142/87 (105) 99 05/02/19 06:55 59 12 30 05/02/19 05:25 55 12 30 05/02/19 04:00 52 05/02/19 04:00 30 05/02/19 04:00 98.0 63 20 154/74 (100) 99 05/02/19 04:00 Mechanical Ventilator 05/02/19 03:20 59 12 30 05/02/19 01:18 56 12 30 05/02/19 00:00 98.6 60 18 121/70 (87) 99 10/30/19 00:00 30 05/02/19 00:00 Mechanical Ventilator 05/02/19 00:00 53 05/01/19 23:27 61 12 30 05/01/19 20:43 60 16 30 05/01/19 20:00 98.2 55 19 133/77 (95) 100 05/01/19 20:00 51 05/01/19 20:00 Mechanical Ventilator 05/01/19 20:00 30 05/01/19 19:01 56 14 30 05/01/19 18:43 59 146/74 05/01/19 16:31 59 12 30 05/01/19 16:00 Mechanical Ventilator 05/01/19 16:00 97.9 54 20 146/74 (98) 100 05/01/19 16:00 30 05/01/19 16:00 47 05/01/19 14:40 50 12 30 05/01/19 13:25 54 14 30 05/01/19 12:00 30 05/01/19 12:00 57 05/01/19 12:00 100 05/01/19 12:00 Mechanical Ventilator 05/01/19 11:21 58 14 30 05/01/19 09:46 74 158/75 Intake and Output 05/01/19 05/02/19 18:59 06:59 Intake Total 770 ml 200 ml Output Total 220 ml 400 ml Balance 550 ml -200 ml Free Water 250 ml Tube Feeding 520 ml 200 ml Output Urine Total 220 ml 400 ml # Voids 2 # Bowel Movements 7 Height (Feet): 5 Height (Inches): 5.00 Weight (Pounds): 125 General Appearance: lethargic EENT: normal ENT inspection Neck: normal alignment Cardiovascular: normal peripheral pulses, normal rate, regular rhythm Respiratory/Chest: chest wall non-tender, lungs clear, normal breath sounds Abdomen: normal bowel sounds, non tender, soft Extremities: normal inspection Edema: no edema noted Arm (L), no edema noted Arm (R), no edema noted Leg (L), no edema noted Leg (R), no edema noted Pedal (L), no edema noted Pedal (R), no edema noted Generalized Neurologic: motor weakness Skin: normal pigmentation, warm/dry Hernán Davis DO May 02, 2019 09:18
--- NOTE | 2019-05-02 10:22 | Pulmonolgy Critical Care Note ---
Critical Care - Asmt/Plan Problems: (1) Chronic respiratory failure (2) COPD (chronic obstructive pulmonary disease) (3) Anemia (4) ESRD (end stage renal disease) (5) At high risk for aspiration (6) Heme positive stool (7) Tracheostomy dependent (8) HTN (hypertension) (9) Seizure (10) CVA (cerebral vascular accident) (11) Diabetes Respiratory: monitor respiratory rate, adjust FIO2 Cardiac: continue to monitor HR/BP Renal: F/U I&O Infectious Disease: check cultures, continue antibiotics Gastrointestinal: continue feedings/current rate Endocrine: monitor blood sugar Hematologic: monitor H/H, transfuse if hgb<8.5 Neurologic: PRN Ativan, keep patient comfortable Affect: PRN ativan Discussed with: nurses, consultants, sample case porterrecreation manager - Objective Last 24 Hour Vital Signs Date Time Temp Pulse Resp B/P (MAP) Pulse Ox O2 Delivery O2 Flow Rate FiO2 05/02/19 09:29 57 13 30 05/02/19 08:59 57 142/87 05/02/19 08:55 96.8 57 14 142/87 (105) 99 05/02/19 06:55 59 12 30 05/02/19 05:25 55 12 30 05/02/19 04:00 52 05/02/19 04:00 30 05/02/19 04:00 98.0 63 20 154/74 (100) 99 05/02/19 04:00 Mechanical Ventilator 05/02/19 03:20 59 12 30 05/02/19 01:18 56 12 30 05/02/19 00:00 98.6 60 18 121/70 (87) 99 05/02/19 00:00 30 05/02/19 00:00 Mechanical Ventilator 05/02/19 00:00 53 05/01/19 23:27 61 12 30 05/01/19 20:43 60 16 30 05/01/19 20:00 98.2 55 19 133/77 (95) 100 05/01/19 20:00 51 05/01/19 20:00 Mechanical Ventilator 05/01/19 20:00 30 05/01/19 19:01 56 14 30 05/01/19 18:43 59 146/74 05/01/19 16:31 59 12 30 05/01/19 16:00 Mechanical Ventilator 05/01/19 16:00 97.9 54 20 146/74 (98) 100 05/01/19 16:00 30 05/01/19 16:00 47 05/01/19 14:40 50 12 30 05/01/19 13:25 54 14 30 05/01/19 12:00 30 05/01/19 12:00 57 05/01/19 12:00 100 05/01/19 12:00 Mechanical Ventilator 05/01/19 11:21 58 14 30 Status: awake Condition: critical HEENT: atraumatic Neck: full ROM Heart: HR/BP stable Abdomen: soft, active bowel sounds, feeding tube Extremities: edema Decubiti: location Accucheck: 117 Critical Care - Subjective ROS Limited/Unobtainable: No Interval Events: pt refusing blood transfusion Condition: critical FI02: 30 Vent Support Breath Rate: 12 Vent Support Mode: IMV/SIMV Vent Tidal Volume: 500 Sputum Amount: Small PEEP: 5.0 PIP: 17 I&O: Intake and Output 05/01/19 05/02/19 18:59 06:59 Intake Total 770 ml 200 ml Output Total 220 ml 400 ml Balance 550 ml -200 ml Free Water 250 ml Tube Feeding 520 ml 200 ml Output Urine Total 220 ml 400 ml # Voids 2 # Bowel Movements 7 CXR: no changes Sheri Elias MD May 02, 2019 10:22
--- NOTE | 2019-05-02 10:39 | NUR ---
NURSE NOTES: Spoke with jerrica Nixon HEALTH CARE TECHNICIAN. She is coherent enough to make decision as per Tiffani. Pt agreed to have Hemodialysis and EGD and consented. Pt still refused blood transfusion and lab draw. Risks explained to the patient. Notified Dr Hillman that pt consented for EGD. Addendum: 05/02/19 at 1045 by RODOLFO CUEVAS RN RN NURSE NOTES: Spoke with jerrica Nixon HEALTH CARE TECHNICIAN. She is coherent enough to make decision as per Tiffani. Pt agreed to have Hemodialysis and EGD and consented. Pt still refused blood transfusion and lab draw. Risks explained to the patient. Notified Dr Hillman that pt consented for EGD. Called [facility] for HD.
--- NOTE | 2019-05-02 10:54 | NUR ---
NURSE NOTES: [facility] has temporarily sustained service with [facility]. Dr Shara herrera with HD service with [facility]. Called [facility] for HD.
[2019-05-02 11:19] VITALS: BP 141/75
--- NOTE | 2019-05-02 11:27 | NUR ---
NURSE NOTES: Pt refused accu check. Addendum: 05/02/19 at 1155 by RODOLFO CUEVAS RN RN NURSE NOTES: Pt refused accu check. Risks including consequences of uncontrolled blood sugar explained. Pt still refused blood sugar check.
--- NOTE | 2019-05-02 12:12 | NUR ---
MARKETING PROJECT COORDINATORCOLON AND RECTAL SURGEON 05/01/19 SI: RESP FAILURE TRACH/VENT DEPENDENT, ANEMIA T. 98.4 HR 59 RR 15 B/P 149/83 SIMV 12 TV 500 FIO2 30% PEEP 5 H/H 5.9/ 16.2 ESR 148 IS: EPOETIN SUBC SYNTHROID TRANSFUSE PRBC'S STEP DOWN STATUS 05/02/19 SI: RESP FAILURE TRACH/VENT SUPPORT, ANEMIA T. 96.8 HR 57 RR 12 B/P 141.75 IS: EPOETIN SUBC SYNTHROID STEP DOWN STATUS
--- NOTE | 2019-05-02 12:30 | Nephrology Progress Note ---
Assessment/Plan Problem List: (1) ESRD (end stage renal disease) (2) Chronic respiratory failure (3) Anemia Assessment: worsened (4) Hypothyroid (5) Hypercalcemia Assessment ESRD Anemia; ESRD or blood loss or both Sz HypoThyroid HTN DM Hypercalcemia Plan Agreed to dialysis- will order ! Still refusing lab work previously: Was Due dialysis 04/30 when dialysis nurse attempted, the patient decl;ined dialysis and consent ! ? Psych eval for decision making ability? need transfusion waiting for psych advise Anemia [place] EPO HD as needed scheduled for 04/30 Keep BP in check watch serum Ca one dose Aredia 60 Subjective ROS Limited/Unobtainable: Yes Objective Objective Last 24 Hour Vital Signs Date Time Temp Pulse Resp B/P (MAP) Pulse Ox O2 Delivery O2 Flow Rate FiO2 05/02/19 11:19 97.9 54 14 141/75 (97) 100 05/02/19 11:13 52 12 30 05/02/19 09:29 57 13 30 05/02/19 08:59 57 142/87 05/02/19 08:55 96.8 57 14 142/87 (105) 99 05/02/19 08:00 Mechanical Ventilator 05/02/19 08:00 30 05/02/19 07:45 45 05/02/19 06:55 59 12 30 05/02/19 05:25 55 12 30 05/02/19 04:00 52 05/02/19 04:00 30 05/02/19 04:00 98.0 63 20 154/74 (100) 99 05/02/19 04:00 Mechanical Ventilator 05/02/19 03:20 59 12 30 05/02/19 01:18 56 12 30 05/02/19 00:00 98.6 60 18 121/70 (87) 99 05/02/19 00:00 30 05/02/19 00:00 Mechanical Ventilator 05/02/19 00:00 53 05/01/19 23:27 61 12 30 05/01/19 20:43 60 16 30 05/01/19 20:00 98.2 55 19 133/77 (95) 100 05/01/19 20:00 51 05/01/19 20:00 Mechanical Ventilator 05/01/19 20:00 30 05/01/19 19:01 56 14 30 05/01/19 18:43 59 146/74 05/01/19 16:31 59 12 30 05/01/19 16:00 Mechanical Ventilator 05/01/19 16:00 97.9 54 20 146/74 (98) 100 05/01/19 16:00 30 05/01/19 16:00 47 05/01/19 14:40 50 12 30 05/01/19 13:25 54 14 30 Intake and Output 05/01/19 05/02/19 18:59 06:59 Intake Total 770 ml 200 ml Output Total 220 ml 400 ml Balance 550 ml -200 ml Free Water 250 ml Tube Feeding 520 ml 200 ml Output Urine Total 220 ml 400 ml # Voids 2 # Bowel Movements 7 Height (Feet): 5 Height (Inches): 4.00 Weight (Pounds): 124 General Appearance: no apparent distress Objective no change Bandar Olmedo MD May 02, 2019 12:30
--- NOTE | 2019-05-02 13:17 | NUR ---
NURSE NOTES: Spoke with [facility] nurse. Dr Hillman is not available today. EGD scheduled for tomorrow. Will restart tube feeding.
--- NOTE | 2019-05-02 13:33 | General Progress Note ---
Assessment/Plan Status: stable, progressing Assessment/Plan: PAST MEDICAL HISTORY: 1. Respiratory failure, now chronic trach. 2. Dysphagia with G-tube. 3. Renal failure, on dialysis. 4. Hypothyroidism. 5. Diabetes. 6. Psychiatric disorder. 7. CVA. 8.GIB patient agreed to EGD but on hold given very low HGB and risk of anesthesia repeat CBC blood transfusion if she agrees iv iron ppi Subjective Allergies: Coded Allergies: NO KNOWN ALLERGIES (Verified Allergy, Unknown, 04/18/18) Objective Last 24 Hour Vital Signs Date Time Temp Pulse Resp B/P (MAP) Pulse Ox O2 Delivery O2 Flow Rate FiO2 05/02/19 12:46 63 12 30 05/02/19 12:00 30 05/02/19 12:00 Mechanical Ventilator 05/02/19 11:43 48 05/02/19 11:19 97.9 54 14 141/75 (97) 100 05/02/19 11:13 52 12 30 05/02/19 09:29 57 13 30 05/02/19 08:59 57 142/87 05/02/19 08:55 96.8 57 14 142/87 (105) 99 05/02/19 08:00 Mechanical Ventilator 05/02/19 08:00 30 05/02/19 07:45 45 05/02/19 06:55 59 12 30 05/02/19 05:25 55 12 30 05/02/19 04:00 52 05/02/19 04:00 30 05/02/19 04:00 98.0 63 20 154/74 (100) 99 05/02/19 04:00 Mechanical Ventilator 05/02/19 03:20 59 12 30 05/02/19 01:18 56 12 30 05/02/19 00:00 98.6 60 18 121/70 (87) 99 05/02/19 00:00 30 05/02/19 00:00 Mechanical Ventilator 05/02/19 00:00 53 05/01/19 23:27 61 12 30 05/01/19 20:43 60 16 30 05/01/19 20:00 98.2 55 19 133/77 (95) 100 05/01/19 20:00 51 05/01/19 20:00 Mechanical Ventilator 05/01/19 20:00 30 05/01/19 19:01 56 14 30 05/01/19 18:43 59 146/74 05/01/19 16:31 59 12 30 05/01/19 16:00 Mechanical Ventilator 05/01/19 16:00 97.9 54 20 146/74 (98) 100 05/01/19 16:00 30 05/01/19 16:00 47 05/01/19 14:40 50 12 30 Intake and Output 05/01/19 05/02/19 19:00 07:00 Intake Total 730 ml 160 ml Output Total 200 ml 400 ml Balance 530 ml -240 ml Free Water 250 ml Tube Feeding 480 ml 160 ml Output Urine Total 200 ml 400 ml # Voids 2 # Bowel Movements 3 Height (Feet): 5 Height (Inches): 4.00 Weight (Pounds): 124 General Appearance: no apparent distress EENT: normal ENT inspection Neck: supple Cardiovascular: normal rate Respiratory/Chest: decreased breath sounds Abdomen: normal bowel sounds, non tender, soft Extremities: non-tender Fritz Hillman MD May 02, 2019 13:33
--- NOTE | 2019-05-02 14:39 | Hematology/Onc Progress Note ---
Assessment/Plan Assessment/Plan 3 ASSESSMENT AND RECOMMENDATIONS: 1. Anemia due to underlying chronic disease. Continue to closely monitor. Anemia workup has been ordered. Hemoglobin goal is above 7. Transfuse as needed. No evidence of reticulocytosis or hemolysis at the moment. --> panel reviewed from this admission --> okay to start on epo given esrd --> started on iv iron --> transf if hgb <7 --> is to continue on synthroid --> hgb 7.7-->7.5-->5.9 --> REFUSING HD AND TRANSFUSIONS --> per gi for procedure but risks of anesthesia and awaiting stability 2. Hypercalcemia -- in this case less likely due to malignancy but is from esrd --> goal jonathan-ca product <55 --> Ca+ trend, pamidronate/lasix as needed --> ivf as prn 3. ESRD on hd 3 times a week --> phos binders per renal --> titrate fluid volume status as needed --> refusing hd at this time 4. Diabetes mellitus. A1c goal less than 7. 5. Seizure disorder. --> per Neuro, hx of cva in the past 6. Dysphagia s/p peg 7. Resp failure s/p trach 8. Dvt ppx scds Appreciate the consultation and dw RN. Subjective Gastrointestinal/Abdominal: Denies: no symptoms, abdomen distended, abdominal pain, black stools, tarry stools, blood in stool, constipated, diarrhea, difficulty swallowing, nausea, poor appetite, poor fluid intake, rectal bleeding , vomiting, other Genitourinary: Denies: no symptoms, burning, discharge, frequency, flank pain, hematuria, incontinence, pain, urgency, other Neurologic/Psychiatric: Denies: no symptoms, anxiety, depressed, emotional problems, headache, numbness, paresthesia, pre-existing deficit, seizure, tingling, tremors, weakness, other Endocrine: Denies: no symptoms, excessive sweating, flushing, intolerance to cold, intolerance to heat, increased hunger, increased thirst, increased urine, unexplained weight gain, unexplained weight loss, other Hematologic/Lymphatic: Denies: no symptoms, anemia, easy bleeding, easy bruising, adenopathy, other Allergies: Coded Allergies: NO KNOWN ALLERGIES (Verified Allergy, Unknown, 04/18/18) Subjective 05/01: refusing blood transfusion, no bleeding or chills noted, also refusing hd 05/02: has been refusing prbc transfusion, as per psych recs for capacity, no n/ c today Objective Objective Current Medications Medications (Trade) Dose Ordered Sig/Mira Route PRN Reason Start Time Stop Time Status Last Admin Dose Admin Acetaminophen (Tylenol) 650 mg Q4H PRN ORAL Mild Pain/Temp > 100.5 04/28/19 23:00 Albuterol/ Ipratropium (Albuterol/ Ipratropium) 3 ml Q4HRT PRN HHN sob 04/28/19 11:45 05/03/19 11:44 Amlodipine Besylate (Norvasc) 5 mg BID GT 04/28/19 18:00 05/28/19 17:59 05/02/19 08:59 Atorvastatin Calcium (Lipitor) 20 mg BEDTIME GT 04/28/19 21:00 05/28/19 20:59 04/30/19 20:40 Barium Sulfate (Varibar Honey) 250 ml NOW PRN MC RAD 04/30/19 13:15 05/03/19 13:02 Barium Sulfate (Varibar [place]) 240 ml NOW PRN MC RAD 04/30/19 13:15 05/03/19 13:02 Barium Sulfate (Varibar Pudding) 230 ml NOW PRN MC RAD 04/30/19 13:15 05/03/19 13:02 Chlorhexidine Gluconate (Alie-Hex 2%) 1 applic DAILY@2000 TOPIC 04/29/19 20:00 05/29/19 19:59 04/30/19 20:40 Clonidine HCl (Catapres Tab) 0.1 mg Q4H PRN GT bp over 165 syst 04/28/19 12:15 05/28/19 12:14 Dextrose (Dextrose 50%) 25 ml Q30M PRN IV Hypoglycemia 04/28/19 12:00 05/28/19 11:59 Dextrose (Dextrose 50%) 50 ml Q30M PRN IV Hypoglycemia 04/28/19 12:00 05/28/19 11:59 Docusate Sodium (Colace) 100 mg TID GT 04/28/19 13:00 05/28/19 11:59 05/02/19 13:20 Epoetin Rudolph (Epoetin Rudolph(ESRD on dialysis)) 10,000 unit MON-WED-FRI SUBQ 04/30/19 21:00 05/30/19 20:59 04/30/19 21:48 Insulin Aspart (NovoLOG) BEFORE MEALS AND HS SUBQ 04/28/19 16:30 05/28/19 16:29 05/01/19 07:07 Iron Sucrose 100 mg/Sodium Chloride 60 ml @ 240 mls/hr BEDTIME IV 05/02/19 21:00 05/06/19 21:14 Lansoprazole (Prevacid) 30 mg BID GT 04/30/19 11:00 05/30/19 10:59 05/02/19 08:59 Levetiracetam (Keppra) 500 mg EVERY 12 HOURS GT 04/28/19 12:00 05/28/19 11:59 05/02/19 09:00 Levothyroxine Sodium (Synthroid) 150 mcg DAILY@0730 GT 04/28/19 14:00 05/28/19 13:59 05/02/19 09:02 Morphine Sulfate (Morphine Sulfate) 4 mg PRN PRN IVP Moderate Pain (Pain Scale 4-6) 04/28/19 02:00 Last 24 Hour Vital Signs Date Time Temp Pulse Resp B/P (MAP) Pulse Ox O2 Delivery O2 Flow Rate FiO2 05/02/19 12:46 63 12 30 05/02/19 12:00 30 05/02/19 12:00 Mechanical Ventilator 05/02/19 11:43 48 05/02/19 11:19 97.9 54 14 141/75 (97) 100 05/02/19 11:13 52 12 30 05/02/19 09:29 57 13 30 05/02/19 08:59 57 142/87 05/02/19 08:55 96.8 57 14 142/87 (105) 99 05/02/19 08:00 Mechanical Ventilator 05/02/19 08:00 30 05/02/19 07:45 45 05/02/19 06:55 59 12 30 05/02/19 05:25 55 12 30 05/02/19 04:00 52 05/02/19 04:00 30 05/02/19 04:00 98.0 63 20 154/74 (100) 99 05/02/19 04:00 Mechanical Ventilator 05/02/19 03:20 59 12 30 05/02/19 01:18 56 12 30 05/02/19 00:00 98.6 60 18 121/70 (87) 99 05/02/19 00:00 30 05/02/19 00:00 Mechanical Ventilator 05/02/19 00:00 53 05/01/19 23:27 61 12 30 05/01/19 20:43 60 16 30 05/01/19 20:00 98.2 55 19 133/77 (95) 100 05/01/19 20:00 51 05/01/19 20:00 Mechanical Ventilator 05/01/19 20:00 30 05/01/19 19:01 56 14 30 05/01/19 18:43 59 146/74 05/01/19 16:31 59 12 30 05/01/19 16:00 Mechanical Ventilator 05/01/19 16:00 97.9 54 20 146/74 (98) 100 05/01/19 16:00 30 05/01/19 16:00 47 05/01/19 14:40 50 12 30 05/01/19 13:25 54 14 30 05/01/19 12:00 30 05/01/19 12:00 57 05/01/19 12:00 100 05/01/19 12:00 Mechanical Ventilator 05/01/19 11:21 58 14 30 05/01/19 09:46 74 158/75 05/01/19 09:00 30 05/01/19 08:56 74 12 30 05/01/19 08:00 97.0 54 18 158/75 (102) 100 05/01/19 08:00 52 05/01/19 08:00 Mechanical Ventilator 05/01/19 06:40 79 14 30 05/01/19 04:55 63 13 30 05/01/19 04:00 97.9 59 14 150/82 (104) 100 05/01/19 04:00 30 05/01/19 04:00 Mechanical Ventilator 05/01/19 04:00 59 05/01/19 02:43 60 12 30 05/01/19 01:03 62 19 30 05/01/19 00:00 60 05/01/19 00:00 Mechanical Ventilator 05/01/19 00:00 30 05/01/19 00:00 98.4 59 15 149/83 (105) 100 04/30/19 23:30 66 15 30 04/30/19 21:12 56 14 30 04/30/19 20:00 59 04/30/19 20:00 30 04/30/19 20:00 Mechanical Ventilator 04/30/19 20:00 98.1 55 14 149/79 (102) 100 04/30/19 18:51 62 13 30 04/30/19 17:25 52 12 30 04/30/19 17:06 52 151/78 04/30/19 16:00 97.7 52 12 151/78 (102) 97 04/30/19 16:00 30 04/30/19 16:00 Mechanical Ventilator 04/30/19 15:48 47 04/30/19 15:15 51 13 30 Intake and Output 05/01/19 05/02/19 19:00 07:00 Intake Total 730 ml 160 ml Output Total 200 ml 400 ml Balance 530 ml -240 ml Free Water 250 ml Tube Feeding 480 ml 160 ml Output Urine Total 200 ml 400 ml # Voids 2 # Bowel Movements 3 Labs Test 04/30/19 13:00 05/01/19 01:30 05/01/19 03:20 Stool Occult Blood Positive (NEGATIVE) Positive (NEGATIVE) White Blood Count 6.1 K/UL (4.8-10.8) Red Blood Count 1.61 M/UL (4.20-5.40) Hemoglobin 5.9 G/DL (12.0-16.0) Hematocrit 16.2 % (37.0-47.0) Mean Corpuscular Volume 101 FL (80-99) Mean Corpuscular Hemoglobin 36.7 PG (27.0-31.0) Mean Corpuscular Hemoglobin Concent 36.4 G/DL (32.0-36.0) Red Cell Distribution Width 17.5 % (11.6-14.8) Platelet Count 279 K/UL (150-450) Mean Platelet Volume 4.4 FL (6.5-10.1) Neutrophils (%) (Auto) % (45.0-75.0) Lymphocytes (%) (Auto) % (20.0-45.0) Monocytes (%) (Auto) % (1.0-10.0) Eosinophils (%) (Auto) % (0.0-3.0) Basophils (%) (Auto) % (0.0-2.0) Differential Total Cells Counted 100 Neutrophils % (Manual) 45 % (45-75) Lymphocytes % (Manual) 29 % (20-45) Monocytes % (Manual) 11 % (1-10) Eosinophils % (Manual) 13 % (0-3) Basophils % (Manual) 2 % (0-2) Band Neutrophils 0 % (0-8) Platelet Estimate Adequate Platelet Morphology Normal Hypochromasia Anisocytosis 1+ Erythrocyte Sedimentation Rate 148 MM/HR (0-30) Sodium Level 137 MMOL/L (136-145) Potassium Level 4.2 MMOL/L (3.5-5.1) Chloride Level 100 MMOL/L (98-107) Carbon Dioxide Level 22 MMOL/L (21-32) Anion Gap 15 mmol/L (5-15) Blood Urea Nitrogen 104 mg/dL (7-18) Creatinine 7.0 MG/DL (0.55-1.30) Estimat Glomerular Filtration Rate 6.0 mL/min (>60) Glucose Level 112 MG/DL (74-106) Uric Acid 5.6 MG/DL (2.6-7.2) Calcium Level 10.1 MG/DL (8.5-10.1) Phosphorus Level 5.5 MG/DL (2.5-4.9) Magnesium Level 2.8 MG/DL (1.8-2.4) Total Bilirubin 0.3 MG/DL (0.2-1.0) Aspartate Amino Transf (AST/SGOT) 22 U/L (15-37) Alanine Aminotransferase (ALT/SGPT) 32 U/L (12-78) Alkaline Phosphatase 209 U/L (46-116) C-Reactive Protein, Quantitative 1.5 mg/dL (0.00-0.90) Pro-B-Type Natriuretic Peptide 5614 pg/mL (0-125) Total Protein 8.4 G/DL (6.4-8.2) Albumin 2.9 G/DL (3.4-5.0) Globulin 5.5 g/dL Albumin/Globulin Ratio 0.5 (1.0-2.7) Height (Feet): 5 Height (Inches): 4.00 Weight (Pounds): 124 Objective PHYSICAL EXAMINATION: VITAL SIGNS: Reviewed. GENERAL: No distress. PULMONARY: Decreased breath sounds. Some crackles noted. ++ trach/vent CARDIOVASCULAR: Regular rate. No S3 or S4. ABDOMEN: Soft, nontender, and nondistended. ++ gtube EXTREMITIES: No cyanosis, swelling, or edema noted. Roly Palomares MD May 02, 2019 14:39
--- NOTE | 2019-05-02 14:43 | NUR ---
SWALLOW STATUS: PER RN, PATIENT NOT STABLE FOR GOING DOWN FOR MOD BARIUM SWALLOW STUDY (MBSS). PT MORE RECEPTIVE TO DIALYSIS AND SOME OTHER PROCEDURES. ALTHOUGH PT HAS A PEG, SHE CONSISTENTLY WANTS TO HAVE SOME PO FOR QUALITY OF LIFE. PLAN: CHECK DAILY TO SEE WHEN PT ABLE TO HAVE MBSS PRIOR TO CLEARING HER FOR ORAL GRATIFICATION. D/W JENS SALTER WHO IS AWARE AND EDUCATED IN ORAL CARE NEEDED DAILY.
--- NOTE | 2019-05-02 14:45 | NUR ---
NURSE NOTES: Cleaned and repositioned pt for leaked urine. Pt was pulled up in bed but refused to be turned. Risks explained to the patient with another RN. Dr Hillman called and cancelled EGD today. He will decide whether to do EGD tomorrow or not when her Hgb level is more stable. Notified him that pt is still refusing blood transfusion. Addendum: 05/02/19 at 1816 by RODOLFO CUEVAS RN RN NURSE NOTES: Cleaned and repositioned pt for leaked urine. Pt was pulled up in bed but refused to be turned. Risks explained to the patient with another RN. Dr Hillman called and cancelled EGD today. He will decide whether to do EGD tomorrow or not when her Hgb level is more stable. Notified him that pt is still refusing blood transfusion. Order to resume feeding received, noted, and carried out.
--- NOTE | 2019-05-02 16:00 | NUR ---
NURSE NOTES: Called [facility] again to confirm that we have HD order for this patient. Branch Or Department Chief Librarian stated that she will have nurse call the unit. Awaiting call back from the HD nurse.
--- NOTE | 2019-05-02 16:36 | NUR ---
*-* INSURANCE *-* ALL AVAILABLE CLINICALS HAVE BEEN FAXED TO: [facility]# [id number] [place]:IRLANDA #[phone] SPOKE TO SAEID:IRLANDA SHE HAS BEEN RECEIVING CLINICALS
[2019-05-02 17:49] VITALS: BP 130/63
--- NOTE | 2019-05-02 19:05 | NUR ---
NURSE NOTES: Pt report received from RODOLFO FERRARA RN, pt remains stable. pt is alert and oriented times 3, able to follow simple commands. pt is on a compliance monitor showing SB to SR, however, no abnormalities noted. pt is on a trach to vent, satting at 100%, no distress noted. pt bed is low, locked, armed, bed rails up times 3, call light within reach. will follow plan of care.
--- NOTE | 2019-05-02 19:11 | NUR ---
HAND-OFF: Report given to Axel Groves RN.
[2019-05-02 20:00] VITALS: BP 141/77
[2019-05-02] MEDS: Iron Sucrose 100 MG in NS 55 ML IV SCH ×2 (20:23→23:31)
[2019-05-02] MEDS: Dyna-Hex 2% Top Sol 2oz TOPIC SCH (20:27)
[2019-05-02] MEDS: Atorvastatin 20mg tab GT SCH (20:27)
[2019-05-02] MEDS: Epoetin Alfa-EPBX(ESRD on dialysis)10,000 unit/ml vial SUBQ SCH ×2 (20:27→20:49)
--- NOTE | 2019-05-02 20:35 | NUR ---
NURSE NOTES: Elizabeth Cerda RN from [facility] dialysis arrive and has started pt on dialysis.
--- NOTE | 2019-05-02 20:50 | NUR ---
NURSE NOTES: Pt Retacrit Sub q med was scanned. pt refused med after scanned and saved. Med was undone on eMAR and documented "non admin - Pt refused." Med was safely returned to [facility] pharmacist. med was not administered or tampered with.
--- NOTE | 2019-05-02 22:41 | NUR ---
NURSE NOTES: Pt dialysis is completed. 2L out stated by lead scientist.
[2019-05-02 23:33] LABS: BASOPHILS % (AUTO) 2.1 % (0.0-2.0); EOSINOPHILS % (AUTO) 13.4 % (0.0-3.0); HEMATOCRIT 25.3 % (37.0-47.0); HEMOGLOBIN 8.9 G/DL (12.0-16.0); LYMPHOCYTES % (AUTO) 25.5 % (20.0-45.0); MEAN CORPUSCULAR VOLUME 100 FL (80-99); MONOCYTES % (AUTO) 6.6 % (1.0-10.0); NEUTROPHILS % (AUTO) 52.4 % (45.0-75.0); PLATELET COUNT 255 K/UL (150-450); RED BLOOD COUNT 2.53 M/UL (4.20-5.40); RED CELL DISTRIBUTION WIDTH 16.3 % (11.6-14.8); WHITE BLOOD COUNT 6.7 K/UL (4.8-10.8)
[2019-05-02 23:51] LABS: ALANINE AMINOTRANSFERASE 49 U/L (12-78); ALBUMIN 3.5 G/DL (3.4-5.0); ALBUMIN/GLOBULIN RATIO 0.6 (1.0-2.7); ALKALINE PHOSPHATASE 232 U/L (46-116); ANION GAP 8 mmol/L (5-15); ASPARTATE AMINO TRANSFERASE 32 U/L (15-37); BILIRUBIN,TOTAL 0.3 MG/DL (0.2-1.0); BLOOD UREA NITROGEN 40 mg/dL (7-18); CARBON DIOXIDE 27 MMOL/L (21-32); CHLORIDE 102 MMOL/L (98-107); PHOSPHORUS 1.8 MG/DL (2.5-4.9); POTASSIUM 3.5 MMOL/L (3.5-5.1); SODIUM 137 MMOL/L (136-145)
[2019-05-03] VITALS (7 sets, daily range): BP systolic 129–151; BP diastolic 62–77
--- NOTE | 2019-05-03 00:06 | NUR ---
NURSE NOTES: Spoke with pharmacist [facility]. she stated IV Venofer 100MG is to be given 1 bag daily, for 5 days. bag 1 has been given 05/02/19.
--- NOTE | 2019-05-03 01:00 | NUR ---
NURSE NOTES: MD Palomares called to check on Pt status. pt status reported. no new orders.
[2019-05-03] MEDS: NovoLOG Insulin Flexpen SUBQ SCH ×4 (05:51→20:39)
--- NOTE | 2019-05-03 06:01 | Hematology/Onc Progress Note ---
Assessment/Plan Assessment/Plan ASSESSMENT AND RECOMMENDATIONS: #. Anemia due to underlying iron deficiency. Continue to closely monitor. Anemia workup has been ordered. Hemoglobin goal is above 7. Transfuse as needed. No evidence of reticulocytosis or hemolysis at the moment. --> panel reviewed from this admission --> okay to start on epo given esrd --> started on iv iron --> transf if hgb <7 --> is to continue on synthroid --> hgb 7.7-->7.5-->5.9 --> Has been REFUSING HD AND TRANSFUSIONS (occasionally does agree) --> per gi for procedure but risks of anesthesia and awaiting stability #. Anemia due to underlying gi bleed, as occult is + --> has been seen by gi and pending potential egd --> has been dw patient, considering once more stable #. Hypercalcemia -- in this case less likely due to malignancy but is from esrd --> keep phos-ca product low --> Ca+ trend, pamidronate/lasix as needed --> Ca+ 10.7-->10-->9 --> ivf as prn #. ESRD on hd 3 times a week --> phos binders per renal --> titrate fluid volume status as needed --> refusing hd at this time #. Diabetes mellitus. A1c goal less than 7. #. Seizure disorder. --> per Neuro, hx of cva in the past #. Dysphagia s/p peg #. Resp failure s/p trach #. Dvt ppx scds Appreciate the consultation and huseyin RN. Subjective Constitutional: Denies: no symptoms, chills, fever, malaise, weakness, other HEENT: Denies: no symptoms, eye pain, blurred vision, tearing, double vision, ear pain, ear discharge, nose pain, nose congestion, throat pain, throat swelling, mouth pain, mouth swelling, other Cardiovascular: Denies: no symptoms, chest pain, edema, irregular heart rate, lightheadedness, palpitations, syncope, other Respiratory: Denies: no symptoms, cough, shortness of breath, SOB with excertion, SOB at rest, sputum, wheezing, other Genitourinary: Denies: no symptoms, burning, discharge, frequency, flank pain, hematuria, incontinence, pain, urgency, other Neurologic/Psychiatric: Denies: no symptoms, anxiety, depressed, emotional problems, headache, numbness, paresthesia, pre-existing deficit, seizure, tingling, tremors, weakness, other Endocrine: Denies: no symptoms, excessive sweating, flushing, intolerance to cold, intolerance to heat, increased hunger, increased thirst, increased urine, unexplained weight gain, unexplained weight loss, other Allergies: Coded Allergies: NO KNOWN ALLERGIES (Verified Allergy, Unknown, 04/18/18) Subjective 05/01: refusing blood transfusion, no bleeding or chills noted, also refusing hd 05/02: has been refusing prbc transfusion, as per psych recs for capacity, no n/ c today 05/03: did accept hd, and iron, refused epogen, dw patient again, doesn't want those meds Objective Objective Current Medications Medications (Trade) Dose Ordered Sig/Mira Route PRN Reason Start Time Stop Time Status Last Admin Dose Admin Acetaminophen (Tylenol) 650 mg Q4H PRN ORAL Mild Pain/Temp > 100.5 04/28/19 23:00 Albuterol/ Ipratropium (Albuterol/ Ipratropium) 3 ml Q4HRT PRN HHN sob 04/28/19 11:45 05/03/19 11:44 Amlodipine Besylate (Norvasc) 5 mg BID GT 04/28/19 18:00 05/28/19 17:59 05/02/19 08:59 Atorvastatin Calcium (Lipitor) 20 mg BEDTIME GT 04/28/19 21:00 05/28/19 20:59 05/02/19 20:27 Barium Sulfate (Varibar [place]) 250 ml NOW PRN MC RAD 04/30/19 13:15 05/03/19 13:02 Barium Sulfate (Varibar [place]) 240 ml NOW PRN MC RAD 04/30/19 13:15 05/03/19 13:02 Barium Sulfate (Varibar Pudding) 230 ml NOW PRN MC RAD 04/30/19 13:15 05/03/19 13:02 Chlorhexidine Gluconate (Alie-Hex 2%) 1 applic DAILY@2000 TOPIC 04/29/19 20:00 05/29/19 19:59 05/02/19 20:27 Clonidine HCl (Catapres Tab) 0.1 mg Q4H PRN GT bp over 165 syst 04/28/19 12:15 05/28/19 12:14 Dextrose (Dextrose 50%) 25 ml Q30M PRN IV Hypoglycemia 04/28/19 12:00 05/28/19 11:59 Dextrose (Dextrose 50%) 50 ml Q30M PRN IV Hypoglycemia 04/28/19 12:00 05/28/19 11:59 Docusate Sodium (Colace) 100 mg TID GT 04/28/19 13:00 05/28/19 11:59 05/02/19 17:46 Epoetin Rudolph (Epoetin Rudolph(ESRD on dialysis)) 10,000 unit TUE-TUE-TUE SUBQ 04/30/19 21:00 05/30/19 20:59 04/30/19 21:48 Insulin Aspart (NovoLOG) BEFORE MEALS AND HS SUBQ 04/28/19 16:30 05/28/19 16:29 05/01/19 07:07 Iron Sucrose 100 mg/Sodium Chloride 60 ml @ 240 mls/hr BEDTIME IV 05/02/19 21:00 05/06/19 21:14 05/02/19 23:31 Lansoprazole (Prevacid) 30 mg BID GT 04/30/19 11:00 05/30/19 10:59 05/02/19 17:46 Levetiracetam (Keppra) 500 mg EVERY 12 HOURS GT 04/28/19 12:00 05/28/19 11:59 05/02/19 20:27 Levothyroxine Sodium (Synthroid) 150 mcg DAILY@0730 GT 04/28/19 14:00 05/28/19 13:59 05/02/19 09:02 Morphine Sulfate (Morphine Sulfate) 4 mg PRN PRN IVP Moderate Pain (Pain Scale 4-6) 04/28/19 02:00 Last 24 Hour Vital Signs Date Time Temp Pulse Resp B/P (MAP) Pulse Ox O2 Delivery O2 Flow Rate FiO2 05/03/19 04:35 62 12 30 05/03/19 04:00 30 05/03/19 04:00 63 05/03/19 04:00 Mechanical Ventilator 05/03/19 04:00 98.4 55 20 135/62 (86) 100 05/03/19 03:02 81 16 30 05/03/19 01:07 81 13 99 Mechanical Ventilator 30 05/03/19 00:56 71 14 30 05/03/19 00:00 59 05/03/19 00:00 98.5 63 18 147/77 (100) 98 05/03/19 00:00 Mechanical Ventilator 05/03/19 00:00 30 05/02/19 23:00 68 13 30 05/02/19 21:24 63 14 30 05/02/19 20:00 98.4 55 16 141/77 (98) 99 05/02/19 20:00 Mechanical Ventilator 05/02/19 20:00 50 05/02/19 20:00 30 05/02/19 19:17 52 13 30 05/02/19 17:49 97.3 56 12 130/63 (85) 100 05/02/19 16:00 30 05/02/19 16:00 Mechanical Ventilator 05/02/19 15:51 47 05/02/19 15:30 47 12 30 05/02/19 12:46 63 12 30 05/02/19 12:00 30 05/02/19 12:00 Mechanical Ventilator 05/02/19 11:43 48 05/02/19 11:19 97.9 54 14 141/75 (97) 100 05/02/19 11:13 52 12 30 05/02/19 09:29 57 13 30 05/02/19 08:59 57 142/87 05/02/19 08:55 96.8 57 14 142/87 (105) 99 05/02/19 08:00 Mechanical Ventilator 05/02/19 08:00 30 05/02/19 07:45 45 05/02/19 06:55 59 12 30 05/02/19 05:25 55 12 30 05/02/19 04:00 52 05/02/19 04:00 30 05/02/19 04:00 98.0 63 20 154/74 (100) 99 05/02/19 04:00 Mechanical Ventilator 05/02/19 03:20 59 12 30 05/02/19 01:18 56 12 30 05/02/19 00:00 98.6 60 18 121/70 (87) 99 05/02/19 00:00 30 05/02/19 00:00 Mechanical Ventilator 05/02/19 00:00 53 05/01/19 23:27 61 12 30 05/01/19 20:43 60 16 30 05/01/19 20:00 98.2 55 19 133/77 (95) 100 05/01/19 20:00 51 05/01/19 20:00 Mechanical Ventilator 05/01/19 20:00 30 05/01/19 19:01 56 14 30 05/01/19 18:43 59 146/74 05/01/19 16:31 59 12 30 05/01/19 16:00 Mechanical Ventilator 05/01/19 16:00 97.9 54 20 146/74 (98) 100 05/01/19 16:00 30 05/01/19 16:00 47 05/01/19 14:40 50 12 30 05/01/19 13:25 54 14 30 05/01/19 12:00 30 05/01/19 12:00 57 05/01/19 12:00 100 05/01/19 12:00 Mechanical Ventilator 05/01/19 11:21 58 14 30 05/01/19 09:46 74 158/75 05/01/19 09:00 30 05/01/19 08:56 74 12 30 05/01/19 08:00 97.0 54 18 158/75 (102) 100 05/01/19 08:00 52 05/01/19 08:00 Mechanical Ventilator 05/01/19 06:40 79 14 30 Intake and Output 05/02/19 05/03/19 19:00 07:00 Intake Total 220 ml 660 ml Output Total 100 ml 2000 ml Balance 120 ml -1340 ml Free Water 200 ml IV Total 60 ml Tube Feeding 120 ml 400 ml Other 100 ml Output Urine Total 100 ml Hemodialysis UF 2000 ml Labs Test 04/30/19 13:00 05/01/19 01:30 05/01/19 03:20 05/02/19 23:25 Stool Occult Blood Positive (NEGATIVE) Positive (NEGATIVE) White Blood Count 6.1 K/UL (4.8-10.8) 6.7 K/UL (4.8-10.8) Red Blood Count 1.61 M/UL (4.20-5.40) 2.53 M/UL (4.20-5.40) Hemoglobin 5.9 G/DL (12.0-16.0) 8.9 G/DL (12.0-16.0) Hematocrit 16.2 % (37.0-47.0) 25.3 % (37.0-47.0) Mean Corpuscular Volume 101 FL (80-99) 100 FL (80-99) Mean Corpuscular Hemoglobin 36.7 PG (27.0-31.0) 35.2 PG (27.0-31.0) Mean Corpuscular Hemoglobin Concent 36.4 G/DL (32.0-36.0) 35.2 G/DL (32.0-36.0) Red Cell Distribution Width 17.5 % (11.6-14.8) 16.3 % (11.6-14.8) Platelet Count 279 K/UL (150-450) 255 K/UL (150-450) Mean Platelet Volume 4.4 FL (6.5-10.1) 4.8 FL (6.5-10.1) Neutrophils (%) (Auto) % (45.0-75.0) 52.4 % (45.0-75.0) Lymphocytes (%) (Auto) % (20.0-45.0) 25.5 % (20.0-45.0) Monocytes (%) (Auto) % (1.0-10.0) 6.6 % (1.0-10.0) Eosinophils (%) (Auto) % (0.0-3.0) 13.4 % (0.0-3.0) Basophils (%) (Auto) % (0.0-2.0) 2.1 % (0.0-2.0) Differential Total Cells Counted 100 Neutrophils % (Manual) 45 % (45-75) Lymphocytes % (Manual) 29 % (20-45) Monocytes % (Manual) 11 % (1-10) Eosinophils % (Manual) 13 % (0-3) Basophils % (Manual) 2 % (0-2) Band Neutrophils 0 % (0-8) Platelet Estimate Adequate Platelet Morphology Normal Hypochromasia Anisocytosis 1+ Erythrocyte Sedimentation Rate 148 MM/HR (0-30) 120 MM/HR (0-30) Sodium Level 137 MMOL/L (136-145) 137 MMOL/L (136-145) Potassium Level 4.2 MMOL/L (3.5-5.1) 3.5 MMOL/L (3.5-5.1) Chloride Level 100 MMOL/L (98-107) 102 MMOL/L (98-107) Carbon Dioxide Level 22 MMOL/L (21-32) 27 MMOL/L (21-32) Anion Gap 15 mmol/L (5-15) 8 mmol/L (5-15) Blood Urea Nitrogen 104 mg/dL (7-18) 40 mg/dL (7-18) Creatinine 7.0 MG/DL (0.55-1.30) 3.0 MG/DL (0.55-1.30) Estimat Glomerular Filtration Rate 6.0 mL/min (>60) 16.0 mL/min (>60) Glucose Level 112 MG/DL (74-106) 103 MG/DL (74-106) Uric Acid 5.6 MG/DL (2.6-7.2) Calcium Level 10.1 MG/DL (8.5-10.1) 9.0 MG/DL (8.5-10.1) Phosphorus Level 5.5 MG/DL (2.5-4.9) 1.8 MG/DL (2.5-4.9) Magnesium Level 2.8 MG/DL (1.8-2.4) 2.3 MG/DL (1.8-2.4) Total Bilirubin 0.3 MG/DL (0.2-1.0) 0.3 MG/DL (0.2-1.0) Aspartate Amino Transf (AST/SGOT) 22 U/L (15-37) 32 U/L (15-37) Alanine Aminotransferase (ALT/SGPT) 32 U/L (12-78) 49 U/L (12-78) Alkaline Phosphatase 209 U/L (46-116) 232 U/L (46-116) C-Reactive Protein, Quantitative 1.5 mg/dL (0.00-0.90) 1.1 mg/dL (0.00-0.90) Pro-B-Type Natriuretic Peptide 5614 pg/mL (0-125) Total Protein 8.4 G/DL (6.4-8.2) 9.7 G/DL (6.4-8.2) Albumin 2.9 G/DL (3.4-5.0) 3.5 G/DL (3.4-5.0) Globulin 5.5 g/dL 6.2 g/dL Albumin/Globulin Ratio 0.5 (1.0-2.7) 0.6 (1.0-2.7) Height (Feet): 5 Height (Inches): 4.00 Weight (Pounds): 124 Objective PHYSICAL EXAMINATION: VITAL SIGNS: Reviewed. GENERAL: No distress. PULMONARY: Decreased breath sounds. Some crackles noted. ++ trach/vent CARDIOVASCULAR: Regular rate. No S3 or S4. ABDOMEN: Soft, nontender, and nondistended. ++ gtube EXTREMITIES: No cyanosis, swelling, or edema noted. Roly Palomares MD May 03, 2019 06:01
--- NOTE | 2019-05-03 06:22 | NUR ---
NURSE NOTES: MD Jelani Gardner, seen PT, examined current labs. also stated to add him under "physician consult" under MD Dez Davis. will follow orders.
--- NOTE | 2019-05-03 06:39 | General Progress Note ---
Assessment/Plan Problem List: (1) Hypercalcemia ICD Codes: E83.52 - Hypercalcemia SNOMED: 36645098 (2) HTN (hypertension) ICD Codes: I10 - Essential (primary) hypertension SNOMED: 52400711 (3) Tracheostomy dependent ICD Codes: Z93.0 - Tracheostomy status SNOMED: 618432131 (4) COPD (chronic obstructive pulmonary disease) ICD Codes: J44.9 - Chronic obstructive pulmonary disease, unspecified SNOMED: 52434445 (5) ESRD (end stage renal disease) ICD Codes: N18.6 - End stage renal disease SNOMED: 91207500 (6) Diabetes ICD Codes: E11.9 - Type 2 diabetes mellitus without complications SNOMED: 71471681 Status: stable, progressing Assessment/Plan: continue Novolog sliding scale no need for basal insulin for now TSH is mildly elevated due to non compliance continue LT4 150 mcg daily Subjective ROS Limited/Unobtainable: Yes Allergies: Coded Allergies: NO KNOWN ALLERGIES (Verified Allergy, Unknown, 04/18/18) Subjective events noted Item Value Date Time Bedside Blood Glucose 97 mg/dl 05/03/19 0630 Bedside Blood Glucose 97 mg/dl 05/02/19 2100 Objective Last 24 Hour Vital Signs Date Time Temp Pulse Resp B/P (MAP) Pulse Ox O2 Delivery O2 Flow Rate FiO2 05/03/19 04:35 62 12 30 05/03/19 04:00 30 05/03/19 04:00 63 05/03/19 04:00 Mechanical Ventilator 05/03/19 04:00 98.4 55 20 135/62 (86) 100 05/03/19 03:02 81 16 30 05/03/19 01:07 81 13 99 Mechanical Ventilator 30 05/03/19 00:56 71 14 30 05/03/19 00:00 59 05/03/19 00:00 98.5 63 18 147/77 (100) 98 05/03/19 00:00 Mechanical Ventilator 05/03/19 00:00 30 05/02/19 23:00 68 13 30 05/02/19 21:24 63 14 30 05/02/19 20:00 98.4 55 16 141/77 (98) 99 05/02/19 20:00 Mechanical Ventilator 05/02/19 20:00 50 05/02/19 20:00 30 10/30/19 19:17 52 13 30 05/02/19 17:49 97.3 56 12 130/63 (85) 100 05/02/19 16:00 30 05/02/19 16:00 Mechanical Ventilator 05/02/19 15:51 47 05/02/19 15:30 47 12 30 05/02/19 12:46 63 12 30 05/02/19 12:00 30 05/02/19 12:00 Mechanical Ventilator 05/02/19 11:43 48 05/02/19 11:19 97.9 54 14 141/75 (97) 100 05/02/19 11:13 52 12 30 05/02/19 09:29 57 13 30 05/02/19 08:59 57 142/87 05/02/19 08:55 96.8 57 14 142/87 (105) 99 05/02/19 08:00 Mechanical Ventilator 05/02/19 08:00 30 05/02/19 07:45 45 05/02/19 06:55 59 12 30 Intake and Output 05/02/19 05/03/19 19:00 07:00 Intake Total 220 ml 700 ml Output Total 100 ml 2000 ml Balance 120 ml -1300 ml Free Water 200 ml IV Total 60 ml Tube Feeding 120 ml 440 ml Other 100 ml Output Urine Total 100 ml Hemodialysis UF 2000 ml Laboratory Tests 05/02/19 23:25: White Blood Count 6.7, Red Blood Count 2.53L, Hemoglobin 8.9L, Hematocrit 25.3L , Mean Corpuscular Volume 100H, Mean Corpuscular Hemoglobin 35.2H, Mean Corpuscular Hemoglobin Concent 35.2, Red Cell Distribution Width 16.3H, Platelet Count 255, Mean Platelet Volume 4.8L, Neutrophils (%) (Auto) 52.4, Lymphocytes (%) (Auto) 25.5, Monocytes (%) (Auto) 6.6, Eosinophils (%) (Auto) 13.4H, Basophils (%) (Auto) 2.1H, Erythrocyte Sedimentation Rate 120H, Sodium Level 137, Potassium Level 3.5, Chloride Level 102, Carbon Dioxide Level 27, Anion Gap 8, Blood Urea Nitrogen 40H, Creatinine 3.0H, Estimat Glomerular Filtration Rate 16.0, Glucose Level 103, Calcium Level 9.0, Phosphorus Level 1.8L, Magnesium Level 2.3, Total Bilirubin 0.3, Aspartate Amino Transf (AST/SGOT ) 32, Alanine Aminotransferase (ALT/SGPT) 49, Alkaline Phosphatase 232H, C- Reactive Protein, Quantitative 1.1H, Total Protein 9.7H, Albumin 3.5, Globulin 6.2, Albumin/Globulin Ratio 0.6L Height (Feet): 5 Height (Inches): 4.00 Weight (Pounds): 126 General Appearance: lethargic EENT: other - trach Cardiovascular: tachycardia Respiratory/Chest: decreased breath sounds Abdomen: normal bowel sounds Objective Current Medications Medications (Trade) Dose Ordered Sig/Mira Route PRN Reason Start Time Stop Time Status Last Admin Dose Admin Acetaminophen (Tylenol) 650 mg Q4H PRN ORAL Mild Pain/Temp > 100.5 04/28/19 23:00 Albuterol/ Ipratropium (Albuterol/ Ipratropium) 3 ml Q4HRT PRN HHN sob 04/28/19 11:45 05/03/19 11:44 Amlodipine Besylate (Norvasc) 5 mg BID GT 04/28/19 18:00 05/28/19 17:59 05/02/19 08:59 Atorvastatin Calcium (Lipitor) 20 mg BEDTIME GT 04/28/19 21:00 05/28/19 20:59 05/02/19 20:27 Barium Sulfate (Varibar Honey) 250 ml NOW PRN MC RAD 04/30/19 13:15 05/03/19 13:02 Barium Sulfate (Varibar [place]) 240 ml NOW PRN RAD 04/30/19 13:15 05/03/19 13:02 Barium Sulfate (Varibar Pudding) 230 ml NOW PRN RAD 04/30/19 13:15 05/03/19 13:02 Chlorhexidine Gluconate (Alie-Hex 2%) 1 applic DAILY@2000 TOPIC 04/29/19 20:00 05/29/19 19:59 05/02/19 20:27 Clonidine HCl (Catapres Tab) 0.1 mg Q4H PRN GT bp over 165 syst 04/28/19 12:15 05/28/19 12:14 Dextrose (Dextrose 50%) 25 ml Q30M PRN IV Hypoglycemia 04/28/19 12:00 05/28/19 11:59 Dextrose (Dextrose 50%) 50 ml Q30M PRN IV Hypoglycemia 04/28/19 12:00 05/28/19 11:59 Docusate Sodium (Colace) 100 mg TID GT 04/28/19 13:00 05/28/19 11:59 05/02/19 17:46 Epoetin Rudolph (Epoetin Rudolph(ESRD on dialysis)) 10,000 unit TUE-TUE-TUE SUBQ 04/30/19 21:00 05/30/19 20:59 04/30/19 21:48 Insulin Aspart (NovoLOG) BEFORE MEALS AND HS SUBQ 04/28/19 16:30 05/28/19 16:29 05/01/19 07:07 Iron Sucrose 100 mg/Sodium Chloride 60 ml @ 240 mls/hr BEDTIME IV 05/02/19 21:00 05/06/19 21:14 05/02/19 23:31 Lansoprazole (Prevacid) 30 mg BID GT 04/30/19 11:00 05/30/19 10:59 05/02/19 17:46 Levetiracetam (Keppra) 500 mg EVERY 12 HOURS GT 04/28/19 12:00 05/28/19 11:59 05/02/19 20:27 Levothyroxine Sodium (Synthroid) 150 mcg DAILY@0730 GT 04/28/19 14:00 05/28/19 13:59 05/02/19 09:02 Morphine Sulfate (Morphine Sulfate) 4 mg PRN PRN IVP Moderate Pain (Pain Scale 4-6) 04/28/19 02:[address] MD May 03, 2019 06:39
--- NOTE | 2019-05-03 07:06 | NUR ---
HAND-OFF: Report given to Loren Dewey RN. Pt remains stable.
--- NOTE | 2019-05-03 07:07 | NUR ---
NURSE NOTES: Pt received from Germain Francois RN in stable condition with no cardiopulmonary distress noted. Pt is awake in bed, AAOx4, trache to vent, Shiley 6, SIMV 12 TV 550 FiO2 30% Peep 5. GT noted running Nepro at 40cc/hr. GT flushed and clamped, TF held now for synthroid via GT in one hour. Purewick noted draining yellow urine. L chest permcath noted and RFA 18g IV. No skin alterations noted at this time. Bed in lowest position, alarm on, side rails up x2 and padded per seizure precaution, call light within reach. Will continue to monitor.
--- NOTE | 2019-05-03 07:08 | NUR ---
NURSE NOTES: Received pt from [facility] D[facility] in stable condition with no cardiopulmonary distress noted. Pt is awake in bed, non-verbal, trache to vent Shiley 6, AC 14 TV 450 FiO2 40% Peep 5. GT noted running Glucerna 1.5 at 30cc/hr. Purewick noted draining yellow urine. Skin alterations noted. Pt has a RFA 22g and LH 20g IV. Bed in lowest position, alarm on, side rails up x2 and padded per seizure precaution, call light within reach. Will continue to monitor. Addendum: 05/03/19 at 0807 by Loren Pelaez RN Wrong patient notes.
[2019-05-03] MEDS: Docusate 100mg/10ml Liq GT SCH ×3 (08:16→17:57)
--- NOTE | 2019-05-03 09:00 | NUR ---
NURSE NOTES: Permacath for dialysis access.
--- NOTE | 2019-05-03 10:30 | Pulmonolgy Critical Care Note ---
Critical Care - Asmt/Plan Problems: (1) Chronic respiratory failure (2) COPD (chronic obstructive pulmonary disease) (3) Anemia (4) ESRD (end stage renal disease) (5) At high risk for aspiration (6) Heme positive stool (7) Tracheostomy dependent (8) HTN (hypertension) (9) Seizure (10) CVA (cerebral vascular accident) (11) Diabetes Respiratory: adjust tidal volume, monitor respiratory rate, adjust FIO2 Cardiac: continue to monitor HR/BP Renal: F/U I&O, keep IV fluid Infectious Disease: check cultures Gastrointestinal: hold feedings Endocrine: monitor blood sugar Neurologic: PRN Ativan, PRN Morphine Affect: PRN ativan Prophylaxis: Protonix Discussed with: nurses, consultants, nurse case managermanager of housekeeping - Objective Last 24 Hour Vital Signs Date Time Temp Pulse Resp B/P (MAP) Pulse Ox O2 Delivery O2 Flow Rate FiO2 05/03/19 08:35 64 12 30 05/03/19 08:16 57 151/72 05/03/19 08:00 30 05/03/19 08:00 Mechanical Ventilator 05/03/19 06:56 66 14 30 05/03/19 04:35 62 12 30 05/03/19 04:00 30 05/03/19 04:00 63 05/03/19 04:00 Mechanical Ventilator 05/03/19 04:00 98.4 55 20 135/62 (86) 100 05/03/19 03:02 81 16 30 05/03/19 01:07 81 13 99 Mechanical Ventilator 30 05/03/19 00:56 71 14 30 05/03/19 00:00 59 05/03/19 00:00 98.5 63 18 147/77 (100) 98 05/03/19 00:00 Mechanical Ventilator 05/03/19 00:00 30 05/02/19 23:00 68 13 30 05/02/19 21:24 63 14 30 05/02/19 20:00 98.4 55 16 141/77 (98) 99 05/02/19 20:00 Mechanical Ventilator 05/02/19 20:00 50 05/02/19 20:00 30 05/02/19 19:17 52 13 30 05/02/19 17:49 97.3 56 12 130/63 (85) 100 05/02/19 16:00 30 05/02/19 16:00 Mechanical Ventilator 05/02/19 15:51 47 05/02/19 15:30 47 12 30 05/02/19 12:46 63 12 30 05/02/19 12:00 30 05/02/19 12:00 Mechanical Ventilator 05/02/19 11:43 48 05/02/19 11:19 97.9 54 14 141/75 (97) 100 05/02/19 11:13 52 12 30 Status: awake Condition: critical HEENT: atraumatic Neck: full ROM Lungs: clear Heart: HR/BP stable Abdomen: soft, non-tender Extremities: no C/C/E, edema Accucheck: 97 Critical Care - Subjective ROS Limited/Unobtainable: Yes Interval Events: pt consented to EGD and got dialyzed yesterday. Condition: critical EKG Rhythm: Sinus Rhythm FI02: 30 Vent Support Breath Rate: 12 Vent Support Mode: IMV/SIMV Vent Tidal Volume: 500 Sputum Amount: Small PEEP: 5.0 PIP: 19 I&O: Intake and Output 05/02/19 05/03/19 18:59 06:59 Intake Total 180 ml 740 ml Output Total 100 ml 2000 ml Balance 80 ml -1260 ml Free Water 200 ml IV Total 60 ml Tube Feeding 80 ml 480 ml Other 100 ml Output Urine Total 100 ml Hemodialysis UF 2000 ml Labs: Laboratory Tests Test 05/02/19 23:25 White Blood Count 6.7 K/UL (4.8-10.8) Red Blood Count 2.53 M/UL (4.20-5.40) L Hemoglobin 8.9 G/DL (12.0-16.0) L Hematocrit 25.3 % (37.0-47.0) L Mean Corpuscular Volume 100 FL (80-99) H Mean Corpuscular Hemoglobin 35.2 PG (27.0-31.0) H Mean Corpuscular Hemoglobin Concent 35.2 G/DL (32.0-36.0) Red Cell Distribution Width 16.3 % (11.6-14.8) H Platelet Count 255 K/UL (150-450) Mean Platelet Volume 4.8 FL (6.5-10.1) L Neutrophils (%) (Auto) 52.4 % (45.0-75.0) Lymphocytes (%) (Auto) 25.5 % (20.0-45.0) Monocytes (%) (Auto) 6.6 % (1.0-10.0) Eosinophils (%) (Auto) 13.4 % (0.0-3.0) H Basophils (%) (Auto) 2.1 % (0.0-2.0) H Erythrocyte Sedimentation Rate 120 MM/HR (0-30) H Sodium Level 137 MMOL/L (136-145) Potassium Level 3.5 MMOL/L (3.5-5.1) Chloride Level 102 MMOL/L (98-107) Carbon Dioxide Level 27 MMOL/L (21-32) Anion Gap 8 mmol/L (5-15) Blood Urea Nitrogen 40 mg/dL (7-18) H Creatinine 3.0 MG/DL (0.55-1.30) H Estimat Glomerular Filtration Rate 16.0 mL/min (>60) Glucose Level 103 MG/DL (74-106) Calcium Level 9.0 MG/DL (8.5-10.1) Phosphorus Level 1.8 MG/DL (2.5-4.9) L Magnesium Level 2.3 MG/DL (1.8-2.4) Total Bilirubin 0.3 MG/DL (0.2-1.0) Aspartate Amino Transf (AST/SGOT) 32 U/L (15-37) Alanine Aminotransferase (ALT/SGPT) 49 U/L (12-78) Alkaline Phosphatase 232 U/L (46-116) H C-Reactive Protein, Quantitative 1.1 mg/dL (0.00-0.90) H Total Protein 9.7 G/DL (6.4-8.2) H Albumin 3.5 G/DL (3.4-5.0) Globulin 6.2 g/dL Albumin/Globulin Ratio 0.6 (1.0-2.7) L Sheri Elias MD May 03, 2019 10:30
--- NOTE | 2019-05-03 11:09 | Nephrology Progress Note ---
Assessment/Plan Problem List: (1) ESRD (end stage renal disease) (2) Chronic respiratory failure (3) Anemia Assessment: worsened (4) Hypothyroid (5) Hypercalcemia Assessment ESRD Anemia; ESRD or blood loss or both Sz HypoThyroid HTN DM Hypercalcemia Plan Agreed to dialysis- will order ! done 05/02 Still refusing lab work Hgb better- not transfused previously: Was Due dialysis 04/30 when dialysis nurse attempted, the patient decl;ined dialysis and consent ! ? Psych eval for decision making ability? need transfusion waiting for psych advise Anemia [place] EPO HD as needed scheduled for 04/30 Keep BP in check watch serum Ca one dose Aredia 60 Subjective ROS Limited/Unobtainable: Yes Objective Objective Last 24 Hour Vital Signs Date Time Temp Pulse Resp B/P (MAP) Pulse Ox O2 Delivery O2 Flow Rate FiO2 05/03/19 10:56 78 14 30 05/03/19 08:35 64 12 30 05/03/19 08:16 57 151/72 05/03/19 08:00 30 05/03/19 08:00 Mechanical Ventilator 05/03/19 06:56 66 14 30 05/03/19 04:35 62 12 30 05/03/19 04:00 30 05/03/19 04:00 63 05/03/19 04:00 Mechanical Ventilator 05/03/19 04:00 98.4 55 20 135/62 (86) 100 05/03/19 03:02 81 16 30 05/03/19 01:07 81 13 99 Mechanical Ventilator 30 05/03/19 00:56 71 14 30 05/03/19 00:00 59 05/03/19 00:00 98.5 63 18 147/77 (100) 98 05/03/19 00:00 Mechanical Ventilator 05/03/19 00:00 30 05/02/19 23:00 68 13 30 05/02/19 21:24 63 14 30 05/02/19 20:00 98.4 55 16 141/77 (98) 99 05/02/19 20:00 Mechanical Ventilator 05/02/19 20:00 50 05/02/19 20:00 30 05/02/19 19:17 52 13 30 05/02/19 17:49 97.3 56 12 130/63 (85) 100 05/02/19 16:00 30 10/30/19 16:00 Mechanical Ventilator 05/02/19 15:51 47 05/02/19 15:30 47 12 30 05/02/19 12:46 63 12 30 05/02/19 12:00 30 05/02/19 12:00 Mechanical Ventilator 05/02/19 11:43 48 05/02/19 11:19 97.9 54 14 141/75 (97) 100 05/02/19 11:13 52 12 30 Intake and Output 05/02/19 05/03/19 18:59 06:59 Intake Total 180 ml 740 ml Output Total 100 ml 2000 ml Balance 80 ml -1260 ml Free Water 200 ml IV Total 60 ml Tube Feeding 80 ml 480 ml Other 100 ml Output Urine Total 100 ml Hemodialysis UF 2000 ml Laboratory Tests 05/02/19 23:25: White Blood Count 6.7, Red Blood Count 2.53L, Hemoglobin 8.9L, Hematocrit 25.3L , Mean Corpuscular Volume 100H, Mean Corpuscular Hemoglobin 35.2H, Mean Corpuscular Hemoglobin Concent 35.2, Red Cell Distribution Width 16.3H, Platelet Count 255, Mean Platelet Volume 4.8L, Neutrophils (%) (Auto) 52.4, Lymphocytes (%) (Auto) 25.5, Monocytes (%) (Auto) 6.6, Eosinophils (%) (Auto) 13.4H, Basophils (%) (Auto) 2.1H, Erythrocyte Sedimentation Rate 120H, Sodium Level 137, Potassium Level 3.5, Chloride Level 102, Carbon Dioxide Level 27, Anion Gap 8, Blood Urea Nitrogen 40H, Creatinine 3.0H, Estimat Glomerular Filtration Rate 16.0, Glucose Level 103, Calcium Level 9.0, Phosphorus Level 1.8L, Magnesium Level 2.3, Total Bilirubin 0.3, Aspartate Amino Transf (AST/SGOT ) 32, Alanine Aminotransferase (ALT/SGPT) 49, Alkaline Phosphatase 232H, C- Reactive Protein, Quantitative 1.1H, Total Protein 9.7H, Albumin 3.5, Globulin 6.2, Albumin/Globulin Ratio 0.6L Height (Feet): 5 Height (Inches): 4.00 Weight (Pounds): 126 General Appearance: no apparent distress Objective no change Bandar Olmedo MD May 03, 2019 11:09
--- NOTE | 2019-05-03 11:12 | NUR ---
NURSE NOTES: Keep tube feeding off until further notice per Dr. Hillman.
--- NOTE | 2019-05-03 11:45 | NUR ---
NURSE NOTES: Pt just completed EGD bedisde procedure by Dr. Hillman. VS noted stable and recorded. Will continue to monitor. Pt to remain NPO until colonoscopy procedure tomorrow (except meds).
--- NOTE | 2019-05-03 11:46 | Anethesia Preoperative Eval ---
Anesthesia Pre-op PMH/ROS General Date of Evaluation: May 03, 2019 Time of Evaluation: 11:41 Anesthesiologist: Denny ASA Score: ASA 4 Mallampati Score Class I : Soft palate, uvula, fauces, pillars visible Class II: Soft palate, uvula, fauces visible Class III: Soft palate, base of uvula visible Class IV: Only hard plate visible Mallampati Classification: Class III Surgeon: Rafy Diagnosis: Anemia r/o GI bleed Surgical Procedure: EGD Anesthesia History: none Family History: no anesthesia problems Allergies: Coded Allergies: NO KNOWN ALLERGIES (Verified Allergy, Unknown, 04/18/18) Medications: see eMAR Patient NPO?: Yes Past Medical History Cardiovascular: Reports: HTN; Denies: CAD, [place], valve dz, arrhythmia, other Pulmonary: Reports: other - Respiratory failure vent dependent; Denies: asthma, COPD, MARIA A Gastrointestinal/Genitourinary: Reports: GERD, ESRD - on HD; Denies: CRI, other Neurologic/Psychiatric: Reports: dementia, CVA Endocrine: Reports: DM, hypothyroidism; Denies: steroids, other HEENT: Denies: cataract (L), cataract (R), glaucoma, VIEJAS (L), VIEJAS (R), other Hematology/Immune: Reports: anemia - severe of chronic d-s; Denies: DVT, bleeding disorder, other Musculoskeletal/Integumentary: Reports: DJD; Denies: OA, RA, DDD, edema, other Other: other - malnourished PMH Narrative: as above PSxH Narrative: tracheostomy PEG tube placement Anesthesia Pre-op Phys. Exam Physician Exam Last Vital Signs Date Time Temp Pulse Resp B/P (MAP) Pulse Ox O2 Delivery O2 Flow Rate FiO2 05/03/19 10:56 78 14 30 05/03/19 08:16 151/72 05/03/19 08:00 Mechanical Ventilator 05/03/19 04:00 98.4 100 04/28/19 05:00 40.0 Neurologic: other - unable to obtaine Cardiovascular: RRR, no M/R/G Respiratory: CTA Gastrointestinal: S/NT/ND Airway Exam Mallampati Score: Class III - tracheostomy in place MO: limited Neck: stiff ROM: limited Teeth: missing Dentures: no upper, no lower Anesthesia Pre-op A/P Labs Hematology Test 05/02/19 23:25 White Blood Count 6.7 K/UL (4.8-10.8) Red Blood Count 2.53 M/UL (4.20-5.40) L Hemoglobin 8.9 G/DL (12.0-16.0) L Hematocrit 25.3 % (37.0-47.0) L Mean Corpuscular Volume 100 FL (80-99) H Mean Corpuscular Hemoglobin 35.2 PG (27.0-31.0) H Mean Corpuscular Hemoglobin Concent 35.2 G/DL (32.0-36.0) Red Cell Distribution Width 16.3 % (11.6-14.8) H Platelet Count 255 K/UL (150-450) Mean Platelet Volume 4.8 FL (6.5-10.1) L Neutrophils (%) (Auto) 52.4 % (45.0-75.0) Lymphocytes (%) (Auto) 25.5 % (20.0-45.0) Monocytes (%) (Auto) 6.6 % (1.0-10.0) Eosinophils (%) (Auto) 13.4 % (0.0-3.0) H Basophils (%) (Auto) 2.1 % (0.0-2.0) H Erythrocyte Sedimentation Rate 120 MM/HR (0-30) H Chemistry Test 05/02/19 23:25 Sodium Level 137 MMOL/L (136-145) Potassium Level 3.5 MMOL/L (3.5-5.1) Chloride Level 102 MMOL/L (98-107) Carbon Dioxide Level 27 MMOL/L (21-32) Anion Gap 8 mmol/L (5-15) Blood Urea Nitrogen 40 mg/dL (7-18) H Creatinine 3.0 MG/DL (0.55-1.30) H Estimat Glomerular Filtration Rate 16.0 mL/min (>60) Glucose Level 103 MG/DL (74-106) Calcium Level 9.0 MG/DL (8.5-10.1) Phosphorus Level 1.8 MG/DL (2.5-4.9) L Magnesium Level 2.3 MG/DL (1.8-2.4) Total Bilirubin 0.3 MG/DL (0.2-1.0) Aspartate Amino Transf (AST/SGOT) 32 U/L (15-37) Alanine Aminotransferase (ALT/SGPT) 49 U/L (12-78) Alkaline Phosphatase 232 U/L (46-116) H C-Reactive Protein, Quantitative 1.1 mg/dL (0.00-0.90) H Total Protein 9.7 G/DL (6.4-8.2) H Albumin 3.5 G/DL (3.4-5.0) Globulin 6.2 g/dL Albumin/Globulin Ratio 0.6 (1.0-2.7) L Risk Assessment & Plan Assessment: ASA 4 Plan: MAC Status Change Before Surgery: Christophe Reeder MD May 03, 2019 11:46
[2019-05-03] MEDS ORDERED: Propofol 200mg/20ml IV ONE (12:00)
[2019-05-03] MEDS ORDERED: fentaNYL 100 mcg/2 mL IV ONE (12:00)
--- NOTE | 2019-05-03 12:03 | Pre-Procedure Note/Attestation ---
Pre-Procedure Note/Attestation Complete Prior to Procedure Planned Procedure: not applicable Procedure Narrative: egd Indications for Procedure Pre-Operative Diagnosis: GIB Attestation I attest that I discussed the nature of the procedure; its benefits; risks and complications; and alternatives (and the risks and benefits of such alternatives ), prior to the procedure, with the patient (or the patient's legal customer field representative). I attest that, if there was a reasonable possibility of needing a blood transfusion, the patient (or the patient's legal customer field representative) was given the [facility] standardized written summary, pursuant to the Royer Mateo Blood Safety Act ([place] Health and Safety Code # 1645, as amended). I attest that I re-evaluated the patient just prior to the surgery and that there has been no change in the patient's H&P, except as documented below: Fritz Hillman MD May 03, 2019 12:02
--- NOTE | 2019-05-03 12:12 | Endoscopy Procedure Note ---
Endoscopy Procedure Note General Indication for Procedure: gib Procedures Performed: EGD Operative Findings/Diagnosis: gastritis Specimen: yes Pt Tolerated Procedure Well: Yes Estimated Blood Loss: none Anesthesia Anesthesiologist: sarah Anesthesia: MAC Inserted Devices Implant(s) used?: No GI Core Measures 50 yrs or older w/o bx or poly: Not Applicable 10yrs. F/U recommended: Not Applicable Fritz Hillman MD May 03, 2019 12:12
--- NOTE | 2019-05-03 12:20 | Immediate Post-Op Evaluation ---
Immediate Post-Op Evalulation Immediate Post-Op Evalulation Procedure: EGD with Bx Date of Evaluation: May 03, 2019 Time of Evaluation: 12:19 IV Fluids: 100 Blood Products: none Estimated Blood Loss: none Urinary Output: none Blood Pressure Systolic: 142 Blood Pressure Diastolic: 56 Pulse Rate: 68 Respiratory Rate: 18 O2 Sat by Pulse Oximetry: 99 Temperature (Fahrenheit): 97.6 Pain Score (1-10): 1 Nausea: No Vomiting: No Complications none Patient Status: reacts, ventilated, none Hydration Status: adequate Christophe Baldwin MD May 03, 2019 12:20
--- NOTE | 2019-05-03 12:22 | 48 Hour Post Anesthesia Eval ---
Post Anesthesia Evaluation Procedure: EGD with Bx Date of Evaluation: May 03, 2019 Time of Evaluation: 13:20 Blood Pressure Systolic: 136 0: 72 Pulse Rate: 68 Respiratory Rate: 22 Temperature (Fahrenheit): 97.6 O2 Sat by Pulse Oximetry: 98 Airway: patent, other - trach in place Nausea: No Vomiting: No Pain Intensity: 1 Hydration Status: adequate Cardiopulmonary Status: stable Mental Status/LOC: patient returned to baseline Follow-up Care/Observations: n/a Post-Anesthesia Complications: none Follow-up care needed: N/A Christophe Baldwin MD May 03, 2019 12:22
--- NOTE | 2019-05-03 13:46 | General Progress Note ---
Assessment/Plan Problem List: (1) ESRD (end stage renal disease) ICD Codes: N18.6 - End stage renal disease SNOMED: 88909600 (2) COPD (chronic obstructive pulmonary disease) ICD Codes: J44.9 - Chronic obstructive pulmonary disease, unspecified SNOMED: 87670721 (3) Chronic respiratory failure ICD Codes: J96.10 - Chronic respiratory failure, unspecified whether with hypoxia or hypercapnia SNOMED: 37835639 (4) Tracheostomy dependent ICD Codes: Z93.0 - Tracheostomy status SNOMED: 757564071 (5) HTN (hypertension) ICD Codes: I10 - Essential (primary) hypertension SNOMED: 02259582 (6) Seizure ICD Codes: R56.9 - Unspecified convulsions SNOMED: 53946111 (7) CVA (cerebral vascular accident) ICD Codes: I63.9 - Cerebral infarction, unspecified SNOMED: 964481895 (8) Anemia ICD Codes: D64.9 - Anemia, unspecified SNOMED: 324214438 Qualifiers: Qualified Codes: D64.9 - Anemia, unspecified (9) Hypothyroid ICD Codes: E03.9 - Hypothyroidism, unspecified SNOMED: 09269193 Status: stable, progressing Assessment/Plan: vent dialysis prn transfuse psyc eval prn cbc bmp am ltach eval vs dc plan snf Subjective Constitutional: Reports: weakness Allergies: Coded Allergies: NO KNOWN ALLERGIES (Verified Allergy, Unknown, 04/18/18) All Systems: reviewed and negative except above Subjective trach vent asleep Objective Last 24 Hour Vital Signs Date Time Temp Pulse Resp B/P (MAP) Pulse Ox O2 Delivery O2 Flow Rate FiO2 05/03/19 12:22 68 22 98 05/03/19 12:20 68 18 99 05/03/19 12:00 30 05/03/19 12:00 Mechanical Ventilator 05/03/19 12:00 98.7 59 15 129/65 (86) 100 05/03/19 12:00 49 05/03/19 10:56 78 14 30 05/03/19 08:35 64 12 30 05/03/19 08:16 57 151/72 05/03/19 08:00 98.0 57 14 151/72 (98) 100 05/03/19 08:00 30 05/03/19 08:00 Mechanical Ventilator 05/03/19 08:00 48 05/03/19 06:56 66 14 30 05/03/19 04:35 62 12 30 05/03/19 04:00 30 05/03/19 04:00 63 05/03/19 04:00 Mechanical Ventilator 05/03/19 04:00 98.4 55 20 135/62 (86) 100 05/03/19 03:02 81 16 30 05/03/19 01:07 81 13 99 Mechanical Ventilator 30 05/03/19 00:56 71 14 30 05/03/19 00:00 59 05/03/19 00:00 98.5 63 18 147/77 (100) 98 05/03/19 00:00 Mechanical Ventilator 05/03/19 00:00 30 05/02/19 23:00 68 13 30 05/02/19 21:24 63 14 30 05/02/19 20:00 98.4 55 16 141/77 (98) 99 05/02/19 20:00 Mechanical Ventilator 05/02/19 20:00 50 05/02/19 20:00 30 05/02/19 19:17 52 13 30 05/02/19 17:49 97.3 56 12 130/63 (85) 100 05/02/19 16:00 30 05/02/19 16:00 Mechanical Ventilator 05/02/19 15:51 47 05/02/19 15:30 47 12 30 Intake and Output 05/02/19 05/03/19 18:59 06:59 Intake Total 180 ml 740 ml Output Total 100 ml 2000 ml Balance 80 ml -1260 ml Free Water 200 ml IV Total 60 ml Tube Feeding 80 ml 480 ml Other 100 ml Output Urine Total 100 ml Hemodialysis UF 2000 ml Laboratory Tests 05/02/19 23:25: White Blood Count 6.7, Red Blood Count 2.53L, Hemoglobin 8.9L, Hematocrit 25.3L , Mean Corpuscular Volume 100H, Mean Corpuscular Hemoglobin 35.2H, Mean Corpuscular Hemoglobin Concent 35.2, Red Cell Distribution Width 16.3H, Platelet Count 255, Mean Platelet Volume 4.8L, Neutrophils (%) (Auto) 52.4, Lymphocytes (%) (Auto) 25.5, Monocytes (%) (Auto) 6.6, Eosinophils (%) (Auto) 13.4H, Basophils (%) (Auto) 2.1H, Erythrocyte Sedimentation Rate 120H, Sodium Level 137, Potassium Level 3.5, Chloride Level 102, Carbon Dioxide Level 27, Anion Gap 8, Blood Urea Nitrogen 40H, Creatinine 3.0H, Estimat Glomerular Filtration Rate 16.0, Glucose Level 103, Calcium Level 9.0, Phosphorus Level 1.8L, Magnesium Level 2.3, Total Bilirubin 0.3, Aspartate Amino Transf (AST/SGOT ) 32, Alanine Aminotransferase (ALT/SGPT) 49, Alkaline Phosphatase 232H, C- Reactive Protein, Quantitative 1.1H, Total Protein 9.7H, Albumin 3.5, Globulin 6.2, Albumin/Globulin Ratio 0.6L Height (Feet): 5 Height (Inches): 4.00 Weight (Pounds): 124 General Appearance: lethargic EENT: normal ENT inspection Neck: normal alignment Cardiovascular: normal peripheral pulses, normal rate, regular rhythm Respiratory/Chest: chest wall non-tender, lungs clear, normal breath sounds Abdomen: normal bowel sounds, non tender, soft Extremities: normal inspection Edema: no edema noted Arm (L), no edema noted Arm (R), no edema noted Leg (L), no edema noted Leg (R), no edema noted Pedal (L), no edema noted Pedal (R), no edema noted Generalized Neurologic: motor weakness Skin: normal pigmentation, warm/dry Hernán Davis DO May 03, 2019 13:46
[2019-05-03] MEDS ORDERED: Nulytely 4L GT ONE ×2 (14:00→16:00)
[2019-05-03] MEDS ORDERED: Nulytely 4L GT SCH (16:00)
[2019-05-03] MEDS: D5 1/2NS w/KCl 20mEq 1,000 ML IV SCH (16:25)
--- NOTE | 2019-05-03 17:30 | Procedure Note ---
DATE OF PROCEDURE: 05/03/2019 SURGEON: Fritz Hillman M.D. REFERRING PHYSICIAN: Hernán Davis D.O. PROCEDURE: Upper endoscopy with biopsy. ANESTHESIA: Per Dr. Baldwin. INSTRUMENT: Olympus adult flexible upper endoscope. INDICATION: GI bleeding. REASON FOR PROCEDURE: The procedure, risks, benefits, and possible consequences, including hemorrhage, aspiration, perforation and infection, and alternative treatments, were explained to the patient/legal guardian by Dr. Fritz Hillman and the patient/legal guardian understood and accepted these risks. PROCEDURE IN DETAIL: After informed consent was obtained and the patient was adequately sedated, Olympus upper endoscope was advanced from mouth into the second portion of the duodenum and retroflexion was performed in the stomach. The patient has evidence of diffuse gastritis. Random biopsy from antrum was obtained to rule out H. pylori infection. G-tube was in place without any obvious G-tube ulceration or bleeding. At this time, the upper endoscope was retrieved and the procedure was terminated. SUMMARY OF FINDINGS: Gastritis, otherwise normal physical examination. RECOMMENDATIONS: Follow pathology. colonoscopy tomorrow. I want to thank Dr. Hernán Davis for this kind referral. Fritz Hillman M.D. DR: BRIAN JOB#: [id number] CC:
--- NOTE | 2019-05-03 19:15 | NUR ---
NURSE NOTES: Pt received from JENS Pimentel. Patient is in stable condition with no cardiopulmonary or respiratory distress noted. Pt is awake in bed, A&Ox4, trach to vent, Shiley 6, SIMV 12 TV 550 FiO2 30% Peep 5. Patient is NPO in anticipation of procedure scheduled for 05/04/2019. Consent for procedure pending MD consult with patient. GT is clamped and GoLytely is scheduled for 1999. L chest permcath noted and RFA 22g IV. No skin alterations noted at this time. Bed in lowest position, alarm on, side rails up x2 and padded per seizure precaution, call light within reach. Will continue to monitor. Will continue care plan.
--- NOTE | 2019-05-03 19:19 | NUR ---
HAND-OFF: Report given to JENS Doss. Pt in stable condition.
--- NOTE | 2019-05-03 20:30 | NUR ---
NURSE NOTES: Patient provided with a bed bath. Large liquid BM noted. No sample collected due to administration of GoLytely. Patient tolerated care well and continue resting in bed watching television. Bed in lowest position, safety wheels engaged, HOB elevated, call light within reach, bed alarm activated and side rails up x3 and padded per protocol.
[2019-05-03] MEDS: Dyna-Hex 2% Top Sol 2oz TOPIC SCH (20:36)
[2019-05-03] MEDS: Atorvastatin 20mg tab GT SCH (20:36)
--- NOTE | 2019-05-03 22:00 | NUR ---
NURSE NOTES: Patient provided with a bed bath. Large liquid BM noted. Patient tolerated care well and administration of GoLytely well, no adverse effects noted. Patient continues resting in bed watching television. Bed in lowest position, safety wheels engaged, HOB elevated, call light within reach, bed alarm activated and side rails up x3 and padded per protocol.
[2019-05-04] VITALS (7 sets, daily range): BP systolic 127–165; BP diastolic 66–80
--- NOTE | 2019-05-04 00:45 | NUR ---
NURSE NOTES: patients ventilator alarming went to assess patient- patients trach out at bedside with balloon inflated- Respiratory therapist called- and trach inserted back into place- pt. appears to be stable sating at 99%-on current vent settings- no distress- noted. pt. observed removing device- Talk therapy provided- and pt. teaching done regarding importance of trach- pt. understands not to pull on trach area- by nodding her head. Will continue to monitor pt. and with plan of care. Addendum: 05/04/19 at 0110 by SKYLAR NGUYỄN RN RN no bleeding noted when trach was out at bedside.
--- NOTE | 2019-05-04 01:08 | NUR ---
NURSE NOTES: left message with exchange with Jose-awaiting for call back from doctor.
--- NOTE | 2019-05-04 02:34 | NUR ---
NURSE NOTES: Patient provided with a bed bath. Large liquid BM noted. Patient tolerated care well. Patient continues resting in bed watching television. Bed in lowest position, safety wheels engaged, HOB elevated, call light within reach, bed alarm activated and side rails up x3 and padded per protocol. Will continue to monitor.
--- NOTE | 2019-05-04 03:21 | NUR ---
NURSE NOTES: Patient declined morning lab draw. Patient teaching done regarding importance of scheduled lab work, patient continues to decline. Will follow up with patient and attempt to carry out orders. Will continue to monitor.
[2019-05-04] MEDS: D5 1/2NS w/KCl 20mEq 1,000 ML IV SCH (05:01)
--- NOTE | 2019-05-04 05:54 | NUR ---
NURSE NOTES: Left a message for Dr Hillman and GI lab-stool is liquid and still brown in color Will continue to monitor.
--- NOTE | 2019-05-04 06:10 | NUR ---
NURSE NOTES: Dr Hillman called back and ordered 1 dose of magnesium citrate to be given via GT. Orders carried out.
[2019-05-04] MEDS: NovoLOG Insulin Flexpen SUBQ SCH ×4 (06:17→20:27)
--- NOTE | 2019-05-04 06:27 | General Progress Note ---
Assessment/Plan Problem List: (1) Hypercalcemia ICD Codes: E83.52 - Hypercalcemia SNOMED: 82899883 (2) HTN (hypertension) ICD Codes: I10 - Essential (primary) hypertension SNOMED: 74035108 (3) Tracheostomy dependent ICD Codes: Z93.0 - Tracheostomy status SNOMED: 791052316 (4) COPD (chronic obstructive pulmonary disease) ICD Codes: J44.9 - Chronic obstructive pulmonary disease, unspecified SNOMED: 57342648 (5) ESRD (end stage renal disease) ICD Codes: N18.6 - End stage renal disease SNOMED: 06366713 (6) Diabetes ICD Codes: E11.9 - Type 2 diabetes mellitus without complications SNOMED: 95247806 Status: stable, progressing Assessment/Plan: continue Novolog sliding scale no need for basal insulin for now TSH is mildly elevated due to non compliance continue LT4 150 mcg daily Subjective ROS Limited/Unobtainable: Yes Allergies: Coded Allergies: NO KNOWN ALLERGIES (Verified Allergy, Unknown, 04/18/18) Subjective events noted glucose values are stable Item Value Date Time Bedside Blood Glucose 96 mg/dl 05/04/19 0617 Bedside Blood Glucose 98 mg/dl 05/03/19 2100 Bedside Blood Glucose 89 mg/dl 05/03/19 1630 Bedside Blood Glucose 91 mg/dl 05/03/19 1130 Bedside Blood Glucose 97 mg/dl 05/03/19 0630 Objective Last 24 Hour Vital Signs Date Time Temp Pulse Resp B/P (MAP) Pulse Ox O2 Delivery O2 Flow Rate FiO2 05/04/19 05:30 68 17 30 05/04/19 04:00 Mechanical Ventilator 05/04/19 04:00 97.7 76 14 152/75 (100) 100 05/04/19 04:00 30 05/04/19 03:44 60 05/04/19 03:00 58 16 30 05/04/19 00:45 60 17 30 05/04/19 00:00 96.6 63 14 148/80 (102) 100 05/04/19 00:00 30 05/04/19 00:00 Mechanical Ventilator 05/03/19 23:57 53 05/03/19 23:19 57 17 30 05/03/19 21:33 49 16 30 05/03/19 21:00 96.6 52 14 135/74 (94) 100 05/03/19 20:00 Mechanical Ventilator 05/03/19 20:00 30 05/03/19 20:00 96.6 52 14 135/74 (94) 100 05/03/19 19:51 54 05/03/19 18:55 52 16 30 05/03/19 17:57 50 146/75 05/03/19 17:29 50 15 30 05/03/19 16:00 30 05/03/19 16:00 Mechanical Ventilator 05/03/19 16:00 98.5 53 15 146/75 (98) 100 05/03/19 16:00 63 05/03/19 12:30 65 14 30 05/03/19 12:22 68 22 98 05/03/19 12:20 68 18 99 05/03/19 12:00 30 05/03/19 12:00 Mechanical Ventilator 05/03/19 12:00 98.7 59 15 129/65 (86) 100 05/03/19 12:00 49 05/03/19 10:56 78 14 30 05/03/19 08:35 64 12 30 05/03/19 08:16 57 151/72 05/03/19 08:00 98.0 57 14 151/72 (98) 100 05/03/19 08:00 30 05/03/19 08:00 Mechanical Ventilator 05/03/19 08:00 48 05/03/19 06:56 66 14 30 Intake and Output 05/03/19 05/04/19 19:00 07:00 Intake Total 2243.75 ml 2824.7 ml Output Total 300 ml Balance 1943.75 ml 2824.7 ml Free Water 50 ml IV Total 193.75 ml 824.7 ml Other 2000 ml 2000 ml Output Urine Total 300 ml # Voids 1 # Bowel Movements 2 12 Height (Feet): 5 Height (Inches): 4.00 Weight (Pounds): 124 General Appearance: lethargic Cardiovascular: normal rate Respiratory/Chest: decreased breath sounds Abdomen: normal bowel sounds Objective Current Medications Medications (Trade) Dose Ordered Sig/Mira Route PRN Reason Start Time Stop Time Status Last Admin Dose Admin Acetaminophen (Tylenol) 650 mg Q4H PRN ORAL Mild Pain/Temp > 100.5 04/28/19 23:00 Amlodipine Besylate (Norvasc) 5 mg BID GT 04/28/19 18:00 05/28/19 17:59 05/03/19 17:57 Atorvastatin Calcium (Lipitor) 20 mg BEDTIME GT 04/28/19 21:00 05/28/19 20:59 05/03/19 20:36 Chlorhexidine Gluconate (Alie-Hex 2%) 1 applic DAILY@2000 TOPIC 04/29/19 20:00 05/29/19 19:59 05/03/19 20:36 Clonidine HCl (Catapres Tab) 0.1 mg Q4H PRN GT bp over 165 syst 04/28/19 12:15 05/28/19 12:14 Dextrose (Dextrose 50%) 25 ml Q30M PRN IV Hypoglycemia 04/28/19 12:00 05/28/19 11:59 Dextrose (Dextrose 50%) 50 ml Q30M PRN IV Hypoglycemia 04/28/19 12:00 05/28/19 11:59 Dextrose/ Electrolytes 1,000 ml @ 75 mls/hr [id number] IV 05/03/19 16:00 06/02/19 15:59 05/04/19 05:01 Docusate Sodium (Colace) 100 mg TID GT 04/28/19 13:00 05/28/19 11:59 05/03/19 17:57 Epoetin Rudolph (Epoetin Rudolph(ESRD on dialysis)) 10,000 unit TUE-TUE-TUE SUBQ 04/30/19 21:00 05/30/19 20:59 04/30/19 21:48 Insulin Aspart (NovoLOG) BEFORE MEALS AND HS SUBQ 04/28/19 16:30 05/28/19 16:29 05/01/19 07:07 Iron Sucrose 100 mg/Sodium Chloride 60 ml @ 240 mls/hr BEDTIME IV 05/02/19 21:00 05/06/19 21:14 05/02/19 23:31 Lansoprazole (Prevacid) 30 mg BID GT 04/30/19 11:00 05/30/19 10:59 05/03/19 17:57 Levetiracetam (Keppra) 500 mg EVERY 12 HOURS GT 04/28/19 12:00 05/28/19 11:59 05/03/19 20:36 Levothyroxine Sodium (Synthroid) 150 mcg DAILY@0730 GT 04/28/19 14:00 05/28/19 13:59 05/03/19 08:16 Magnesium Citrate (Citrate Of Magnesia) 300 ml ONCE ONCE GT 05/04/19 07:00 05/04/19 07:01 Morphine Sulfate (Morphine Sulfate) 4 mg PRN PRN IVP Moderate Pain (Pain Scale 4-6) 04/28/19 02:[address] MD May 04, 2019 06:27
[2019-05-04] MEDS ORDERED: Magnesium Citrate Liq Btl GT ONE (07:30)
--- NOTE | 2019-05-04 07:34 | NUR ---
HAND-OFF: Report given to JENS Molina. Patient is in stable condition with no cardiopulmonary or distress noted. Pt is awake in bed, A&Ox4, trach to vent, Shiley 6, SIMV 12 TV 550 FiO2 30% Peep 5. Patient is NPO in anticipation of procedure scheduled for 05/04/2019. Consent for procedure pending MD consult with patient. Endorsed tomorning nurse to follow up regarding administration of mag citrate since stool is not yet clear. GT is clamped with no residual noted. Endorsed to oncoming nurse that pt was observed pulling out trach and to follow up with Dr Davis regarding restraint order. L chest permcath noted and RFA 22g IV. No skin alterations noted at this time. Bed in lowest position, alarm on, side rails up x2 and padded per seizure precaution, call light within reach. Will continue to monitor. Will continue care plan.
--- NOTE | 2019-05-04 07:52 | NUR ---
RESPIRATORY NOTE: received pt on vent on current settings. pt is trach with shiley [address], secured via trach tie/guard. no visible redness or skin tears around stoma/neck. no signs of resp distress at this time. pt refusing sxn as well. alarms are set and audible with back up trach and ambu bag at bedside. will cont to monitor
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
--- NOTE | 2019-05-04 08:00 | NUR ---
NURSE NOTES: Report received from Jarek COLINDRES and JavonRN.Pt resting quietly in bed awake,alert ,follows command ,with restraints to RT hand only,appears pt was confused during the night,but today appears lucid.Pt with trach tube to Vent,on current settings tolerating well no resp distress presented,no signs of pain or discomfort,on S-ramon on the monitor ,HR 50's /min,kept NPO for Colonoscopy,GT clamped,incontinent of urine and stools,skin warm ,dry and intact,IV site to RFA with IVF D51/2 NS +20 meq KCL at 75ml/hr,Pt is a HD ,with Permacath to LT chest wall,SR up x2,bed lock in lowest position HOB elevated will continue with plans of care.
--- NOTE | 2019-05-04 08:21 | Pre-Procedure Note/Attestation ---
Pre-Procedure Note/Attestation Complete Prior to Procedure Planned Procedure: not applicable Procedure Narrative: colonoscopy Indications for Procedure Pre-Operative Diagnosis: GIB Attestation I attest that I discussed the nature of the procedure; its benefits; risks and complications; and alternatives (and the risks and benefits of such alternatives ), prior to the procedure, with the patient (or the patient's legal sales representative [employer]). I attest that, if there was a reasonable possibility of needing a blood transfusion, the patient (or the patient's legal sales representative [employer]) was given the [facility] standardized written summary, pursuant to the Royer Mateo Blood Safety Act ([place] Health and Safety Code # 1645, as amended). I attest that I re-evaluated the patient just prior to the surgery and that there has been no change in the patient's H&P, except as documented below: Fritz Hillman MD May 04, 2019 08:21
--- NOTE | 2019-05-04 08:25 | NUR ---
NURSE NOTES: NURSE NOTES: Dr Ramos at bedside,explained to Pt re the procedure Colonoscopy,pt nodded in understanding rt wrist restraint released and pt signed the consent.
--- NOTE | 2019-05-04 09:00 | NUR ---
NURSE NOTES: With ongoing Colonoscopy at bedside,by Dr Ramos,procedure tolerated no resp distress noted.
--- NOTE | 2019-05-04 09:11 | General Progress Note ---
Assessment/Plan Problem List: (1) ESRD (end stage renal disease) ICD Codes: N18.6 - End stage renal disease SNOMED: 25042507 (2) COPD (chronic obstructive pulmonary disease) ICD Codes: J44.9 - Chronic obstructive pulmonary disease, unspecified SNOMED: 07543122 (3) Chronic respiratory failure ICD Codes: J96.10 - Chronic respiratory failure, unspecified whether with hypoxia or hypercapnia SNOMED: 07960452 (4) Tracheostomy dependent ICD Codes: Z93.0 - Tracheostomy status SNOMED: 722535832 (5) HTN (hypertension) ICD Codes: I10 - Essential (primary) hypertension SNOMED: 89577070 (6) Seizure ICD Codes: R56.9 - Unspecified convulsions SNOMED: 41899669 (7) CVA (cerebral vascular accident) ICD Codes: I63.9 - Cerebral infarction, unspecified SNOMED: 151746022 (8) Anemia ICD Codes: D64.9 - Anemia, unspecified SNOMED: 271095596 Qualifiers: Qualified Codes: D64.9 - Anemia, unspecified (9) Hypothyroid ICD Codes: E03.9 - Hypothyroidism, unspecified SNOMED: 73316170 Status: unchanged Assessment/Plan: vent dialysis prn transfuse psyc eval prn cbc bmp am ltach eval vs dc plan snf Subjective Constitutional: Reports: weakness Allergies: Coded Allergies: NO KNOWN ALLERGIES (Verified Allergy, Unknown, 04/18/18) All Systems: reviewed and negative except above Subjective trach vent asleep Objective Last 24 Hour Vital Signs Date Time Temp Pulse Resp B/P (MAP) Pulse Ox O2 Delivery O2 Flow Rate FiO2 05/04/19 08:00 97.2 50 12 162/74 (103) 100 05/04/19 07:44 50 12 30 05/04/19 05:30 68 17 30 05/04/19 04:00 Mechanical Ventilator 05/04/19 04:00 97.7 76 14 152/75 (100) 100 05/04/19 04:00 30 05/04/19 03:44 60 05/04/19 03:00 58 16 30 05/04/19 00:45 60 17 30 05/04/19 00:00 96.6 63 14 148/80 (102) 100 05/04/19 00:00 30 05/04/19 00:00 Mechanical Ventilator 05/03/19 23:57 53 05/03/19 23:19 57 17 30 05/03/19 21:33 49 16 30 05/03/19 21:00 96.6 52 14 135/74 (94) 100 05/03/19 20:00 Mechanical Ventilator 05/03/19 20:00 30 05/03/19 20:00 96.6 52 14 135/74 (94) 100 05/03/19 19:51 54 05/03/19 18:55 52 16 30 05/03/19 17:57 50 146/75 05/03/19 17:29 50 15 30 05/03/19 16:00 30 05/03/19 16:00 Mechanical Ventilator 05/03/19 16:00 98.5 53 15 146/75 (98) 100 05/03/19 16:00 63 05/03/19 12:30 65 14 30 05/03/19 12:22 68 22 98 05/03/19 12:20 68 18 99 05/03/19 12:00 30 05/03/19 12:00 Mechanical Ventilator 05/03/19 12:00 98.7 59 15 129/65 (86) 100 05/03/19 12:00 49 05/03/19 10:56 78 14 30 Intake and Output 05/03/19 05/04/19 19:00 07:00 Intake Total 2243.75 ml 2899.7 ml Output Total 300 ml Balance 1943.75 ml 2899.7 ml Free Water 50 ml IV Total 193.75 ml 899.7 ml Other 2000 ml 2000 ml Output Urine Total 300 ml # Voids 1 # Bowel Movements 2 12 Height (Feet): 5 Height (Inches): 4.00 Weight (Pounds): 124 General Appearance: lethargic EENT: normal ENT inspection Neck: normal alignment Cardiovascular: normal peripheral pulses, normal rate, regular rhythm Respiratory/Chest: chest wall non-tender, lungs clear, normal breath sounds Abdomen: normal bowel sounds, non tender, soft Extremities: normal inspection Edema: no edema noted Arm (L), no edema noted Arm (R), no edema noted Leg (L), no edema noted Leg (R), no edema noted Pedal (L), no edema noted Pedal (R), no edema noted Generalized Neurologic: motor weakness Skin: normal pigmentation, warm/dry Davis,Hernán Chi-Jerilyn DO May 04, 2019 09:11
--- NOTE | 2019-05-04 09:27 | Endoscopy Procedure Note ---
Endoscopy Procedure Note General Indication for Procedure: anemia Procedures Performed: colonoscopy Operative Findings/Diagnosis: poor prep Specimen: none Pt Tolerated Procedure Well: Yes Estimated Blood Loss: none Anesthesia Anesthesiologist: lisa Anesthesia: MAC Inserted Devices Implant(s) used?: No Quality Quality of Bowel Preparation: Poor Did scope reach the cecum?: Yes Was there any complications?: No GI Core Measures 50 yrs or older w/o bx or poly: Not Applicable 10yrs. F/U recommended: Not Applicable Frtiz Hillman MD May 04, 2019 09:27
--- NOTE | 2019-05-04 09:30 | NUR ---
RESPIRATORY NOTE: Received pt on SIMV 12-500ml-30%FiO2- PS 20- peep 5. Pt is trach dependent with Trach cuffed, Shiley 6, secured with trach ties. Pt is awake, alert, able to follow commands. No SOB or resp distress noted at this time. Alarms are set and audible, vent is plugged into the red outlet, ambu bag and spare trach kit are at bedside. Will continue to monitor pt.
--- NOTE | 2019-05-04 09:34 | Anethesia Preoperative Eval ---
Anesthesia Pre-op PMH/ROS General Date of Evaluation: May 04, 2019 Time of Evaluation: 08:50 Anesthesiologist: irina ASA Score: ASA 3 Mallampati Score Class I : Soft palate, uvula, fauces, pillars visible Class II: Soft palate, uvula, fauces visible Class III: Soft palate, base of uvula visible Class IV: Only hard plate visible Mallampati Classification: Class III Surgeon: rita Diagnosis: anemia Surgical Procedure: Colonoscopy Anesthesia History: none Family History: no anesthesia problems Allergies: Coded Allergies: NO KNOWN ALLERGIES (Verified Allergy, Unknown, 04/18/18) Medications: see eMAR Patient NPO?: Yes Past Medical History Cardiovascular: Reports: HTN Pulmonary: Reports: other - chronic resp failure/ trach vent Gastrointestinal/Genitourinary: Reports: GERD, ESRD Neurologic/Psychiatric: Reports: CVA, other - seizure Endocrine: Reports: DM, hypothyroidism Hematology/Immune: Reports: anemia Musculoskeletal/Integumentary: Denies: OA, RA, DJD, DDD, edema, other PSxH Narrative: trach vent Anesthesia Pre-op Phys. Exam Physician Exam Last Vital Signs Date Time Temp Pulse Resp B/P (MAP) Pulse Ox O2 Delivery O2 Flow Rate FiO2 05/04/19 08:00 97.2 50 12 162/74 (103) 100 05/04/19 07:44 30 05/04/19 04:00 Mechanical Ventilator 04/28/19 05:00 40.0 Constitutional: NAD Neurologic: CN 2-12 intact Cardiovascular: RRR Respiratory: CTA Gastrointestinal: S/NT/ND Airway Exam Mallampati Classification 2 Mallampati Score: Class III - tracheostomy in place MO: limited ROM: limited Dentures: no upper, no lower Anesthesia Pre-op A/P Studies Pre-op Studies: EKG - sb Risk Assessment & Plan Plan: mac Status Change Before Surgery: No Pre-Antibiotics Drug: none Connie Jiménez CRNA May 04, 2019 09:34
--- NOTE | 2019-05-04 09:35 | Immediate Post-Op Evaluation ---
Immediate Post-Op Evalulation Immediate Post-Op Evalulation Procedure: colonoscopy Date of Evaluation: May 04, 2019 Time of Evaluation: 09:34 IV Fluids: 300 Blood Pressure Systolic: 155 Blood Pressure Diastolic: 70 Pulse Rate: 52 Respiratory Rate: 12 O2 Sat by Pulse Oximetry: 100 Nausea: No Vomiting: No Patient Status: awake, reacts, ventilated - SIMV 30% 12 500 Hydration Status: adequate Drug: none Connie Jiménez CRNA May 04, 2019 09:35
--- NOTE | 2019-05-04 09:40 | NUR ---
*-* INSURANCE *-* ALL AVAILABLE CLINICALS HAVE BEEN FAXED TO: [facility]# [id number] [place]:IRLANDA #[phone]
[2019-05-04] MEDS: Docusate 100mg/10ml Liq GT SCH ×3 (10:10→17:59)
--- NOTE | 2019-05-04 10:33 | 48 Hour Post Anesthesia Eval ---
Post Anesthesia Evaluation Procedure: colonoscopy Date of Evaluation: May 04, 2019 Time of Evaluation: 10:30 Blood Pressure Systolic: 155 0: 50 Pulse Rate: 50 Respiratory Rate: 14 O2 Sat by Pulse Oximetry: 100 Airway: patent Nausea: No Vomiting: No Hydration Status: adequate Mental Status/LOC: patient returned to baseline Follow-up Care/Observations: na Post-Anesthesia Complications: na Follow-up care needed: N/A Connie Jiménez CRNA May 04, 2019 10:33
--- NOTE | 2019-05-04 11:01 | Hematology/Onc Progress Note ---
Assessment/Plan Assessment/Plan ASSESSMENT AND RECOMMENDATIONS: #. Anemia due to underlying iron deficiency. Continue to closely monitor. Anemia workup has been ordered. Hemoglobin goal is above 7. Transfuse as needed. No evidence of reticulocytosis or hemolysis at the moment. --> panel reviewed from this admission --> okay to start on epo given esrd --> started on iv iron --> transf if hgb <7 --> is to continue on synthroid --> hgb 7.7-->7.5-->5.9-->8.9 --> Has been REFUSING HD AND TRANSFUSIONS (occasionally does agree) --> COLO EGD Results to follow #. Anemia due to underlying gi bleed, as occult is + --> has been seen by gi and pending potential egd --> has been dw patient, considering once more stable #. Hypercalcemia -- in this case less likely due to malignancy but is from esrd --> keep phos-ca product low --> Ca+ trend, pamidronate/lasix as needed --> Ca+ 10.7-->10-->9 --> ivf as prn #. ESRD on hd 3 times a week --> phos binders per renal --> titrate fluid volume status as needed --> refusing hd at this time #. Diabetes mellitus. A1c goal less than 7. #. Seizure disorder. --> per Neuro, hx of cva in the past #. Dysphagia s/p peg #. Resp failure s/p trach #. Dvt ppx scds Appreciate the consultation and huseyin RN. Subjective Constitutional: Denies: no symptoms, chills, fever, malaise, weakness, other HEENT: Denies: no symptoms, eye pain, blurred vision, tearing, double vision, ear pain, ear discharge, nose pain, nose congestion, throat pain, throat swelling, mouth pain, mouth swelling, other Cardiovascular: Denies: no symptoms, chest pain, edema, irregular heart rate, lightheadedness, palpitations, syncope, other Respiratory: Denies: no symptoms, cough, shortness of breath, SOB with excertion, SOB at rest, sputum, wheezing, other Gastrointestinal/Abdominal: Denies: no symptoms, abdomen distended, abdominal pain, black stools, tarry stools, blood in stool, constipated, diarrhea, difficulty swallowing, nausea, poor appetite, poor fluid intake, rectal bleeding , vomiting, other Genitourinary: Denies: no symptoms, burning, discharge, frequency, flank pain, hematuria, incontinence, pain, urgency, other Allergies: Coded Allergies: NO KNOWN ALLERGIES (Verified Allergy, Unknown, 04/18/18) Subjective 05/01: refusing blood transfusion, no bleeding or chills noted, also refusing hd 05/02: has been refusing prbc transfusion, as per psych recs for capacity, no n/ c today 05/03: did accept hd, and iron, refused epogen, dw patient again, doesn't want those meds 05/04: no complaints, to get colo this am, results pending, appears to be poor prep Objective Objective Current Medications Medications (Trade) Dose Ordered Sig/Mira Route PRN Reason Start Time Stop Time Status Last Admin Dose Admin Acetaminophen (Tylenol) 650 mg Q4H PRN ORAL Mild Pain/Temp > 100.5 04/28/19 23:00 Amlodipine Besylate (Norvasc) 5 mg BID GT 04/28/19 18:00 05/28/19 17:59 05/04/19 10:11 Atorvastatin Calcium (Lipitor) 20 mg BEDTIME GT 04/28/19 21:00 05/28/19 20:59 05/03/19 20:36 Chlorhexidine Gluconate (Alie-Hex 2%) 1 applic DAILY@1999 TOPIC 04/29/19 20:00 05/29/19 19:59 05/03/19 20:36 Clonidine HCl (Catapres Tab) 0.1 mg Q4H PRN GT bp over 165 syst 04/28/19 12:15 05/28/19 12:14 Dextrose (Dextrose 50%) 25 ml Q30M PRN IV Hypoglycemia 04/28/19 12:00 05/28/19 11:59 Dextrose (Dextrose 50%) 50 ml Q30M PRN IV Hypoglycemia 04/28/19 12:00 05/28/19 11:59 Dextrose/ Electrolytes 1,000 ml @ 75 mls/hr [id number] IV 05/03/19 16:00 06/02/19 15:59 05/04/19 05:01 Docusate Sodium (Colace) 100 mg TID GT 04/28/19 13:00 05/28/19 11:59 05/04/19 10:10 Epoetin Rudolph (Epoetin Rudolph(ESRD on dialysis)) 10,000 unit TUE-TUE-TUE SUBQ 04/30/19 21:00 05/30/19 20:59 04/30/19 21:48 Insulin Aspart (NovoLOG) BEFORE MEALS AND HS SUBQ 04/28/19 16:30 05/28/19 16:29 05/01/19 07:07 Iron Sucrose 100 mg/Sodium Chloride 60 ml @ 240 mls/hr BEDTIME IV 05/02/19 21:00 05/06/19 21:14 05/02/19 23:31 Lansoprazole (Prevacid) 30 mg BID GT 04/30/19 11:00 05/30/19 10:59 05/04/19 10:16 Levetiracetam (Keppra) 500 mg EVERY 12 HOURS GT 04/28/19 12:00 05/28/19 11:59 05/04/19 10:16 Levothyroxine Sodium (Synthroid) 150 mcg DAILY@0730 GT 04/28/19 14:00 05/28/19 13:59 05/04/19 10:16 Morphine Sulfate (Morphine Sulfate) 4 mg PRN PRN IVP Moderate Pain (Pain Scale 4-6) 04/28/19 02:00 Last 24 Hour Vital Signs Date Time Temp Pulse Resp B/P (MAP) Pulse Ox O2 Delivery O2 Flow Rate FiO2 05/04/19 10:33 50 14 100 05/04/19 10:11 50 162/74 05/04/19 09:35 52 12 100 05/04/19 09:30 57 12 30 05/04/19 08:00 97.2 50 12 162/74 (103) 100 05/04/19 07:44 50 12 30 05/04/19 05:30 68 17 30 05/04/19 04:00 Mechanical Ventilator 05/04/19 04:00 97.7 76 14 152/75 (100) 100 05/04/19 04:00 30 05/04/19 03:44 60 05/04/19 03:00 58 16 30 05/04/19 00:45 60 17 30 05/04/19 00:00 96.6 63 14 148/80 (102) 100 05/04/19 00:00 30 05/04/19 00:00 Mechanical Ventilator 05/03/19 23:57 53 05/03/19 23:19 57 17 30 05/03/19 21:33 49 16 30 05/03/19 21:00 96.6 52 14 135/74 (94) 100 05/03/19 20:00 Mechanical Ventilator 05/03/19 20:00 30 05/03/19 20:00 96.6 52 14 135/74 (94) 100 05/03/19 19:51 54 05/03/19 18:55 52 16 30 05/03/19 17:57 50 146/75 05/03/19 17:29 50 15 30 05/03/19 16:00 30 05/03/19 16:00 Mechanical Ventilator 05/03/19 16:00 98.5 53 15 146/75 (98) 100 05/03/19 16:00 63 05/03/19 12:30 65 14 30 05/03/19 12:22 68 22 98 05/03/19 12:20 68 18 99 05/03/19 12:00 30 05/03/19 12:00 Mechanical Ventilator 05/03/19 12:00 98.7 59 15 129/65 (86) 100 05/03/19 12:00 49 05/03/19 10:56 78 14 30 05/03/19 08:35 64 12 30 05/03/19 08:16 57 151/72 05/03/19 08:00 98.0 57 14 151/72 (98) 100 05/03/19 08:00 30 05/03/19 08:00 Mechanical Ventilator 05/03/19 08:00 48 05/03/19 06:56 66 14 30 05/03/19 04:35 62 12 30 05/03/19 04:00 30 05/03/19 04:00 63 05/03/19 04:00 Mechanical Ventilator 05/03/19 04:00 98.4 55 20 135/62 (86) 100 05/03/19 03:02 81 16 30 05/03/19 01:07 81 13 99 Mechanical Ventilator 30 05/03/19 00:56 71 14 30 05/03/19 00:00 59 05/03/19 00:00 98.5 63 18 147/77 (100) 98 05/03/19 00:00 Mechanical Ventilator 05/03/19 00:00 30 05/02/19 23:00 68 13 30 05/02/19 21:24 63 14 30 05/02/19 20:00 98.4 55 16 141/77 (98) 99 05/02/19 20:00 Mechanical Ventilator 05/02/19 20:00 50 05/02/19 20:00 30 05/02/19 19:17 52 13 30 05/02/19 17:49 97.3 56 12 130/63 (85) 100 05/02/19 16:00 30 05/02/19 16:00 Mechanical Ventilator 05/02/19 15:51 47 05/02/19 15:30 47 12 30 05/02/19 12:46 63 12 30 05/02/19 12:00 30 05/02/19 12:00 Mechanical Ventilator 05/02/19 11:43 48 05/02/19 11:19 97.9 54 14 141/75 (97) 100 05/02/19 11:13 52 12 30 Intake and Output 05/03/19 05/04/19 19:00 07:00 Intake Total 2243.75 ml 2899.7 ml Output Total 300 ml Balance 1943.75 ml 2899.7 ml Free Water 50 ml IV Total 193.75 ml 899.7 ml Other 2000 ml 2000 ml Output Urine Total 300 ml # Voids 1 # Bowel Movements 2 12 Labs Test 05/02/19 23:25 White Blood Count 6.7 K/UL (4.8-10.8) Red Blood Count 2.53 M/UL (4.20-5.40) Hemoglobin 8.9 G/DL (12.0-16.0) Hematocrit 25.3 % (37.0-47.0) Mean Corpuscular Volume 100 FL (80-99) Mean Corpuscular Hemoglobin 35.2 PG (27.0-31.0) Mean Corpuscular Hemoglobin Concent 35.2 G/DL (32.0-36.0) Red Cell Distribution Width 16.3 % (11.6-14.8) Platelet Count 255 K/UL (150-450) Mean Platelet Volume 4.8 FL (6.5-10.1) Neutrophils (%) (Auto) 52.4 % (45.0-75.0) Lymphocytes (%) (Auto) 25.5 % (20.0-45.0) Monocytes (%) (Auto) 6.6 % (1.0-10.0) Eosinophils (%) (Auto) 13.4 % (0.0-3.0) Basophils (%) (Auto) 2.1 % (0.0-2.0) Erythrocyte Sedimentation Rate 120 MM/HR (0-30) Sodium Level 137 MMOL/L (136-145) Potassium Level 3.5 MMOL/L (3.5-5.1) Chloride Level 102 MMOL/L (98-107) Carbon Dioxide Level 27 MMOL/L (21-32) Anion Gap 8 mmol/L (5-15) Blood Urea Nitrogen 40 mg/dL (7-18) Creatinine 3.0 MG/DL (0.55-1.30) Estimat Glomerular Filtration Rate 16.0 mL/min (>60) Glucose Level 103 MG/DL (74-106) Calcium Level 9.0 MG/DL (8.5-10.1) Phosphorus Level 1.8 MG/DL (2.5-4.9) Magnesium Level 2.3 MG/DL (1.8-2.4) Total Bilirubin 0.3 MG/DL (0.2-1.0) Aspartate Amino Transf (AST/SGOT) 32 U/L (15-37) Alanine Aminotransferase (ALT/SGPT) 49 U/L (12-78) Alkaline Phosphatase 232 U/L (46-116) C-Reactive Protein, Quantitative 1.1 mg/dL (0.00-0.90) Total Protein 9.7 G/DL (6.4-8.2) Albumin 3.5 G/DL (3.4-5.0) Globulin 6.2 g/dL Albumin/Globulin Ratio 0.6 (1.0-2.7) Height (Feet): 5 Height (Inches): 4.00 Weight (Pounds): 124 Objective PHYSICAL EXAMINATION: VITAL SIGNS: Reviewed. GENERAL: No distress. PULMONARY: Decreased breath sounds. ++ trach/vent CARDIOVASCULAR: Regular rate. No S3 or S4. ABDOMEN: Soft, nontender, and nondistended. ++ gtube EXTREMITIES: No cyanosis, swelling, or edema noted. Roly Palomares MD May 04, 2019 11:01
--- NOTE | 2019-05-04 11:13 | Nephrology Progress Note ---
Assessment/Plan Problem List: (1) ESRD (end stage renal disease) (2) Chronic respiratory failure (3) Anemia Assessment: worsened (4) Hypothyroid (5) Hypercalcemia Assessment ESRD Anemia; ESRD or blood loss or both Sz HypoThyroid HTN DM Hypercalcemia Plan dialysis- done 05/02 refusing blood work today Still refusing lab work Hgb better- not transfused HD in am 05/05 previously: Was Due dialysis 04/30 when dialysis nurse attempted, the patient decl;ined dialysis and consent ! ? Psych eval for decision making ability? need transfusion waiting for psych advise Anemia [place] EPO HD as needed scheduled for 04/30 Keep BP in check watch serum Ca one dose Aredia 60 Subjective ROS Limited/Unobtainable: No Constitutional: Reports: malaise Objective Objective Last 24 Hour Vital Signs Date Time Temp Pulse Resp B/P (MAP) Pulse Ox O2 Delivery O2 Flow Rate FiO2 05/04/19 10:33 50 14 100 05/04/19 10:11 50 162/74 05/04/19 09:35 52 12 100 05/04/19 09:30 57 12 30 05/04/19 08:00 97.2 50 12 162/74 (103) 100 05/04/19 07:44 50 12 30 05/04/19 05:30 68 17 30 05/04/19 04:00 Mechanical Ventilator 05/04/19 04:00 97.7 76 14 152/75 (100) 100 05/04/19 04:00 30 05/04/19 03:44 60 05/04/19 03:00 58 16 30 05/04/19 00:45 60 17 30 05/04/19 00:00 96.6 63 14 148/80 (102) 100 05/04/19 00:00 30 05/04/19 00:00 Mechanical Ventilator 05/03/19 23:57 53 05/03/19 23:19 57 17 30 05/03/19 21:33 49 16 30 05/03/19 21:00 96.6 52 14 135/74 (94) 100 05/03/19 20:00 Mechanical Ventilator 05/03/19 20:00 30 05/03/19 20:00 96.6 52 14 135/74 (94) 100 05/03/19 19:51 54 05/03/19 18:55 52 16 30 05/03/19 17:57 50 146/75 05/03/19 17:29 50 15 30 05/03/19 16:00 30 05/03/19 16:00 Mechanical Ventilator 05/03/19 16:00 98.5 53 15 146/75 (98) 100 05/03/19 16:00 63 05/03/19 12:30 65 14 30 05/03/19 12:22 68 22 98 05/03/19 12:20 68 18 99 05/03/19 12:00 30 05/03/19 12:00 Mechanical Ventilator 05/03/19 12:00 98.7 59 15 129/65 (86) 100 05/03/19 12:00 49 Intake and Output 05/03/19 05/04/19 19:00 07:00 Intake Total 2243.75 ml 2899.7 ml Output Total 300 ml Balance 1943.75 ml 2899.7 ml Free Water 50 ml IV Total 193.75 ml 899.7 ml Other 2000 ml 2000 ml Output Urine Total 300 ml # Voids 1 # Bowel Movements 2 12 Height (Feet): 5 Height (Inches): 4.00 Weight (Pounds): 124 General Appearance: no apparent distress EENT: other - trach Respiratory/Chest: decreased breath sounds Abdomen: distended Objective no change Bandar Olmedo MD May 04, 2019 11:13
--- NOTE | 2019-05-04 11:58 | Pulmonolgy Critical Care Note ---
Critical Care - Asmt/Plan Problems: (1) Chronic respiratory failure (2) COPD (chronic obstructive pulmonary disease) (3) Tracheostomy dependent (4) Anemia (5) ESRD (end stage renal disease) (6) At high risk for aspiration (7) Heme positive stool (8) HTN (hypertension) (9) Seizure (10) CVA (cerebral vascular accident) (11) Diabetes Respiratory: monitor respiratory rate, adjust FIO2, CXR Renal: F/U I&O, check electrolytes Infectious Disease: check cultures Gastrointestinal: continue feedings/current rate Hematologic: transfuse if hgb<8.5 Neurologic: PRN Ativan, keep patient comfortable Affect: PRN ativan Time Spent (Minutes): 40 Notes Reviewed: hide sorter Discussed with: nurses, consultants, case specialistconcert manager - Objective Last 24 Hour Vital Signs Date Time Temp Pulse Resp B/P (MAP) Pulse Ox O2 Delivery O2 Flow Rate FiO2 05/04/19 11:26 58 14 30 05/04/19 10:33 50 14 100 05/04/19 10:11 50 162/74 05/04/19 09:35 52 12 100 05/04/19 09:30 57 12 30 05/04/19 08:00 97.2 50 12 162/74 (103) 100 05/04/19 07:44 50 12 30 05/04/19 05:30 68 17 30 05/04/19 04:00 Mechanical Ventilator 05/04/19 04:00 97.7 76 14 152/75 (100) 100 05/04/19 04:00 30 05/04/19 03:44 60 05/04/19 03:00 58 16 30 05/04/19 00:45 60 17 30 05/04/19 00:00 96.6 63 14 148/80 (102) 100 05/04/19 00:00 30 05/04/19 00:00 Mechanical Ventilator 05/03/19 23:57 53 05/03/19 23:19 57 17 30 05/03/19 21:33 49 16 30 05/03/19 21:00 96.6 52 14 135/74 (94) 100 05/03/19 20:00 Mechanical Ventilator 05/03/19 20:00 30 05/03/19 20:00 96.6 52 14 135/74 (94) 100 05/03/19 19:51 54 05/03/19 18:55 52 16 30 05/03/19 17:57 50 146/75 05/03/19 17:29 50 15 30 05/03/19 16:00 30 05/03/19 16:00 Mechanical Ventilator 05/03/19 16:00 98.5 53 15 146/75 (98) 100 05/03/19 16:00 63 05/03/19 12:30 65 14 30 05/03/19 12:22 68 22 98 05/03/19 12:20 68 18 99 05/03/19 12:00 30 05/03/19 12:00 Mechanical Ventilator 05/03/19 12:00 98.7 59 15 129/65 (86) 100 05/03/19 12:00 49 Status: awake Condition: grave HEENT: atraumatic Neck: full ROM Lungs: rales, rhonchi Heart: HR/BP stable Abdomen: soft, active bowel sounds Extremities: no C/C/E Accucheck: 96 Critical Care - Subjective ROS Limited/Unobtainable: Yes Condition: critical EKG Rhythm: Sinus Rhythm FI02: 30 Vent Support Breath Rate: 12 Vent Support Mode: IMV/SIMV Vent Tidal Volume: 500 Sputum Amount: Small PEEP: 5.0 PIP: 15 I&O: Intake and Output 05/03/19 05/04/19 19:00 07:00 Intake Total 2243.75 ml 2899.7 ml Output Total 300 ml Balance 1943.75 ml 2899.7 ml Free Water 50 ml IV Total 193.75 ml 899.7 ml Other 2000 ml 2000 ml Output Urine Total 300 ml # Voids 1 # Bowel Movements 2 12 CXR: no changes Sheri Elias MD May 04, 2019 11:58
--- NOTE | 2019-05-04 12:00 | NUR ---
NURSE NOTES: Oral/Tracheal secretions suctioned PRN,pulled up and repositioned,kept dry and clean,pt incontinent of liquid brown stools.
--- NOTE | 2019-05-04 12:10 | NUR ---
RD ASSESSMENT & RECOMMENDATIONS SEE CARE ACTIVITY FOR COMPLETE ASSESSMENT DAILY ESTIMATED NEEDS: Needs based on Critical care/ pulmonary, ESRD + HD/ 57kg 22-31 kcals/kg 2637-9666 total kcals 1.2-2 (w/ HD refusal, .6-1) g protein/kg 68-114 (34-57) g total protein Fluid per MD, on HD NUTRITION DIAGNOSIS: * Swallowing difficulty R/T respiratory status, dysphagia as evidenced by trach/vent dep, h/o GT placement, pt on pureed diet + GT feeding STEEL HEATER. * Increased kcal/prot needs R/T ESRD dx as evidenced by pt is HD dependent. CURRENT TF:Nepro @40 x22 hrs (on synthroid) ENTERAL NUTRITION RECOMMENDATIONS: Nepro @ 40ml/hr x 24 hrs to provide 960ml, 1728kcal, 78g prot, 698ml free water * Rec Nepro @ goal rate of 40ml/hr x 24 hrs * HOB over 30 degrees/ water flush per MD ------ If pt continues to refuse HD therapy, rec to decrease current TF of Nepro to goal of 32ml/hr x22 hrs (on synthroid meds): to provide 704ml, 1267 kcal, 57g pr, 512ml free H2o ADDITIONAL RECOMMENDATIONS: * Per SNF : HT=63", SP=746msm (04/21/19) -> rec calibrated bedscale wt, obtain dry wt post HD * SWIMMING PROFESSOR EVALUATION PRIOR TO ORAL DIET * Monitor lytes * Monitor BGs, need for NISS : h/o diabetes * Rec to lower TF to goal of 32ml/hr x22 hrs w/ HD refusal
--- NOTE | 2019-05-04 15:45 | Procedure Note ---
DATE OF PROCEDURE: 05/04/2019 SURGEON: Fritz Hillman M.D. PROCEDURE: Colonoscopy. ANESTHESIA: Per Connie MOLINA. INSTRUMENT: Olympus adult flexible colonoscope. INDICATION: Elevated and anemia. REASON FOR PROCEDURE: The procedure, risks, benefits, and possible consequences, including hemorrhage, aspiration, perforation and infection, and alternative treatments, were explained to the patient/legal guardian by Dr. Fritz Hillman and the patient/legal guardian understood and accepted these risks. PROCEDURE IN DETAIL: After informed consent was obtained and the patient was adequately sedated, first rectal exam was performed, which showed internal hemorrhoids. Then, the scope was advanced from the rectum into the cecum documented by appendiceal orifice, ileocecal valve, and right upper quadrant palpation. Quality of prep was poor, especially in the left colon was full of solid stool. There was no obvious active bleeding. No diverticulosis, no polyp, no mass was seen, but again this examination was limited given this quality of prep. Retroflexion of the rectum was limited also given there was stool in the rectum. SUMMARY OF FINDINGS: 1. Poor colonic prep. 2. No obvious source of bleeding or mass was seen with this prep. RECOMMENDATIONS: Resume diet. G-tube feeding. Follow laboratories. Discharge planning per primary team. Monitor hemoglobin and hematocrit. Transfuse as needed to keep hemoglobin above 7. I want to thank Dr. Hernán Davis, for this kind referral. Fritz Hillman M.D. DR: ALTHEA JOB#: [id number] CC: Hernán Davis D.O.
--- NOTE | 2019-05-04 15:48 | NUR ---
CEREAL CHEMIST NOTES PT ACCEPTED BACK TO [facility] 23 BED B. PENDING CLEARANCE FROM CONSULTS. NURSE MADE AWARE. Addendum: 05/04/19 at 1647 by GER DANGELO RN RN NURSE TO CALL REPORT TO [phone].
--- NOTE | 2019-05-04 18:00 | NUR ---
NURSE NOTES: Pt sleeping quietly noted goes bradycardeic when asleep ,, HR 39/min,asymptomatic,no distress noted.
--- NOTE | 2019-05-04 19:25 | NUR ---
HAND-OFF: Report given to Leatha Balderrama RN.
--- NOTE | 2019-05-04 19:26 | NUR ---
NURSE NOTES: received pt from Nadia COLINDRES., pt is awake and alert x4 and resting on the bed. Right FA 22G IV site is intact, patent, and clean. Gtube site is intact and feeding is running at 40ml/hr. pt does not want to wear SCD, explained the risks and benefits for the not wearing SCDs for Bilateral extremities. Perma cath on left upper chest dressing clean, intact, and patent. Trach in place pt is bed at the lowest position, alarmed, and locked. call light within reach. will continue to monitor pt with plan of care.
[2019-05-04] MEDS: Dyna-Hex 2% Top Sol 2oz TOPIC SCH (20:25)
[2019-05-04] MEDS: Iron Sucrose 100 MG in NS 55 ML IV SCH (20:25)
[2019-05-04] MEDS: Atorvastatin 20mg tab GT SCH (20:25)
[2019-05-04] MEDS: Epoetin Alfa-EPBX(ESRD on dialysis)10,000 unit/ml vial SUBQ SCH (20:26)
[2019-05-04] MEDS ORDERED: D5 1/2NS 1000ml IV ONE (21:11)
[2019-05-04] MEDS ORDERED: NS 275ml ONE (21:11)
[2019-05-04] MEDS ORDERED: Tubing IV Secondary IV ONE (21:11)
[2019-05-05] VITALS: BP 137/75
[2019-05-05 04:00] VITALS: BP 139/77
--- NOTE | 2019-05-05 04:00 | NUR ---
NURSE NOTES: gave oral care and bath to pt. pt is little agitated and forgetful. V/S are stable.
[2019-05-05] MEDS: NovoLOG Insulin Flexpen SUBQ SCH ×4 (06:10→20:30)
--- NOTE | 2019-05-05 07:27 | NUR ---
NURSE NOTES: notified Dr. Eilas regarding pt is keep refusing the lab for today and yesterday.
--- NOTE | 2019-05-05 07:27 | NUR ---
HAND-OFF: Report given to Ana COLINDRES., pt is stable condition. endorsed pt is refusing blood work to be done.
--- NOTE | 2019-05-05 07:45 | NUR ---
NURSE NOTES: Report received from Leatha COLINDRES. Pt awake, alert and oriented x4, able to make needs known via writing. Pt SB on monitoring analyst. Pt refusing labs again today, made aware. Pt on trache to vent shiley #6, SIMV TV 500, 30%, PEEP 5. Pt on GTF Nepro 40 cc/hr. Dialysis scheduled for today. RFA noted and intact, Left permacath noted and intact. Safety measures in place with bed locked and in lowest position, side rails x 3 up and bed alarm on. Will continue to monitor and continue plan of care.
[2019-05-05 08:00] VITALS: BP 163/78
--- NOTE | 2019-05-05 08:11 | Pulmonolgy Critical Care Note ---
Critical Care - Asmt/Plan Problems: (1) Chronic respiratory failure (2) COPD (chronic obstructive pulmonary disease) (3) ESRD (end stage renal disease) (4) Tracheostomy dependent (5) Anemia (6) At high risk for aspiration (7) Heme positive stool (8) HTN (hypertension) (9) Seizure (10) CVA (cerebral vascular accident) (11) Diabetes Respiratory: monitor respiratory rate, adjust FIO2 Cardiac: continue to monitor HR/BP Renal: F/U I&O, check electrolytes, other - HD by nephrology Infectious Disease: check cultures Gastrointestinal: continue feedings/current rate Endocrine: monitor blood sugar Hematologic: monitor H/H Neurologic: PRN Morphine Affect: PRN ativan Prophylaxis: Protonix Notes Reviewed: cardio, ID Discussed with: nurses, consultants Critical Care - Objective Last 24 Hour Vital Signs Date Time Temp Pulse Resp B/P (MAP) Pulse Ox O2 Delivery O2 Flow Rate FiO2 05/05/19 07:09 46 15 30 05/05/19 05:00 51 14 30 05/05/19 04:00 97.4 55 15 139/77 (97) 100 05/05/19 04:00 30 05/05/19 04:00 Mechanical Ventilator 05/05/19 03:47 59 05/05/19 02:52 68 12 30 05/05/19 01:16 61 15 30 05/05/19 00:00 Mechanical Ventilator 05/05/19 00:00 30 05/05/19 00:00 97.4 54 14 137/75 (95) 100 05/05/19 00:00 51 05/04/19 22:38 60 14 30 05/04/19 21:00 51 12 30 05/04/19 20:00 Mechanical Ventilator 05/04/19 20:00 97.4 59 13 127/70 (89) 100 05/04/19 20:00 30 05/04/19 19:48 51 05/04/19 19:08 54 12 30 05/04/19 17:59 42 141/66 05/04/19 16:50 42 14 30 05/04/19 16:01 Mechanical Ventilator 05/04/19 16:00 30 05/04/19 16:00 97.5 50 12 165/74 (104) 100 05/04/19 16:00 43 05/04/19 14:49 43 12 30 05/04/19 13:09 45 13 30 05/04/19 12:01 Mechanical Ventilator 05/04/19 12:00 30 05/04/19 12:00 97.8 53 12 141/66 (91) 100 05/04/19 11:34 54 05/04/19 11:26 58 14 30 05/04/19 10:33 50 14 100 05/04/19 10:11 50 162/74 05/04/19 09:35 52 12 100 05/04/19 09:30 57 12 30 Status: awake HEENT: atraumatic Neck: full ROM Lungs: rhonchi Heart: HR/BP stable Abdomen: soft, non-tender Extremities: no C/C/E Accucheck: 124 Critical Care - Subjective ROS Limited/Unobtainable: No EKG Rhythm: Sinus Rhythm FI02: 30 Vent Support Breath Rate: 12 Vent Support Mode: IMV/SIMV Vent Tidal Volume: 500 Sputum Amount: Scant PEEP: 5.0 PIP: 19 Tube Feeding Amount: 40 I&O: Intake and Output 05/04/19 05/05/19 19:00 07:00 Intake Total 1015 ml 600 ml Output Total 4 ml Balance 1011 ml 600 ml Free Water 20 ml 60 ml IV Total 675 ml 60 ml Tube Feeding 320 ml 480 ml Output Urine Total 4 ml # Voids 5 # Bowel Movements 10 Labs: pt refused blood testing Sheri Elias MD May 05, 2019 08:11
[2019-05-05] MEDS: Docusate 100mg/10ml Liq GT SCH ×3 (09:00→18:00)
--- NOTE | 2019-05-05 09:56 | General Progress Note ---
Assessment/Plan Problem List: (1) ESRD (end stage renal disease) ICD Codes: N18.6 - End stage renal disease SNOMED: 35601660 (2) COPD (chronic obstructive pulmonary disease) ICD Codes: J44.9 - Chronic obstructive pulmonary disease, unspecified SNOMED: 52553188 (3) Chronic respiratory failure ICD Codes: J96.10 - Chronic respiratory failure, unspecified whether with hypoxia or hypercapnia SNOMED: 50997320 (4) Tracheostomy dependent ICD Codes: Z93.0 - Tracheostomy status SNOMED: 474371818 (5) HTN (hypertension) ICD Codes: I10 - Essential (primary) hypertension SNOMED: 84632095 (6) Seizure ICD Codes: R56.9 - Unspecified convulsions SNOMED: 36744466 (7) CVA (cerebral vascular accident) ICD Codes: I63.9 - Cerebral infarction, unspecified SNOMED: 938585797 (8) Anemia ICD Codes: D64.9 - Anemia, unspecified SNOMED: 803807979 Qualifiers: Qualified Codes: D64.9 - Anemia, unspecified (9) Hypothyroid ICD Codes: E03.9 - Hypothyroidism, unspecified SNOMED: 76356226 Status: unchanged Assessment/Plan: vent dialysis prn transfuse psyc eval prn cbc bmp am ltach eval vs dc plan snf Subjective Constitutional: Reports: weakness Allergies: Coded Allergies: NO KNOWN ALLERGIES (Verified Allergy, Unknown, 04/18/18) All Systems: reviewed and negative except above Subjective trach vent asleep Objective Last 24 Hour Vital Signs Date Time Temp Pulse Resp B/P (MAP) Pulse Ox O2 Delivery O2 Flow Rate FiO2 05/05/19 08:39 20 12 30 05/05/19 08:00 97.7 57 18 163/78 (106) 100 05/05/19 08:00 30 05/05/19 08:00 Mechanical Ventilator 05/05/19 07:09 46 15 30 05/05/19 05:00 51 14 30 05/05/19 04:00 97.4 55 15 139/77 (97) 100 05/05/19 04:00 30 05/05/19 04:00 Mechanical Ventilator 05/05/19 03:47 59 05/05/19 02:52 68 12 30 05/05/19 01:16 61 15 30 05/05/19 00:00 Mechanical Ventilator 05/05/19 00:00 30 05/05/19 00:00 97.4 54 14 137/75 (95) 100 05/05/19 00:00 51 05/04/19 22:38 60 14 30 05/04/19 21:00 51 12 30 05/04/19 20:00 Mechanical Ventilator 05/04/19 20:00 97.4 59 13 127/70 (89) 100 05/04/19 20:00 30 05/04/19 19:48 51 05/04/19 19:08 54 12 30 05/04/19 17:59 42 141/66 05/04/19 16:50 42 14 30 05/04/19 16:01 Mechanical Ventilator 05/04/19 16:00 30 05/04/19 16:00 97.5 50 12 165/74 (104) 100 05/04/19 16:00 43 05/04/19 14:49 43 12 30 05/04/19 13:09 45 13 30 05/04/19 12:01 Mechanical Ventilator 05/04/19 12:00 30 05/04/19 12:00 97.8 53 12 141/66 (91) 100 05/04/19 11:34 54 05/04/19 11:26 58 14 30 05/04/19 10:33 50 14 100 05/04/19 10:11 50 162/74 Intake and Output 05/04/19 05/05/19 19:00 07:00 Intake Total 1015 ml 600 ml Output Total 4 ml Balance 1011 ml 600 ml Free Water 20 ml 60 ml IV Total 675 ml 60 ml Tube Feeding 320 ml 480 ml Output Urine Total 4 ml # Voids 5 # Bowel Movements 10 Height (Feet): 5 Height (Inches): 4.00 Weight (Pounds): 125 General Appearance: lethargic EENT: normal ENT inspection Neck: normal alignment Cardiovascular: normal peripheral pulses, normal rate, regular rhythm Respiratory/Chest: chest wall non-tender, lungs clear, normal breath sounds Abdomen: normal bowel sounds, non tender, soft Extremities: normal inspection Edema: no edema noted Arm (L), no edema noted Arm (R), no edema noted Leg (L), no edema noted Leg (R), no edema noted Pedal (L), no edema noted Pedal (R), no edema noted Generalized Neurologic: motor weakness Skin: normal pigmentation, warm/dry Hernán Davis DO May 05, 2019 09:56
--- NOTE | 2019-05-05 10:04 | NUR ---
NURSE NOTES: Pt refused labs again. Will attempt to have dialysis nurse to draw it before dialysis.
--- NOTE | 2019-05-05 10:30 | Nephrology Progress Note ---
Assessment/Plan Problem List: (1) ESRD (end stage renal disease) (2) Chronic respiratory failure (3) Anemia Assessment: worsened (4) Hypothyroid (5) Hypercalcemia Assessment ESRD Anemia; ESRD or blood loss or both Sz HypoThyroid HTN DM Hypercalcemia Plan dialysis- done 05/02 Still refusing lab work Hgb better- not transfused HD today 05/05, if not refuse previously: Was Due dialysis 04/30 when dialysis nurse attempted, the patient decl;ined dialysis and consent ! ? Psych eval for decision making ability? need transfusion waiting for psych advise Anemia [place] EPO HD as needed scheduled for 04/30 Keep BP in check watch serum Ca one dose Aredia 60 Subjective ROS Limited/Unobtainable: No Objective Objective Last 24 Hour Vital Signs Date Time Temp Pulse Resp B/P (MAP) Pulse Ox O2 Delivery O2 Flow Rate FiO2 05/05/19 08:39 20 12 30 05/05/19 08:00 97.7 57 18 163/78 (106) 100 05/05/19 08:00 48 05/05/19 08:00 30 05/05/19 08:00 Mechanical Ventilator 05/05/19 07:09 46 15 30 05/05/19 05:00 51 14 30 05/05/19 04:00 97.4 55 15 139/77 (97) 100 05/05/19 04:00 30 05/05/19 04:00 Mechanical Ventilator 05/05/19 03:47 59 05/05/19 02:52 68 12 30 05/05/19 01:16 61 15 30 05/05/19 00:00 Mechanical Ventilator 05/05/19 00:00 30 05/05/19 00:00 97.4 54 14 137/75 (95) 100 05/05/19 00:00 51 05/04/19 22:38 60 14 30 05/04/19 21:00 51 12 30 05/04/19 20:00 Mechanical Ventilator 05/04/19 20:00 97.4 59 13 127/70 (89) 100 05/04/19 20:00 30 05/04/19 19:48 51 05/04/19 19:08 54 12 30 05/04/19 17:59 42 141/66 05/04/19 16:50 42 14 30 05/04/19 16:01 Mechanical Ventilator 05/04/19 16:00 30 05/04/19 16:00 97.5 50 12 165/74 (104) 100 05/04/19 16:00 43 05/04/19 14:49 43 12 30 05/04/19 13:09 45 13 30 05/04/19 12:01 Mechanical Ventilator 05/04/19 12:00 30 05/04/19 12:00 97.8 53 12 141/66 (91) 100 05/04/19 11:34 54 05/04/19 11:26 58 14 30 05/04/19 10:33 50 14 100 Intake and Output 05/04/19 05/05/19 19:00 07:00 Intake Total 1015 ml 600 ml Output Total 4 ml Balance 1011 ml 600 ml Free Water 20 ml 60 ml IV Total 675 ml 60 ml Tube Feeding 320 ml 480 ml Output Urine Total 4 ml # Voids 5 # Bowel Movements 10 Height (Feet): 5 Height (Inches): 4.00 Weight (Pounds): 125 General Appearance: no apparent distress Neck: other - trached Cardiovascular: normal rate Respiratory/Chest: decreased breath sounds Abdomen: distended Objective no change Bandar Olmedo MD May 05, 2019 10:30
[2019-05-05 12:00] VITALS: BP 124/71
[2019-05-05 12:49] LABS: HEMOGLOBIN 7.4 G/DL (12.0-16.0); MEAN CORPUSCULAR VOLUME 102 FL (80-99); PLATELET COUNT 228 K/UL (150-450); RED BLOOD COUNT 2.15 M/UL (4.20-5.40); RED CELL DISTRIBUTION WIDTH 16.3 % (11.6-14.8); WHITE BLOOD COUNT 6.8 K/UL (4.8-10.8)
[2019-05-05 13:00] LABS: ANION GAP 8 mmol/L (5-15); BLOOD UREA NITROGEN 70 mg/dL (7-18); CALCIUM 8.7 MG/DL (8.5-10.1); CARBON DIOXIDE 23 MMOL/L (21-32); CHLORIDE 109 MMOL/L (98-107); CREATININE 5.9 MG/DL (0.55-1.30); POTASSIUM 4.7 MMOL/L (3.5-5.1); SODIUM 140 MMOL/L (136-145)
[2019-05-05 13:03] LABS: PHOSPHORUS 3.5 MG/DL (2.5-4.9)
--- NOTE | 2019-05-05 14:00 | NUR ---
NURSE NOTES: Reported H/H of 7.[address] Elias. No new orders. VSS. Will continue to monitor.
[2019-05-05 16:00] VITALS: BP 153/68
--- NOTE | 2019-05-05 16:19 | General Progress Note ---
Assessment/Plan Status: unchanged Assessment/Plan: Assessment - Anemia, multifactorial - Heme (+) stools - Resp failure - trach - Renal failure - HD - dysphagia - PEG Recommendations - continue TF - GT care - Elevate HOB - Monitor CBC - PPI - Check and Rx Fe panel Subjective Allergies: Coded Allergies: NO KNOWN ALLERGIES (Verified Allergy, Unknown, 04/18/18) Subjective above noted responsive getting HD at time of visit tolerating TF Objective Last 24 Hour Vital Signs Date Time Temp Pulse Resp B/P (MAP) Pulse Ox O2 Delivery O2 Flow Rate FiO2 05/05/19 16:00 Mechanical Ventilator 05/05/19 16:00 30 05/05/19 16:00 99.2 68 18 153/68 (96) 100 05/05/19 14:54 56 12 30 05/05/19 12:58 85 16 30 05/05/19 12:00 45 05/05/19 12:00 30 05/05/19 12:00 Mechanical Ventilator 05/05/19 12:00 97.5 68 18 124/71 (88) 100 05/05/19 11:10 49 12 30 05/05/19 09:00 20 163/78 05/05/19 08:39 20 12 30 05/05/19 08:00 97.7 57 18 163/78 (106) 100 05/05/19 08:00 48 05/05/19 08:00 30 05/05/19 08:00 Mechanical Ventilator 05/05/19 07:09 46 15 30 05/05/19 05:00 51 14 30 05/05/19 04:00 97.4 55 15 139/77 (97) 100 05/05/19 04:00 30 05/05/19 04:00 Mechanical Ventilator 05/05/19 03:47 59 05/05/19 02:52 68 12 30 05/05/19 01:16 61 15 30 05/05/19 00:00 Mechanical Ventilator 05/05/19 00:00 30 05/05/19 00:00 97.4 54 14 137/75 (95) 100 05/05/19 00:00 51 05/04/19 22:38 60 14 30 05/04/19 21:00 51 12 30 05/04/19 20:00 Mechanical Ventilator 05/04/19 20:00 97.4 59 13 127/70 (89) 100 05/04/19 20:00 30 05/04/19 19:48 51 05/04/19 19:08 54 12 30 05/04/19 17:59 42 141/66 05/04/19 16:50 42 14 30 Intake and Output 05/04/19 05/05/19 18:59 06:59 Intake Total 1030 ml 620 ml Output Total 4 ml Balance 1026 ml 620 ml Free Water 80 ml IV Total 750 ml 60 ml Tube Feeding 280 ml 480 ml Output Urine Total 4 ml # Bowel Movements 10 Laboratory Tests 05/05/19 12:30: White Blood Count 6.8, Red Blood Count 2.15L, Hemoglobin 7.4L, Hematocrit 22.0L , Mean Corpuscular Volume 102H, Mean Corpuscular Hemoglobin 34.6H, Mean Corpuscular Hemoglobin Concent 33.9, Red Cell Distribution Width 16.3H, Platelet Count 228, Mean Platelet Volume 5.0L, Neutrophils (%) (Auto) , Lymphocytes (%) (Auto) , Monocytes (%) (Auto) , Eosinophils (%) (Auto) , Basophils (%) (Auto) , Differential Total Cells Counted 100, Neutrophils % ( Manual) 53, Lymphocytes % (Manual) 34, Monocytes % (Manual) 7, Eosinophils % ( Manual) 5H, Basophils % (Manual) 1, Band Neutrophils 0, Platelet Estimate Adequate, Platelet Morphology Normal, Polychromasia 1+, Hypochromasia 1+, Anisocytosis 1+, Macrocytosis 1+, Sodium Level 140, Potassium Level 4.7, Chloride Level 109H, Carbon Dioxide Level 23, Anion Gap 8, Blood Urea Nitrogen 70H, Creatinine 5.9H, Estimat Glomerular Filtration Rate 7.3, Glucose Level 87, Calcium Level 8.7, Phosphorus Level 3.5, Magnesium Level 2.6H, Total Protein ( PEP) [Pending], Albumin (PEP) [Pending], Globulin (PEP) [Pending], Albumin/ Globulin Ratio [Pending], Tchrh-2-Uplpqlggq [Pending], Rjvkh-3-Uuslrfyip [ Pending], Beta Globulins [Pending], Beta Gamma Globulin [Pending], PEP Abnormal Protein Bands [Pending], Protein Electrophoresis Interpret [Pending] Height (Feet): 5 Height (Inches): 4.00 Weight (Pounds): 125 Objective Thin woman NCAT (+) trach CTA RRR abd soft (+) GT no edema (L) ricco Marce Brush MD May 05, 2019 16:19
--- NOTE | 2019-05-05 19:04 | NUR ---
HAND-OFF: Report given to Misael COLINDRES.
--- NOTE | 2019-05-05 19:10 | NUR ---
NURSE NOTES: Report received form JENS Perez. Observed pt lying in the bed, sleeping, arousable. Sinus ramon on drug abuse treatment specialist noted with HR of 40s. Trach to Vent Shiley 6, SIMV, TV 500, FIO2 30%, and PEEP of 5. GT intact and running Nepro at 40cc/hr. IV on R FA 22G, asymptomatic. L permocath noted, clean and dry. Bed in the lowest position. Side rails up x3. Will continue to monitor.
[2019-05-05 20:00] VITALS: BP 161/72
[2019-05-05] MEDS: Dyna-Hex 2% Top Sol 2oz TOPIC SCH (20:29)
[2019-05-05] MEDS: Atorvastatin 20mg tab GT SCH (20:29)
[2019-05-05] MEDS: Iron Sucrose 100 MG in NS 55 ML IV SCH (20:30)
[2019-05-06] VITALS: BP 152/77
--- NOTE | 2019-05-06 00:10 | NUR ---
NURSE NOTES: Observed pt sleeping in the bed. SB on quality assurance monitor chassis. VS WNL. No acute distress noted at this time. Reposition done. Oral care given. Will continue to monitor.
[2019-05-06 04:00] VITALS: BP 154/73
--- NOTE | 2019-05-06 05:15 | Consultation ---
DATE OF CONSULTATION: 05/05/2019 HISTORY OF PRESENT ILLNESS: This is a 58-year-old female patient. She has anemia, low hemoglobin level, and end-stage renal disease. She has low energy, poor appetite, and loss of interest in activity. That is why she does require inpatient treatment at this time. The patient has confusion, disorganized thought process. She is 58-year-old female patient being seen with anemia, low hemoglobin, end-stage renal disease, as well as status post CVA, and history of disease, urinary tract infection, and for this reason, she was brought into the hospital. She also has shortness of breath. So, she came in with with the above-mentioned diagnoses, history of altered mental status, and her cognition has declined below her baseline worsened by the stress of her medical illness. That is why her attending physician has requested daily psychiatric consultation at this time. PAST MEDICAL HISTORY: As described. ALLERGIES: No known drug allergies. PSYCHOTROPIC MEDICATIONS ON ADMISSION: She is on Risperdal 0.5 mg G-tube 3 times a day. Also, she is on Celexa and , but she still has a little confusion, some psychomotor agitation, and irritability currently. Currently, she reports she is not on any psychotropic medications. She has some confusion, some disorganized thought process, and mood lability apparently. This patient has been very irritable versus agitated and confusion. That is why her attending physician has referred her to Psychiatry because of her agitation and irritability. . MEDICAL HISTORY: She has a history of end-stage renal disease, seizures, chronic obstructive pulmonary disease, arthritis, CVA, hypertension, and hypothyroidism. SUBSTANCE ABUSE HISTORY: No history of any drug or alcohol use. FAMILY PSYCH HISTORY: Denies. PAIN ASSESSMENT: 0/10. DEVELOPMENTAL PROBLEMS: Denies. SOCIAL HISTORY: The patient lives in . . Financially supported by [employer] and Medicare. PSYCHIATRIC HISTORY: Major depressive disorder, severe, recurrent with psychotic features, rule out dementia with psychosis. STRENGTHS: She is motivated to get better and she is relatively healthy. WEAKNESSES: She is impulsive. Minimal support system. MENTAL STATUS EXAMINATION: This is a 58-year-old female. Appearance is disheveled. Attitude, irritable and agitated. Affect, guarded and restricted. Intellect poor. Mood, depressed and anxious. Motor activity, psychomotor agitation. Attention span is poor. Appearance is disheveled. Attitude, irritable and agitated. Affect is labile. Intellect poor. She does not know the last four Presidents. She does know current events. Orientation x3. Speech is pressured. Thought process, disorganized and illogical. Thought content, no auditory hallucinations or paranoid delusions. Insight and judgment is poor. DIAGNOSIS: Major depressive disorder, mild and recurrent with psychotic features, rule out dementia with psychosis. Medical diagnoses is respiratory failure, anemia, end-stage renal disease, seizure disorder, chronic obstructive pulmonary disease, arthritis, CVA, hypertension, and hypothyroidism. PSYCHOSOCIAL STRESSORS: Financial. Function impairment is mild. PLAN: Plan for this patient is to treat her with a medication regimen consisting of Risperdal at a dose of 1 mg per G-tube twice a day to reduce agitation and irritability. I encouraged her to interact appropriately with staff and other patients. A 20 minutes of reality-based supportive psychotherapy provided. A 20 minutes of cognitive behavioral therapy provided to help her identify automatic negative thoughts and help her convert those negative thoughts to more positive thoughts to reduce depression, anxiety, and mood lability. Chart is reviewed. Discussed this staff. Seen and assessed at the beside. Tang Oliva M.D. DR: IKE JOB#: [id number] CC:
[2019-05-06] MEDS: NovoLOG Insulin Flexpen SUBQ SCH ×4 (05:31→23:12)
--- NOTE | 2019-05-06 07:30 | NUR ---
HAND-OFF: Report given to JENS Delong. No acute distress noted at this time.
--- NOTE | 2019-05-06 07:30 | NUR ---
NURSE NOTES: Received patient from JENS Douglas. Patient restless at this time. Patient alert and oriented to time, place, person, and unclear about purpose. Patient stating that she wants to go home to her mother's boyfriend's house. She states that she does not want to go back to senior living. She was notified that she can not go home on a ventilator. She states that she is able to breathe on her own. Will notify Dr Davis and Dr Elias of the patient's wishes. Patient denies acute distress. Patient showing sinus bradycardia on the air sampling and monitoring with rate of 54 beats per minute. Patient on trach to ventilator with setting of SIMV with tidal volume 500, FIO2 30%, and PEEP 5. Patient tolerating setting with 100% SpO2 at this time. Patient has hemodialysis with 2 L out yesterday. NO order for hemodialysis scheduled for today. Patient has gastrostomy tube that is patent, asymptomatic, and running tube feeding of Nepro 40mL/hr at this time with no sign of residual. Patient incontinent and dry at this time. Patient refuses purewick. Patient has right forearm 22 gauge peripheral IV that is patent, flushed, and saline locked at this time. Patient has left chest permicath for hemodialysis that is dry, intact, and dressing intact. Patient refused lab draw this morning. Will notify Dr Davis. Patient has been sinus bradycardia on the air sampling and monitoring. Patient does not have a weed cutter on the case. Will ask DR Davis for consult. Patient bed in low position with bed alarm on and call light in reach at this time. Will continue to monitor and follow up with DR Davis and Dr Elias.
--- NOTE | 2019-05-06 07:57 | General Progress Note ---
Assessment/Plan Problem List: (1) ESRD (end stage renal disease) ICD Codes: N18.6 - End stage renal disease SNOMED: 56218677 (2) COPD (chronic obstructive pulmonary disease) ICD Codes: J44.9 - Chronic obstructive pulmonary disease, unspecified SNOMED: 30429382 (3) Chronic respiratory failure ICD Codes: J96.10 - Chronic respiratory failure, unspecified whether with hypoxia or hypercapnia SNOMED: 31546366 (4) Tracheostomy dependent ICD Codes: Z93.0 - Tracheostomy status SNOMED: 406122128 (5) HTN (hypertension) ICD Codes: I10 - Essential (primary) hypertension SNOMED: 94770153 (6) Seizure ICD Codes: R56.9 - Unspecified convulsions SNOMED: 28307207 (7) CVA (cerebral vascular accident) ICD Codes: I63.9 - Cerebral infarction, unspecified SNOMED: 573650832 (8) Anemia ICD Codes: D64.9 - Anemia, unspecified SNOMED: 714440426 Qualifiers: Qualified Codes: D64.9 - Anemia, unspecified (9) Hypothyroid ICD Codes: E03.9 - Hypothyroidism, unspecified SNOMED: 40044298 Status: unchanged Assessment/Plan: vent dialysis prn transfuse psyc eval prn cbc bmp am ltach eval vs dc plan snf Subjective Constitutional: Reports: weakness Allergies: Coded Allergies: NO KNOWN ALLERGIES (Verified Allergy, Unknown, 04/18/18) All Systems: reviewed and negative except above Subjective trach vent asleep Objective Last 24 Hour Vital Signs Date Time Temp Pulse Resp B/P (MAP) Pulse Ox O2 Delivery O2 Flow Rate FiO2 05/06/19 05:00 51 12 30 05/06/19 04:00 30 05/06/19 04:00 47 05/06/19 04:00 Mechanical Ventilator 05/06/19 04:00 97.8 47 14 154/73 (100) 100 05/06/19 02:35 50 16 30 05/06/19 00:40 52 12 30 05/06/19 00:00 54 05/06/19 00:00 30 05/06/19 00:00 98.1 51 12 152/77 (102) 99 05/06/19 00:00 Mechanical Ventilator 05/05/19 23:05 50 17 30 05/05/19 20:42 59 14 30 05/05/19 20:00 98.9 64 14 161/72 (101) 100 05/05/19 20:00 51 05/05/19 20:00 Mechanical Ventilator 05/05/19 20:00 30 05/05/19 19:35 55 14 30 05/05/19 18:00 49 153/68 05/05/19 17:14 49 14 30 05/05/19 16:00 53 05/05/19 16:00 Mechanical Ventilator 05/05/19 16:00 30 05/05/19 16:00 99.2 68 18 153/68 (96) 100 05/05/19 14:54 56 12 30 05/05/19 12:58 85 16 30 05/05/19 12:00 45 05/05/19 12:00 30 05/05/19 12:00 Mechanical Ventilator 05/05/19 12:00 97.5 68 18 124/71 (88) 100 05/05/19 11:10 49 12 30 05/05/19 09:00 20 163/78 05/05/19 08:39 20 12 30 05/05/19 08:00 97.7 57 18 163/78 (106) 100 05/05/19 08:00 48 05/05/19 08:00 30 05/05/19 08:00 Mechanical Ventilator Intake and Output 05/05/19 05/06/19 19:00 07:00 Intake Total 40 ml 700 ml Output Total 2000 ml Balance -1960 ml 700 ml Free Water 200 ml IV Total 60 ml Tube Feeding 40 ml 440 ml Hemodialysis UF 2000 ml # Voids 3 Laboratory Tests 05/05/19 12:30: White Blood Count 6.8, Red Blood Count 2.15L, Hemoglobin 7.4L, Hematocrit 22.0L , Mean Corpuscular Volume 102H, Mean Corpuscular Hemoglobin 34.6H, Mean Corpuscular Hemoglobin Concent 33.9, Red Cell Distribution Width 16.3H, Platelet Count 228, Mean Platelet Volume 5.0L, Neutrophils (%) (Auto) , Lymphocytes (%) (Auto) , Monocytes (%) (Auto) , Eosinophils (%) (Auto) , Basophils (%) (Auto) , Differential Total Cells Counted 100, Neutrophils % ( Manual) 53, Lymphocytes % (Manual) 34, Monocytes % (Manual) 7, Eosinophils % ( Manual) 5H, Basophils % (Manual) 1, Band Neutrophils 0, Platelet Estimate Adequate, Platelet Morphology Normal, Polychromasia 1+, Hypochromasia 1+, Anisocytosis 1+, Macrocytosis 1+, Sodium Level 140, Potassium Level 4.7, Chloride Level 109H, Carbon Dioxide Level 23, Anion Gap 8, Blood Urea Nitrogen 70H, Creatinine 5.9H, Estimat Glomerular Filtration Rate 7.3, Glucose Level 87, Calcium Level 8.7, Phosphorus Level 3.5, Magnesium Level 2.6H, Total Protein ( PEP) [Pending], Albumin (PEP) [Pending], Globulin (PEP) [Pending], Albumin/ Globulin Ratio [Pending], Lvuhg-0-Dcjpviyji [Pending], Tyaaa-4-Tcrrjxgbd [ Pending], Beta Globulins [Pending], Beta Gamma Globulin [Pending], PEP Abnormal Protein Bands [Pending], Protein Electrophoresis Interpret [Pending] Height (Feet): 5 Height (Inches): 4.00 Weight (Pounds): 121 General Appearance: lethargic EENT: normal ENT inspection Neck: normal alignment Cardiovascular: normal peripheral pulses, normal rate, regular rhythm Respiratory/Chest: chest wall non-tender, lungs clear, normal breath sounds Abdomen: normal bowel sounds, non tender, soft Extremities: normal inspection Edema: no edema noted Arm (L), no edema noted Arm (R), no edema noted Leg (L), no edema noted Leg (R), no edema noted Pedal (L), no edema noted Pedal (R), no edema noted Generalized Neurologic: motor weakness Skin: normal pigmentation, warm/dry Hernán Davis DO May 06, 2019 07:57
[2019-05-06 08:00] VITALS: BP 164/89
--- NOTE | 2019-05-06 08:07 | NUR ---
RESPIRATORY NOTE: received pt on vent, trach in place, shiley 6 size, secured via trach tie/guard. pt refuses basic assessment; breath sounds and suction, pt already on pulse ox monitor. alarms are set and audible with back up trach at bedside and ambu bag. pt in no resp distress. will cont to monitor.
--- NOTE | 2019-05-06 08:15 | NUR ---
NURSE NOTES: Spoke with Dr Davis when he rounded on the patient. Received order for administrator social welfare consult for placement and received order for elementary education tutor consult Dr Terry. Orders read back, verified, and placed at this time. Spoke with Dr Elias in person at this time. Received order to wean patient off of ventilator as tolerated to T-piece. Order read back, verified, and placed at this time.
--- NOTE | 2019-05-06 08:58 | Hematology/Onc Progress Note ---
Assessment/Plan Assessment/Plan ASSESSMENT AND RECOMMENDATIONS: #. Anemia due to underlying iron deficiency. Continue to closely monitor. Anemia workup has been ordered. Hemoglobin goal is above 7. Transfuse as needed. No evidence of reticulocytosis or hemolysis at the moment. --> panel reviewed from this admission --> continue EPOGEN --> started on iv iron --> transf if hgb <7 --> is to continue on synthroid --> hgb 7.7-->7.5-->5.9-->8.9-->7.4 --> Has been REFUSING HD AND TRANSFUSIONS (occasionally does agree) --> COLO EGD showed a poor prep --> spep is pending #. Anemia due to underlying gi bleed, as occult is + --> has been seen by gi and pending potential egd --> has been dw patient, considering once more stable #. Hypercalcemia -- in this case less likely due to malignancy but is from esrd --> keep phos-ca product low --> Ca+ trend, pamidronate/lasix as needed --> Ca+ 10.7-->10-->9 --> ivf as prn #. ESRD on hd 3 times a week --> phos binders per renal --> titrate fluid volume status as needed --> refusing hd at this time #. Diabetes mellitus. A1c goal less than 7. #. Seizure disorder. --> per Neuro, hx of cva in the past #. Dysphagia s/p peg #. Resp failure s/p trach #. Dvt ppx scds Appreciate the consultation and huseyin RN. Subjective Constitutional: Denies: no symptoms, chills, fever, malaise, weakness, other HEENT: Denies: no symptoms, eye pain, blurred vision, tearing, double vision, ear pain, ear discharge, nose pain, nose congestion, throat pain, throat swelling, mouth pain, mouth swelling, other Cardiovascular: Denies: no symptoms, chest pain, edema, irregular heart rate, lightheadedness, palpitations, syncope, other Respiratory: Denies: no symptoms, cough, shortness of breath, SOB with excertion, SOB at rest, sputum, wheezing, other Gastrointestinal/Abdominal: Denies: no symptoms, abdomen distended, abdominal pain, black stools, tarry stools, blood in stool, constipated, diarrhea, difficulty swallowing, nausea, poor appetite, poor fluid intake, rectal bleeding , vomiting, other Genitourinary: Denies: no symptoms, burning, discharge, frequency, flank pain, hematuria, incontinence, pain, urgency, other Neurologic/Psychiatric: Denies: no symptoms, anxiety, depressed, emotional problems, headache, numbness, paresthesia, pre-existing deficit, seizure, tingling, tremors, weakness, other Allergies: Coded Allergies: NO KNOWN ALLERGIES (Verified Allergy, Unknown, 04/18/18) Subjective 05/01: refusing blood transfusion, no bleeding or chills noted, also refusing hd 05/02: has been refusing prbc transfusion, as per psych recs for capacity, no n/ c today 05/03: did accept hd, and iron, refused epogen, dw patient again, doesn't want those meds 05/04: no complaints, to get colo this am, results pending, appears to be poor prep 05/06: labs are pending, has refused recently, gi aware occult+ Objective Objective Current Medications Medications (Trade) Dose Ordered Sig/Mira Route PRN Reason Start Time Stop Time Status Last Admin Dose Admin Acetaminophen (Tylenol) 650 mg Q4H PRN ORAL Mild Pain/Temp > 100.5 04/28/19 23:00 Amlodipine Besylate (Norvasc) 5 mg BID GT 04/28/19 18:00 05/28/19 17:59 05/04/19 17:59 Atorvastatin Calcium (Lipitor) 20 mg BEDTIME GT 04/28/19 21:00 05/28/19 20:59 05/05/19 20:29 Chlorhexidine Gluconate (Alie-Hex 2%) 1 applic DAILY@1999 TOPIC 04/29/19 20:00 05/29/19 19:59 05/05/19 20:29 Clonidine HCl (Catapres Tab) 0.1 mg Q4H PRN GT bp over 165 syst 04/28/19 12:15 05/28/19 12:14 Dextrose (Dextrose 50%) 25 ml Q30M PRN IV Hypoglycemia 04/28/19 12:00 05/28/19 11:59 Dextrose (Dextrose 50%) 50 ml Q30M PRN IV Hypoglycemia 04/28/19 12:00 05/28/19 11:59 Docusate Sodium (Colace) 100 mg TID GT 04/28/19 13:00 05/28/19 11:59 05/04/19 10:10 Epoetin Rudolph (Epoetin Rudolph(ESRD on dialysis)) 10,000 unit TUE-TUE-TUE SUBQ 04/30/19 21:00 05/30/19 20:59 05/04/19 20:26 Insulin Aspart (NovoLOG) Q6HR SUBQ 05/06/19 12:00 05/28/19 16:29 Iron Sucrose 100 mg/Sodium Chloride 60 ml @ 240 mls/hr BEDTIME IV 05/02/19 21:00 05/06/19 21:14 05/05/19 20:30 Lansoprazole (Prevacid) 30 mg BID GT 04/30/19 11:00 05/30/19 10:59 05/04/19 17:59 Levetiracetam (Keppra) 500 mg EVERY 12 HOURS GT 04/28/19 12:00 05/28/19 11:59 05/05/19 20:29 Levothyroxine Sodium (Synthroid) 150 mcg DAILY@0730 GT 04/28/19 14:00 05/28/19 13:59 05/06/19 06:55 Morphine Sulfate (Morphine Sulfate) 4 mg PRN PRN IVP Moderate Pain (Pain Scale 4-6) 04/28/19 02:00 Risperidone (RisperDAL) 1 mg BID GT 05/05/19 18:00 06/04/19 17:59 Last 24 Hour Vital Signs Date Time Temp Pulse Resp B/P (MAP) Pulse Ox O2 Delivery O2 Flow Rate FiO2 05/06/19 08:04 47 13 30 05/06/19 05:00 51 12 30 05/06/19 04:00 30 05/06/19 04:00 47 05/06/19 04:00 Mechanical Ventilator 05/06/19 04:00 97.8 47 14 154/73 (100) 100 05/06/19 02:35 50 16 30 05/06/19 00:40 52 12 30 05/06/19 00:00 54 05/06/19 00:00 30 05/06/19 00:00 98.1 51 12 152/77 (102) 99 05/06/19 00:00 Mechanical Ventilator 05/05/19 23:05 50 17 30 05/05/19 20:42 59 14 30 05/05/19 20:00 98.9 64 14 161/72 (101) 100 05/05/19 20:00 51 05/05/19 20:00 Mechanical Ventilator 05/05/19 20:00 30 05/05/19 19:35 55 14 30 05/05/19 18:00 49 153/68 05/05/19 17:14 49 14 30 05/05/19 16:00 53 05/05/19 16:00 Mechanical Ventilator 05/05/19 16:00 30 05/05/19 16:00 99.2 68 18 153/68 (96) 100 05/05/19 14:54 56 12 30 05/05/19 12:58 85 16 30 05/05/19 12:00 45 05/05/19 12:00 30 05/05/19 12:00 Mechanical Ventilator 05/05/19 12:00 97.5 68 18 124/71 (88) 100 05/05/19 11:10 49 12 30 05/05/19 09:00 20 163/78 05/05/19 08:39 20 12 30 05/05/19 08:00 97.7 57 18 163/78 (106) 100 05/05/19 08:00 48 05/05/19 08:00 30 05/05/19 08:00 Mechanical Ventilator 05/05/19 07:09 46 15 30 05/05/19 05:00 51 14 30 05/05/19 04:00 97.4 55 15 139/77 (97) 100 05/05/19 04:00 30 05/05/19 04:00 Mechanical Ventilator 05/05/19 03:47 59 05/05/19 02:52 68 12 30 05/05/19 01:16 61 15 30 05/05/19 00:00 Mechanical Ventilator 05/05/19 00:00 30 05/05/19 00:00 97.4 54 14 137/75 (95) 100 05/05/19 00:00 51 05/04/19 22:38 60 14 30 05/04/19 21:00 51 12 30 05/04/19 20:00 Mechanical Ventilator 05/04/19 20:00 97.4 59 13 127/70 (89) 100 05/04/19 20:00 30 05/04/19 19:48 51 05/04/19 19:08 54 12 30 05/04/19 17:59 42 141/66 05/04/19 16:50 42 14 30 05/04/19 16:01 Mechanical Ventilator 05/04/19 16:00 30 05/04/19 16:00 97.5 50 12 165/74 (104) 100 05/04/19 16:00 43 05/04/19 14:49 43 12 30 05/04/19 13:09 45 13 30 05/04/19 12:01 Mechanical Ventilator 05/04/19 12:00 30 05/04/19 12:00 97.8 53 12 141/66 (91) 100 05/04/19 11:34 54 05/04/19 11:26 58 14 30 05/04/19 10:33 50 14 100 05/04/19 10:11 50 162/74 05/04/19 09:35 52 12 100 05/04/19 09:30 57 12 30 Intake and Output 05/05/19 05/06/19 19:00 07:00 Intake Total 40 ml 700 ml Output Total 2000 ml Balance -1960 ml 700 ml Free Water 200 ml IV Total 60 ml Tube Feeding 40 ml 440 ml Hemodialysis UF 2000 ml # Voids 3 Labs Test 05/05/19 12:30 White Blood Count 6.8 K/UL (4.8-10.8) Red Blood Count 2.15 M/UL (4.20-5.40) Hemoglobin 7.4 G/DL (12.0-16.0) Hematocrit 22.0 % (37.0-47.0) Mean Corpuscular Volume 102 FL (80-99) Mean Corpuscular Hemoglobin 34.6 PG (27.0-31.0) Mean Corpuscular Hemoglobin Concent 33.9 G/DL (32.0-36.0) Red Cell Distribution Width 16.3 % (11.6-14.8) Platelet Count 228 K/UL (150-450) Mean Platelet Volume 5.0 FL (6.5-10.1) Neutrophils (%) (Auto) % (45.0-75.0) Lymphocytes (%) (Auto) % (20.0-45.0) Monocytes (%) (Auto) % (1.0-10.0) Eosinophils (%) (Auto) % (0.0-3.0) Basophils (%) (Auto) % (0.0-2.0) Differential Total Cells Counted 100 Neutrophils % (Manual) 53 % (45-75) Lymphocytes % (Manual) 34 % (20-45) Monocytes % (Manual) 7 % (1-10) Eosinophils % (Manual) 5 % (0-3) Basophils % (Manual) 1 % (0-2) Band Neutrophils 0 % (0-8) Platelet Estimate Adequate Platelet Morphology Normal Polychromasia 1+ Hypochromasia 1+ Anisocytosis 1+ Macrocytosis 1+ Sodium Level 140 MMOL/L (136-145) Potassium Level 4.7 MMOL/L (3.5-5.1) Chloride Level 109 MMOL/L (98-107) Carbon Dioxide Level 23 MMOL/L (21-32) Anion Gap 8 mmol/L (5-15) Blood Urea Nitrogen 70 mg/dL (7-18) Creatinine 5.9 MG/DL (0.55-1.30) Estimat Glomerular Filtration Rate 7.3 mL/min (>60) Glucose Level 87 MG/DL (74-106) Calcium Level 8.7 MG/DL (8.5-10.1) Phosphorus Level 3.5 MG/DL (2.5-4.9) Magnesium Level 2.6 MG/DL (1.8-2.4) Height (Feet): 5 Height (Inches): 4.00 Weight (Pounds): 121 Objective PHYSICAL EXAMINATION: VITAL SIGNS: Reviewed. GENERAL: No distress. PULMONARY: Decreased breath sounds. ++ trach/vent CARDIOVASCULAR: Regular rate. No S3 or S4. ABDOMEN: Soft, nontender, and nondistended. ++ gtube EXTREMITIES: No cyanosis, swelling, or edema noted. Roly Palomares MD May 06, 2019 08:58
[2019-05-06] MEDS: Docusate 100mg/10ml Liq GT SCH ×3 (09:00→17:50)
--- NOTE | 2019-05-06 09:17 | Pulmonolgy Critical Care Note ---
Critical Care - Asmt/Plan Problems: (1) Chronic respiratory failure (2) COPD (chronic obstructive pulmonary disease) (3) ESRD (end stage renal disease) (4) Tracheostomy dependent (5) Anemia (6) At high risk for aspiration (7) Heme positive stool (8) HTN (hypertension) (9) Seizure (10) CVA (cerebral vascular accident) (11) Diabetes Respiratory: monitor respiratory rate, adjust FIO2, CXR Cardiac: continue to monitor HR/BP Renal: F/U I&O, keep IV fluid Infectious Disease: check cultures, continue antibiotics Gastrointestinal: continue feedings/current rate Endocrine: monitor blood sugar Hematologic: monitor H/H, transfuse if hgb<8.5 Neurologic: keep patient comfortable Affect: PRN ativan Prophylaxis: Protonix, Heparin Notes 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: 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 professor Discussed with: nurses, consultants, gearcase assemblermanager process excellence - Objective Last 24 Hour Vital Signs Date Time Temp Pulse Resp B/P (MAP) Pulse Ox O2 Delivery O2 Flow Rate FiO2 05/06/19 08:04 47 13 30 05/06/19 05:00 51 12 30 05/06/19 04:00 30 05/06/19 04:00 47 05/06/19 04:00 Mechanical Ventilator 05/06/19 04:00 97.8 47 14 154/73 (100) 100 05/06/19 02:35 50 16 30 05/06/19 00:40 52 12 30 05/06/19 00:00 54 05/06/19 00:00 30 05/06/19 00:00 98.1 51 12 152/77 (102) 99 05/06/19 00:00 Mechanical Ventilator 05/05/19 23:05 50 17 30 05/05/19 20:42 59 14 30 05/05/19 20:00 98.9 64 14 161/72 (101) 100 05/05/19 20:00 51 05/05/19 20:00 Mechanical Ventilator 05/05/19 20:00 30 05/05/19 19:35 55 14 30 05/05/19 18:00 49 153/68 05/05/19 17:14 49 14 30 05/05/19 16:00 53 05/05/19 16:00 Mechanical Ventilator 05/05/19 16:00 30 05/05/19 16:00 99.2 68 18 153/68 (96) 100 05/05/19 14:54 56 12 30 05/05/19 12:58 85 16 30 05/05/19 12:00 45 05/05/19 12:00 30 05/05/19 12:00 Mechanical Ventilator 05/05/19 12:00 97.5 68 18 124/71 (88) 100 05/05/19 11:10 49 12 30 Status: awake Condition: critical Neck: full ROM Lungs: clear Heart: HR/BP stable, regular Abdomen: non-tender Extremities: no C/C/E Accucheck: 121 Critical Care - Subjective ROS Limited/Unobtainable: Yes Condition: critical EKG Rhythm: Sinus Rhythm FI02: 30 Vent Support Breath Rate: 12 Vent Support Mode: IMV/SIMV Vent Tidal Volume: 500 Sputum Amount: Small PEEP: 5.0 PIP: 18 Tube Feeding Amount: 0 I&O: Intake and Output 05/05/19 05/06/19 19:00 07:00 Intake Total 40 ml 700 ml Output Total 2000 ml Balance -1960 ml 700 ml Free Water 200 ml IV Total 60 ml Tube Feeding 40 ml 440 ml Hemodialysis UF 2000 ml # Voids 3 Labs: Laboratory Tests Test 05/05/19 12:30 White Blood Count 6.8 K/UL (4.8-10.8) Red Blood Count 2.15 M/UL (4.20-5.40) L Hemoglobin 7.4 G/DL (12.0-16.0) L Hematocrit 22.0 % (37.0-47.0) L Mean Corpuscular Volume 102 FL (80-99) H Mean Corpuscular Hemoglobin 34.6 PG (27.0-31.0) H Mean Corpuscular Hemoglobin Concent 33.9 G/DL (32.0-36.0) Red Cell Distribution Width 16.3 % (11.6-14.8) H Platelet Count 228 K/UL (150-450) Mean Platelet Volume 5.0 FL (6.5-10.1) L Neutrophils (%) (Auto) % (45.0-75.0) Lymphocytes (%) (Auto) % (20.0-45.0) Monocytes (%) (Auto) % (1.0-10.0) Eosinophils (%) (Auto) % (0.0-3.0) Basophils (%) (Auto) % (0.0-2.0) Differential Total Cells Counted 100 Neutrophils % (Manual) 53 % (45-75) Lymphocytes % (Manual) 34 % (20-45) Monocytes % (Manual) 7 % (1-10) Eosinophils % (Manual) 5 % (0-3) H Basophils % (Manual) 1 % (0-2) Band Neutrophils 0 % (0-8) Platelet Estimate Adequate Platelet Morphology Normal Polychromasia 1+ Hypochromasia 1+ Anisocytosis 1+ Macrocytosis 1+ Sodium Level 140 MMOL/L (136-145) Potassium Level 4.7 MMOL/L (3.5-5.1) Chloride Level 109 MMOL/L (98-107) H Carbon Dioxide Level 23 MMOL/L (21-32) Anion Gap 8 mmol/L (5-15) Blood Urea Nitrogen 70 mg/dL (7-18) H Creatinine 5.9 MG/DL (0.55-1.30) H Estimat Glomerular Filtration Rate 7.3 mL/min (>60) Glucose Level 87 MG/DL (74-106) Calcium Level 8.7 MG/DL (8.5-10.1) Phosphorus Level 3.5 MG/DL (2.5-4.9) Magnesium Level 2.6 MG/DL (1.8-2.4) H Total Protein (PEP) Pending Albumin (PEP) Pending Globulin (PEP) Pending Albumin/Globulin Ratio Pending [id number] Pending [id number] Pending Beta Globulins Pending Beta Gamma Globulin Pending PEP Abnormal Protein Bands Pending Protein Electrophoresis Interpret Pending Sheri Elias MD May 06, 2019 09:17
--- NOTE | 2019-05-06 09:52 | NUR ---
RESPIRATORY NOTE: removed pt off vent and placed on CA-30% via t-piece. no signs of resp distress and pt allowed suctioning. spo2 remains stable at 100%. will cont to monitor.
[2019-05-06 12:00] VITALS: BP 138/74
--- NOTE | 2019-05-06 12:30 | NUR ---
NURSE NOTES: Patient calm and comfortable at this time. Patient remains alert and oriented to time, place, person, and purpose. Patient asked when she can leave. It was reported to her that she needs to wait for social media executive for placement. Will follow up. Patient showing sinus rhythm on the teletypesetter monitor with rate of 60 beats per minute. Patient on trach to T-piece with 30% FiO2. Patient tolerating with 100% SpO2 at this time. Gastrostomy tube remains patent, asymptomatic, and running tube feeding of Nepro 40mL/hr at this time with no sign of residual. Right forearm 22 gauge peripheral IV that remains patent, flushed, and saline locked at this time. Left chest permicath for hemodialysis asymptomatic and dressing intact. Patient continues to refuse lab draw. Patient bed in low position with bed alarm on and call light in reach at this time. Will continue to monitor. Patient repositioned and oral care performed at this time.
--- NOTE | 2019-05-06 14:52 | Nephrology Progress Note ---
Assessment/Plan Problem List: (1) ESRD (end stage renal disease) (2) Chronic respiratory failure (3) Anemia Assessment: worsened (4) Hypothyroid (5) Hypercalcemia Assessment ESRD Anemia; ESRD or blood loss or both Sz HypoThyroid HTN DM Hypercalcemia Plan dialysis- done again yesterday 05/05 Still refusing lab work Hgb better- not transfused HD today 05/05, if not refuse previously: Was Due dialysis 04/30 when dialysis nurse attempted, the patient decl;ined dialysis and consent ! ? Psych eval for decision making ability? need transfusion waiting for psych advise Anemia [place] EPO HD as needed scheduled for 04/30 Keep BP in check watch serum Ca one dose Aredia 60 Subjective ROS Limited/Unobtainable: No Constitutional: Reports: malaise Objective Objective Last 24 Hour Vital Signs Date Time Temp Pulse Resp B/P (MAP) Pulse Ox O2 Delivery O2 Flow Rate FiO2 05/06/19 13:17 100 T-Piece 8.0 30 05/06/19 12:06 58 05/06/19 12:00 T-piece 05/06/19 12:00 97.7 57 20 138/74 (95) 100 05/06/19 12:00 8.0 30 05/06/19 11:04 100 T-Piece 8.0 30 05/06/19 11:03 66 05/06/19 09:45 48 164/89 05/06/19 09:20 46 15 30 05/06/19 08:04 47 13 30 05/06/19 08:00 Mechanical Ventilator 05/06/19 08:00 30 05/06/19 08:00 97.7 50 16 164/89 (114) 100 05/06/19 07:51 50 05/06/19 05:00 51 12 30 05/06/19 04:00 30 05/06/19 04:00 47 05/06/19 04:00 Mechanical Ventilator 05/06/19 04:00 97.8 47 14 154/73 (100) 100 05/06/19 02:35 50 16 30 05/06/19 00:40 52 12 30 05/06/19 00:00 54 05/06/19 00:00 30 05/06/19 00:00 98.1 51 12 152/77 (102) 99 05/06/19 00:00 Mechanical Ventilator 05/05/19 23:05 50 17 30 05/05/19 20:42 59 14 30 05/05/19 20:00 98.9 64 14 161/72 (101) 100 05/05/19 20:00 51 05/05/19 20:00 Mechanical Ventilator 05/05/19 20:00 30 05/05/19 19:35 55 14 30 05/05/19 18:00 49 153/68 05/05/19 17:14 49 14 30 05/05/19 16:00 53 05/05/19 16:00 Mechanical Ventilator 05/05/19 16:00 30 05/05/19 16:00 99.2 68 18 153/68 (96) 100 05/05/19 14:54 56 12 30 Intake and Output 05/05/19 05/06/19 19:00 07:00 Intake Total 40 ml 700 ml Output Total 2000 ml Balance -1960 ml 700 ml Free Water 200 ml IV Total 60 ml Tube Feeding 40 ml 440 ml Hemodialysis UF 2000 ml # Voids 3 Height (Feet): 5 Height (Inches): 4.00 Weight (Pounds): 121 General Appearance: no apparent distress Objective no change Bandar Olmedo MD May 06, 2019 14:52
[2019-05-06 16:00] VITALS: BP 149/74
--- NOTE | 2019-05-06 16:24 | NUR ---
NURSE NOTES: Patient stated that she has three children. When asked why she has not contacted them, she expressed that she does not know their numbers or where they are living at this time. She stated that she has a house in [place] and she came here from [place]. Patient notified that psych social worker is on the case and she may be able to assist the patient to find her family. Will endorse to next nurse to notify morning nurse to speak with psych social worker regarding the patient's family. Will change the administrator social welfare consult order to reflect this as well. Patient calm and comfortable at this time. Patient remains alert and oriented to time, place, person, and purpose. Patient showing sinus rhythm on the classroom monitor with rate of 60 beats per minute. Patient on trach to T-piece with 30% FiO2. Patient tolerating with 100% SpO2 at this time. Gastrostomy tube remains patent, asymptomatic, and running tube feeding of Nepro 40mL/hr at this time with no sign of residual. Right forearm 22 gauge peripheral IV that remains patent, flushed, and saline locked at this time. Left chest permicath for hemodialysis asymptomatic and dressing intact. Patient continues to refuse lab draw. Patient bed in low position with bed alarm on and call light in reach at this time. Will continue to monitor. Patient repositioned and oral care performed at this time. Patient cleaned at this time and linen changed.
--- NOTE | 2019-05-06 16:32 | General Progress Note ---
Assessment/Plan Status: unchanged Assessment/Plan: Assessment - Anemia, multifactorial - Heme (+) stools - Resp failure - trach - Renal failure - HD - dysphagia - PEG Recommendations - continue TF - GT care - Elevate HOB - Monitor CBC - PPI - Check and Rx Fe panel Subjective Allergies: Coded Allergies: NO KNOWN ALLERGIES (Verified Allergy, Unknown, 04/18/18) Subjective above noted responsive tolerating TF Objective Last 24 Hour Vital Signs Date Time Temp Pulse Resp B/P (MAP) Pulse Ox O2 Delivery O2 Flow Rate FiO2 05/06/19 16:00 8.0 30 05/06/19 16:00 T-piece 05/06/19 16:00 97.7 57 20 149/74 (99) 100 05/06/19 13:17 100 T-Piece 8.0 30 05/06/19 12:06 58 05/06/19 12:00 T-piece 05/06/19 12:00 97.7 57 20 138/74 (95) 100 05/06/19 12:00 8.0 30 05/06/19 11:04 100 T-Piece 8.0 30 05/06/19 11:03 66 05/06/19 09:45 48 164/89 05/06/19 09:20 46 15 30 05/06/19 08:04 47 13 30 05/06/19 08:00 Mechanical Ventilator 05/06/19 08:00 30 05/06/19 08:00 97.7 50 16 164/89 (114) 100 05/06/19 07:51 50 05/06/19 05:00 51 12 30 05/06/19 04:00 30 05/06/19 04:00 47 05/06/19 04:00 Mechanical Ventilator 05/06/19 04:00 97.8 47 14 154/73 (100) 100 05/06/19 02:35 50 16 30 05/06/19 00:40 52 12 30 05/06/19 00:00 54 05/06/19 00:00 30 05/06/19 00:00 98.1 51 12 152/77 (102) 99 05/06/19 00:00 Mechanical Ventilator 05/05/19 23:05 50 17 30 05/05/19 20:42 59 14 30 05/05/19 20:00 98.9 64 14 161/72 (101) 100 05/05/19 20:00 51 11/2/19 20:00 Mechanical Ventilator 05/05/19 20:00 30 05/05/19 19:35 55 14 30 05/05/19 18:00 49 153/68 05/05/19 17:14 49 14 30 Intake and Output 05/05/19 05/06/19 19:00 07:00 Intake Total 40 ml 700 ml Output Total 2000 ml Balance -1960 ml 700 ml Free Water 200 ml IV Total 60 ml Tube Feeding 40 ml 440 ml Hemodialysis UF 2000 ml # Voids 3 Height (Feet): 5 Height (Inches): 4.00 Weight (Pounds): 121 Objective Thin woman NCAT (+) trach CTA RRR abd soft (+) GT no edema (L) ricco Marce Brush MD May 06, 2019 16:32
--- NOTE | 2019-05-06 18:00 | Progress Note ---
DATE: 05/06/2019 SUBJECTIVE: The patient is a 58-year-old female bedbound, but she has lot of psychomotor agitation, irritability, mood lability, combativeness, as well as daily psychiatric consultation. MENTAL STATUS EXAMINATION: This is a 58-year-old female. Appearance is disheveled. Attitude, irritable and agitated. Affect, guarded and restricted. Insight and judgment is poor. DIAGNOSIS: Paranoid schizophrenia. PLAN: Continue titrating up on Risperdal 1 mg per G-tube twice a day. A 20 minutes of cognitive behavioral therapy to help identify automatic negative thoughts and convert her negative thoughts to more positive thoughts to reduce depression, anxiety, and suicidality. A 20 minutes of cognitive behavioral therapy provided . Chart was reviewed and discussed with staff. Seen and assessed in her room. Tang Oliva M.D. DR: Taniya JOB#: [id number] CC:
--- NOTE | 2019-05-06 18:04 | Cardiac Electrophysiology PN ---
Subjective Subjective [id number] Objective Last 24 Hour Vital Signs Date Time Temp Pulse Resp B/P (MAP) Pulse Ox O2 Delivery O2 Flow Rate FiO2 05/06/19 17:50 65 149/74 05/06/19 16:00 8.0 30 05/06/19 16:00 63 05/06/19 16:00 T-piece 05/06/19 16:00 97.7 57 20 149/74 (99) 100 05/06/19 13:17 100 T-Piece 8.0 30 05/06/19 12:06 58 05/06/19 12:00 T-piece 05/06/19 12:00 97.7 57 20 138/74 (95) 100 05/06/19 12:00 8.0 30 05/06/19 11:04 100 T-Piece 8.0 30 05/06/19 11:03 66 05/06/19 09:45 48 164/89 05/06/19 09:20 46 15 30 05/06/19 08:04 47 13 30 05/06/19 08:00 Mechanical Ventilator 05/06/19 08:00 30 05/06/19 08:00 97.7 50 16 164/89 (114) 100 05/06/19 07:51 50 05/06/19 05:00 51 12 30 05/06/19 04:00 30 05/06/19 04:00 47 05/06/19 04:00 Mechanical Ventilator 05/06/19 04:00 97.8 47 14 154/73 (100) 100 05/06/19 02:35 50 16 30 05/06/19 00:40 52 12 30 05/06/19 00:00 54 05/06/19 00:00 30 05/06/19 00:00 98.1 51 12 152/77 (102) 99 05/06/19 00:00 Mechanical Ventilator 05/05/19 23:05 50 17 30 05/05/19 20:42 59 14 30 05/05/19 20:00 98.9 64 14 161/72 (101) 100 05/05/19 20:00 51 05/05/19 20:00 Mechanical Ventilator 05/05/19 20:00 30 05/05/19 19:35 55 14 30 Intake and Output 05/05/19 05/06/19 18:59 06:59 Intake Total 40 ml 740 ml Output Total 2000 ml Balance -1960 ml 740 ml Free Water 200 ml IV Total 60 ml Tube Feeding 40 ml 480 ml Hemodialysis UF 2000 ml # Voids 5 3 Jose Miguel Terry MD May 06, 2019 18:04
--- NOTE | 2019-05-06 19:11 | NUR ---
HAND-OFF: Report given to JENS Jamison. Patient vital signs stable at this time HR in normal sinus rhythm rate of 65 at this time. Patient denies pain or acute distress. Endorsed to follow up with long term care social worker for finding family and financial assistance information in the AM.
--- NOTE | 2019-05-06 19:20 | NUR ---
NURSE NOTES: Report received from JENS Delong. Observed pt lying in the bed, awake, denies any pain at this time. SB on soybean specialties cook, HR of 50s noted. On Tpiece 30%, 8L, saturating at 100%. Gtube intact and running Nepro at 40cc/hr. IV on R FA 22G, asymptomatic. Bed in the lowest position. Side rails up x3. Will continue to monitor.
[2019-05-06 20:00] VITALS: BP 145/82
[2019-05-06] MEDS: Dyna-Hex 2% Top Sol 2oz TOPIC SCH (20:31)
[2019-05-06] MEDS: Iron Sucrose 100 MG in NS 55 ML IV SCH ×2 (20:32→21:00)
[2019-05-06] MEDS: Atorvastatin 20mg tab GT SCH (20:32)
--- NOTE | 2019-05-06 21:09 | NUR ---
NURSE NOTES: Noted IV leaking and asked to put new IV. Pt refused to have new IV line and explained benefits and risks, still got refused by saying, "I do not want any needle." Will continue to monitor.
--- NOTE | 2019-05-06 22:00 | NUR ---
NURSE NOTES: PT evaluation order received from per pt request.
[2019-05-07] VITALS: BP 150/81
--- NOTE | 2019-05-07 | Consultation ---
DATE OF CONSULTATION: 05/06/2019 CARDIOLOGY CONSULTATION CONSULTING PHYSICIAN: Jose Miguel Terry M.D. REFERRING PHYSICIAN: Hernán Davis D.O. REASON FOR CONSULTATION: Bradycardia. HISTORY OF PRESENT ILLNESS: The patient is a 58-year-old lady with history of respiratory failure, status post tracheostomy as well as dysphagia, status post PEG placement, had renal failure on hemodialysis, history of CVA, psychiatric disorder, and diabetes. The patient was admitted for hemoglobin of 7.2 and the stool OB positive. The patient underwent a colonoscopy by Dr. Hillman that showed no obvious source of bleeding or mass effect. The patient had multiple episodes of bradycardia, heart rate dropping to 30s, was mostly sinus bradycardia. Her EKG also shows sinus-ramon, rate of 50. Cardiac Electrophysiology consultation was obtained for further evaluation and management. REVIEW OF SYSTEMS: Review of systems was thoroughly performed and was negative other than what was mentioned in the history of present illness. PAST MEDICAL HISTORY: As mentioned above. FAMILY HISTORY: Noncontributory. PHYSICAL EXAMINATION: VITAL SIGNS: Show blood pressure of 149/74, pulse 60, respirations 18, and she is afebrile. HEAD AND NECK: She is status post tracheostomy. LUNGS: Coarse rhonchi. CARDIOVASCULAR: Shows regular S1 and S2 with no gallop. ABDOMEN: Status post G-tube. EXTREMITIES: With no pitting edema. Her dialysis access in the left subclavian. LABORATORY DATA: Her labs show white count of 6.8, hemoglobin was 5.9, currently 7.4, hematocrit 22, and platelet count is 228,000. Sodium 140, potassium 4.7, BUN of 70, creatinine 5.9. ASSESSMENT AND PLAN: 1. Bradycardia. The patient is off of beta-seb and calcium channel seb. She is only on p.r.n. clonidine as well as Risperdal. There is no evidence of heart block. We will watch the patient on telemetry and check the thyroid function tests and get an echocardiogram for further evaluation. 2. Respiratory failure. Echocardiogram is pending. The patient is status post tracheostomy, but off the ventilator. 3. End-stage renal disease, on hemodialysis. 4. Anemia with heme-positive stool, status post colonoscopy by Dr. Hillman. 5. Hypertension. 6. Seizure disorder. 7. CVA. 8. Diabetes. Thank you very much, Dr. Davis, for allowing me to participate in the care of this patient. Please do not hesitate to contact me if you have any questions regarding my evaluation. Jose Miguel Terry M.D. DR: AUGUSTA JOB#: [id number] CC:
--- NOTE | 2019-05-07 00:49 | NUR ---
NURSE NOTES: pt still refusing to have new IV line. SR on monitor and storage bin tender. No sob with Tpiece, 8L, noted. Will continue to monitor.
[2019-05-07 04:00] VITALS: BP 154/85
[2019-05-07 05:05] LABS: BASOPHILS % (AUTO) 1.2 % (0.0-2.0); EOSINOPHILS % (AUTO) 6.2 % (0.0-3.0); HEMOGLOBIN 10.5 G/DL (12.0-16.0); LYMPHOCYTES % (AUTO) 30.9 % (20.0-45.0); MEAN CORPUSCULAR VOLUME 104 FL (80-99); MONOCYTES % (AUTO) 7.1 % (1.0-10.0); NEUTROPHILS % (AUTO) 54.6 % (45.0-75.0); PLATELET COUNT 264 K/UL (150-450); RED BLOOD COUNT 2.98 M/UL (4.20-5.40); RED CELL DISTRIBUTION WIDTH 17.1 % (11.6-14.8); WHITE BLOOD COUNT 8.9 K/UL (4.8-10.8)
--- NOTE | 2019-05-07 05:32 | NUR ---
NURSE NOTES: Pt refused to check BS and have new IV line. Explained benefits and risks but still strongly refused. Will continue to monitor.
[2019-05-07 05:38] LABS: ALANINE AMINOTRANSFERASE 32 U/L (12-78); ALBUMIN 3.3 G/DL (3.4-5.0); ALBUMIN/GLOBULIN RATIO 0.6 (1.0-2.7); ALKALINE PHOSPHATASE 181 U/L (46-116); ANION GAP 10 mmol/L (5-15); ASPARTATE AMINO TRANSFERASE 31 U/L (15-37); BILIRUBIN,TOTAL 0.4 MG/DL (0.2-1.0); BLOOD UREA NITROGEN 60 mg/dL (7-18); CALCIUM 9.8 MG/DL (8.5-10.1); CARBON DIOXIDE 25 MMOL/L (21-32); CHLORIDE 106 MMOL/L (98-107); CREATININE 6.1 MG/DL (0.55-1.30); PHOSPHORUS 4.5 MG/DL (2.5-4.9); POTASSIUM 5.2 MMOL/L (3.5-5.1); SODIUM 141 MMOL/L (136-145)
[2019-05-07] MEDS: NovoLOG Insulin Flexpen SUBQ SCH ×2 (06:00→12:00)
--- NOTE | 2019-05-07 06:42 | General Progress Note ---
Assessment/Plan Problem List: (1) Hypercalcemia ICD Codes: E83.52 - Hypercalcemia SNOMED: 34255402 (2) HTN (hypertension) ICD Codes: I10 - Essential (primary) hypertension SNOMED: 58370482 (3) Tracheostomy dependent ICD Codes: Z93.0 - Tracheostomy status SNOMED: 968257159 (4) COPD (chronic obstructive pulmonary disease) ICD Codes: J44.9 - Chronic obstructive pulmonary disease, unspecified SNOMED: 03675070 (5) ESRD (end stage renal disease) ICD Codes: N18.6 - End stage renal disease SNOMED: 31056110 (6) Diabetes ICD Codes: E11.9 - Type 2 diabetes mellitus without complications SNOMED: 58168743 Status: unchanged Assessment/Plan: continue Novolog sliding scale no need for basal insulin for now repeat TSH is normal continue LT4 150 mcg daily Subjective ROS Limited/Unobtainable: Yes Allergies: Coded Allergies: NO KNOWN ALLERGIES (Verified Allergy, Unknown, 04/18/18) Subjective events noted glucose values are stable Item Value Date Time Bedside Blood Glucose 104 mg/dl 05/07/19 0000 Bedside Blood Glucose 117 mg/dl 05/06/19 1800 Bedside Blood Glucose 97 mg/dl 05/06/19 1200 Bedside Blood Glucose 121 mg/dl H 05/06/19 0600 Objective Last 24 Hour Vital Signs Date Time Temp Pulse Resp B/P (MAP) Pulse Ox O2 Delivery O2 Flow Rate FiO2 05/07/19 04:00 T-piece 05/07/19 04:00 67 05/07/19 04:00 97.2 70 20 154/85 (108) 100 05/07/19 04:00 8.0 30 05/07/19 00:00 T-piece 05/07/19 00:00 97.5 95 20 150/81 (104) 100 05/07/19 00:00 93 05/07/19 00:00 8.0 30 05/06/19 20:00 64 05/06/19 20:00 98.2 76 18 145/82 (103) 100 05/06/19 20:00 8.0 30 05/06/19 20:00 T-piece 05/06/19 19:45 100 T-Piece 8.0 30 05/06/19 17:50 65 149/74 05/06/19 16:00 8.0 30 05/06/19 16:00 63 05/06/19 16:00 T-piece 05/06/19 16:00 97.7 57 20 149/74 (99) 100 05/06/19 13:17 100 T-Piece 8.0 30 05/06/19 12:06 58 05/06/19 12:00 T-piece 05/06/19 12:00 97.7 57 20 138/74 (95) 100 05/06/19 12:00 8.0 30 05/06/19 11:04 100 T-Piece 8.0 30 05/06/19 11:03 66 05/06/19 09:45 48 164/89 05/06/19 09:20 46 15 30 05/06/19 08:04 47 13 30 05/06/19 08:00 Mechanical Ventilator 05/06/19 08:00 30 05/06/19 08:00 97.7 50 16 164/89 (114) 100 05/06/19 07:51 50 Intake and Output 05/06/19 05/07/19 19:00 07:00 Intake Total 520 ml 550 ml Balance 520 ml 550 ml Free Water 80 ml 150 ml Tube Feeding 440 ml 400 ml # Voids 2 Laboratory Tests 05/07/19 03:05: White Blood Count 8.9, Red Blood Count 2.98L, Hemoglobin 10.5L, Hematocrit 31.0L , Mean Corpuscular Volume 104H, Mean Corpuscular Hemoglobin 35.3H, Mean Corpuscular Hemoglobin Concent 33.9, Red Cell Distribution Width 17.1H, Platelet Count 264, Mean Platelet Volume 4.8L, Neutrophils (%) (Auto) 54.6, Lymphocytes (%) (Auto) 30.9, Monocytes (%) (Auto) 7.1, Eosinophils (%) (Auto) 6.2H, Basophils (%) (Auto) 1.2, Sodium Level 141, Potassium Level 5.2H, Chloride Level 106, Carbon Dioxide Level 25, Anion Gap 10, Blood Urea Nitrogen 60H, Creatinine 6.1H, Estimat Glomerular Filtration Rate 7.0, Glucose Level 92, Calcium Level 9.8, Phosphorus Level 4.5, Magnesium Level 3.1H, Total Bilirubin 0.4, Aspartate Amino Transf (AST/SGOT) 31, Alanine Aminotransferase (ALT/SGPT) 32, Alkaline Phosphatase 181H, Troponin I 0.000, Total Protein 9.2H, Albumin 3.3L, Globulin 5.9, Albumin/Globulin Ratio 0.6L, Thyroid Stimulating Hormone ( TSH) 1.753, Free Thyroxine 0.87 Height (Feet): 5 Height (Inches): 4.00 Weight (Pounds): 116 General Appearance: lethargic Neck: normal alignment Cardiovascular: bradycardia Respiratory/Chest: decreased breath sounds Abdomen: normal bowel sounds Pelvis: normal external exam Objective Current Medications Medications (Trade) Dose Ordered Sig/Mira Route PRN Reason Start Time Stop Time Status Last Admin Dose Admin Acetaminophen (Tylenol) 650 mg Q4H PRN ORAL Mild Pain/Temp > 100.5 04/28/19 23:00 Amlodipine Besylate (Norvasc) 5 mg BID GT 04/28/19 18:00 05/28/19 17:59 05/06/19 17:50 Atorvastatin Calcium (Lipitor) 20 mg BEDTIME GT 04/28/19 21:00 05/28/19 20:59 05/06/19 20:32 Chlorhexidine Gluconate (Alie-Hex 2%) 1 applic DAILY@1999 TOPIC 04/29/19 20:00 05/29/19 19:59 05/06/19 20:31 Clonidine HCl (Catapres Tab) 0.1 mg Q4H PRN GT bp over 165 syst 04/28/19 12:15 05/28/19 12:14 Dextrose (Dextrose 50%) 25 ml Q30M PRN IV Hypoglycemia 04/28/19 12:00 05/28/19 11:59 Dextrose (Dextrose 50%) 50 ml Q30M PRN IV Hypoglycemia 04/28/19 12:00 05/28/19 11:59 Docusate Sodium (Colace) 100 mg TID GT 04/28/19 13:00 05/28/19 11:59 05/04/19 10:10 Epoetin Rudolph (Epoetin Rudolph(ESRD on dialysis)) 10,000 unit TUE-TUE-TUE SUBQ 04/30/19 21:00 05/30/19 20:59 05/04/19 20:26 Insulin Aspart (NovoLOG) Q6HR SUBQ 05/06/19 12:00 05/28/19 16:29 05/06/19 17:55 Lansoprazole (Prevacid) 30 mg BID GT 04/30/19 11:00 05/30/19 10:59 05/06/19 17:49 Levetiracetam (Keppra) 500 mg EVERY 12 HOURS GT 04/28/19 12:00 05/28/19 11:59 05/06/19 20:32 Levothyroxine Sodium (Synthroid) 150 mcg DAILY@0730 GT 04/28/19 14:00 05/28/19 13:59 05/06/19 06:55 Morphine Sulfate (Morphine Sulfate) 4 mg PRN PRN IVP Moderate Pain (Pain Scale 4-6) 04/28/19 02:00 Risperidone (RisperDAL) 1 mg BID GT 05/05/19 18:00 06/04/19 17:59 05/06/19 17:[address] MD May 07, 2019 06:42
--- NOTE | 2019-05-07 07:13 | NUR ---
NURSE NOTES: Received bedside report from Shaheen COLINDRES. Pt. in bed, awake, a/o x 3-4. No sign of distress. On T-piece at 30% Fi O2, at 8L. Denies pain at present. Left perma cath. in placed. Bed in low position, locked. Call light within reach. Will cont. to monitor.
--- NOTE | 2019-05-07 07:13 | NUR ---
HAND-OFF: Report given to JENS Robbins. No acute distress noted at this time.
[2019-05-07 08:00] VITALS: BP 154/83
[2019-05-07] MEDS: Docusate 100mg/10ml Liq GT SCH ×2 (08:52→13:00)
--- NOTE | 2019-05-07 09:46 | General Progress Note ---
Assessment/Plan Problem List: (1) ESRD (end stage renal disease) ICD Codes: N18.6 - End stage renal disease SNOMED: 61541055 (2) COPD (chronic obstructive pulmonary disease) ICD Codes: J44.9 - Chronic obstructive pulmonary disease, unspecified SNOMED: 57410854 (3) Chronic respiratory failure ICD Codes: J96.10 - Chronic respiratory failure, unspecified whether with hypoxia or hypercapnia SNOMED: 89410451 (4) Tracheostomy dependent ICD Codes: Z93.0 - Tracheostomy status SNOMED: 046851436 (5) HTN (hypertension) ICD Codes: I10 - Essential (primary) hypertension SNOMED: 82255279 (6) Seizure ICD Codes: R56.9 - Unspecified convulsions SNOMED: 26924842 (7) CVA (cerebral vascular accident) ICD Codes: I63.9 - Cerebral infarction, unspecified SNOMED: 951612628 (8) Anemia ICD Codes: D64.9 - Anemia, unspecified SNOMED: 169345825 Qualifiers: Qualified Codes: D64.9 - Anemia, unspecified (9) Hypothyroid ICD Codes: E03.9 - Hypothyroidism, unspecified SNOMED: 43950084 Status: unchanged Assessment/Plan: vent dialysis prn transfuse psyc eval prn cbc bmp am ltach eval vs dc plan snf Subjective Constitutional: Reports: weakness Allergies: Coded Allergies: NO KNOWN ALLERGIES (Verified Allergy, Unknown, 04/18/18) All Systems: reviewed and negative except above Subjective trach vent asleep Objective Last 24 Hour Vital Signs Date Time Temp Pulse Resp B/P (MAP) Pulse Ox O2 Delivery O2 Flow Rate FiO2 05/07/19 08:52 66 154/83 05/07/19 08:00 97.7 66 21 154/83 (106) 100 05/07/19 08:00 8.0 30 05/07/19 04:00 T-piece 05/07/19 04:00 67 05/07/19 04:00 97.2 70 20 154/85 (108) 100 05/07/19 04:00 8.0 30 05/07/19 00:00 T-piece 05/07/19 00:00 97.5 95 20 150/81 (104) 100 05/07/19 00:00 93 05/07/19 00:00 8.0 30 05/06/19 20:00 64 05/06/19 20:00 98.2 76 18 145/82 (103) 100 05/06/19 20:00 8.0 30 05/06/19 20:00 T-piece 05/06/19 19:45 100 T-Piece 8.0 30 05/06/19 17:50 65 149/74 05/06/19 16:00 8.0 30 05/06/19 16:00 63 05/06/19 16:00 T-piece 05/06/19 16:00 97.7 57 20 149/74 (99) 100 05/06/19 13:17 100 T-Piece 8.0 30 05/06/19 12:06 58 05/06/19 12:00 T-piece 05/06/19 12:00 97.7 57 20 138/74 (95) 100 05/06/19 12:00 8.0 30 05/06/19 11:04 100 T-Piece 8.0 30 05/06/19 11:03 66 Intake and Output 05/06/19 05/07/19 19:00 07:00 Intake Total 520 ml 550 ml Balance 520 ml 550 ml Free Water 80 ml 150 ml Tube Feeding 440 ml 400 ml # Voids 2 3 Laboratory Tests 05/07/19 03:05: White Blood Count 8.9, Red Blood Count 2.98L, Hemoglobin 10.5L, Hematocrit 31.0L , Mean Corpuscular Volume 104H, Mean Corpuscular Hemoglobin 35.3H, Mean Corpuscular Hemoglobin Concent 33.9, Red Cell Distribution Width 17.1H, Platelet Count 264, Mean Platelet Volume 4.8L, Neutrophils (%) (Auto) 54.6, Lymphocytes (%) (Auto) 30.9, Monocytes (%) (Auto) 7.1, Eosinophils (%) (Auto) 6.2H, Basophils (%) (Auto) 1.2, Sodium Level 141, Potassium Level 5.2H, Chloride Level 106, Carbon Dioxide Level 25, Anion Gap 10, Blood Urea Nitrogen 60H, Creatinine 6.1H, Estimat Glomerular Filtration Rate 7.0, Glucose Level 92, Calcium Level 9.8, Phosphorus Level 4.5, Magnesium Level 3.1H, Total Bilirubin 0.4, Aspartate Amino Transf (AST/SGOT) 31, Alanine Aminotransferase (ALT/SGPT) 32, Alkaline Phosphatase 181H, Troponin I 0.000, Total Protein 9.2H, Albumin 3.3L, Globulin 5.9, Albumin/Globulin Ratio 0.6L, Thyroid Stimulating Hormone ( TSH) 1.753, Free Thyroxine 0.87 Height (Feet): 5 Height (Inches): 4.00 Weight (Pounds): 116 General Appearance: lethargic EENT: normal ENT inspection Neck: normal alignment Cardiovascular: normal peripheral pulses, normal rate, regular rhythm Respiratory/Chest: chest wall non-tender, lungs clear, normal breath sounds Abdomen: normal bowel sounds, non tender, soft Extremities: normal inspection Edema: no edema noted Arm (L), no edema noted Arm (R), no edema noted Leg (L), no edema noted Leg (R), no edema noted Pedal (L), no edema noted Pedal (R), no edema noted Generalized Neurologic: motor weakness Skin: normal pigmentation, warm/dry Hernán Davis DO May 07, 2019 09:46
--- NOTE | 2019-05-07 10:02 | General Progress Note ---
Assessment/Plan Status: unchanged Assessment/Plan: PAST MEDICAL HISTORY: 1. Respiratory failure, now chronic trach. 2. Dysphagia with G-tube. 3. Renal failure, on dialysis. 4. Hypothyroidism. 5. Diabetes. 6. Psychiatric disorder. 7. CVA. 8.GIB s/p EGD and colonoscopy no active GIB on HD GTF Nephro at 40 cc Subjective ROS Limited/Unobtainable: No Allergies: Coded Allergies: NO KNOWN ALLERGIES (Verified Allergy, Unknown, 04/18/18) Objective Last 24 Hour Vital Signs Date Time Temp Pulse Resp B/P (MAP) Pulse Ox O2 Delivery O2 Flow Rate FiO2 05/07/19 08:52 66 154/83 05/07/19 08:00 97.7 66 21 154/83 (106) 100 05/07/19 08:00 8.0 30 05/07/19 04:00 T-piece 05/07/19 04:00 67 05/07/19 04:00 97.2 70 20 154/85 (108) 100 05/07/19 04:00 8.0 30 05/07/19 00:00 T-piece 05/07/19 00:00 97.5 95 20 150/81 (104) 100 05/07/19 00:00 93 05/07/19 00:00 8.0 30 05/06/19 20:00 64 05/06/19 20:00 98.2 76 18 145/82 (103) 100 05/06/19 20:00 8.0 30 05/06/19 20:00 T-piece 05/06/19 19:45 100 T-Piece 8.0 30 05/06/19 17:50 65 149/74 05/06/19 16:00 8.0 30 05/06/19 16:00 63 05/06/19 16:00 T-piece 05/06/19 16:00 97.7 57 20 149/74 (99) 100 05/06/19 13:17 100 T-Piece 8.0 30 05/06/19 12:06 58 05/06/19 12:00 T-piece 05/06/19 12:00 97.7 57 20 138/74 (95) 100 05/06/19 12:00 8.0 30 05/06/19 11:04 100 T-Piece 8.0 30 05/06/19 11:03 66 Intake and Output 05/06/19 05/07/19 19:00 07:00 Intake Total 520 ml 550 ml Balance 520 ml 550 ml Free Water 80 ml 150 ml Tube Feeding 440 ml 400 ml # Voids 2 3 Laboratory Tests 05/07/19 03:05: White Blood Count 8.9, Red Blood Count 2.98L, Hemoglobin 10.5L, Hematocrit 31.0L , Mean Corpuscular Volume 104H, Mean Corpuscular Hemoglobin 35.3H, Mean Corpuscular Hemoglobin Concent 33.9, Red Cell Distribution Width 17.1H, Platelet Count 264, Mean Platelet Volume 4.8L, Neutrophils (%) (Auto) 54.6, Lymphocytes (%) (Auto) 30.9, Monocytes (%) (Auto) 7.1, Eosinophils (%) (Auto) 6.2H, Basophils (%) (Auto) 1.2, Sodium Level 141, Potassium Level 5.2H, Chloride Level 106, Carbon Dioxide Level 25, Anion Gap 10, Blood Urea Nitrogen 60H, Creatinine 6.1H, Estimat Glomerular Filtration Rate 7.0, Glucose Level 92, Calcium Level 9.8, Phosphorus Level 4.5, Magnesium Level 3.1H, Total Bilirubin 0.4, Aspartate Amino Transf (AST/SGOT) 31, Alanine Aminotransferase (ALT/SGPT) 32, Alkaline Phosphatase 181H, Troponin I 0.000, Total Protein 9.2H, Albumin 3.3L, Globulin 5.9, Albumin/Globulin Ratio 0.6L, Thyroid Stimulating Hormone ( TSH) 1.753, Free Thyroxine 0.87 Height (Feet): 5 Height (Inches): 4.00 Weight (Pounds): 116 General Appearance: no apparent distress EENT: normal ENT inspection Neck: supple Cardiovascular: normal rate Respiratory/Chest: decreased breath sounds Abdomen: normal bowel sounds, non tender, soft Extremities: non-tender Fritz Hillman MD May 07, 2019 10:02
--- NOTE | 2019-05-07 10:59 | Pulmonolgy Critical Care Note ---
Critical Care - Asmt/Plan Problems: (1) Chronic respiratory failure (2) COPD (chronic obstructive pulmonary disease) (3) ESRD (end stage renal disease) (4) Tracheostomy dependent (5) Anemia (6) At high risk for aspiration (7) Heme positive stool (8) HTN (hypertension) (9) Seizure (10) CVA (cerebral vascular accident) (11) Diabetes Respiratory: monitor respiratory rate, adjust FIO2 Cardiac: continue to monitor HR/BP Renal: F/U I&O, keep IV fluid Infectious Disease: check cultures, continue antibiotics Endocrine: monitor blood sugar, check HgA1C Hematologic: transfuse if hgb<8.5 Neurologic: PRN Ativan, PRN Morphine, keep patient comfortable Prophylaxis: Protonix Disposition: keep in ICU Time Spent (Minutes): 40 Notes Reviewed: cardio, renal Discussed with: nurses, consultants, assistant case managerbilingual account manager - Objective Last 24 Hour Vital Signs Date Time Temp Pulse Resp B/P (MAP) Pulse Ox O2 Delivery O2 Flow Rate FiO2 05/07/19 08:52 66 154/83 05/07/19 08:00 97.7 66 21 154/83 (106) 100 05/07/19 08:00 T-piece 05/07/19 08:00 8.0 30 05/07/19 07:50 65 05/07/19 07:05 100 T-Piece 8.0 30 05/07/19 04:00 T-piece 05/07/19 04:00 67 05/07/19 04:00 97.2 70 20 154/85 (108) 100 05/07/19 04:00 8.0 30 05/07/19 00:00 T-piece 05/07/19 00:00 97.5 95 20 150/81 (104) 100 05/07/19 00:00 93 05/07/19 00:00 8.0 30 05/06/19 20:00 64 05/06/19 20:00 98.2 76 18 145/82 (103) 100 05/06/19 20:00 8.0 30 05/06/19 20:00 T-piece 05/06/19 19:45 100 T-Piece 8.0 30 05/06/19 17:50 65 149/74 05/06/19 16:00 8.0 30 05/06/19 16:00 63 05/06/19 16:00 T-piece 05/06/19 16:00 97.7 57 20 149/74 (99) 100 05/06/19 13:17 100 T-Piece 8.0 30 05/06/19 12:06 58 05/06/19 12:00 T-piece 05/06/19 12:00 97.7 57 20 138/74 (95) 100 05/06/19 12:00 8.0 30 05/06/19 11:04 100 T-Piece 8.0 30 05/06/19 11:03 66 Status: awake Condition: improving Neck: full ROM Lungs: chest wall tender Heart: HR/BP stable Abdomen: soft, feeding tube Extremities: edema Decubiti: stage Accucheck: 104 Critical Care - Subjective ROS Limited/Unobtainable: No Condition: critical EKG Rhythm: Sinus Rhythm FI02: 30 Vent Support Breath Rate: 12 Vent Support Mode: IMV/SIMV Vent Tidal Volume: 500 Sputum Amount: Small PEEP: 5.0 PIP: 18 Tube Feeding Amount: 0 I&O: Intake and Output 05/06/19 05/07/19 19:00 07:00 Intake Total 520 ml 550 ml Balance 520 ml 550 ml Free Water 80 ml 150 ml Tube Feeding 440 ml 400 ml # Voids 2 3 Labs: Laboratory Tests Test 05/07/19 03:05 White Blood Count 8.9 K/UL (4.8-10.8) Red Blood Count 2.98 M/UL (4.20-5.40) L Hemoglobin 10.5 G/DL (12.0-16.0) L Hematocrit 31.0 % (37.0-47.0) L Mean Corpuscular Volume 104 FL (80-99) H Mean Corpuscular Hemoglobin 35.3 PG (27.0-31.0) H Mean Corpuscular Hemoglobin Concent 33.9 G/DL (32.0-36.0) Red Cell Distribution Width 17.1 % (11.6-14.8) H Platelet Count 264 K/UL (150-450) Mean Platelet Volume 4.8 FL (6.5-10.1) L Neutrophils (%) (Auto) 54.6 % (45.0-75.0) Lymphocytes (%) (Auto) 30.9 % (20.0-45.0) Monocytes (%) (Auto) 7.1 % (1.0-10.0) Eosinophils (%) (Auto) 6.2 % (0.0-3.0) H Basophils (%) (Auto) 1.2 % (0.0-2.0) Sodium Level 141 MMOL/L (136-145) Potassium Level 5.2 MMOL/L (3.5-5.1) H Chloride Level 106 MMOL/L (98-107) Carbon Dioxide Level 25 MMOL/L (21-32) Anion Gap 10 mmol/L (5-15) Blood Urea Nitrogen 60 mg/dL (7-18) H Creatinine 6.1 MG/DL (0.55-1.30) H Estimat Glomerular Filtration Rate 7.0 mL/min (>60) Glucose Level 92 MG/DL (74-106) Calcium Level 9.8 MG/DL (8.5-10.1) Phosphorus Level 4.5 MG/DL (2.5-4.9) Magnesium Level 3.1 MG/DL (1.8-2.4) H Total Bilirubin 0.4 MG/DL (0.2-1.0) Aspartate Amino Transf (AST/SGOT) 31 U/L (15-37) Alanine Aminotransferase (ALT/SGPT) 32 U/L (12-78) Alkaline Phosphatase 181 U/L (46-116) H Troponin I 0.000 ng/mL (0.000-0.056) Total Protein 9.2 G/DL (6.4-8.2) H Albumin 3.3 G/DL (3.4-5.0) L Globulin 5.9 g/dL Albumin/Globulin Ratio 0.6 (1.0-2.7) L Thyroid Stimulating Hormone (TSH) 1.753 uiU/mL (0.358-3.740) Free Thyroxine 0.87 NG/DL (0.76-1.46) Sheri Elias MD May 07, 2019 10:59
--- NOTE | 2019-05-07 11:42 | NUR ---
RESPIRATORY NOTES: Placed a new tracheostomy tube in patient because of accidental decannulation. RN sabas was at beside with me. No adverse reactions. Patient tolerating well.
[2019-05-07 12:00] VITALS: BP 159/91
--- NOTE | 2019-05-07 12:59 | NUR ---
*-* INSURANCE *-* ALL AVAILABLE CLINICALS HAVE BEEN FAXED TO: [facility]# [id number] [place]:IR[place]AN[place] #[phone]
--- NOTE | 2019-05-07 13:33 | Cardiac Electrophysiology PN ---
Assessment/Plan Assessment/Plan 1. Bradycardia, resolved.No ID 2. Resp failure. S/P Tracheostomy off the VEnt 3. Dysphagia, S/P PEG 4. S/P CVA 5. ESRD on HD per Dr Olmedo 6. Anemia 7. DM DW RN Subjective Subjective Comfortable in NAD. No significant bradycardia overnight. Off the vent. Objective Last 24 Hour Vital Signs Date Time Temp Pulse Resp B/P (MAP) Pulse Ox O2 Delivery O2 Flow Rate FiO2 05/07/19 12:00 8.0 30 05/07/19 12:00 T-piece 05/07/19 12:00 98.0 66 20 159/91 (113) 100 05/07/19 11:44 66 05/07/19 08:52 66 154/83 05/07/19 08:00 97.7 66 21 154/83 (106) 100 05/07/19 08:00 T-piece 05/07/19 08:00 8.0 30 05/07/19 07:50 65 05/07/19 07:05 100 T-Piece 8.0 30 05/07/19 04:00 T-piece 05/07/19 04:00 67 05/07/19 04:00 97.2 70 20 154/85 (108) 100 05/07/19 04:00 8.0 30 05/07/19 00:00 T-piece 05/07/19 00:00 97.5 95 20 150/81 (104) 100 05/07/19 00:00 93 05/07/19 00:00 8.0 30 05/06/19 20:00 64 05/06/19 20:00 98.2 76 18 145/82 (103) 100 05/06/19 20:00 8.0 30 05/06/19 20:00 T-piece 05/06/19 19:45 100 T-Piece 8.0 30 05/06/19 17:50 65 149/74 05/06/19 16:00 8.0 30 05/06/19 16:00 63 05/06/19 16:00 T-piece 05/06/19 16:00 97.7 57 20 149/74 (99) 100 Intake and Output 05/06/19 05/07/19 19:00 07:00 Intake Total 520 ml 550 ml Balance 520 ml 550 ml Free Water 80 ml 150 ml Tube Feeding 440 ml 400 ml # Voids 2 3 Laboratory Tests Test 05/07/19 03:05 White Blood Count 8.9 K/UL (4.8-10.8) Red Blood Count 2.98 M/UL (4.20-5.40) L Hemoglobin 10.5 G/DL (12.0-16.0) L Hematocrit 31.0 % (37.0-47.0) L Mean Corpuscular Volume 104 FL (80-99) H Mean Corpuscular Hemoglobin 35.3 PG (27.0-31.0) H Mean Corpuscular Hemoglobin Concent 33.9 G/DL (32.0-36.0) Red Cell Distribution Width 17.1 % (11.6-14.8) H Platelet Count 264 K/UL (150-450) Mean Platelet Volume 4.8 FL (6.5-10.1) L Neutrophils (%) (Auto) 54.6 % (45.0-75.0) Lymphocytes (%) (Auto) 30.9 % (20.0-45.0) Monocytes (%) (Auto) 7.1 % (1.0-10.0) Eosinophils (%) (Auto) 6.2 % (0.0-3.0) H Basophils (%) (Auto) 1.2 % (0.0-2.0) Sodium Level 141 MMOL/L (136-145) Potassium Level 5.2 MMOL/L (3.5-5.1) H Chloride Level 106 MMOL/L (98-107) Carbon Dioxide Level 25 MMOL/L (21-32) Anion Gap 10 mmol/L (5-15) Blood Urea Nitrogen 60 mg/dL (7-18) H Creatinine 6.1 MG/DL (0.55-1.30) H Estimat Glomerular Filtration Rate 7.0 mL/min (>60) Glucose Level 92 MG/DL (74-106) Calcium Level 9.8 MG/DL (8.5-10.1) Phosphorus Level 4.5 MG/DL (2.5-4.9) Magnesium Level 3.1 MG/DL (1.8-2.4) H Total Bilirubin 0.4 MG/DL (0.2-1.0) Aspartate Amino Transf (AST/SGOT) 31 U/L (15-37) Alanine Aminotransferase (ALT/SGPT) 32 U/L (12-78) Alkaline Phosphatase 181 U/L (46-116) H Troponin I 0.000 ng/mL (0.000-0.056) Total Protein 9.2 G/DL (6.4-8.2) H Albumin 3.3 G/DL (3.4-5.0) L Globulin 5.9 g/dL Albumin/Globulin Ratio 0.6 (1.0-2.7) L Thyroid Stimulating Hormone (TSH) 1.753 uiU/mL (0.358-3.740) Free Thyroxine 0.87 NG/DL (0.76-1.46) Objective GENERAL: No distress. PULMONARY: Decreased breath sounds. Has trach off the vent CARDIOVASCULAR: Regular rate. No S3 or S4. ABDOMEN: Soft, nontender, and nondistended. gtube EXTREMITIES: No cyanosis, swelling, or edema noted. Jose Miguel Terry MD May 07, 2019 13:33
--- NOTE | 2019-05-07 15:02 | NUR ---
DISCHARGE SWALLOW/SPEECH THERAPY SUMMARY: SEEN FOR DYSPHAGIA, SEE EVALUATION REPORT. UNABLE TO COMPLETE MOD BARIUM SWALLOW STUDY DUE TO SCHEDULE CONFLICTS AND PT ON DIALYSIS NOW. PLAN: CONTINUE WITH PEG FEEDINGS AND ORAL CARE. D/C TODAY TO SNF AND F/UP WITH LOAN BROKER AT SNF TO SCHEDULE MOD BARIUM SWALLOW STUDY OP TO ASSESS SAFETY AND READINESS FOR ORAL GRATIFICATION. PER PT, SHE HAS A SPEAKING VALVE AT SNF (NOT GIVEN ONE HERE SINCE SHE WAS GOING TO BE D/C ON MANY OCCASIONS.
--- NOTE | 2019-05-07 15:34 | Nephrology Progress Note ---
Assessment/Plan Problem List: (1) ESRD (end stage renal disease) (2) Chronic respiratory failure (3) Anemia Assessment: worsened (4) Hypothyroid (5) Hypercalcemia Assessment ESRD Anemia; ESRD or blood loss or both Sz HypoThyroid HTN DM Hypercalcemia Plan dialysis- as needed Still refusing lab work Hgb better- not transfused HD last 05/05, agree with DC planning previously: Was Due dialysis 04/30 when dialysis nurse attempted, the patient decl;ined dialysis and consent ! ? Psych eval for decision making ability? need transfusion waiting for psych advise Anemia [place] EPO HD as needed scheduled for 04/30 Keep BP in check watch serum Ca one dose Aredia 60 Subjective ROS Limited/Unobtainable: Yes Objective Objective Last 24 Hour Vital Signs Date Time Temp Pulse Resp B/P (MAP) Pulse Ox O2 Delivery O2 Flow Rate FiO2 05/07/19 12:00 8.0 30 05/07/19 12:00 T-piece 05/07/19 12:00 98.0 66 20 159/91 (113) 100 05/07/19 11:44 66 05/07/19 08:52 66 154/83 05/07/19 08:00 97.7 66 21 154/83 (106) 100 05/07/19 08:00 T-piece 05/07/19 08:00 8.0 30 05/07/19 07:50 65 05/07/19 07:05 100 T-Piece 8.0 30 05/07/19 04:00 T-piece 05/07/19 04:00 67 05/07/19 04:00 97.2 70 20 154/85 (108) 100 05/07/19 04:00 8.0 30 05/07/19 00:00 T-piece 05/07/19 00:00 97.5 95 20 150/81 (104) 100 05/07/19 00:00 93 05/07/19 00:00 8.0 30 05/06/19 20:00 64 05/06/19 20:00 98.2 76 18 145/82 (103) 100 05/06/19 20:00 8.0 30 05/06/19 20:00 T-piece 05/06/19 19:45 100 T-Piece 8.0 30 05/06/19 17:50 65 149/74 05/06/19 16:00 8.0 30 05/06/19 16:00 63 05/06/19 16:00 T-piece 05/06/19 16:00 97.7 57 20 149/74 (99) 100 Intake and Output 05/06/19 05/07/19 19:00 07:00 Intake Total 520 ml 550 ml Balance 520 ml 550 ml Free Water 80 ml 150 ml Tube Feeding 440 ml 400 ml # Voids 2 3 Laboratory Tests 05/07/19 03:05: White Blood Count 8.9, Red Blood Count 2.98L, Hemoglobin 10.5L, Hematocrit 31.0L , Mean Corpuscular Volume 104H, Mean Corpuscular Hemoglobin 35.3H, Mean Corpuscular Hemoglobin Concent 33.9, Red Cell Distribution Width 17.1H, Platelet Count 264, Mean Platelet Volume 4.8L, Neutrophils (%) (Auto) 54.6, Lymphocytes (%) (Auto) 30.9, Monocytes (%) (Auto) 7.1, Eosinophils (%) (Auto) 6.2H, Basophils (%) (Auto) 1.2, Sodium Level 141, Potassium Level 5.2H, Chloride Level 106, Carbon Dioxide Level 25, Anion Gap 10, Blood Urea Nitrogen 60H, Creatinine 6.1H, Estimat Glomerular Filtration Rate 7.0, Glucose Level 92, Calcium Level 9.8, Phosphorus Level 4.5, Magnesium Level 3.1H, Total Bilirubin 0.4, Aspartate Amino Transf (AST/SGOT) 31, Alanine Aminotransferase (ALT/SGPT) 32, Alkaline Phosphatase 181H, Troponin I 0.000, Total Protein 9.2H, Albumin 3.3L, Globulin 5.9, Albumin/Globulin Ratio 0.6L, Thyroid Stimulating Hormone ( TSH) 1.753, Free Thyroxine 0.87 Height (Feet): 5 Height (Inches): 4.00 Weight (Pounds): 116 General Appearance: no apparent distress EENT: other - trach Respiratory/Chest: decreased breath sounds Abdomen: distended Objective no change Bandar Olmedo MD May 07, 2019 15:34
--- NOTE | 2019-05-07 15:42 | Hematology/Onc Progress Note ---
Assessment/Plan Assessment/Plan ASSESSMENT AND RECOMMENDATIONS: #. Anemia due to underlying iron deficiency. Continue to closely monitor. Anemia workup has been ordered. Hemoglobin goal is above 7. Transfuse as needed. No evidence of reticulocytosis or hemolysis at the moment. --> panel reviewed from this admission --> continue EPOGEN --> started on iv iron --> transf if hgb <7 --> is to continue on synthroid --> hgb 7.7-->7.5-->5.9-->8.9-->7.4 --> Has been REFUSING HD AND TRANSFUSIONS (occasionally does agree) --> COLO EGD showed a poor prep --> spep is pending-> f/u as outpatient #. Anemia due to underlying gi bleed, as occult is + --> has been seen by gi and pending potential egd --> has been dw patient, considering once more stable #. Hypercalcemia -- in this case less likely due to malignancy but is from esrd --> keep phos-ca product low --> Ca+ trend, pamidronate/lasix as needed --> Ca+ 10.7-->10-->9->9.8 --> ivf as prn #. ESRD on hd 3 times a week --> phos binders per renal --> titrate fluid volume status as needed --> refusing hd at this time #. Diabetes mellitus. A1c goal less than 7. #. Seizure disorder. --> per Neuro, hx of cva in the past #. Dysphagia s/p peg #. Resp failure s/p trach #. Dvt ppx scds Appreciate the consultation and huseyin RN. Subjective HEENT: Denies: no symptoms, eye pain, blurred vision, tearing, double vision, ear pain, ear discharge, nose pain, nose congestion, throat pain, throat swelling, mouth pain, mouth swelling, other Cardiovascular: Denies: no symptoms, chest pain, edema, irregular heart rate, lightheadedness, palpitations, syncope, other Respiratory: Denies: no symptoms, cough, shortness of breath, SOB with excertion, SOB at rest, sputum, wheezing, other Gastrointestinal/Abdominal: Denies: no symptoms, abdomen distended, abdominal pain, black stools, tarry stools, blood in stool, constipated, diarrhea, difficulty swallowing, nausea, poor appetite, poor fluid intake, rectal bleeding , vomiting, other Genitourinary: Denies: no symptoms, burning, discharge, frequency, flank pain, hematuria, incontinence, pain, urgency, other Endocrine: Denies: no symptoms, excessive sweating, flushing, intolerance to cold, intolerance to heat, increased hunger, increased thirst, increased urine, unexplained weight gain, unexplained weight loss, other Allergies: Coded Allergies: NO KNOWN ALLERGIES (Verified Allergy, Unknown, 04/18/18) Subjective 05/01: refusing blood transfusion, no bleeding or chills noted, also refusing hd 05/02: has been refusing prbc transfusion, as per psych recs for capacity, no n/ c today 05/03: did accept hd, and iron, refused epogen, dw patient again, doesn't want those meds 05/04: no complaints, to get colo this am, results pending, appears to be poor prep 05/06: labs are pending, has refused recently, gi aware occult+ 05/07: for potential dc today, no bleeding noted, labs reviewed Objective Objective Current Medications Medications (Trade) Dose Ordered Sig/Mira Route PRN Reason Start Time Stop Time Status Last Admin Dose Admin Acetaminophen (Tylenol) 650 mg Q4H PRN ORAL Mild Pain/Temp > 100.5 04/28/19 23:00 Amlodipine Besylate (Norvasc) 5 mg BID GT 04/28/19 18:00 05/28/19 17:59 05/07/19 08:52 Atorvastatin Calcium (Lipitor) 20 mg BEDTIME GT 04/28/19 21:00 05/28/19 20:59 05/06/19 20:32 Chlorhexidine Gluconate (Alie-Hex 2%) 1 applic DAILY@1999 TOPIC 04/29/19 20:00 05/29/19 19:59 05/06/19 20:31 Clonidine HCl (Catapres Tab) 0.1 mg Q4H PRN GT bp over 165 syst 04/28/19 12:15 05/28/19 12:14 Dextrose (Dextrose 50%) 25 ml Q30M PRN IV Hypoglycemia 04/28/19 12:00 05/28/19 11:59 Dextrose (Dextrose 50%) 50 ml Q30M PRN IV Hypoglycemia 04/28/19 12:00 05/28/19 11:59 Docusate Sodium (Colace) 100 mg TID GT 04/28/19 13:00 05/28/19 11:59 05/07/19 08:52 Epoetin Rudolph (Epoetin Rudolph(ESRD on dialysis)) 10,000 unit TUE-TUE-TUE SUBQ 04/30/19 21:00 05/30/19 20:59 05/04/19 20:26 Insulin Aspart (NovoLOG) Q6HR SUBQ 05/06/19 12:00 05/28/19 16:29 05/06/19 17:55 Lansoprazole (Prevacid) 30 mg BID GT 04/30/19 11:00 05/30/19 10:59 05/07/19 08:52 Levetiracetam (Keppra) 500 mg EVERY 12 HOURS GT 04/28/19 12:00 05/28/19 11:59 05/07/19 08:52 Levothyroxine Sodium (Synthroid) 150 mcg DAILY@0730 GT 04/28/19 14:00 05/28/19 13:59 05/07/19 07:12 Morphine Sulfate (Morphine Sulfate) 4 mg PRN PRN IVP Moderate Pain (Pain Scale 4-6) 04/28/19 02:00 Risperidone (RisperDAL) 1 mg BID GT 05/05/19 18:00 06/04/19 17:59 05/07/19 08:52 Last 24 Hour Vital Signs Date Time Temp Pulse Resp B/P (MAP) Pulse Ox O2 Delivery O2 Flow Rate FiO2 05/07/19 12:00 8.0 30 05/07/19 12:00 T-piece 05/07/19 12:00 98.0 66 20 159/91 (113) 100 05/07/19 11:44 66 05/07/19 08:52 66 154/83 05/07/19 08:00 97.7 66 21 154/83 (106) 100 05/07/19 08:00 T-piece 05/07/19 08:00 8.0 30 05/07/19 07:50 65 05/07/19 07:05 100 T-Piece 8.0 30 05/07/19 04:00 T-piece 05/07/19 04:00 67 05/07/19 04:00 97.2 70 20 154/85 (108) 100 05/07/19 04:00 8.0 30 05/07/19 00:00 T-piece 05/07/19 00:00 97.5 95 20 150/81 (104) 100 05/07/19 00:00 93 05/07/19 00:00 8.0 30 05/06/19 20:00 64 05/06/19 20:00 98.2 76 18 145/82 (103) 100 05/06/19 20:00 8.0 30 05/06/19 20:00 T-piece 05/06/19 19:45 100 T-Piece 8.0 30 05/06/19 17:50 65 149/74 05/06/19 16:00 8.0 30 05/06/19 16:00 63 05/06/19 16:00 T-piece 05/06/19 16:00 97.7 57 20 149/74 (99) 100 05/06/19 13:17 100 T-Piece 8.0 30 05/06/19 12:06 58 05/06/19 12:00 T-piece 05/06/19 12:00 97.7 57 20 138/74 (95) 100 05/06/19 12:00 8.0 30 05/06/19 11:04 100 T-Piece 8.0 30 05/06/19 11:03 66 05/06/19 09:45 48 164/89 05/06/19 09:20 46 15 30 05/06/19 08:04 47 13 30 05/06/19 08:00 Mechanical Ventilator 05/06/19 08:00 30 05/06/19 08:00 97.7 50 16 164/89 (114) 100 05/06/19 07:51 50 05/06/19 05:00 51 12 30 05/06/19 04:00 30 05/06/19 04:00 47 05/06/19 04:00 Mechanical Ventilator 05/06/19 04:00 97.8 47 14 154/73 (100) 100 05/06/19 02:35 50 16 30 05/06/19 00:40 52 12 30 05/06/19 00:00 54 05/06/19 00:00 30 05/06/19 00:00 98.1 51 12 152/77 (102) 99 05/06/19 00:00 Mechanical Ventilator 05/05/19 23:05 50 17 30 05/05/19 20:42 59 14 30 05/05/19 20:00 98.9 64 14 161/72 (101) 100 05/05/19 20:00 51 05/05/19 20:00 Mechanical Ventilator 05/05/19 20:00 30 05/05/19 19:35 55 14 30 05/05/19 18:00 49 153/68 05/05/19 17:14 49 14 30 05/05/19 16:00 53 05/05/19 16:00 Mechanical Ventilator 05/05/19 16:00 30 05/05/19 16:00 99.2 68 18 153/68 (96) 100 Intake and Output 05/06/19 05/07/19 19:00 07:00 Intake Total 520 ml 550 ml Balance 520 ml 550 ml Free Water 80 ml 150 ml Tube Feeding 440 ml 400 ml # Voids 2 3 Labs Test 05/05/19 12:30 05/07/19 03:05 White Blood Count 6.8 K/UL (4.8-10.8) 8.9 K/UL (4.8-10.8) Red Blood Count 2.15 M/UL (4.20-5.40) 2.98 M/UL (4.20-5.40) Hemoglobin 7.4 G/DL (12.0-16.0) 10.5 G/DL (12.0-16.0) Hematocrit 22.0 % (37.0-47.0) 31.0 % (37.0-47.0) Mean Corpuscular Volume 102 FL (80-99) 104 FL (80-99) Mean Corpuscular Hemoglobin 34.6 PG (27.0-31.0) 35.3 PG (27.0-31.0) Mean Corpuscular Hemoglobin Concent 33.9 G/DL (32.0-36.0) 33.9 G/DL (32.0-36.0) Red Cell Distribution Width 16.3 % (11.6-14.8) 17.1 % (11.6-14.8) Platelet Count 228 K/UL (150-450) 264 K/UL (150-450) Mean Platelet Volume 5.0 FL (6.5-10.1) 4.8 FL (6.5-10.1) Neutrophils (%) (Auto) % (45.0-75.0) 54.6 % (45.0-75.0) Lymphocytes (%) (Auto) % (20.0-45.0) 30.9 % (20.0-45.0) Monocytes (%) (Auto) % (1.0-10.0) 7.1 % (1.0-10.0) Eosinophils (%) (Auto) % (0.0-3.0) 6.2 % (0.0-3.0) Basophils (%) (Auto) % (0.0-2.0) 1.2 % (0.0-2.0) Differential Total Cells Counted 100 Neutrophils % (Manual) 53 % (45-75) Lymphocytes % (Manual) 34 % (20-45) Monocytes % (Manual) 7 % (1-10) Eosinophils % (Manual) 5 % (0-3) Basophils % (Manual) 1 % (0-2) Band Neutrophils 0 % (0-8) Platelet Estimate Adequate Platelet Morphology Normal Polychromasia 1+ Hypochromasia 1+ Anisocytosis 1+ Macrocytosis 1+ Sodium Level 140 MMOL/L (136-145) 141 MMOL/L (136-145) Potassium Level 4.7 MMOL/L (3.5-5.1) 5.2 MMOL/L (3.5-5.1) Chloride Level 109 MMOL/L (98-107) 106 MMOL/L (98-107) Carbon Dioxide Level 23 MMOL/L (21-32) 25 MMOL/L (21-32) Anion Gap 8 mmol/L (5-15) 10 mmol/L (5-15) Blood Urea Nitrogen 70 mg/dL (7-18) 60 mg/dL (7-18) Creatinine 5.9 MG/DL (0.55-1.30) 6.1 MG/DL (0.55-1.30) Estimat Glomerular Filtration Rate 7.3 mL/min (>60) 7.0 mL/min (>60) Glucose Level 87 MG/DL (74-106) 92 MG/DL (74-106) Calcium Level 8.7 MG/DL (8.5-10.1) 9.8 MG/DL (8.5-10.1) Phosphorus Level 3.5 MG/DL (2.5-4.9) 4.5 MG/DL (2.5-4.9) Magnesium Level 2.6 MG/DL (1.8-2.4) 3.1 MG/DL (1.8-2.4) Total Bilirubin 0.4 MG/DL (0.2-1.0) Aspartate Amino Transf (AST/SGOT) 31 U/L (15-37) Alanine Aminotransferase (ALT/SGPT) 32 U/L (12-78) Alkaline Phosphatase 181 U/L (46-116) Troponin I 0.000 ng/mL (0.000-0.056) Total Protein 9.2 G/DL (6.4-8.2) Albumin 3.3 G/DL (3.4-5.0) Globulin 5.9 g/dL Albumin/Globulin Ratio 0.6 (1.0-2.7) Thyroid Stimulating Hormone (TSH) 1.753 uiU/mL (0.358-3.740) Free Thyroxine 0.87 NG/DL (0.76-1.46) Height (Feet): 5 Height (Inches): 4.00 Weight (Pounds): 116 Objective PHYSICAL EXAMINATION: VITAL SIGNS: Reviewed. GENERAL: No distress. PULMONARY: Decreased breath sounds. ++ trach/vent CARDIOVASCULAR: Regular rate. No S3 or S4. ABDOMEN: Soft, nontender, and nondistended. ++ gtube EXTREMITIES: No cyanosis, swelling, or edema noted. Roly Palomares MD May 07, 2019 15:42
[2019-05-07 16:00] VITALS: BP 128/77
--- NOTE | 2019-05-07 16:43 | NUR ---
VENEER JOINER NOTES SPOKE WITH CHANELLE FROM [facility],MADE AWARE OF PT TO RETURN TONIGHT WITH AN ETA LANE MARKER INSTALLER 1800.
--- NOTE | 2019-05-07 17:49 | NUR ---
NURSE NOTES: Called [facility] and gave report to Karen COLINDRES.
--- NOTE | 2019-05-07 18:15 | Progress Note ---
DATE: 05/07/2019 SUBJECTIVE: This is a 58-year-old female. She has anemia. She has low hemoglobin count. She is very confused, disorganized. She is extremely mood labile. She has got no plans for self-care, but a lot of psychomotor agitation, irritability. MENTAL STATUS EXAMINATION: This is a 58-year-old female. Appearance is disheveled. Attitude, irritable and agitated. Affect, guarded and restricted. Intellect poor. Mood, depressed and anxious. Motor activity, psychomotor agitation. Attention span is poor. Orientation x2. Speech is pressured. Thought process, disorganized and illogical. Insight and judgment is poor. DIAGNOSIS: Major depressive disorder, severe, recurrent with psychotic features, rule out paranoid schizophrenia, rule out dementia with psychosis. PLAN: Continue treatment with psychotropic medications to stabilize her mood. Provide her with 20 minutes of cognitive behavioral therapy to help her identify automatic negative thoughts and help her convert negative thoughts to more positive thoughts to reduce depression, anxiety, mood lability. Chart reviewed. Discussed with staff. Seen and assessed at bedside. Tang Oliva M.D. DR: SHAJI JOB#: [id number] CC:
--- NOTE | 2019-05-07 18:54 | NUR ---
Discharge: Patient is being discharged to [facility] from medical care. Awake, alert and oriented x3. All medical devices such as IV, security monitor and ID band were removed. Patient wheeled out with all personal belongings. Pt. remain stable.
--- NOTE | 2019-05-07 20:38 | Discharge Summary ---
Discharge Summary Discharge Summary _ DATE OF ADMISSION: 04/28/2019 DATE OF DISCHARGE: 05/07/2019 DISCHARGED BY: Dr Davis REASON FOR ADMISSION: 58 years old female with past medical history of chronic respiratory failure, tracheostomy status, end-stage renal disease, hemodialysis, COPD, diabetes mellitus, history of CVA with left residual deficit, hypertension, dysphagia, feeding by G-tube, seizure disorder, hypothyroidism, major depressive disorder, was sent from the senior care facility due to abnormal labs. Apparently at the facility hemoglobin was 7.3. She had heme positive stool on rectal exam and was sent to the hospital for further evaluation and management. Patient by herself denied any symptoms ; she was able to communicate by shaking or nodding her head. No fever or chills. No nausea or vomiting. No chest pain. No rectal bleeding. Upon evaluation vital signs revealed elevated blood pressure 169/72. Pulse oximetry on T-piece with FiO2 40% with 95%. Chest x-ray revealed small layering left pleural effusion and left left lower lobe atelectasis versus consolidation. No pneumothorax. Hemoglobin 7.7, hematocrit 20.3. No leukocytosis. Stable platelet count 257. BUN 62, creatinine 4.5, consistent with known history of end-stage renal disease. Calcium 10.5. Stable other electrolytes. Patient subsequently admitted to direct observational unit for further management CONSULTANTS: grass farm laborer Dr. Gomez pulmonary Dr. lEias GI specialist Dr. Hillman cashier host/hostess Dr. Lane antisubmarine weapons officer Dr. Olmedo detective and intelligence analyst/oncologist Dr. Palomares cashier host/hostess Dr Lane psychiatrist Dr. Oliva [facility]SE: Patient admitted to [facility]. Patient was connected to ventilator. Patient was followed-up with chest x-ray. Pulmonary toilet with bronchodilator therapy and suctioning provided as needed. Tracheostomy care provided. Follow-up chest x-ray revealed improved aeration in the left lung base ,left basal density resolved. Venous duplex bilateral lower extremity revealed no evidence of acute DVT. Sequential compression device applied after venous duplex test , which was negative. Heparin was hold due to anemia. Hemodialysis provided as per antisubmarine weapons officer recommendations with close monitoring of volumes , cardiorenal parameters and electrolytes. Patient refused dialysis at one time. Aredia was given for high calcium . Hypercalcemia resolved , and prior to discharge calcium 9.8. Hemoglobin and hematocrit were closely monitored with goal to keep hemoglobin above 7. Stool for occult blood was positive x3. On 04/30 hemoglobin 5.9, hematocrit 16.2. Aspirin stopped. Patient declined blood transfusion . Patient started on Epogen as per antisubmarine weapons officer and IV iron. Hemoglobin and hematocrit subsequently improved. GI specialist followed. CEA elevated 10.4. Patient undergone on 05/03 upper endoscopy with biopsy, which revealed gastritis , otherwise normal . The next day on 05/04 patient undergone colonoscopy , which revealed poor colonic preparation. No obvious source of bleeding or mass was seen with this preparation. Pathology of gastric antrum revealed benign oxyntic mucosa with no significant histopathological abnormality. Negative for H. pylori. Negative for intestinal metaplasia, dysplasia and malignancy. Prior to discharge hemoglobin 10.5, hematocrit 31. Diet was resumed via G-tube with strict aspiration precaution. GI prophylaxis provided. Bowel regimen instituted. Service Desk Associate followed. Patient was noted to have bradycardia , which resolved. Troponin was negative . EKG revealed no acute ischemic changes. No acute TX as per grass farm laborer. Echocardiogram revealed global left ventricular hypokinesis with left ventricular ejection fraction estimated to be 40 to 45%. Mild mitral regurgitation. Right ventricular systolic pressure of 43. Blood pressure was managed with current regimen. Statin continued. Blood sugar was managed with sliding scale of insulin. Hemoglobin A1c at goal. Booth Supervisor followed. No need for basal insulin at this time. Initially TSH elevated , but repeated TSH was stable . Booth Supervisor recommended to continue current dose of levothyroxine. Seizure precaution maintained. Anticonvulsant from facility were continue . Supportive care provided. Psychiatrist followed and diagnosed patient with severe major depressive disorder, recurrent , with psychotic features. Psychotropic medication regimen was optimized as per psychiatrist to stabilize patient mood. Cognitive behavioral therapy provided.. Patient was encouraged compliance with dialysis and lab draws. Patient clinically stabilized and was ready for transfer back to senior care [facility] for continuation of care. FINAL DIAGNOSES: GI bleeding Chronic respiratory failure with tracheostomy dependence End-stage renal disease, on hemodialysis Anemia, multifactorial Hemoccult positive stools COPD Cardiomyopathy Systolic dysfunction History of CVA with left residual deficit Dysphagia , feeding by G-tube Hypertension Seizure disorder Hypothyroidism Diabetes mellitus Major depressive disorder, severe, recurrent , with psychotic features Hypercalcemia -resolved DISCHARGE MEDICATIONS: See Medication Reconciliation list. DISCHARGE INSTRUCTIONS: Patient was discharged to the senior care facility. Follow up with medical doctor at the facility. Stephanie Fuentes NP May 07, 2019 20:38
--- NOTE | 2019-05-08 07:44 | Cardiology Report ---
APPROVED REPORT EXAM: Two-dimensional and M-mode echocardiogram with Doppler and color Doppler. INDICATION Bradycardia M-Mode DIMENSIONS IVSd0.9 (0.7-1.1cm)Left Atrium (MM)3.0 (1.6-4.0cm) LVDd3.3 (3.5-5.6cm)Aortic Root3.1 (2.0-3.7cm) PWd1.0 (0.7-1.1cm)Aortic Cusp Exc.1.9 (1.5-2.0cm) LVDs2.1 (2.5-4.0cm) PWs1.3 cm Global left ventricular hypokinesis. Normal left ventricular chamber size. Left ventricular ejection fraction estimated to be 40-45 %. All other cardiac chamber sizes are within normal limits. Focal aortic valve sclerosis with adequate cusp excursion. Thickened mitral valve leaflets with normal excursion. Mild mitral annulus and aortic root calcification. Pulmonic valve not well visualized. Normal tricuspid valve structure. IVC is normal in size without physiological collapse. A color flow and spectral Doppler study was performed and revealed: Mild mitral regurgitation. Mitral diastolic velocities suggest mild left ventricular diastolic dysfunction (Grade I). Trace tricuspid regurgitation. Tricuspid systolic velocities suggests peak right ventricular systolic pressure of 23 mmHg. Trace pulmonic regurgitation present.
== END 2019-05-07 18:51 | DRG 663 ==
LOC: EDBD 00:51 → EDBEDREQ 01:30 → EMR 01:45 → 2W 02:00 → EDBEDREQ 02:27 → 2W 23:22
PROC: 5A1955Z Respiratory Ventilation, Greater than 96 Consecutive Hours (ICD-10-PCS; principal; 2019-04-28)
PROC: 5A1D70Z Performance of Urinary Filtration, Intermittent, Less than 6 Hours Per Day (ICD-10-PCS; 2019-04-29)
PROC: 0DD78ZX Extraction of Stomach, Pylorus, Via Natural or Artificial Opening Endoscopic, Diagnostic (ICD-10-PCS; 2019-05-03)
PROC: 0DJD8ZZ Inspection of Lower Intestinal Tract, Via Natural or Artificial Opening Endoscopic (ICD-10-PCS; 2019-05-04)
DX: D50.9 Iron deficiency anemia, unspecified (principal); N18.6 End stage renal disease; J96.10 Chronic respiratory failure, unspecified whether with hypoxia or hypercapnia; Z93.0 Tracheostomy status; Z93.1 Gastrostomy status; I12.0 Hypertensive chronic kidney disease with stage 5 chronic kidney disease or end stage renal disease; E11.22 Type 2 diabetes mellitus with diabetic chronic kidney disease; Z99.2 Dependence on renal dialysis; J44.9 Chronic obstructive pulmonary disease, unspecified; G40.909 Epilepsy, unspecified, not intractable, without status epilepticus; I69.998 Other sequelae following unspecified cerebrovascular disease; F03.90 Unspecified dementia, unspecified severity, without behavioral disturbance, psychotic disturbance, mood disturbance, and anxiety; E03.9 Hypothyroidism, unspecified; E46 Unspecified protein-calorie malnutrition; Z68.1 Body mass index [BMI] 19.9 or less, adult; E83.52 Hypercalcemia; F33.3 Major depressive disorder, recurrent, severe with psychotic symptoms; R13.10 Dysphagia, unspecified; R00.1 Bradycardia, unspecified; K29.70 Gastritis, unspecified, without bleeding; R19.5 Other fecal abnormalities
CPT/HCPCS: 36415; 71045; 80048; 80053; 80299; 82270; 82378; 82607; 82728; 82746; 82962; 83036; 83540; 83550; 83735; 83880; 84100; 84165; 84439; 84443; 84484; 84550; 85007; 85025; 85651; 86140; 86850; 86900; 86901; 86920; 87081; 92610; 93005; 93306; 93970; 94002; 94003; 94150; 94664; 97802; 99285; J1815; J2430; J7030